=== PATIENT | male | born 1945 | race Caucasian/White ===

== ENCOUNTER 2024-11-08 12:27 | Outpatient (REF) | payer MEDICARE, SELFPAY | END 2024-11-08 12:28 | disposition home or self-care (01) | LOC: HO.LAB 12:27 | PROVIDERS: Visit Provider Family Medicine | DX: Z00.00 Encounter for general adult medical examination without abnormal findings (principal); R68.83 Chills (without fever); C85.90 Non-Hodgkin lymphoma, unspecified, unspecified site; N30.90 Cystitis, unspecified without hematuria | CPT/HCPCS: 99202 ==

== ENCOUNTER 2024-11-08 12:27 | Outpatient (AMB) | payer MEDICARE, SELFPAY ==
[2024-11-08 12:50] VITALS: BP 102/58; PULSE 92; TEMP 37.1; O2SAT 98; BMI 23.4
--- NOTE | 2024-11-08 12:50 | MHC.OFFWIV ---
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 Was recently treated with Bactrim for a bladder infection. Was recently told that his lymphoma is out of remission. Followed by oncologist. Dr Norah Valdes At [facility]. Denies cough Review of Systems Const Details: See HPI Physical Exam Vital Signs: Last Vital Signs Temp 98.8 F 11/08/24 12:50 Pulse 92 11/08/24 12:50 BP 102/58 L 11/08/24 12:50 Pulse Ox 98 11/08/24 12:50 BMI result Body Mass Index 23.4 Const General: no acute distress and well developed Nutritional Appearance: well nourished Orientation/consciousness: patient oriented x3 HEENT Other: Mucous membranes dry Head: Yes normocephalic and Yes atraumatic Eyes General: appearance normal, both eyes and all related structures Pupils: Equal, round and reactive pupils present EOM: EOMs intact bilaterally Resp Effort & Inspection: normal respiratory effort Auscultation: clear to auscultation bilaterally Cardio Rate: regular rate Rhythm: regular rhythm Heart sounds: S1 normal heart sound present, S2 normal heart sound present, no gallops, no murmurs and no rubs Neuro General: patient oriented x3 and gait normal Cranial nerves: Yes Equal, round and reactive pupils present Psych Affect: normal affect Assessment & Plan Assessment & Plan (1) Chills: Code(s): R68.83 - Chills (without fever) Plan: 79-year-old male with history of lymphoma which he says is recently no longer in remission, and recent history of bladder infection which had been treated with Bactrim presents with chills and weakness/fatigue. No acute distress on exam. At lungs are clear to auscultation bilaterally. No evidence of pneumonia. No upper respiratory infections identified. No abdominal discomfort. He did have a recent bladder infection however. Patient recently out of remission with lymphoma. Will treat for likely urinary tract infection with cephalexin. Recently had Bactrim. Increase hydration. Patient does not drink much water. Checking urine studies, CBC and CMP. Will have results sent to his oncologist at [facility]. Patient does not currently have a primary care physician and I recommended he try to get 1 as soon as he can. If not improving return to clinic. Declines chest x-ray at this time but if he returns would include this in workup. If worsening, go to ED (2) Lymphoma: Code(s): C85.90 - Non-Hodgkin lymphoma, unspecified, unspecified site (3) Bladder infection: Code(s): N30.90 - Cystitis, unspecified without hematuria Plan Oncologist. Dr Norah Valdes At [facility] Orders: Orders Complete Blood Count Auto Diff Today R68.83 - Chills (without fever), Z00.00 - Encounter for general adult medical examination without abnormal findings Comprehensive Met. Panel Today R68.83 - Chills (without fever) UA and rflx microscopic Today R68.83 - Chills (without fever), Z00.00 - Encounter for general adult medical examination without abnormal findings Urine Culture Today R68.83 - Chills (without fever) Medications: New cephalexin 500 mg PO Q12H 10 days 20 caps 0RF Coding Level of Care Code New Pt Level 4 (51483) Diagnoses Chills R68.83 Lymphoma C85.90 Bladder infection N30.90
== END 2024-11-08 14:28 | disposition home or self-care (01) ==
PROVIDERS: Visit Provider Family Medicine
DX: R68.83 Chills (without fever) (principal); C85.90 Non-Hodgkin lymphoma, unspecified, unspecified site; N30.90 Cystitis, unspecified without hematuria

== ENCOUNTER 2024-11-08 14:10 | Outpatient (REF) | payer MEDICARE, SELFPAY ==
[2024-11-08 15:11] LABS: MANUAL DIFF FLAG NO
[2024-11-08 15:15] LABS: Basophils Percent Auto 0.3 % (0-2); Hemoglobin 12.3 g/dl (14.0-18.0); Imm Gran Abs Auto 0.05 X10*3/uL (0.00-0.03); Imm Gran Pct Auto 0.7 % (0.0-0.4); Lymphocytes Absolute Auto 1.4 X10*3/uL (1.2-4.9); Lymphocytes Percent Auto 18.3 % (20-40); Mean Corpuscular HGB Conc 33.2 g/dl (31.0-36.0); Mean Corpuscular Hemoglobin 31.1 pg (27.0-33.0); Mean Corpuscular Volume 93.4 fL (80.0-98.0); Mean Platelet Volume 9.9 fL (9.4-12.4); Monocytes Absolute Auto 0.4 X10*3/uL (0.1-1.2); Monocytes Percent Auto 5.5 % (2-11); Neutrophils Absolute Auto 5.7 x10*3/uL (2.0-8.3); Neutrophils Percent Auto 75.2 % (45-73); Platelet Count 123 X10*3/uL (160-400); Red Blood Count 3.96 X10*6/uL (4.60-5.80); Red Cell Distribution Width 12.6 % (11.0-16.0); White Blood Count 7.6 X10*3/uL (4.8-10.8)
[2024-11-08 15:22] LABS: Appearance Urine Turbid; Color Urine Yellow; Glucose Urine UA Negative (Negative); Leukocyte Esterase Urine Large (3+) (Negative); Nitrite Urine Negative (Negative); PH 5.5 (5.0-9.0); Specific Gravity - Urine 1.015 (1.005-1.025); UMIC TRIGGER UA YES; Urine Blood Moderate (2+) (Negative); Urine Ketones Negative (Negative); Urine Protein 30 (1+) mg/dL (Neg-Trace)
[2024-11-08 15:40] LABS: Albumin Level 4.1 g/dL (3.5-5.0); Anion Gap 15 (12-20); Aspartate Amino Transferase 14 U/L (5-37); Bilirubin Total 0.6 mg/dL (0.0-1.0); Blood Urea Nitrogen 21 mg/dL (9-16); Calcium 9.1 mg/dL (8.4-10.2); Carbon Dioxide 20 mmol/L (22-29); Chloride 111 mmol/L (96-108); Estimated Glomerular Filt Rate 55; Glucose Random 112 mg/dL (60-115); Potassium 4.4 mmol/L (3.3-5.1); Sodium 142 mmol/L (135-145); Total Protein 6.6 g/dL (6.5-8.0)
[2024-11-08 16:32] LABS: Bacteria Urine None Seen (None Seen); Hyaline Casts Urine 0-2 /LPF (0-2); Squamous Epithelial Cell Urine 0-2 /HPF (0-2); WBC Urine >50 /HPF (0-5)
[2024-11-08 17:10] LABS: Alanine Aminotransferase 16 U/L (0-40); Alkaline Phosphatase 76 U/L (39-117)
== END 2024-11-08 14:11 | disposition home or self-care (01) ==
LOC: HO.HMGCLDS 14:10
PROVIDERS: Visit Provider Family Medicine
DX: Z00.00 Encounter for general adult medical examination without abnormal findings (principal); R68.83 Chills (without fever)
CPT/HCPCS: 36415; 80053; 81001; 85025; 87086

== ENCOUNTER 2025-01-23 13:30 | Outpatient (AMB) | payer MEDICARE, SELFPAY ==
--- NOTE | 2025-01-23 14:05 | A.OFFPC_ITS ---
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 Intake Note: new patient here to establish care Medical Care Manager Required: No Allergies No Known Allergies Allergy (Verified 01/23/25 14:14) Medication List - Last Reconciled 01/23/25 by Aj Bustos MD acalabrutinib maleate (Calquence (acalabrutinib maleate)) mg PO alfuzosin ER 10 mg PO DAILY 30 days aspirin (Adult Low Dose Aspirin) 81 mg PO DAILY atorvastatin 40 mg PO DAILY Tobacco use date assessed: 01/23/25 Fall risk assessment: 1 Fall in past year Last assessed Fall Risk: 01/23/25 Dental Screening Dental Screen Date: 01/23/25 Did you have a dental visit in the last 12 months?: No Did you have a dental problem in the last 6 months where you did not have access to dental care?: No Was dental information given to patient?: No HPI 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 Carotid U/S, Trial Alfuzosin, Social: Retired Worked in [employer] under [employer]. 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 Walks daily. FORMERLY [facility] Medical History (Updated 01/23/25 @ 17:33 by Aj Bustos MD) Deafness in right ear Enlarged prostate MCL (mantle cell lymphoma) Family History (Updated 01/23/25 @ 14:13 by GREGG Palomares) Father Diabetes Mother Esophageal cancer Social History Housing: Apartment Patient Tobacco Use Status: Former Tobacco user e-Cigarette/Vaping Use: Never Used service: Yes Current occupational status: retired Current occupational exposures/hazards: No Cognitive needs: No Hearing needs: Yes Vision needs: Yes Questionnaire PHQ-9 Over the last 2 weeks, how often have you been bothered by any of the following problems? 1. Little interest or pleasure in doing things: not at all 2. Feeling down, depressed, or hopeless: not at all 3. Trouble falling or staying asleep, or sleeping too much: not at all 4. Feeling tired or having little energy: several days 5. Poor appetite or overeating: not at all 6. Feeling bad about yourself - or that you are a failure or have let yourself or your family down: not at all 7. Trouble concentrating on things, such as reading the newspaper or watching television: not at all 8. Moving or speaking so slowly that other people could have noticed. Or the opposite - being so fidgety or restless that you have been moving around a lot more than usual: not at all 9. Thoughts that you would be better off or of hurting yourself in some way: not at all Total score: 1 Depression Screening Interpretation: Negative Depression Screening Done: Yes 91204 - PHQ-9 Billing: Yes Source: Developed by Drs. Matt Puentes, Lee Ann Staley, Rocael Plascencia and colleagues, with an educational christa from [employer]. Thrive Questionnaire Date Thrive assessed: 01/23/25 I am a: Patient What is your living situation today?: I have a steady place to live Within the past 12 months, did the food you bought not last and you didn't have the money to get more?: Never true Within the past 12 months, did you worry whether your food would run out before you got money to buy more?: Never true Do you have trouble paying for medicines?: No Do you have trouble getting transportation to medical appointments?: No Do you have trouble paying your heating and electricity bill?: No Do you have trouble taking care of your child, family member or friend?: No Do you have trouble with day-to-day activities such as bathing, preparing meals, shopping, managing finances, etc.?: No Are you currently unemployed and looking for a job?: No Are you interested in more education?: No Please select the resources that you would like help with: None Currently or been in a relationship where the following occur: No concerns reported THRIVE Score: 0 AUDIT C Alcohol Use Questionnaire (AUDIT-C) 1. How often do you have a drink containing alcohol?: 4 or more times a week 2. How many drinks containing alcohol do you have on a typical day when you are drinking?: 1 or 2 3. How often do you have six or more drinks on one occasion?: Never Total Score: 4 Score Reviewed/Action Taken: Yes MAHSA-7 AMB Questionnaire MAHSA-7 Date MAHSA - 7 assessed: 01/23/25 Feeling nervous, anxious, or on edge: 0 = Not at all Not being able to stop or control worryin = Not at all Worrying too much about different things: 0 = Not at all Trouble relaxin = Not at all Being so restless that it is hard to sit still: 0 = Not at all Becoming easily annoyed or irritable: 0 = Not at all Feeling afraid as if something awful might happen: 1 = Several days Total MAHSA-7 score (0-4 normal; 5-9 mild; 10-14 moderate; 15-21 severe): 1 Source: Developed by Drs. Matt Puentes, Lee Ann Staley, Rocael Plascencia and colleagues, with an educational christa from [employer]. MAHSA-7 Assessment Billing MAHSA-7 Assessment Tool: MAHSA-7 Assessment 24536 Review of Systems Const Denies chills, Denies fatigue, Denies fever(s), Denies headache(s) and Denies weakness ENT Denies dizziness and Denies headache(s) Card Denies chest pain, Denies lightheadedness, Denies dyspnea and Denies other (Palpitations) Resp Denies cough, Denies dyspnea, Denies wheezing and Denies other ( shortness of breath) Musc Denies numbness and Denies tingling Neuro Denies dizziness, Denies headache(s), Denies numbness, Denies tingling, Denies paresthesias and Denies weakness Psych Denies anxiety and Denies depression Endo Denies fatigue Aller/Immun Denies wheezing Physical exam (Primary Care) Vital Signs: Last Vital Signs Temp 98.2 F 01/23/25 14:16 Pulse 77 01/23/25 14:16 Resp 14 01/23/25 14:16 BP 102/57 L 01/23/25 14:16 Pulse Ox 95 01/23/25 14:16 Oxygen Delivery Method Room Air 01/23/25 14:16 BMI result Body Mass Index 23.7 Tobacco/Smoking Status: Tobacco use Status Tobacco use date assessed 01/23/25 01/23/25 14:24 Patient Tobacco Use Status Former Tobacco user 01/23/25 14:24 e-Cigarette/Vaping Use Never Used 01/23/25 14:24 PHQ-9: PHQ-9 Score PHQ-9: Total score 1 01/23/25 14:50 Depression Screening Interpretation: Negative Thrive Assessment: Date of Thrive Assessment Date Thrive assessed 01/23/25 01/23/25 14:23 Currently or been in a relationship where the following occur: No concerns reported Const General: no acute distress and well developed Nutritional Appearance: well nourished Orientation/consciousness: patient oriented x3 HENMT Head: Yes normocephalic and Yes atraumatic Eyes General: appearance normal, both eyes and all related structures Pupils: Equal, round and reactive pupils present EOM: EOMs intact bilaterally Resp Effort & Inspection: normal respiratory effort Auscultation: clear to auscultation bilaterally Cardio Rate: regular rate Rhythm: regular rhythm Heart sounds: S1 normal heart sound present, S2 normal heart sound present, no gallops, no murmurs and no rubs Neuro General: patient oriented x3 and gait normal Cranial nerves: Yes Equal, round and reactive pupils present Psych Affect: normal affect Coding Level of Care Code New Pt Level 4 (31175) Diagnoses Lymphoma C85.90 Urinary retention R33.9 TIA (transient ischemic attack) G45.9 Carotid artery plaque I65.29 Additional Codes MAHSA-7 Assessment Billing - MAHSA-7 Assessment Tool: MAHSA-7 Assessment 61596 ([id number]) PHQ-9 - 96565 - PHQ-9 Billing: Yes ([id number]) Assessment & Plan Assessment & Plan (1) Lymphoma: Code(s): C85.90 - Non-Hodgkin lymphoma, unspecified, unspecified site Category: Medical Plan: Patient?with?diagnosis?of?lymphoma?and?recent?PET?scan?in?August?showed?no?long er?in?remission. Followed?by?hematology?and?Oncology?at?[facility] Awaiting?records (2) Urinary retention: Code(s): R33.9 - Retention of urine, unspecified Category: Medical Plan: Urinary?retention?which?is?managed?with?tamsulosin.??Patient?says?this?manages?h is?urinary?symptoms?well?but?causes?significant?fatigue and?fogginess. Trial?alfuzosin He?will?return?to?tamsulosin?if?any?problems. (3) TIA (transient ischemic attack): Code(s): G45.9 - Transient cerebral ischemic attack, unspecified Category: Medical Plan: Patient?notes?history?of?TIA Does?not?appear?to?be?fully?worked?up?though?I?do?not?have?records.??He?is?on?at orvastatin?and?aspirin?and?I?advised?continue?the Does?have?carotid?bruit?and?PET?scan?med?she?was?incidental?carotid? artery?plaques Check?ultrasound?of?carotid?arteries (4) Carotid artery plaque: Code(s): I65.29 - Occlusion and stenosis of unspecified carotid artery Category: Medical Plan: As?above,?check?ultrasound May?need?referral?to?vascular?surgery Orders: Orders Comprehensive [place]. Panel Fast 01/23/25 Z00. - Encounter for general adult medical examination without abnormal findings Complete Blood Count Auto Diff 01/23/25 Z00. - Encounter for general adult medical examination without abnormal findings Prostate Specific Antigen Scr 01/23/25 Z12.5 - Encounter for screening for malignant neoplasm of prostate TSH reflex Free T4 01/23/25 Z00.00 - Encounter for general adult medical examination without abnormal findings XR chest 2V 01/23/25 C85.90 - Non-Hodgkin lymphoma, unspecified, unspecified site, R09.89 - Other specified symptoms and signs involving the circulatory and respiratory systems US carotid duplex BI 01/23/25 G45.9 - Transient cerebral ischemic attack, unspecified, I65.29 - Occlusion and stenosis of unspecified carotid artery, R09.89 - Other specified symptoms and signs involving the circulatory and respiratory systems Lipid Panel 01/23/25 Z00. - Encounter for general adult medical examination without abnormal findings Microalbumin, Random (w Creat) 01/23/25 I10 - Essential (primary) hypertension UA and rflx microscopic 01/23/25 Z. - Encounter for general adult medical examination without abnormal findings MuSK Antibody 01/23/25 R29.810 - Facial weakness Acetylcholine Receptor Binding 01/23/25 R29.810 - Facial weakness Medications: New alfuzosin ER administer after the same meal each day 10 mg PO DAILY 30 days 30 tabs 1RF
[2025-01-23 14:16] VITALS: BP 102/57; PULSE 77; RESP 14; TEMP 36.8; O2SAT 95; BMI 23.7
--- OUTSIDE RECORDS SUMMARY | 2025-01-23 15:09 | XMS_ITS ---
Author Organization [facility] Address [address] [place] [address] Care Team Providers Care Binder Technician Name Role Phone DO NOT USE Shirley Quintanilla MD Primary Care Provider Unavailable PHYLLIS ANGELA Unavailable [phone] BLESSING SMITH Unavailable [phone] REASON FOR VISIT CM IE - 1 call 02/26 Encounters Encounter Location Date Provider Diagnosis [facility] [address] [place] [address] 02/18/2024 BLESSING SMITH Plan Of Treatment No Information Progress Notes * Matt HOFFMANDOB:1944 (78 yo M)Acc No.[id number]:02/18/2024 Patient:?Matt HOFFMAN :1945???Age:78 Y???Sex:Male Address:[facility] [address] [place], [address] * true * Date:? Generated for Printi lauro/Yuan/eTransmitting on:?01/23/2025 03:09 PM EST
--- OUTSIDE RECORDS SUMMARY | 2025-01-23 15:10 | XMS_ITS ---
Author Organization [facility] Address [address] [place] [address] Care Team Providers Care Trading Assistant Name Role Phone Shirley Quintanilla MD Primary Care Provider UnavailTONE Urias Unavailable [phone] CORY BROWN Unavailable [phone] Allergies No Known Allergies Results Component Value Reference Range Notes XR Hand 3 v RT Reviewed date:10/23/2023 10:16:54 AM Interpretation: Performing Lab: Notes/Report: REASON FOR VISIT RT Thumb clicking Medications Medication SIG (Take, Route, Frequency, Duration) Notes Start Date End Date Status Atorvastatin Calcium 40 MG Oral for 90 Active Sulfamethoxazole-Trimethopri m 400-80 MG Oral for 90 Active Acalabrutinib 100 MG 1 capsule Orally ev ramsey 12 hrs for 30 day(s) Active Aspirin 81 MG 1 capsule Orally Onc e a day for 30 day(s) Active Vitamin D3 Active Calquence 100 MG Oral for 30 A ctive Social History Tobacco Use: Social History Observation Description Date Details (start date - stop date) Former Smoker NA - NA Tobacco Use/Smoking Question Answer Notes Current Smoking Status: former smoker Alcohol Screen (Audit-C) Question Answer Notes Did you have a drink containing alcohol in the p ast year? Yes Points 0 Interpretation Negative Problems Problem Type SNOMED Code ICD Code Onset Dates Problem Status W/U Status Risk Notes Problem [id number] Trigger finger of right thumb (M65.311) Active confirmed Vital Signs Height 69 in 10/23/2023 Weight 164 lbs 10/23/2023 BMI 24.22 kg/m2 10/23/2023 Encounters Encounter Location Date Provider Diagnosis [facility] [address] [place] [address] 10/23/2023 CORY BROWN Trigger finger of right thumb M65.311 Assessments Encounter Date Diagnosis (ICD Code) Assessment Notes Treatment Notes Treatment Clinical Notes Section Notes 10/23/2023 Trigger finger of right thumb (ICD-10 - M65.311) The patient's history, exam, and imaging are consistent with a right trigger thumb. I discussed treatment options with the patient including ice/heat, NSAIDs, occupational therapy, nighttime splinting, cortisone injection, and surgery in the form of trigger finger release. The patient opted for a cortisone injection in the office today, 10/23/2023 to his right trigger thumb. Right trigger thumb. Plan Of Treatment Treatment Notes Assessment Notes Trigger finger of right thumb The patien t's history, exam, and imaging are consistent with a right trigger thumb. I discussed treatment options with the patient including ice/heat, NSAIDs, occupational therapy, nighttime splinting, cortisone injection, and surgery in the form of trigger finger release. The patient opted for a cortisone injection in the office today, 10/23/2023 to his right trigger thumb. Next Appt Details Follow Up: prn, Reason: Medications Administered Medication Instructions Date of Administration Dosage Notes Celestone 10/23/2023 6 mg Inj Tendon Sheath Ligament 10/23/2023 Progress Notes * Matt HOFFMANDOB:07/1945 (78 yo M)Acc No.[id number]:10/23/2023 Patient:?Matt Hoffman Provider:?KOLE Raza :1945???Age:78 Y???Sex:Male Federico e:10/23/2023 Address:[address] Pcp:Shirley Quintanilla MD Subjective: * Chief Complaints: * ???RT Thumb clicking * HPI: ???Constitutional:? Mr. Hoffman is a 78-year-old RHD male who presents to the clinic today for evaluation of right thumb clicking. ?Today, the patient reports clicking in his right thumb with certain movements. He states his symptoms began suddenly approximately 2 weeks ago. ?Mr. Hoffman is retired. 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 * ROS:?General/Constitutional: Change in appetite denies. Chills denies. Fever denies. Ophthalmologic: Blurred vision denies. Discharge denies. Eye Pain denies. ENT: Decreased hearing denies. Sore throat denies. Swollen glands denies. Endocrine: Cold intolerance denies. Excessive thirst denies. Heat intolerance denies. Weight loss denies. Respiratory: Cough denies. Shortness of breath at rest denies. Shortness of breath with exertion denies. Wheezing denies. Cardiovascular: Chest pain at rest denies. Chest pain with exertion denies. Irregular heartbeat denies. Shortness of breath denies. Gastrointestinal: Abdominal pain denies. Diarrhea denies. Nausea denies. Vomiting denies. Genitourinary: Blood in urine denies. Difficulty urinating denies. Frequent urination denies. Skin: Dry skin denies. Itching denies. Rash denies. Neurologic: Dizziness denies. Fainting denies. Headache denies. Musculoskeletal: Positive for right thumb clicking. * Medical History:? * Surgical History:?No Surgica l History documented. * Hospitalization/Major Diagno stic Procedure:?No Hospitalization History. * Family History:?Father: diag nosed with Diabetes, Heart Disease, Hypertension.?Mother: diagnosed with Cancer, OP, OA.? * Social History:?Tobacco Use:?Tobacco Use/Smoking?Current Smoking Status:?former smoker ???Drugs/Alcohol:?Drugs?Have you used drugs other than those for medical reasons in the past 12 months??No ?Alcohol Screen (Audit-C)?Did you have a drink containing alcohol in the past year??Yes ?Points?0 ?Interpretation?Negative ?Caffeine?Intake:?1-2 cups per day ?Do you smoke marijuana?: Denies. ?Do you drink alcohol?: Yes. ???Miscellaneous:?Hand dominance?What hand do you favor??right * Medications:?TakingVitamin D 3 Aspirin 81 MG Capsule 1 capsule Orally Once a dayAcalabrutinib 100 MG Capsule 1 capsule Orally every 12 hrsCalquence 100 MG Capsule Oral Sulfamethoxazole-Trimethoprim 400-80 MG Tablet Oral Atorvastatin Calcium 40 MG Tablet Oral Medication List reviewed and reconciled with the patientTaking Vitamin D3 Taking Aspirin 81 MG Capsule 1 capsule Orally Once a dayTaking Acalabrutinib 100 MG Capsule 1 capsule Orally every 12 hrsTaking Calquence 100 MG Capsule Oral Taking Sulfamethoxazole-Trimethoprim 400-80 MG Tablet Oral Taking Atorvastatin Calcium 40 MG Tablet Oral Medication List reviewed and reconciled with the patient * Allergies:?N.K.D.A.no[Allerg ies Verified] Objective: * Vitals:?Ht: 69 in, Wt: 164 l bs, BMI:24.22 Index. * Examination: ???Right hand: ???FINGER INVOLVED: thumb ?INSPECTION: No color changes, no skin changes, no swelling ?WOUNDS: None present ?DEFORMITY: None ?TENDERNESS: Tender at thumb A1 claus ?MASS: None appreciated ?RANGE OF MOTION: Locking of digit on extension from a flexed position ?STABILITY: No instability noted ?STRENGTH: Normal, no atrophy ?SKIN: Normal ?SENSATION: Normal sensation ?VASCULAR: Good capillary refill < 3 second. ???General Examination: ???GENERAL APPEARANCE: no acute distress ?ORIENTATION: alert and oriented x 3 ?MOOD: cooperative. ??? Assessment: * Assessment: 1.?Trigger finger of right t humb - M65.311 (Primary)? Right trigger thumb. Plan: * Treatment: Notes: The patient's history, exam, and imaging are consistent with a right trigger thumb. I discussed treatment options with the patient including ice/heat, NSAIDs, occupational therapy, nighttime splinting, cortisone injection, and surgery in the form of trigger finger release. The patient opted for a cortisone injection in the office today, 10/23/2023 to his right trigger thumb.?? * Procedures:?Right trigger thumb cortisone injection: The patient's RIGHT hand was placed on the examination table with the palm up. The palpable nodule of the thumb finger was palpated on the flexor tendon, just distal to the A1 claus. The skin was prepped with alcohol. A 27-gauge, 1 1/2-inch needle was inserted just superior to the A1 claus, adjacent to the flexor tendon, angling inferiorly. Once under the claus I injected a solution containing equal parts of 1 cc of Celestone and 0.5 cc of 1% lidocaine. A total of 1.5 cc of solution was injected. The needle was removed and a sterile dressing was applied. ? * Therapeutic Injections:? Celestone : 6 mg given by KOLE RAZA (Trigger finger of right thumb)??? Inj Tendon Sheath Ligament given by KOLE RAZA (Trigger finger of right thumb) * Procedure Codes:?61619 Rad E xam Hand (3 view min)J0702 INJ BETAMETHSN ACTAT&SOD PHOSPH-3MG, Units: 2.00 09443 Inj Tendon Sheath Ligament, Modifiers: LT * Follow Up:?prn * * Sign off status: Completed true * Provider:?KOLE Raza Date:? 023 Generated for Wood restrepo/Yuan/Bud on:?01/23/2025 03:10 PM EST History and Physical Notes * Examination Category Sub-Category Detail Notes Category Not es Right hand FINGER INVOLVED: thumb INSPECTION: No color changes, no skin changes, no swelling WOUNDS: None present DEFORMITY: None TENDERNESS: Tender at thumb A1 claus MASS: None appreciated RANGE OF MOTION: Locking of digit on extension from a flexed position STABILITY: No instability noted STRENGTH: Normal, no atrophy SKIN: Normal SENSATION: Normal sensation VASCULAR: Good capillary refill < 3 second General Examination GENERAL APPEARANCE: no acute distress ORIENTATION: alert and oriented x 3 MOOD: cooperative.
--- OUTSIDE RECORDS SUMMARY | 2025-01-23 15:10 | XMS_ITS | Patient Health Record ---
Author Organization [facility] Address [address] [place] [address] Care Team Providers Care Living Manager Name Role Phone DO NOT USE Shirley Quintanilla MD Primary Care Provider Unavailable ANGELA FERGUSON Unavailable [phone] BLESSING SMITH Unavailable [phone] Allergies No Known Allergies Reason For Referral No Information Medications Medication SIG (Take, Route, Fr equency, Duration) Notes Start Date End Date Status Bactrim 400 mg-80 mg as directed orally daily Active sildenafil Active Aspirin Low Strength Active Calquence 100 mg 1 cap(s) orally ever y 12 hours for 30 day(s) Active atorvastatin 40 mg 1 tab(s) orally once a day for 30 day(s) 09/06/2020 Active Social History Tobacco Use: Social History Observation Description Date Details (start date - stop date) Former Smoker NA - NA Smoking MU Question Answer Notes Are you a: former smoker How long has it been since you last smoked? 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 the i te House, [employer], worked in the Whi te House, [employer], worked in the Whi te House, [employer], worked in the Whi te House, [employer], worked in the Whi te House, [employer], worked in the Whi te House, [employer], worked in the Whi te House, [employer], worked in the Whi te House, [employer], worked in the Whi te House, [employer], worked in the i te House, Problems Problem Type SNOMED Code ICD Code Onset Dates Problem Status W/U Status Risk Notes Problem Urinary tract infectious disease (54380495) Urinary tract infection, site not specified (N39.0) Active confirmed Problem Gross hematuria (127956704) Gross hematuria (R31.0) Active confirmed Problem Incomplete emptying of bladder (764481815) Feeling of incomplete bladder emptying (R39.14) Active confirmed Problem Hydronephrosis (07372091) Other hydronephrosis (N13.39) Active confirmed Problem Traumatic urethral stricture (40834656) urethral stricture, 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) Active confirmed Problem Retention of urine (788217867) Other retention of urine (R33.8) Active confirmed Problem Post-traumatic membranous urethral stricture (545184117547077) 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 Problem Lower urinary tract symptoms due to benign prostatic hypertrophy (68743664555618) Benign prostatic hyperplasia with lower urinary tract symptoms (N40.1) Active confirmed Problem Incomplete emptying of bladder (049673670) Feeling of incomplete bladder emptying (R39.14) Active confirmed Encounters Encounter Location Date Provider Diagnosis [facility] [address] [place] [address] 02/18/2024 BLESSING SMITH [facility] [address] [place] [address] 04/19/2024 BLESSING SMITH Plan Of Treatment Pending Test Test Name Order Date BUN/CREATININE RATIO 08/19/2022 ELECTROLYTE PANEL 08/19/2022 URINE CULTURE AND SENSITIVITY 04/05/2023 URINALYSIS, COMPLETE 04/05/2023 URINALYSIS MICROSCOPIC 10/19/2018 CBC 04/05/2023 UPAP - Urine Cytology 09/19/2017 UARCUA 09/19/2017 ClinitekStatus SG 03/19/2023 Insurance Providers Payer Name Payer Address Payer Phone Subscriber Number Group Number Insured Name Patient Relationship to Insured Coverage Start Date Coverage End Date MEDICARE [address] [place] [phone] [id number] Matt Schmidt am Self - patient is the insured [employer] - [employer] [address] [place] [address] [id number] Matt Schmidt am Self - patient is the insured Medical (General) History Medical History History ICD Code Mantle Cell Lymphoma hyperlipidemia Surgical History Surgery Date(Month/Year) Button TURP 2013 acoustic neuroma - gamma knife 1999 knee arthroscopy
--- OUTSIDE RECORDS SUMMARY | 2025-01-23 15:10 | XMS_ITS ---
Author Organization [facility] Address [address] [place] [address] Care Team Providers Care Brooch Maker Novelty Name Role Phone DO NOT USE Shirley Quintanilla MD Primary Care Provider Unavailable ANGELA FERGUSON Unavailable [phone] BLESSING SMITH Unavailable [phone] Allergies No Known Allergies REASON FOR VISIT 6 mo ov w/ PVR; BPH w/ obstr, ED- arterial insuffiency, gross hematuria, urge incontinence Encounters Encounter Location Date Provider Diagnosis [facility] [address] [place] [address] 03/03/2024 BLESSING MSITH Plan Of Treatment No Information Progress Notes * Matt HOFFMANDOB:1944 (79 yo M)Acc No.[id number]:03/03/2024 est/CM pt Patient:?Matt HOFFMAN Provider:?BERTRAM MENDEZ :1945???Age:78 Y???Sex:Male Federico e:03/03/2024 Address:[facility] [address] [id number] Pcp:Shirley LAINEZ NOT USE David Quintanilla Subjective: * Chief Complaints: * ???1. 6 mo ov w/ PVR; BPH w/ obstr, ED- arterial insuffiency, gross hematuria, urge incontinence. * HPI: ???Problem 1:? 78 year old male pt of Dr Ferguson in for 6 month f/u on hx of BPH/LUTs, gross hematuria, ED, He was given Rx for Cialis 5mg daily for BPH/LUTS to try if he wanted, he has not. Denies dysuria, gross hematuria, fever, chills. Had stopped Finesteride for decreased libido. Off tamsulsin also. Using VIagra PRN. No UTIs. Is on a dose of Bactrim daily rx by Oncology r/t his Mantle Cell Lymphoma treatment Reports is doing timed voiding, Uses Depends at night, will wet. Bed is 9-10P up at 6am. Gets up usually once between 2 and 4am. - per JR last note ; No plans for PAE for now - would need cysto / dilation of stricture first, and symptoms do not bother him enough to have a procedure done at this time. PVR last visit 381ml -PVR today:? BPH / LUTS. Recent gross hematuria, likely from prostatic bleed. Resolved. Unable to complete cystoscopy because of membranous narrowing. S/P TURP many years ago. Normal renal funciton. Intermittent hydro. Libido has improved since he stopped Finasteride. Uses Viagra PRN. . A: Urological History/Sx: Problem List: (1)Prostate Enlargement -Button TURP 2013 (Dr. Walker) -Started Finasteride 03/2018, stopped 2018 -Finasteride and Flomax started 03/21/2022 -Stopped Flomax 06/2022 (2)Gross Hematuria likely secondary to prostatic bleed. (3)UTIs (07/2017, 09/2017, 12/2016) (4)Membranous urethral stricture 78 year old male with h/o BPH / LUTS, recurrent UTIs, and intermittent gross hematuria. INTERVAL HISTORY: Stopped Finasteride 11/2022 (as per oncology - not helping LUT, and decreasing libido). Recent gross hematuria. Creat stable. PET 11/2022 with B/L hydroureteronephrosis. Recent PVR ~500cc Cystoscopy attempted 03/2023. Unable to complete because of membrranous urethral stricture. Arrangements were made for cystoscopy / dilation in the OR. Patient declined. Also were considering prostate artery embolization. Symptoms have improved. No further gross hematuria. [facility]. recently was terminal ill (2021) He is on Calquence for MLC. Follows at [facility]. PMH: TIA, mantle cell lymphoma (s/p stem cell transplant and chemo), acoustin neuroma, hyperlipidemia, migraine, syncope, BPH, osteopenia, CAD 04/27/23 PVR: 407mL 04/05/23 Cystoscopy: Membranous urethral stricture, unable to complete cystoscopy 03/27/23 Creat: 1.04, eGFR >60 03/22/23 PVR: 482mL 03/19/23 UAmicro: 20-40 RBCs, (-)Bacteria, Urine PCR: negative 03/19/23 Urine Cytology: Negative 11/28/22 PET SCAN: Prostatomegaly with findings consistent with chronic bladder outlet obstruction, with similar to slightly worsening bilateral hydroureteronephrosis. Please correlate with renal function tests and/or ultrasound. Recommend correlation with Left hydronephrosis and right hydroureter. No FDG avid activity. 08/24/22 PVR: 485mL 08/15/22 Creat: 1.10, eGFR >60 04/24/22 RBUS: No right hydro. Moderate left hydro. PVR 367mL. Prostate volume of 100mL. B/L ureteral jets are seen. 04/24/22 Creat: 1.17, eGFR 59 03/21/22 PVR: 561mL 03/20/22 PSA: 1.66 01/24/22 PET Scan (read only): worsening b/l hydroureteronephrosis (left > right) likely secondary to ARRIAGA related to prostatomegaly. No evidence of FDG-avid malignancy. 01/24/22 Creat: 1.20, eGFR 62 03/24/21 PET Scan (read only): No FDG avid activity. No hydro. 03/24/21 Creat: 1.13, eGFR >60 06/29/20 PET Scan: No FDG avid lymphoma. FDG avidity at prostate likley secondary to calcification and inflammation. 06/01/20 Cysto: Normal anterior urethra. Slighty narrow at membranous urethra, but no need for dilation. TURP defect, friable tissue, hypervascular. Bladder trabeculations. 05/20/20 Urine Culture: No Growth 07/03/19 PVR: 307mL 05/06/19 Urine Cytology: Benign, Urine Cx: Mixed Amy 12/23/18 PVR: 192mL 11/07/18 PVR: 350mL 10/31/18 UA Micro: Negative 08/06/18 PSA: 1.7 06/25/18 PET Scan: Significant decrease in disease burden. Prostatomegaly. 06/24/18 Urine Cx: Enterococcus 04/10/18 Creat: 0.99, eGFR >60 04/01/18 UA: Positive, Urine Cx; Enterococcus 01/17/18 PVR: 350mL 01/16/18 Creat: 1.03, eGFR >60 12/21/17 Urine Culture: E Faecalis 12/21/17 UA Micro: 4-10 RBCs/hpf, >50 WBCs/hpf, (+)Bacteria 07/19/17 Cystoscopy: Trabeculations, friable prostate. . * Medical History:?Mantle Cell Lymphoma, Hyperlipidemia. * Family History:?Father: unkn own, family history unknown .?Mother: unknown, family history unknown .? Brother prostate cancer. * Allergies:?N.K.D.A. Objective: * Vitals:? Assessment: Plan: * Treatment: * Images: Billing Information: * Visit Code:? * Procedure Codes:? * Electronic signature of Miguel HOANG on 01/23/2025 at 03:09 PM EST Sign off status: Pending * Provider:?SARAVANAN MENDEZ Date:?03/03 Generated for Wood restrepo/Yuan/Idaitting on:?01/23/2025 03:09 PM EST History and Physical Notes * HPI (History of Present Illness) Category Sub-Category Detail Notes Category Not es Problem 1 78 year old male pt of Dr Ferguson in for 6 month f/u on hx of BPH/LUTs, gross hematuria, ED, He was given Rx for Cialis 5mg daily for BPH/LUTS to try if he wanted, he has not. Denies dysuria, gross hematuria, fever, chills. Had stopped Finesteride for decreased libido. Off tamsulsin also. Using VIagra PRN. No UTIs. Is on a dose of Bactrim daily rx by Oncology r/t his Mantle Cell Lymphoma treatment Reports is doing timed voiding, Uses Depends at night, will wet. Bed is 9-10P up at 6am. Gets up usually once between 2 and 4am. - per JR last note ; No plans for PAE for now - would need cysto / dilation of stricture first, and symptoms do not bother him enough to have a procedure done at this time. PVR last visit 381ml -PVR today: BPH / LUTS. Recent gross hematuria, likely from prostatic bleed. Resolved. Unable to complete cystoscopy because of membranous narrowing. S/P TURP many years ago. Normal renal funciton. Intermittent hydro. Libido has improved since he stopped Finasteride. Uses Viagra PRN. . A: Urological History/Sx: Problem List: (1)Prostate Enlargement -Button TURP 2013 (Dr. Walker) -Started Finasteride 03/2018, stopped 2018 -Finasteride and Flomax started 03/21/2022 -Stopped Flomax 06/2022 (2)Gross Hematuria likely secondary to prostatic bleed. (3)UTIs (07/2017, 09/2017, 12/2016) (4)Membranous urethral stricture 78 year old male with h/o BPH / LUTS, recurrent UTIs, and intermittent gross hematuria. INTERVAL HISTORY: Stopped Finasteride 11/2022 (as per oncology - not helping LUT, and decreasing libido). Recent gross hematuria. Creat stable. PET 11/2022 with B/L hydroureteronephrosis. Recent PVR ~500cc Cystoscopy attempted 03/2023. Unable to complete because of membrranous urethral stricture. Arrangements were made for cystoscopy / dilation in the OR. Patient declined. Also were considering prostate artery embolization. Symptoms have improved. No further gross hematuria. He is back on [facility]. recently was terminal ill (2021) [facility] is on [facility] for [facility]. Follows at [facility]. PMH: TIA, mantle cell lymphoma (s/p stem cell transplant and chemo), acoustin neuroma, hyperlipidemia, migraine, syncope, BPH, osteopenia, CAD 04/27/23 PVR: 407mL 04/05/23 Cystoscopy: Membranous urethral stricture, unable to complete cystoscopy 03/27/23 Creat: 1.04, eGFR >60 03/22/23 PVR: 482mL 03/19/23 UAmicro: 20-40 RBCs, (-)Bacteria, Urine PCR: negative 03/19/23 Urine Cytology: Negative 11/28/22 PET SCAN: Prostatomegaly with findings consistent with chronic bladder outlet obstruction, with similar to slightly worsening bilateral hydroureteronephrosis. Please correlate with renal function tests and/or ultrasound. Recommend correlation with Left hydronephrosis and right hydroureter. No FDG avid activity. 08/24/22 PVR: 485mL 08/15/22 Creat: 1.10, eGFR >60 04/24/22 RBUS: No right hydro. Moderate left hydro. PVR 367mL. Prostate volume of 100mL. B/L ureteral jets are seen. 04/24/22 Creat: 1.17, eGFR 59 03/21/22 PVR: 561mL 03/20/22 PSA: 1.66 01/24/22 PET Scan (read only): worsening b/l hydroureteronephrosis (left > right) likely secondary to ARRIAGA related to prostatomegaly. No evidence of FDG-avid malignancy. 01/24/22 Creat: 1.20, eGFR 62 03/24/21 PET Scan (read only): No FDG avid activity. No hydro. 03/24/21 Creat: 1.13, eGFR >60 06/29/20 PET Scan: No FDG avid lymphoma. FDG avidity at prostate likley secondary to calcification and inflammation. 06/01/20 Cysto: Normal anterior urethra. Slighty narrow at membranous urethra, but no need for dilation. TURP defect, friable tissue, hypervascular. Bladder trabeculations. 05/20/20 Urine Culture: No Growth 07/03/19 PVR: 307mL 05/06/19 Urine Cytology: Benign, Urine Cx: Mixed Amy 12/23/18 PVR: 192mL 11/07/18 PVR: 350mL 10/31/18 UA Micro: Negative 08/06/18 PSA: 1.7 06/25/18 PET Scan: Significant decrease in disease burden. Prostatomegaly. 06/24/18 Urine Cx: Enterococcus 04/10/18 Creat: 0.99, eGFR >60 04/01/18 UA: Positive, Urine Cx; Enterococcus 01/17/18 PVR: 350mL 01/16/18 Creat: 1.03, eGFR >60 12/21/17 Urine Culture: E Faecalis 12/21/17 UA Micro: 4-10 RBCs/hpf, >50 WBCs/hpf, (+)Bacteria 07/19/17 Cystoscopy: Trabeculations, friable prostate. .
--- OUTSIDE RECORDS SUMMARY | 2025-01-23 15:10 | XMS_ITS | Patient Health Record ---
Author Organization [facility] Address [address] [place] [address] Care Team Providers Care Marine Drafter Name Role Phone Shirley Quintanilla MD Primary Care Provider TONE Marquez Unavailable [phone] Allergies No Known Allergies Reason For Referral No Information Medications Medication SIG (Take, Route, Frequency, Duration) Notes Start Date End Date Status Atorvastatin Calcium 40 MG Oral for 90 Active Sulfamethoxazole-Trimethopri m 400-80 MG Oral for 90 Active Calquence 100 MG Oral for 30 A ctive Acalabrutinib 100 MG 1 capsule Orally ev ramsey 12 hrs for 30 day(s) Active Aspirin 81 MG 1 capsule Orally Onc e a day for 30 day(s) Active Vitamin D3 Active Social History Tobacco Use: Social History [...] Problem Status W/U Status Risk Notes Problem Chronic pain (76435070) Other chronic pain (G89.29) Active confirmed Problem Contracture of right knee joint (disorder) (135728155572106) Contracture, right knee (M24.561) Active confirmed Problem [id number] Pain in right ankle and joints of right foot (M25.571) Active confirmed Problem Osteoarthritis of knee (411724121) Primary osteoarthritis of right knee (M17.11) Active confirmed Problem 149327342636187 Trigger finger o f right thumb (M65.311) Active confirmed Problem 99738291 Closed nondisplaced avulsion fracture of tuberosity of right calcaneus with routine healing, subsequent encounter (S92.034D) Active confirmed Problem 26305175 Open nondisplace d avulsion fracture of tuberosity of right calcaneus, initial encounter (S92.034B) Active confirmed Plan Of Treatment No Information Insurance Providers Payer Name Payer Address Payer Phone Subscriber Number Group Number Insured Name Patient Relationship to Insured Coverage Start Date Coverage End Date Medicare [address] [place] [address] [id number] Matt Schmidt am Self - patient is the insured [employer] [address] [place] [address] [id number] Matt Schmidt am Self - patient is the insured Medications Administered Medication Instructions Date of Administration Dosage Notes Celestone 10/23/2023 6 mg Inj Tendon Sheath Ligament 10/23/2023 LRG Dexamethasone-UGI 06/12/2022 4 mg LRG Dexamethasone-UGI 07/25/2022 4 mg LRG Dexamethasone-UGI 08/30/2023 4 mg Medical (General) History Medical History History ICD Code mantle cell lymphoma Surgical History Surgery Date(Month/Year)
--- OUTSIDE RECORDS SUMMARY | 2025-01-23 15:10 | XMS_ITS ---
Author Organization [facility] Address [address] [place] [address] Care Team Providers Care Tile Picker Name Role Phone DO NOT USE Shirley Quintanilla MD Primary Care Provider Unavailable PHYLLIS, ANGELA Unavailable [phone] BLESSING SMITH Unavailable [phone] REASON FOR VISIT CX CM IE- 1 call 05/02 Encounters Encounter Location Date Provider Diagnosis [facility] [address] [place] [address] 04/19/2024 BLESSING SMITH Plan Of Treatment No Information Progress Notes * Matt HOFFMANDOB:1944 (79 yo M)Acc No.[id number]:04/19/2024 Patient:?Matt HOFFMAN :1945???Age:79 Y???Sex:Male Address:[facility] [address] [place], [address] * true * Date:? Generated for Printi lauro/Yuan/eTransmitting on:?01/23/2025 03:09 PM EST
--- OUTSIDE RECORDS SUMMARY | 2025-01-23 15:10 | XMS_ITS ---
Author Organization [facility] Address [address] [place] [address] Care Team Providers Care Plant Etiologist Name Role Phone Shirley Quintanilla MD Primary Care Provider UnavailTONE Urias Unavailable [phone] LEAH ISRAEL Unavailable [phone] Allergies No Known Allergies Results Component Value Reference Range Notes XR Knee 4 v RT Reviewed date:08/30/2023 11:23:20 AM Interpretation: Performing Lab: Notes/Report: REASON FOR VISIT Right Knee Pain Medications Medication SIG (Take, Route, Frequency, Duration) Notes Start Date End Date Status Sulfamethoxazole-Trimethopri m 400-80 MG Oral for 90 Active Atorvastatin Calcium 40 MG Oral for 90 Active Acalabrutinib 100 MG 1 capsule Orally ev ramsey 12 hrs for 30 day(s) Active Calquence 100 MG Oral for 30 A ctive Aspirin 81 MG 1 capsule Orally Onc [...] ast year? Yes Points 0 Interpretation Negative Vital Signs Height 69 in 08/30/2023 Weight 164 lbs 08/30/2023 BMI 24.22 kg/m2 08/30/2023 Encounters Encounter Location Date Provider Diagnosis [facility] [address] [place] [address] 08/30/2023 LEAH ISRAEL Acute pain of right knee M25.561 ; Primary osteoarthritis of right knee M17.11 and Contracture, right knee M24.561 Assessments Encounter Date Diagnosis (ICD Code) Assessment Notes Treatment Notes Treatment Clinical Notes Section Notes 08/30/2023 Acute pain of right knee (ICD-10 - M25.561) 08/30/2023 Primary osteoarthritis of right knee (ICD-10 - M17.11) Knee Arthritis: Care Instructions material was printed The assessment and treatment plan were discussed with the patient and all questions answered. The nature of the condition, options for management, nature of the surgical procedure, as well as potential risks and complications were discussed in detail with patient. x-ray images reviewed and interpreted. Patient with OA as well as chondrocalcinosis . patient does not have an effusion today but more than likely an acute exacerbation of his arthritis. Recommendation for cortisone as an anti-inflammatory . Cortisone was given today under aseptic technique with utilization Betadine. Patient understands signs and symptoms of infection. He will continue with his Advil twice daily as needed for inflammation and for pain. He'll follow up as needed. 08/30/2023 Contracture, right knee (ICD-10 - M24.561) Plan Of Treatment Treatment Notes Assessment Notes Primary osteoarthritis of right knee Kne e Arthritis: Care Instructions material was printed Next Appt Details Follow Up: prn, Reason: Medications Administered Medication Instructions Date of Administration Dosage Notes LRG Dexamethasone-UGI 08/30/2023 4 mg Procedure Notes * Category Sub-Category Detail Notes Knee joint injection Procedure Right knee joint aspiration and injection Details The patient's right knee was prepped in the usual sterile fashion using betadine and alcohol. Ethy Chloride spraywas used to locally anesthetize the skin. I then inserted a 25 guage neelde to anestitized skin, 1 1/2-inch 18-gauge needle into the knee joint using a lateral approach under Ultrasound guidance. Once within the knee joint 55 cc of blood-tinged fluid was aspirated from the joint. Through this needle I injected a solution containing 4 mg of Dexamethasone, and 4 cc of 1% lidocaine. The needle was removed and a sterile dressing was applied Post-procedure There were no compli cations during the procedure. The patient has been instructed in post-procedure care Progress Notes * Matt HOFFMANB:07/1945 (78 yo M)Acc No.[id number]:08/30/2023 Progress Notes Patient:?Matt Hoffman Provider:?KOLE MEADOWS :1945???Age:78 Y???Sex:Male Federico e:08/30/2023 Address:[place] [address], [facility] Pcp:Shirley Quintanilla MD Subjective: * Chief Complaints: * ???Right Knee Pain * HPI: ???Right knee:?78 year old male presents with c/o Right Knee.?Prior knee injections with?cortisone June 12, 2022, cortisone with aspiration of blood-tinged fluid in July 2022.? 78-year-old male patient who we have seen in the past for right knee swelling and pain presennts after sustaining a fall last weekend. Patient states he was walking up the stairs, missed a step and fell on his right knee. Since then he has had medial and anterior knee pain intermittent in nature. Descrribed as an ache. Some sharp pain with pivoting and twisting. 6 out of 10 at its worst. He has been taking Advil twice daily for the past week and that has improved symptoms. No bone fusion. No warmth or redness. * ROS:?General/Constitutional:?Change in appetite?denies.?Chills?denies.?Fatigue?denies.?Fever?denies.?Headache?denies.?L ightheadedness?denies.?Weight gain?denies.?Weight loss?denies.?Ophthalmologic:?Blurred vision?denies.?Discharge?denies.?Itching and redness?denies.?Eye Pain?denies.?ENT:?Decreased hearing?denies.?Respiratory:?Cough?denies.?Shortness of breath at rest?denies.?Shortness of breath with exertion?denies.?Wheezing?denies.?Cardiovascular:?Chest pain at rest?denies.?Chest pain with exertion?denies.?Orthopnea?denies.?Palpitations?denies.?Gastrointestinal:?Abdominal pain?denies.?Diarrhea?denies.?Nausea?denies.?Genitourinary:?Blood in urine?denies.?Frequent urination?denies.?Painful urination?denies.?Musculoskeletal:?Painful joints?admits.?Swollen joints??admits.?Peripheral Vascular:?Cold extremities?denies.?Pain/cramping in legs after exertion?denies.?Skin:?Rash?denies.?Skin lesion(s)?denies.?Skin oozing?denies.?Neurologic:?Gait abnormality?denies.?Tingling/Numbness?denies.? * Medical History:? * Surgical History:?No Surgica l History documented. * Hospitalization/Major Diagno stic Procedure:?Denies Past Hospitalization * Family History:?Father: diag nosed with Diabetes, Heart Disease, Hypertension.?Mother: diagnosed with OP, OA, Cancer.? * Social History:?Tobacco Use:?Tobacco Use/Smoking?Current Smoking Status:?former smoker.?Drugs/Alcohol:?Drugs?Have you used drugs other than those for medical reasons in the past 12 months??No.?Alcohol Screen (Audit-C)?Did you have a drink containing alcohol in the past year? Yes,?Points?0,?Interpretation?Negative.?Caffeine?Intake:?1-2 cups per day.?Do you smoke marijuana?: Denies. Do you drink alcohol?: Yes. * Medications:?TakingVitamin D 3 Aspirin 81 MG [...] 164 l bs, BMI:24.22 Index. * Examination: ???General Examination: ?GENERAL APPEARANCE:?no acute distress, well developed, well nourished and hydrated .?ORIENTATION:?alert and oriented x 3 (time, place, person) .?MOOD:?normal .?STATION:?normal .?DEEP TENDON REFLEX:?symmetrical .?PATHOLOGICAL REFLEX:?absent, bilateral lower extremities .?EDEMA:?none .?SWELLING:?mild swelling .?SENSATION:?normal to light touch, left lower extremity, right lower extremity .?MOTOR FUNCTION:?no focal deficit .?HEENT:?atraumatic, normocephalic .?NECK, THYROID:?nontender , normal alignment, normal extension, normal flexion.?NEUROLOGIC:?nonfocal .?SKIN:?clear , no scars, warmth, or redness.?EXTREMITIES:?no clubbing, edema, or cyanosis .?PERIPHERAL PULSES:?bilaterally symmetrical .?PSYCHIATRIC:?normal affect, pleasant.?Right knee: ?INSPECTION:?no ecchymosis present.?LEG EXAMINATION:?calf soft and non-tender.?ALIGNMENT:?palpable knee effusion.?PORTALS?no surgical wounds are appreciated.?PALPATION:?tender laterally.?TENDERNESS:?Mild medial and lateral tenderness.?ARC?flexion to 110 degrees with pain. No pain with full extension.?STABILITY:?no significant laxity noted.?STRENGTH:?within normal limits, 5/5 quad strength.?SKIN:?no rashes or skin lesions.?LIGAMENTOUS LAXITY (NEG):?negative Carolin's test, negative anterior drawer test.?TESTS:?negative Aime's.?HIP RANGE OF MOTION:?within normal limits.?GAIT:?antalgic on right.?SENSATION:?normal to light touch.?VASCULAR:?2+ palpable distal pulses.?Bilateral knee: ?SIDE: ?Left.?INSPECTION:?no ecchymosis present, no effusion or erythema, no significant swelling .?LEG EXAMINATION:?unremarkable .?ALIGNMENT:?normal .?PORTALS?no surgical wounds are appreciated .?PALPATION:?no specific tenderness on palpation .?TENDERNESS:?no specific tenderness on palpation .?ARC?full flexion and extension .?STABILITY:?all ligaments appear stable, no significant laxity noted .?STRENGTH:?no focal deficit, 5/5 quad strength .?SKIN:?no rashes or skin lesions .?LIGAMENTOUS LAXITY (NEG):?all ligaments appear stable, but there is guarding on exam .?TESTS:?negative Aime's, - Carolin's test .?HIP RANGE OF MOTION:?no pain on range of motion .?Back: ?INSPECTION:?normal contour.?PALPATION:?non-tender throughout.?RANGE OF MOTION:?normal.?SENSATION TO LIGHT TOUCH:?intact and equal bilaterally.?NERVE TENSION SIGNS:?negative straight leg raise.? Assessment: * Assessment: 1.?Primary osteoarthritis of right knee - M17.11 (Primary)?2.?Acute pain of right knee - M25.561?3.?Contracture, right knee - M24.561? Plan: * Treatment: 2.?Acute pain of right knee?Imaging: XR Knee 4 v RT * Procedures:?Knee joint injection:?Procedure?Right knee joint aspiration and injection.?Details?The patient's right knee was prepped in the usual sterile fashion using betadine and alcohol. Ethy Chloride spraywas used to locally anesthetize the skin. I then inserted a 25 guage neelde to anestitized skin, 1 1/2-inch 18-gauge needle into the knee joint using a lateral approach under Ultrasound guidance. Once within the knee joint 55 cc of blood-tinged fluid was aspirated from the joint. Through this needle I injected a solution containing 4 mg of Dexamethasone, and 4 cc of 1% lidocaine. The needle was removed and a sterile dressing was applied.?Post-procedure?There were no complications during the procedure. The patient has been instructed in post- procedure care.? * Therapeutic Injections:? LRG Dexamethasone-UGI : 4 mg given by KOLE ALTMAN (Acute pain of right knee) * Procedure Codes:?40571 AspIn j Large Joint Bursa UGI, Modifiers: RT J1100 LRG Dexamethasone-[id number] Rad Exam Knee Complete (4+ views) * Preventive Medicine:? ??JONA Screening:?FALLS: Screening for Future Fall Risk?Have you had two or more falls in the past year??No,?Have you had any falls with injury in the past year??No,?Plan of Care:?Documented,?Assessment:?Performed.? * Follow Up:?prn * * Sign off status: Completed true * Provider:?LEAH ISRAEL, PAC Date:?08/19 Generated for Wood restrepo/Yuan/Idaitting on:?01/23/2025 03:09 PM EST History and Physical Notes * HPI (History of Present Illness) Category Sub-Category Detail Notes Category Not es Right knee Prior knee injection s with cortisone June 12, 2022, cortisone with aspiration of blood-tinged fluid in July 2022 78-year-old male patient who we have seen in the past for right knee swelling and pain presennts after sustaining a fall last weekend. Patient states he was walking up the stairs, missed a step and fell on his right knee. Since then he has had medial and anterior knee pain intermittent in nature. Descrribed as an ache. Some sharp pain with pivoting and twisting. 6 out of 10 at its worst. He has been taking Advil twice daily for the past week and that has improved symptoms. No bone fusion. No warmth or redness. Right Knee Examination Category Sub-Category Detail Notes Category Not es Back INSPECTION: normal contour PALPATION: non-tender throughou t RANGE OF MOTION: normal SENSATION TO LIGHT TOUCH: intact and equ al bilaterally NERVE TENSION SIGNS: negative straight l eg raise Bilateral knee INSPECTION: no ecchymosis pr esent, no effusion or erythema, no significant swelling ALIGNMENT: normal PALPATION: no specific tenderne ss on palpation PORTALS no surgical wounds a re appreciated ARC full flexion and ext ension LIGAMENTOUS LAXITY (NEG): all ligaments appear stable, but there is guarding on exam LEG EXAMINATION: unremarkable TESTS: negative Aime's, - Carolin's test STABILITY: all ligaments appear stable, no significant laxity noted STRENGTH: no focal deficit, 5/ 5 quad strength SKIN: no rashes or skin le sions TENDERNESS: no specific tenderne ss on palpation HIP RANGE OF MOTION: no pain on range of motion SIDE: Left Right knee INSPECTION: no ecchymosis present ALIGNMENT: palpable knee effusi on PALPATION: tender laterally PORTALS no surgical wounds a re appreciated ARC flexion to 110 degre es with pain. No pain with full extension LIGAMENTOUS LAXITY (NEG): negative Lachm an's test, negative anterior drawer test LEG EXAMINATION: calf soft and non-te nder TESTS: negative Aime's TENDERNESS: Mild medial and late ral tenderness STABILITY: no significant laxit y noted STRENGTH: within normal limits , 5/5 quad strength SKIN: no rashes or skin le sions HIP RANGE OF MOTION: within normal limit s GAIT: antalgic on right SENSATION: normal to light touc h VASCULAR: 2+ palpable distal p ulses General Examination GENERAL APPEARANCE: no acute distress, well developed, well nourished and hydrated ORIENTATION: alert and oriented x 3 (time, place, person) MOOD: normal STATION: normal DEEP TENDON REFLEX: symmetrical PATHOLOGICAL REFLEX: absent, bilateral l ower extremities EDEMA: none SWELLING: mild swelling SENSATION: normal to light touc h, left lower extremity, right lower extremity MOTOR FUNCTION: no focal deficit HEENT: atraumatic, normocep halic NECK, THYROID: nontender , normal a lignment, normal extension, normal flexion NEUROLOGIC: nonfocal SKIN: clear , no scars, wa rmth, or redness EXTREMITIES: no clubbing, edema, or cyanosis PERIPHERAL PULSES: bilaterally symmetri hoda PSYCHIATRIC: normal affect, pleas ant
== END 2025-01-23 15:11 | disposition home or self-care (01) ==
PROVIDERS: PCP Family Medicine; Visit Provider Family Medicine
DX: R33.9 Retention of urine, unspecified (principal); C85.90 Non-Hodgkin lymphoma, unspecified, unspecified site; I65.29 Occlusion and stenosis of unspecified carotid artery

== ENCOUNTER → 2025-01-23 13:30 | Outpatient (BNVA) | payer MEDICARE, SELFPAY | PROVIDERS: PCP Family Medicine; Visit Provider Family Medicine | DX: C85.90 Non-Hodgkin lymphoma, unspecified, unspecified site (principal); R33.9 Retention of urine, unspecified; G45.9 Transient cerebral ischemic attack, unspecified | CPT/HCPCS: 96127; 99212 ==

== ENCOUNTER 2025-01-26 07:49 | Outpatient (REF) | payer MEDICARE, SELFPAY ==
--- NOTE | ~2025-01-26 | XR_ITS ---
EXAMINATION: XR CHEST CLINICAL INFORMATION: R09.89 - Other specified symptoms and signs involving the circulatory an... COMPARISON: None available. TECHNIQUE: 2 views of the chest were obtained. FINDINGS: Pulmonary reticular pattern. No consolidation, pleural effusion or pneumothorax. Cardiomediastinal silhouette size is normal. Multilevel thoracic spondylosis with a kyphotic deformity in the upper thoracic spine and questionable old compression deformity. S-shaped curvature of the upper/mid thoracic spine. XR/XR chest 2V IMPRESSION: Consider chronic interstitial lung disease. Scoliosis and multilevel spondylosis, thoracic spine. Electronically signed by: Hesham Salas MD 01/27/2025 08:28 AM EDT
--- OUTSIDE RECORDS SUMMARY | 2025-01-26 07:51 | XMS_ITS ---
Author Organization [facility] Address [address] [place] [address] Care Team Providers Care Manager Of Business Operations Name Role Phone DO NOT USE Shirley Quintanilla MD Primary Care Provider Unavailable PHYLLISANGELA Pretty Unavailable [phone] Migration, Provider Unavailable Unavailable [facility] Encounter Medications Medication SIG (Take, Route, Frequency, Duration) Notes Start Date End Date Status Calquence 100 MG 1 CAP(S) ORALLY EVERY 12 HOURS for 30 DAY(S) *Please review and pick correct strength-formulatio n from Medispan options. If intended option is not shown, discontinue and re-order from Quick Search* Active Atorvastatin Calcium 40 MG 1 tab(s) orally once a day for 30 day(s) 09/06/2020 Active Sildenafil Citrate *Please revie w and pick correct strength-formulatio n from Medispan options. If intended option is not shown, discontinue and re-order from Quick Search* Active Aspirin Low Strength *Please rev iew and pick correct strength-formulatio n from Medispan options. If intended option is not shown, discontinue and re-order from Quick Search* Active Bactrim 400 MG-80 MG DIRECTED ORALLY DAILY *Please review and pick correct strength-formulatio n from Medispan options. If intended option is not shown, discontinue and re-order from Quick Search* Active Encounters Encounter Location Date Provider Diagnosis [facility] [address] [place] [address] 01/24/2025 Provider Migration Plan Of Treatment No Information Progress Notes * Awilda HOFFMAN:1944 (79 yo M)Acc No.[id number]:01/24/2025 Patient:?Matt HOFFMAN Provider:? :1945???Age:79 Y???Sex:Male Federico e:01/24/2025 Address:[place] [address], [address] [place] Pcp:Shirley DO NOT USE David Quintanilla Subjective: * Chief Complaints: * ???1. Multum To Medispan Con version Encounter. * Medical History:? * Medications:?Taking Bactrim 400 MG-80 MG TABLET DIRECTED ORALLY DAILY , Notes to Pharmacist: *Please review and pick correct strength-formulation from Medispan options. If intended option is not shown, discontinue and re-order from Quick Search*, Taking Aspirin Low Strength , Notes to Pharmacist: *Please review and pick correct strength-formulation from Medispan options. If intended option is not shown, discontinue and re-order from Quick Search*, Taking Sildenafil Citrate , Notes to Pharmacist: *Please review and pick correct strength-formulation from Medispan options. If intended option is not shown, discontinue and re-order from Quick Search*, Taking Atorvastatin Calcium 40 MG Tablet 1 tab(s) orally once a day , Taking Calquence 100 MG CAPSULE 1 CAP(S) ORALLY EVERY 12 HOURS , Notes to Pharmacist: *Please review and pick correct strength-formulation from Medispan options. If intended option is not shown, discontinue and re-order from Quick Search* Objective: * Vitals:? Assessment: Plan: * Treatment: * Images: Billing Information: * Visit Code:? * Procedure Codes:? * Electronic signature of Prov ider Migration on 01/26/2025 at 07:51 AM EDT Sign off status: Pending * Provider:? Date:?01/24/2025 Generated for Wood restrepo/Yuan/Idaitting on:?01/26/2025 07:51 AM EDT
--- OUTSIDE RECORDS SUMMARY | 2025-01-26 07:52 | XMS_ITS | Patient Health Record ---
Author Organization [facility] Address [address] [place] [address] Care Team Providers Care Truss Builder Name Role Phone Shirley Quintanilla MD Primary Care Provider TONE Marquez Unavailable [phone] Allergies No Known Allergies Reason For Referral [...] W/U Status Risk Notes Problem Chronic pain (57799924) Other chronic pain (G89.29) Active confirmed Problem Contracture of right knee joint (disorder) (466384994612905) Contracture, right knee (M24.561) Active confirmed Problem 81352845609529 Pain in right ankle and joints of right foot (M25.571) Active confirmed Problem Osteoarthritis of knee (577854071) Primary osteoarthritis of right knee (M17.11) Active confirmed Problem 205929477265551 Trigger finger o f right thumb (M65.311) Active confirmed Problem 72551855 Closed nondisplaced avulsion fracture of tuberosity of right calcaneus with routine healing, subsequent encounter (S92.034D) Active confirmed Problem 72974936 Open nondisplace d avulsion fracture of tuberosity of right calcaneus, initial encounter (S92.034B) Active confirmed Plan Of Treatment No Information Insurance Providers Payer Name Payer Address Payer Phone Subscriber Number Group Number Insured Name Patient Relationship to Insured Coverage Start Date Coverage End Date Medicare [address] [place] [address] [id number] Matt Schmidt am Self - patient is the insured Med[employer] [address] [place] [address] [id number] Matt Schmidt am Self - patient is [...]
--- OUTSIDE RECORDS SUMMARY | 2025-01-26 07:52 | XMS_ITS ---
Author Organization [facility] Address [address] [place] [address] Care Team Providers Care Signal Manager Name Role Phone DO NOT USE Shirley Quintanilla MD Primary Care Provider Unavailable ANGELA FERGUSON Unavailable [phone] BLESSING SMITH Unavailable [phone] Allergies No Known Allergies REASON FOR VISIT 6 mo ov w/ PVR; BPH w/ obstr, ED- arterial insuffiency, gross hematuria, urge incontinence Encounters Encounter Location Date Provider Diagnosis [facility] [address] [place] [address] 03/03/2024 BLESSING SMITH Plan Of Treatment No Information Progress Notes * Matt HOFFMANDOB:1944 (79 yo M)Acc No.[id number]:03/03/2024 est/CM pt Patient:?Matt HOFFMAN Provider:?BERTRAM MENDEZ :1945???Age:78 Y???Sex:Male Federico e:03/03/2024 Address:[facility] [address] [place] Pcp:Shirley LAINEZ NOT USE David Quintanilla Subjective: [...] further gross hematuria. He is back [facility]. recently was terminal ill (2021) He is on Calquence for MLC. Follows at [facility]. PMH: TIA, mantle cell lymphoma (s/p stem [...] * Procedure Codes:? * Electronic signature of Mgiuel HOANG on 01/26/2025 at 07:51 AM EDT Sign off status: Pending * Provider:?BERTRAM MENDEZ Date:?03/03 Generated for Wood restrepo/Yuan/Idaitting on:?01/26/2025 07:51 AM EDT History and Physical Notes * HPI (History [...] further gross hematuria. He is back on [facility]. recently was terminal ill (2021) [facility] Follows at [facility]. PMH: TIA, mantle cell lymphoma (s/p stem [...] 05/06/19 Urine Cytology: Benign, Urine Cx: Mixed Aym 12/23/18 PVR: 192mL 11/07/18 PVR: 350mL 10/31/18 [...]
--- OUTSIDE RECORDS SUMMARY | 2025-01-26 07:52 | XMS_ITS ---
Author Organization [facility] Address [address] [place] [address] Care Team Providers Care Quality Control Inspector Heading Name Role Phone Shirley Quintanilla MD Primary Care Provider UnavailTONE Urias Unavailable [phone] LEAH ISRAEL Unavailable [phone] Allergies No Known Allergies Results Component Value [...] Encounters Encounter Location Date Provider Diagnosis CCO[facility] [address] [place] [address] 08/30/2023 LEAH ISRAEL Acute pain of right [...] Notes * Matt HOFFMANB:07/1945 (78 yo M)Acc No.[id number]:08/30/2023 Progress Notes Patient:?aMtt Hoffman Provider:?KOLE MEADOWS :1945???Age:78 Y???Sex:Male Federico e:08/30/2023 Address:[place] [address], [facility] Pcp:Shirley Quintanilla MD Subjective: * Chief Complaints: [...] (Acute pain of right knee) * Procedure Codes:?30105 AspIn j Large Joint Bursa UGI, Modifiers: RT J1100 LRG Dexamethasone-[id number] Rad Exam Knee Complete (4+ views) * Preventive Medicine:? ??JONA Screening:?FALLS: Screening for Future Fall Risk?Have you had two or more falls in the past year??No,?Have you had any falls with injury in the past year??No,?Plan of Care:?Documented,?Assessment:?Performed.? * Follow Up:?prn * * Sign off status: Completed true * Provider:?LEAH ISRAEL, PAC Date:?08/19 Generated for Wood restrepo/Yuan/Idaitting on:?01/26/2025 07:51 AM [...]
--- OUTSIDE RECORDS SUMMARY | 2025-01-26 07:52 | XMS_ITS ---
Author Organization [facility] Address [address] [place] [address] Care Team Providers Care Sweatband Shaper Name Role Phone DO NOT USE Shirley Quintanilla MD Primary Care Provider Unavailable PHYLLIS ANGELA Unavailable [phone] BLESSING SMITH Unavailable [phone] REASON FOR VISIT CX CM IE- 1 call 05/02 Encounters Encounter Location Date Provider Diagnosis [facility] [address] [place] [address] 04/19/2024 BLESSING SMITH Plan Of Treatment No Information Progress Notes * Matt HOFFMANDOB:1944 (79 yo M)Acc No.[id number]:04/19/2024 Patient:?Matt HOFFMAN :1945???Age:79 Y???Sex:Male Address:[facility] [address] [place], [address] * true * Date:? Generated for Printi ng/Fajenng/eTransmitting on:?01/26/2025 07:51 AM EDT
--- OUTSIDE RECORDS SUMMARY | 2025-01-26 07:52 | XMS_ITS ---
Author Organization [facility] Address [address] [place] [address] Care Team Providers Care Foreign Student Adviser Name Role Phone Shirley Quintanilla MD Primary Care Provider UnavailTONE Urias Unavailable [phone] CORY BROWN Unavailable [phone] Allergies No Known Allergies Results Component Value [...] Problem Status W/U Status Risk Notes Problem [id number] Trigger finger of right thumb (M65.311) Active confirmed Vital Signs Height 69 in 10/23/2023 Weight 164 lbs 10/23/2023 BMI 24.22 kg/m2 10/23/2023 Encounters Encounter Location Date Provider Diagnosis [facility] [address] [place] [address] 10/23/2023 CORY BROWN Trigger finger of right [...] Notes * Matt HOFFMANDOB:07/1945 (78 yo M)Acc No.[id number]:10/23/2023 Patient:?Matt Hoffman Provider:?KOLE Raza :1945???Age:78 Y???Sex:Male Federico e:10/23/2023 Address:[address] Pcp:Shirley Quintanilla MD Subjective: * Chief [...] (Trigger finger of right thumb) * Procedure Codes:?98071 Rad E xam Hand (3 view min)J0702 INJ BETAMETHSN ACTAT&SOD PHOSPH-3MG, Units: 2.00 96041 Inj Tendon Sheath Ligament, Modifiers: LT * Follow Up:?prn * * Sign off status: Completed true * Provider:?KOLE Raza Date:? 023 Generated for Wood restrepo/Yuan/Bud on:?01/26/2025 07:52 AM EDT History and Physical Notes * Examination Category [...]
--- OUTSIDE RECORDS SUMMARY | 2025-01-26 07:52 | XMS_ITS | Patient Health Record ---
Author Organization [facility] Address [address] [place] [address] Care Team Providers Care Plastic Welder Name Role Phone DO NOT USE Shirley Quintanilla MD Primary Care Provider Unavailable ANGELA FERGUSON Unavailable [phone] BLESSING SMITH Unavailable [phone] Migration, Provider Unavailable Unavailable Allergies No Known Allergies Reason For Referral [...] re-order from Quick Search* Active Social History Tobacco Use: Social History [...] Section Notes: [employer], worked in the [employer] [...] [employer], worked in the [employer], Problems Problem Type SNOMED Code ICD Code Onset Dates Problem Status W/U Status Risk Notes Problem Urinary tract infectious disease (73291629) Urinary tract infection, site not specified (N39.0) Active confirmed Problem Gross hematuria (652603116) Gross hematuria (R31.0) Active confirmed Problem Incomplete emptying of bladder (513478682) Feeling of incomplete bladder emptying (R39.14) Active confirmed Problem Hydronephrosis (01978835) Other hydronephrosis (N13.39) Active confirmed Problem Traumatic urethral stricture (02756290) urethral stricture, 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) Active confirmed Problem Retention of urine (381921133) Other retention of urine (R33.8) Active confirmed Problem Post-traumatic membranous urethral stricture (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) 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 Problem Lower urinary tract symptoms due to benign prostatic hypertrophy (43983176034249) Benign prostatic hyperplasia with lower urinary tract symptoms (N40.1) Active confirmed Problem Incomplete emptying of bladder (896838646) Feeling of incomplete bladder emptying (R39.14) Active confirmed Encounters Encounter Location Date Provider Diagnosis [facility] [address] [place] [address] 01/24/2025 Provider Migration [facility] [address] [place] [address] 02/18/2024 BLESSING SMITH [facility] [address] [place] [address] 04/19/2024 BLESSING SMITH Plan Of Treatment Pending [...] End Date MEDICARE [address] [place] [address] [id number] Matt Schmidt am Self - patient is the insured BCBS - [employer] [address] [place] [address] [id number] Matt Schmidt am Self - patient is the insured Medical (General) History Medical History History ICD Code Mantle Cell Lymphoma hyperlipidemia Surgical History Surgery Date(Month/Year) Button TURP 2013 acoustic neuroma - gamma knife 1999 knee arthroscopy
[2025-01-26 08:52] LABS: Hematocrit 38.7 % (42.0-52.0); Hemoglobin 12.1 g/dl (14.0-18.0); Mean Corpuscular HGB Conc 31.3 g/dl (31.0-36.0); Mean Corpuscular Hemoglobin 29.2 pg (27.0-33.0); Mean Corpuscular Volume 93.3 fL (80.0-98.0); Mean Platelet Volume 9.6 fL (9.4-12.4); Platelet Count 174 X10*3/uL (160-400); Red Blood Count 4.15 X10*6/uL (4.60-5.80); Red Cell Distribution Width 14.5 % (11.0-16.0); White Blood Count 26.9 X10*3/uL (4.8-10.8)
[2025-01-26 08:59] LABS: Appearance Urine Turbid; Color Urine Yellow; Glucose Urine UA Negative (Negative); Leukocyte Esterase Urine Large (3+) (Negative); Nitrite Urine Negative (Negative); UMIC TRIGGER UA YES; Urine Blood Small (1+) (Negative); Urine Ketones Negative (Negative); Urine Protein 30 (1+) mg/dL (Neg-Trace)
[2025-01-26 09:33] LABS: Bacteria Urine Trace (None Seen); Hyaline Casts Urine 0-2 /LPF (0-2); RBC Urine 0-2 /HPF (0-2); Squamous Epithelial Cell Urine 0-2 /HPF (0-2); WBC Urine >50 /HPF (0-5)
[2025-01-26 09:46] LABS: Atypical Lymph Absolute Manual 3.5 x10*3/uL; Atypical Lymphs Percent Manual 13 % (0-6); Lymphocytes Absolute Manual 19.9 X10*3/uL (1.2-4.9); Lymphocytes Percent Manual 74 % (20-40); Monocytes Absolute Manual 0.3 X10*3/uL (0.1-1.2); Monocytes Percent Manual 1 % (2-11); Neutrophils Percent Manual 13 % (45-73)
[2025-01-26 09:47] LABS: Acanthocytes 1+ (0-2) /OIF; Large Platelet PRESENT; Ovalocytes 1+ (5-14) /OIF; Platelet Morphology Comment NOTED; RBC Morphology NOTED; Smudge Cells PRESENT
[2025-01-26 09:51] LABS: Band Neutrophils Percent 0 % (3-5); Neutrophils Absolute Manual 3.5 X10*3/uL (2.0-8.3)
[2025-01-26 09:53] LABS: Alanine Aminotransferase 25 U/L (0-40); Albumin Level 4.1 g/dL (3.5-5.0); Alkaline Phosphatase 81 U/L (39-117); Anion Gap 11 (12-20); Aspartate Amino Transferase 18 U/L (5-37); Bilirubin Total 0.4 mg/dL (0.0-1.0); Blood Urea Nitrogen 23 mg/dL (9-16); Calcium 9.2 mg/dL (8.4-10.2); Carbon Dioxide 22 mmol/L (22-29); Chloride 114 mmol/L (96-108); Cholesterol 126 mg/dL (<200); Estimated Glomerular Filt Rate 51; Glucose Fasting 100 mg/dL (60-99); HDL Cholesterol 43 mg/dL (>40); LDL Cholesterol Calculated 71 mg/dL (<100); Potassium 4.3 mmol/L (3.3-5.1); Sodium 143 mmol/L (135-145); Total Protein 6.7 g/dL (6.5-8.0); Triglycerides 61 mg/dL (<150)
[2025-01-26 10:01] LABS: Prostate Specific Antigen Scr 6.37 ng/mL (<0.05-4.0)
[2025-01-26 10:01] LABS: Creatinine Urine 74.85 mg/dL; Microalbum/Creatinine Ratio Ur 130.9 ug/mg cr (<30)
[2025-01-26 10:09] LABS: TSH reflex Free T4 3.54 uIU/mL (0.32-4.0)
[2025-01-26 10:45] LABS: Platelet Estimate NORMAL (NORMAL)
[2025-01-30 22:39] LABS: Acetylcholine Receptor Binding <0.30 nmol/L
== END 2025-01-26 07:50 | disposition home or self-care (01) ==
LOC: HO.XRAY 07:49
PROVIDERS: PCP Family Medicine; Visit Provider Family Medicine
DX: R09.89 Other specified symptoms and signs involving the circulatory and respiratory systems (principal); C85.90 Non-Hodgkin lymphoma, unspecified, unspecified site; R29.810 Facial weakness; I10 Essential (primary) hypertension; Z12.5 Encounter for screening for malignant neoplasm of prostate; Z00.00 Encounter for general adult medical examination without abnormal findings
CPT/HCPCS: 36415; 71046; 80053; 80061; 81001; 82043; 82570; 84153; 84443; 85007; 85025; 85027; 86041; 86366

== ENCOUNTER → 2025-01-26 07:54 | Outpatient (BNV) | payer MEDICARE, SELFPAY | PROVIDERS: PCP Family Medicine; Visit Provider Radiology Diagnostic Radiology | DX: M47.814 Spondylosis without myelopathy or radiculopathy, thoracic region (principal); M41.34 Thoracogenic scoliosis, thoracic region | CPT/HCPCS: 71046 ==

== ENCOUNTER 2025-02-11 09:15 | Outpatient (AMB) | payer MEDICARE, SELFPAY ==
--- NOTE | 2025-02-11 09:37 | A.OFFPC_ITS ---
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 Labs drawn 01/26/25. Reviewed labs with pt. Mild anemia. Elevated fasting glucose of 100. Triglycerides 61. TC 126. LDL 71. HDL 43. PSA 6.37. Carotid ultrasound ordered due to carotid bruit. Hx of lymphoma and TIA. He reports episode of R eye/facial weakness with visual disturbance. This has resolved. HPI Comments History of Present Illness Details Documentation assistance for Aj Bustos MD, was provided by Jhoan Mahmood,? Type Bar And Segment Assembler on 02/11/2025 at 10:22 AM EST. I, Dr. Bustos, have read, observed, and verified documentation. [facility] Medical History (Updated 02/11/25 @ 10:04 by Jhoan Mahmood) Deafness in right ear Enlarged prostate MCL (mantle cell lymphoma) Family History (Updated 01/23/25 @ 14:13 by Mikayla Espana [facility]) Father Diabetes Mother Esophageal cancer Social History Housing: Apartment Patient Tobacco Use Status: Former Tobacco user e-Cigarette/Vaping Use: Never Used service: Yes Current occupational status: retired Current occupational exposures/hazards: No Cognitive needs: No Hearing needs: Yes Vision needs: Yes Questionnaire Thrive Questionnaire Date Thrive assessed: 01/19/25 I am a: Patient What is your living situation today?: I have a steady place to live Within the past 12 months, did the food you bought not last and you didn't have the money to get more?: Never true Within the past 12 months, did you worry whether your food would run out before you got money to buy more?: Never true Do you have trouble paying for medicines?: No Do you have trouble getting transportation to medical appointments?: No Do you have trouble paying your heating and electricity bill?: No Do you have trouble taking care of your child, family member or friend?: No Do you have trouble with day-to-day activities such as bathing, preparing meals, shopping, managing finances, etc.?: No Are you currently unemployed and looking for a job?: No Are you interested in more education?: No Please select the resources that you would like help with: None Currently or been in a relationship where the following occur: No concerns reported THRIVE Score: 0 MAHSA-7 AMB Questionnaire MAHSA-7 Date MAHSA - 7 assessed: 01/23/25 Source: Developed by Drs. Matt Puentes, Lee Ann Staley, Rocael Plascencia and colleagues, with an educational christa from [employer]. Review of Systems Const Denies chills, Denies fatigue, Denies fever(s), Denies headache(s) and Denies weakness ENT Denies dizziness and Denies headache(s) Card Denies chest pain, Denies lightheadedness, Denies dyspnea and Denies other (Palpitations) Resp Denies cough, Denies dyspnea, Denies wheezing and Denies other ( shortness of breath) Musc Denies numbness and Denies tingling Neuro Denies dizziness, Denies headache(s), Denies numbness, Denies tingling, Denies paresthesias and Denies weakness Psych Denies anxiety and Denies depression Endo Denies fatigue Aller/Immun Denies wheezing Physical exam (Primary Care) Vital Signs: Last Vital Signs Temp 98.7 F 02/11/25 09:40 Pulse 81 02/11/25 09:40 Resp 14 02/11/25 09:40 BP 100/58 L 02/11/25 09:40 Pulse Ox 97 02/11/25 09:40 Oxygen Delivery Method Room Air 02/11/25 09:40 BMI result Body Mass Index 23.8 Tobacco/Smoking Status: Tobacco use Status Tobacco use date assessed 01/23/25 02/11/25 09:45 Patient Tobacco Use Status Former Tobacco user 02/11/25 09:45 e-Cigarette/Vaping Use Never Used 02/11/25 09:45 Thrive Assessment: Date of Thrive Assessment Date Thrive assessed 01/19/25 02/11/25 09:45 Currently or been in a relationship where the following occur: No concerns reported Const General: no acute distress and well developed Nutritional Appearance: well nourished Orientation/consciousness: patient oriented x3 [facility] Head: Yes normocephalic and Yes atraumatic Eyes General: appearance normal, both eyes and all related structures Pupils: Equal, round and reactive pupils present EOM: EOMs intact bilaterally Resp Other: Dry crackles at the bases Effort & Inspection: normal respiratory effort Auscultation: clear to auscultation bilaterally Cardio Rate: regular rate Rhythm: regular rhythm Heart sounds: S1 normal heart sound present, S2 normal heart sound present, no gallops, no murmurs and no rubs Neuro General: patient oriented x3 and gait normal Cranial nerves: Yes Equal, round and reactive pupils present Psych Affect: normal affect Coding Level of Care Code Est Pt Level 5 (17404) Diagnoses Weakness of facial muscle affecting closure of eye R29.810 Carotid bruit R09.89 TIA (transient ischemic attack) G45.9 Elevated PSA R97.20 Urinary retention R33.9 Assessment & Plan Assessment & Plan (1) Weakness of facial muscle affecting closure of eye: Code(s): R29.810 - Facial weakness Category: Medical Plan: Patient?with?history?lymphoma?and?history?of?TIA?describes?another?episode?of? right?eye?and?facial?weakness?with?visual?disturbance. Patient?says?episode?completely?resolved. Denies?history?of?migraines. Encouraged?him?to?go?to?the?emergency?department?if?this?happens?again. Referring?him?to?Neurology.??Checking?an?MRI?of?brain. Already?has?carotid?ultrasound?ordered?due?to?carotid?bruit Testing?for MG?was?negative (2) Carotid bruit: Code(s): R09.89 - Other specified symptoms and signs involving the circulatory and respiratory systems Category: Medical Plan: As?above,?patient?has?carotid?ultrasound?ordered He?is?on?atorvastatin?and?aspirin Now?referred?to?neurology May?need?referral?to?vascular?surgery (3) TIA (transient ischemic attack): Code(s): G45.9 - Transient cerebral ischemic attack, unspecified Category: Medical Plan: As?above.??Patient?advised?to?go?to?ED?if?has?further?episodes. Continue?aspirin?atorvastatin Also?referred?to?neurology (4) Elevated PSA: Code(s): R97.20 - Elevated prostate specific antigen [PSA] Category: Medical Plan: Elevated?PSA?with?urinary?retention. Urine?studies?show?possible prostatitis?or?UTI. He?has?been?on?long-term?Bactrim.??Will?give?him?a?script?for?doxycycline?a nd?he?will?repeat?PSA?urine?studies Will?refer?to?Urology?afterwards?if?not?resolving (5) Urinary retention: Code(s): R33.9 - Retention of urine, unspecified Category: Medical Plan: As?above Plan f/u elevated PSA w/ abnormal urine studies as well as f/u MRI brain and carotid u/S. Already referred to Neurology Orders: Orders UA and rflx microscopic Today R97.20 - Elevated prostate specific antigen [PSA], Z00.00 - Encounter for general adult medical examination without abnormal findings Urine Culture Today R97.20 - Elevated prostate specific antigen [PSA] Basic Metabolic Panel Today R97.20 - Elevated prostate specific antigen [PSA], Z00.00 - Encounter for general adult medical examination without abnormal findings MR head/brain wo con Today C85.90 - Non-Hodgkin lymphoma, unspecified, unspecified site, G45.9 - Transient cerebral ischemic attack, unspecified, H53.9 - Unspecified visual disturbance, R29.810 - Facial weakness Prostate Specific Antigen Scr Today R97.20 - Elevated prostate specific antigen [PSA], Z12.5 - Encounter for screening for malignant neoplasm of prostate Referrals Neurology Referral G45.9 - Transient cerebral ischemic attack, unspecified, H53.9 - Unspecified visual disturbance, R09.89 - Other specified symptoms and signs involving the circulatory and respiratory systems, R29.810 - Facial weakness Medications: New doxycycline hyclate 100 mg PO BID 20 tabs 0RF 10 days
[2025-02-11 09:40] VITALS: BP 100/58; PULSE 81; RESP 14; TEMP 37.1; O2SAT 97; BMI 23.8
== END 2025-02-11 12:26 | disposition home or self-care (01) ==
LOC: HO.HMCFM 09:16
PROVIDERS: PCP Family Medicine; Visit Provider Family Medicine
DX: R29.810 Facial weakness (principal); R09.89 Other specified symptoms and signs involving the circulatory and respiratory systems; G45.9 Transient cerebral ischemic attack, unspecified; R97.20 Elevated prostate specific antigen [PSA]; R33.9 Retention of urine, unspecified

== ENCOUNTER → 2025-02-11 09:15 | Outpatient (BNVA) | payer MEDICARE, SELFPAY | PROVIDERS: PCP Family Medicine; Visit Provider Family Medicine | DX: R29.810 Facial weakness (principal); R09.89 Other specified symptoms and signs involving the circulatory and respiratory systems; R97.20 Elevated prostate specific antigen [PSA]; R33.9 Retention of urine, unspecified; G45.9 Transient cerebral ischemic attack, unspecified | CPT/HCPCS: 99212 ==

== ENCOUNTER 2025-02-23 08:18 | Outpatient (REF) | payer MEDICARE, SELFPAY ==
--- NOTE | ~2025-02-23 | MR_ITS ---
EXAMINATION: MR BRAIN WITHOUT CONTRAST CLINICAL INFORMATION: Transient cerebral ischemic attack, unspecified. COMPARISON: None available. TECHNIQUE: MRI of the brain was obtained using routine sequences without contrast. FINDINGS: No restricted diffusion. No acute intracranial hemorrhage, mass effect, midline shift, hydrocephalus or herniation. Increased susceptibility within the basal ganglia and substantia nigra. Bilateral multifocal patchy deep periventricular white matter hyperintense T2 FLAIR signal involving centrum semiovale and cash radiata. Prominence of the extra-axial CSF spaces cerebral sulci and ventricles. Flow-void signal within the main cerebral vessels is normal. There is a prominent left V4 segment near the left PICA origin. Sellar/suprasellar region demonstrated no signal abnormality or masses. Craniocervical junction is intact and normal. MR/MR head/brain wo con IMPRESSION: No acute stroke/nonhemorrhagic ischemia. Small vessel occlusive disease. Questionable aneurysm, left V4 segment/origin left PICA. Electronically signed by: Hesham Salas MD 02/23/2025 11:41 AM EDT
--- NOTE | ~2025-02-23 | XR_ITS ---
EXAMINATION: X-RAY PRE-MRI SCREENING CLINICAL INFORMATION: Concerning metal in the eye. TECHNIQUE: 3 views of the orbits.. COMPARISON: None FINDINGS: No metal within the orbits. The paranasal sinuses are well pneumatized and aerated without air-fluid levels. XR/XR pre mri screening IMPRESSION: No metallic foreign bodies in the orbits. Negative exam. Electronically signed by: Hesham Salas MD 02/23/2025 08:50 AM EDT
--- OUTSIDE RECORDS SUMMARY | 2025-02-23 08:46 | XMS_ITS ---
Author Organization [facility] Address [address] [place] [address] Care Team Providers Care Burlap Spreader Name Role Phone DO NOT USE Shirley Quintanilla MD Primary Care Provider Unavailable PHYLLISANGELA Pretty Unavailable [phone] Migration, Provider Unavailable Unavailable REASON FOR VISIT [facility] En[facility] Medications Medication SIG (Take, [...] Location Date Provider Diagnosis [facility] [address] [place] [address] 01/24/2025 Provider Migration Plan Of Treatment No Information Progress Notes * Awilda HOFFMAN:1944 (79 yo M)Acc No.[id number]:01/24/2025 Patient:?Matt HOFFMAN Provider:?Provider Migration :1945???Age:79 Y???Sex:Male Federico e:01/24/2025 Address:[address] [address], [place] [address], [place] Pcp:Shirley DO NOT USE David Quintanilla Subjective: [...] Electronic signature of Prov ider Migration on 02/23/2025 at 08:45 AM EDT Sign off status: Pending * Provider:?Provider Migration Date:?01/24 Generated for Wood restrepo/Yuan/Bud on:?02/23/2025 08:45 AM EDT
--- OUTSIDE RECORDS SUMMARY | 2025-02-23 08:46 | XMS_ITS | Patient Health Record ---
Author Organization [facility] Address [address] [place] [address] Care Team Providers Care Chair Post Machine Operator Name Role Phone Shirley Quintanilla MD Primary Care Provider TONE Marquez Unavailable [phone] Allergies No Known Allergies Reason For Referral [...] W/U Status Risk Notes Problem Chronic pain (03499734) Other chronic pain (G89.29) Active confirmed Problem Contracture of right knee joint (disorder) (372089986483517) Contracture, right knee (M24.561) Active confirmed Problem 26940057120479 Pain in right ankle and joints of right foot (M25.571) Active confirmed Problem Osteoarthritis of knee (482834067) Primary osteoarthritis of right knee (M17.11) Active confirmed Problem 571322045352105 Trigger finger o f right thumb (M65.311) Active confirmed Problem 56681477 Closed nondisplaced avulsion fracture of tuberosity of right calcaneus with routine healing, subsequent encounter (S92.034D) Active confirmed Problem 03058780 Open nondisplace d avulsion fracture of tuberosity of right calcaneus, initial encounter (S92.034B) Active confirmed Plan Of Treatment No Information Insurance Providers Payer Name Payer Address Payer Phone Subscriber Number Group Number Insured Name Patient Relationship to Insured Coverage Start Date Coverage End Date Medicare [address] [place] [address] [id number] Matt Schmidt am Self - patient is the insured Med[employer] [address] [place] [address] [id number] Matt Schmidt am Self - patient is [...]
--- OUTSIDE RECORDS SUMMARY | 2025-02-23 08:46 | XMS_ITS ---
Author Organization [facility] Address [address] [place] [address] Care Team Providers Care Balance Staff Inspector Name Role Phone Shirley Quintanilla MD Primary Care Provider UnavailTONE Urias Unavailable [phone] LEAH ISRAEL Unavailable [phone] Allergies No Known Allergies Results Component Value [...] Encounters Encounter Location Date Provider Diagnosis [facility] [address] [place] [address] 08/30/2023 LEAH ISRAEL Acute pain of right [...] Notes * Matt HOFFMANB:07/1945 (78 yo M)Acc No.[id number]:08/30/2023 Progress Notes Patient:?Matt Hoffman Provider:?KOLE MEADOWS :1945???Age:78 Y???Sex:Male Federico e:08/30/2023 Address:[address] [address], [facility] Pcp:Shirley Quintanilla MD Subjective: * [...] (Acute pain of right knee) * Procedure Codes:?51405 AspIn j Large Joint Bursa UGI, Modifiers: RT J1100 LRG Dexamethasone-[id number] Rad Exam Knee Complete (4+ views) * Preventive Medicine:? ??JONA Screening:?FALLS: Screening for Future Fall Risk?Have you had two or more falls in the past year??No,?Have you had any falls with injury in the past year??No,?Plan of Care:?Documented,?Assessment:?Performed.? * Follow Up:?prn * * Sign off status: Completed true * Provider:?LEAH ISRAEL, PAC Date:?08/19 Generated for Wood restrepo/Yuan/Idaitting on:?02/23/2025 08:46 AM EDT History and Physical Notes * [...]
--- OUTSIDE RECORDS SUMMARY | 2025-02-23 08:46 | XMS_ITS ---
Author Organization [facility] Address [address] [place] [address] Care Team Providers Care Emergency Vehicle Operations Instructor Name Role Phone Shirley Quintanilla MD Primary Care Provider UnavailTONE Urias Unavailable [phone] CORY BROWN Unavailable [phone] Allergies No Known Allergies Results Component Value [...] Problem Status W/U Status Risk Notes Problem 108593355748850 Trigger finger of right thumb (M65.311) Active confirmed Vital Signs Height 69 in 10/23/2023 Weight 164 lbs 10/23/2023 BMI 24.22 kg/m2 10/23/2023 Encounters Encounter Location Date Provider Diagnosis [facility] [address] [place] [address] 10/23/2023 CORY BROWN Trigger finger of right [...] Notes * Matt HOFFMANDOB:07/1945 (78 yo M)Acc No.[id number]:10/23/2023 Patient:?Matt Hoffman Provider:?KOLE Raza :1945???Age:78 Y???Sex:Male Federico e:10/23/2023 Address:[address] Pcp:Shirley Quintanilla MD Subjective: * Chief [...] (Trigger finger of right thumb) * Procedure Codes:?60787 Rad E xam Hand (3 view min)J0702 INJ BETAMETHSN ACTAT&SOD PHOSPH-3MG, Units: 2.00 72234 Inj Tendon Sheath Ligament, Modifiers: LT * Follow Up:?prn * * Sign off status: Completed true * Provider:?KOLE Raza Date:? 023 Generated for Wood restrepo/Yaun/Bud on:?02/23/2025 08:46 AM EDT History and Physical [...]
--- OUTSIDE RECORDS SUMMARY | 2025-02-23 08:46 | XMS_ITS ---
Author Organization [facility] Address [address] [place] [address] Care Team Providers Care Orthopedic Shoe Maker Name Role Phone DO NOT USE Shirley Quintanilla MD Primary Care Provider Unavailable ANGELA FERGUSON Unavailable [phone] BLESSING SMITH Unavailable [phone] Allergies No Known Allergies REASON FOR VISIT 6 mo ov w/ PVR; BPH w/ obstr, ED- arterial insuffiency, gross hematuria, urge incontinence Encounters Encounter Location Date Provider Diagnosis [facility] [address] [place] [address] 03/03/2024 BLESSING SMITH Plan Of Treatment No Information Progress Notes * Matt HOFFMANDOB:1944 (79 yo M)Acc No.[id number]:03/03/2024 est/CM pt Patient:?Matt HOFFMAN Provider:?BERTRAM MENDEZ :1945???Age:78 Y???Sex:Male Federico e:03/03/2024 Address:[facility] [address] [place] Pcp:Shirley LAINEZ NOT USE David Quintanilla Subjective: [...] further gross hematuria. [facility] recently was terminal ill ([facility]) He is on [facility] for [facility]. Follows at [facility]. PMH: TIA, mantle cell lymphoma (s/p stem [...] * Electronic signature of Miguel HOANG on 02/23/2025 at 08:45 AM EDT Sign off status: Pending * Provider:?BERTRAM MENDEZ Date:?03/03 Generated for Wood restrepo/Yuan/Idaitting on:?02/23/2025 08:45 AM EDT History and Physical Notes * [...] further gross hematuria. He is back on [facility]. recently was terminal ill (2021) [facility]. Follows at [facility]. PMH: TIA, mantle cell lymphoma (s/p stem [...]
--- OUTSIDE RECORDS SUMMARY | 2025-02-23 08:46 | XMS_ITS | Patient Health Record ---
Author Organization [facility] Address [address] [place] [address] Care Team Providers Care Consumer Loan Specialist Name Role Phone DO NOT USE Shirley Quintanilla MD Primary Care Provider Unavailable ANGELA FERGUSON Unavailable [phone] BLESSING SMITH Unavailable [phone] Migration, Provider Unavailable Unavailable Allergies No Known [...] Risk Notes Problem Urinary tract infectious disease (72901539) Urinary tract infection, site not specified (N39.0) Active confirmed Problem Gross hematuria (811051559) Gross hematuria (R31.0) Active confirmed Problem Incomplete emptying of bladder (266892793) Feeling of incomplete bladder emptying (R39.14) Active confirmed Problem Hydronephrosis (02908245) Other hydronephrosis (N13.39) Active confirmed Problem 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, 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) Active confirmed Problem Retention of urine (335834110) Other retention of urine (R33.8) Active confirmed Problem Post-traumatic membranous urethral stricture (642024142431932) 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 Problem Lower urinary tract symptoms due to benign prostatic hypertrophy (31247403588106) Benign prostatic hyperplasia with lower urinary tract symptoms (N40.1) Active confirmed Problem Incomplete emptying of bladder (493153987) Feeling of incomplete bladder emptying (R39.14) Active confirmed Encounters Encounter Location Date Provider Diagnosis [facility] [address] [place] [address] 01/24/2025 Provider Migration [facility] [address] [place] [address] 04/19/2024 BLESSING SMITH Plan Of Treatment Pending [...] End Date MEDICARE [address] [place] [address] [id number] Matt Schmidt am Self - patient is the insured BC - [employer] [address] [place] [address] [id number] Matt Schmidt am Self - patient is the insured Medical (General) History Medical History History ICD Code Mantle Cell Lymphoma hyperlipidemia Surgical History Surgery Date(Month/Year) Button TURP 2013 acoustic neuroma - gamma knife 1999 knee arthroscopy
--- OUTSIDE RECORDS SUMMARY | 2025-02-23 08:46 | XMS_ITS ---
Author Organization [facility] Address [address] [place] [address] Care Team Providers Care Journeyman Pipe Welder Name Role Phone DO NOT USE Shirley Quintanilla MD Primary Care Provider Unavailable PHYLLIS, ANGELA Unavailable [phone] BLESSING SMITH Unavailable [phone] REASON FOR VISIT CX CM IE- 1 call 05/02 Encounters Encounter Location Date Provider Diagnosis [facility] [address] [place] [address] 04/19/2024 BLESSING SMITH Plan Of Treatment No Information Progress Notes * Matt HOFFMANDOB:1944 (79 yo M)Acc No.[id number]:04/19/2024 Patient:?Matt HOFFMAN :1945???Age:79 Y???Sex:Male Address:[facility] [address] [place], [address] * true * Date:? Generated for Printi ng/Fajenng/eTransmitting on:?02/23/2025 08:45 AM EDT
[2025-02-23 10:33] LABS: Basophils Percent Auto 0.3 % (0-2); Eosinophils Percent Auto 0.2 % (0-4); Hematocrit 36.6 % (42.0-52.0); Hemoglobin 11.6 g/dl (14.0-18.0); Imm Gran Abs Auto 0.04 X10*3/uL (0.00-0.03); Imm Gran Pct Auto 0.3 % (0.0-0.4); Lymphocytes Absolute Auto 9.9 X10*3/uL (1.2-4.9); Lymphocytes Percent Auto 62.8 % (20-40); MANUAL DIFF FLAG SCAN; Mean Corpuscular HGB Conc 31.7 g/dl (31.0-36.0); Mean Corpuscular Hemoglobin 30.2 pg (27.0-33.0); Mean Corpuscular Volume 95.3 fL (80.0-98.0); Mean Platelet Volume 9.7 fL (9.4-12.4); Monocytes Absolute Auto 0.6 X10*3/uL (0.1-1.2); Monocytes Percent Auto 3.9 % (2-11); Neutrophils Absolute Auto 5.1 x10*3/uL (2.0-8.3); Neutrophils Percent Auto 32.5 % (45-73); Platelet Count 139 X10*3/uL (160-400); Red Blood Count 3.84 X10*6/uL (4.60-5.80); Red Cell Distribution Width 14.7 % (11.0-16.0); SCAN SMEAR FLAG 1; White Blood Count 15.7 X10*3/uL (4.8-10.8)
[2025-02-23 11:01] LABS: SLIDE REVIEW VERIFIED
[2025-02-23 11:16] LABS: Appearance Urine Clear; Color Urine Yellow; Glucose Urine UA Negative (Negative); Leukocyte Esterase Urine Trace (Negative); Nitrite Urine Negative (Negative); PH 6.5 (5.0-9.0); Specific Gravity - Urine 1.015 (1.005-1.025); UMIC TRIGGER UA YES; Urine Blood Negative (Negative); Urine Ketones Negative (Negative); Urine Protein Negative (Neg-Trace)
[2025-02-23 11:22] LABS: Bacteria Urine None Seen (None Seen); Hyaline Casts Urine 0-2 /LPF (0-2); RBC Urine 0-2 /HPF (0-2); Squamous Epithelial Cell Urine 0-2 /HPF (0-2)
[2025-02-23 11:39] LABS: Prostate Specific Antigen Scr 5.12 ng/mL (<0.05-4.0)
[2025-02-23 12:54] LABS: Anion Gap 13 (12-20); Blood Urea Nitrogen 19 mg/dL (9-16); Calcium 9.1 mg/dL (8.4-10.2); Carbon Dioxide 23 mmol/L (22-29); Chloride 112 mmol/L (96-108); Estimated Glomerular Filt Rate 57; Glucose Random 89 mg/dL (60-115); Potassium 4.9 mmol/L (3.3-5.1); Sodium 143 mmol/L (135-145)
== END 2025-02-23 08:19 | disposition home or self-care (01) ==
LOC: HO.MRI 08:18
PROVIDERS: Absent Provider Radiology Diagnostic Radiology; PCP Family Medicine; Visit Provider Family Medicine
DX: G45.9 Transient cerebral ischemic attack, unspecified (principal); R29.810 Facial weakness; C85.90 Non-Hodgkin lymphoma, unspecified, unspecified site; H53.9 Unspecified visual disturbance; R97.20 Elevated prostate specific antigen [PSA]; R68.83 Chills (without fever); Z12.5 Encounter for screening for malignant neoplasm of prostate; Z00.00 Encounter for general adult medical examination without abnormal findings
CPT/HCPCS: 36415; 70551; 80048; 81001; 81003; 84153; 85025; 87086

== ENCOUNTER → 2025-02-23 08:27 | Outpatient (BNV) | payer MEDICARE, SELFPAY | PROVIDERS: Absent Provider Radiology Diagnostic Radiology; PCP Family Medicine; Visit Provider Radiology Diagnostic Radiology | DX: I67.89 Other cerebrovascular disease (principal) | CPT/HCPCS: 70551 ==

== ENCOUNTER 2025-03-03 09:39 | Outpatient (REF) | payer MEDICARE, SELFPAY ==
--- NOTE | ~2025-03-03 | US_ITS ---
EXAMINATION: BILATERAL CAROTID ULTRASOUND WITH DOPPLER HISTORY: R09.89 - TIA, carotid bruit, atherosclerosis COMPARISON: There are no prior studies for comparison. TECHNIQUE: Real time and Color and Spectral doppler ultrasonography of the carotid and vertebral arteries was performed in multiple planes. FINDINGS: There is mild plaque at both carotid bulbs. Incidental note is made of a 1.3 cm left thyroid nodule demonstrating punctate calcifications. VERTEBRAL FLOW DIRECTION: Antegrade bilaterally. PEAK SYSTOLIC VELOCITIES (in cm/sec): RIGHT: CCA: Prox: 85.1 Dist: 67.3 ICA: Prox: 73.2 Mid: 83.1 Dist: 77.2 ICA/CCA Ratio: 0.98 ECA: 86.5 Peak ICA EDV: 26.0 LEFT: CCA: Prox: 80.8 Dist: 65.9 ICA: Prox: 54.1 Mid: 82.3 Dist: 71.9 ICA/CCA Ratio: 1.02 ECA: 82.6 Peak ICA EDV: 25.5 US/US carotid duplex BI IMPRESSION: 1. Findings consistent with 0-49% stenosis of the bilateral internal carotid arteries. 2. 1.3 cm left thyroid nodule demonstrating punctate calcifications. Dedicated thyroid ultrasound is recommended. Electronically signed by: Matt Marcum MD 03/03/2025 10:56 AM EDT
--- OUTSIDE RECORDS SUMMARY | 2025-03-03 10:55 | XMS_ITS ---
Author Organization [facility] Address [address] [place] [address] Care Team Providers Care Fulling Machine Operator Name Role Phone DO NOT USE Shirley Quintanilla MD Primary Care Provider Unavailable PHYLLIS, ANGELA Unavailable [phone] BLESSING SMITH Unavailable [phone] REASON FOR VISIT CX CM IE- 1 call 05/02 Encounters Encounter Location Date Provider Diagnosis [facility] [address] [place] [address] 04/19/2024 BLESSING SMITH Plan Of Treatment No Information Progress Notes * Matt HOFFMANDOB:1944 (79 yo M)Acc No.[id number]:04/19/2024 Patient:?Matt HOFFMAN :1945???Age:79 Y???Sex:Male Address:[facility] [address] [place], [address] * true * Date:? Generated for Printi ng/Fajenng/eTransmitting on:?03/03/2025 10:54 AM EDT
--- OUTSIDE RECORDS SUMMARY | 2025-03-03 10:55 | XMS_ITS ---
Author Organization [facility] Address [address] [place] [address] Care Team Providers Care Manager New Product Name Role Phone Shirley Quintanilla MD Primary Care Provider UnavailTONE Urias Unavailable [phone] CORY BROWN Unavailable [phone] Allergies No Known Allergies Results Component Value [...] Problem Status W/U Status Risk Notes Problem [id number] Trigger finger of right thumb (M65.311) Active confirmed Vital Signs Height 69 in 10/23/2023 Weight 164 lbs 10/23/2023 BMI 24.22 kg/m2 10/23/2023 Encounters Encounter Location Date Provider Diagnosis [facility] [address] [place] [address] 10/23/2023 CORY BROWN Trigger finger of right [...] Notes * Matt HOFFMANDOB:07/1945 (78 yo M)Acc No.[id number]:10/23/2023 Patient:?Matt Hoffman Provider:?KOLE Raza :1945???Age:78 Y???Sex:Male Federico e:10/23/2023 Address:[address] Pcp:Shirley Quintanilla MD Subjective: * Chief [...] (Trigger finger of right thumb) * Procedure Codes:?14429 Rad E xam Hand (3 view min)J0702 INJ BETAMETHSN ACTAT&SOD PHOSPH-3MG, Units: 2.00 47384 Inj Tendon Sheath Ligament, Modifiers: LT * Follow Up:?prn * * Sign off status: Completed true * Provider:?KOLE Raza Date:? 023 Generated for Wood restrepo/Yuan/Bud on:?03/03/2025 10:55 AM EDT History and Physical Notes * [...]
--- OUTSIDE RECORDS SUMMARY | 2025-03-03 10:55 | XMS_ITS ---
Author Organization [facility] Address [address] [place] [address] Care Team Providers Care Continuity Tester Name Role Phone DO NOT USE Shirley Quintanilla MD Primary Care Provider Unavailable PHYLLISANGELA Pretty Unavailable [phone] Migration, Provider Unavailable Unavailable [facility] Encounter Medications Medication SIG (Take, Route, [...] Location Date Provider Diagnosis [facility] [address] [place] [address] 01/24/2025 Provider Migration Plan Of Treatment No Information Progress Notes * Awilda HOFFMAN:1944 (79 yo M)Acc No.[id number]:01/24/2025 Patient:?Matt HOFFMAN Provider:?Provider Migration :1945???Age:79 Y???Sex:Male Federico e:01/24/2025 Address:[address] [address], [address] [place], [id number] Pcp:Shirley DO NOT USE David Quintanilla Subjective: [...] Electronic signature of Prov ider Migration on 03/03/2025 at 10:54 AM EDT Sign off status: Pending * Provider:?Provider Migration Date:?01/24 Generated for Wood restrepo/Yuan/Bud on:?03/03/2025 10:54 AM EDT
--- OUTSIDE RECORDS SUMMARY | 2025-03-03 10:55 | XMS_ITS ---
Author Organization [facility] Address [address] [place] [address] Care Team Providers Care Plasma Cutting Machine Operator Name Role Phone DO NOT USE Shirley Quintanilla MD Primary Care Provider Unavailable ANGELA FERGUSON Unavailable [phone] BLESSING SMITH Unavailable [phone] Allergies No Known Allergies REASON FOR VISIT 6 mo ov w/ PVR; BPH w/ obstr, ED- arterial insuffiency, gross hematuria, urge incontinence Encounters Encounter Location Date Provider Diagnosis [facility] [address] [place] [address] 03/03/2024 BLESSING SMITH Plan Of Treatment No Information Progress Notes * Matt HOFFMANDOB:1944 (79 yo M)Acc No.[id number]:03/03/2024 est/CM pt Patient:?Matt HOFFMAN Provider:?BERTRAM MENDEZ :1945???Age:78 Y???Sex:Male Federico e:03/03/2024 Address:[facility] [place] [id number] Pcp:Shirley LAINEZ NOT USE David Quintanilla Subjective: [...] further gross hematuria. [facility] ([facility]) He is on [facility] for [facility]LC. Follows at [facility]. PMH: TIA, mantle cell lymphoma (s/p stem [...] * Electronic signature of Miguel HOANG on 03/03/2025 at 10:54 AM EDT Sign off status: Pending * Provider:?BERTRAM MENDEZ Date:?03/03 Generated for Wood restrepo/Yuan/Idaitting on:?03/03/2025 10:54 AM EDT History and Physical Notes * [...] further gross hematuria. He is back on [facility]. recently was terminal ill (2021) [facility] Follows at [facility]. PMH: TIA, mantle cell lymphoma (s/p stem [...]
--- OUTSIDE RECORDS SUMMARY | 2025-03-03 10:55 | XMS_ITS | Patient Health Record ---
Author Organization [facility] Address [address] [place] [address] Care Team Providers Care Software Sales Name Role Phone Shirley Quintanilla MD Primary Care Provider TONE Marquez Unavailable [phone] Allergies No Known Allergies Reason For Referral [...] W/U Status Risk Notes Problem Chronic pain (14333253) Other chronic pain (G89.29) Active confirmed Problem Contracture of right knee joint (disorder) (393938738474287) Contracture, right knee (M24.561) Active confirmed Problem 88269098873028 Pain in right ankle and joints of right foot (M25.571) Active confirmed Problem Osteoarthritis of knee (516680251) Primary osteoarthritis of right knee (M17.11) Active confirmed Problem 229568009137539 Trigger finger o f right thumb (M65.311) Active confirmed Problem 72227513 Closed nondisplaced avulsion fracture of tuberosity of right calcaneus with routine healing, subsequent encounter (S92.034D) Active confirmed Problem 11019109 Open nondisplace d avulsion fracture of tuberosity of right calcaneus, initial encounter (S92.034B) Active confirmed Plan Of Treatment No Information Insurance Providers Payer Name Payer Address Payer Phone Subscriber Number Group Number Insured Name Patient Relationship to Insured Coverage Start Date Coverage End Date Medicare [address] [place] [address] [id number] Matt Schmidt am Self - patient is the insured Med[employer] [address] [place] [address] [id number] Matt Schmidt am Self - patient is [...]
--- OUTSIDE RECORDS SUMMARY | 2025-03-03 10:55 | XMS_ITS | Patient Health Record ---
Author Organization [facility] Address [address] [place] [address] Care Team Providers Care Wage And Salary Administrator Name Role Phone DO NOT USE Shirley Quintanilla MD Primary Care Provider Unavailable ANGELA FERGUSON Unavailable [phone] BLESSING SMITH Unavailable [phone] Migration, Provider Unavailable Unavailable Allergies No Known [...] Risk Notes Problem Urinary tract infectious disease (56508584) Urinary tract infection, site not specified (N39.0) Active confirmed Problem Gross hematuria (746375976) Gross hematuria (R31.0) Active confirmed Problem Incomplete emptying of bladder (869306140) Feeling of incomplete bladder emptying (R39.14) Active confirmed Problem Hydronephrosis (23042964) Other hydronephrosis (N13.39) Active confirmed Problem Traumatic urethral stricture (71177758) urethral stricture, 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) Active confirmed Problem Retention of urine (301212254) Other retention of urine (R33.8) Active confirmed Problem Post-traumatic membranous urethral stricture (522320851596798) 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 Problem Lower urinary tract symptoms due to benign prostatic hypertrophy (66374827882829) Benign prostatic hyperplasia with lower urinary tract symptoms (N40.1) Active confirmed Problem Incomplete emptying of bladder (429515484) Feeling of incomplete bladder emptying (R39.14) Active confirmed Encounters Encounter Location Date Provider Diagnosis [facility] [address] [place] [address] 01/24/2025 Provider Migration [facility] [address] [place] [address] 04/19/2024 BLESSING SMITH Plan Of Treatment Pending [...] End Date MEDICARE [address] [facility] [place] [address] [id number] Matt Schmidt am Self - patient is the insured BC - Medex [address] [place] [address] [id number] Matt Schmidt am Self - patient is the insured Medical (General) History Medical History History ICD Code Mantle Cell Lymphoma hyperlipidemia Surgical History Surgery Date(Month/Year) Button TURP 2013 acoustic neuroma - gamma knife 1999 knee arthroscopy
== END 2025-03-03 09:40 | disposition home or self-care (01) ==
LOC: HO.US 09:39
PROVIDERS: PCP Family Medicine; Visit Provider Family Medicine
DX: R09.89 Other specified symptoms and signs involving the circulatory and respiratory systems (principal); G45.9 Transient cerebral ischemic attack, unspecified
CPT/HCPCS: 93880

== ENCOUNTER → 2025-03-03 09:43 | Outpatient (BNV) | payer MEDICARE, SELFPAY | PROVIDERS: PCP Family Medicine; Visit Provider Radiology Diagnostic Radiology | DX: R09.89 Other specified symptoms and signs involving the circulatory and respiratory systems (principal) | CPT/HCPCS: 93880 ==

== ENCOUNTER 2025-03-12 08:15 | Outpatient (AMB) | payer MEDICARE, SELFPAY ==
--- NOTE | 2025-03-12 08:18 | MHC.OFFVIS ---
Vital Signs 03/12/25 08:20 Height 5 ft 8 in Weight 156 lb BMI 23.7 Pulse 73 Pulse Source Pulse Oximeter Pulse Oximetry (%) 100 Oxygen Delivery Method Room Air Intake Visit Reasons: INP - TIA Intake Note: Patient referred in house by Dr. Bustos for TIA Allergies No Known Allergies Allergy (Verified 03/12/25 08:22) HPI Comments Details: 79y/o Right handed male comes here for evaluation of possible TIA. He describes episodes of right facial spasm ? weakness with right eye closing and face drooping lasting 1 min. He has about 1 episode a month for past 2 years. he also reports some discomfort in lower part of his right face.He feels it can be triggered when v=brushing his teeth or other activities. He has H/O ?TIA- 3 weeks ago- he was in his apartment alone- felt eyes were closing in and had like a tunnel vision , sees stars - too 2 baby aspirins .The whole episode lasted 30 minutes. He reports another TIA 7-8 years ago he had garbled speech - had visual aura, was taken to ER- lasted less than 1 hr. No h/o migraines.He denies any weakness or numbness. He had visual aura - seeing stars when he was hiking in [place] He also reports feeling foggy- feels like his Brain is less sharp. He feel like he is fatigued or lack of alertness. he takes tylenol PM to help him sleep.He denies snoring, takes a nap 90 minutes at 2 pm everyday. 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 in right ear Enlarged prostate MCL (mantle cell lymphoma) Family History Father Diabetes Mother Esophageal cancer Social History Housing: Apartment Patient Tobacco Use Status: Former Tobacco user e-Cigarette/Vaping Use: Never Used service: Yes Current occupational status: retired Current occupational exposures/hazards: No Cognitive needs: No Hearing needs: Yes Vision needs: Yes Physical Exam Vital Signs: Last Vital Signs Pulse 73 03/12/25 08:20 Pulse Ox 100 03/12/25 08:20 Oxygen Delivery Method Room Air 03/12/25 08:20 BMI result Body Mass Index 23.7 Const General: cooperative, healthy appearing, comfortable, no acute distress and well developed Nutritional Appearance: average body habitus Orientation/consciousness: patient oriented x3 Eyes Pupils: Equal, round and reactive pupils present Neuro Other: right facial weakness - mild enlargement of palpebral fissure Gait - antalgic General: patient oriented x3, tone normal, moves all extremities and no focal motor deficits Cranial nerves: Yes Facial sensation intact/muscles of mastication intact, Yes Equal, round and reactive pupils present, Yes Bilaterally intact EOM present, Yes Nystagmus not present, Yes Normal facial strength present, Yes Midline tongue present, Yes Symmetric palate elevation present and Yes Ability to bilaterally elevate shoulders present Cognition (Neuro): normal cognition Motor exam (neuro): 5/5 motor strength present throughout and Normal motor muscle tone present throughout Deep tendon reflexes (DTR's): Right triceps reflex intensity grade: 1+, Left triceps reflex intensity grade: 1+, Rt Biceps (C5, C6): 1+, Left biceps reflex intensity grade: 1+, Right brachioradialis reflex intensity grade: 1+, Left brachioradialis reflex intensity grade: 1+, Right patellar reflex intensity grade: 1+ and Left patellar reflex intensity grade: 1+ Coordination: [id number]-fu-dhsk test normal Orientation What is the (year) (season) (date) (day) (month)?: year, season, date, day and month Where are we (state) (county) (town or city) (hospital) (floor)?: state, county, town or city, hospital/clinic and floor Registration Name of 3 unrelated objects clearly and slowly, then ask patient to repeat all 3 of them. (1st repeat determines score. Make sure they can repeat all three): object 1, object 2 and object 3 Attention & Calculation (CHOOSE ONE) Spell WORLD backwards (DLROW): 5 letters Recall Ask patient to repeat the 3 items from question #3.: object 1 and object 2 Language Show patient a wristwatch & ask what it is. Repeat for pencil.: watch and pencil Ask the patient to repeat the phrase 'No ifs, ands, or buts' after you.: correct Ask the patient to 'take a piece of paper with their right hand' 'fold paper in half' 'place paper on floor': take paper in right hand, fold paper in half and place paper on floor Print the sentence 'CLOSE YOUR EYES' on a piece. If patient actually closes eyes then score.: followed written direction Give patient a blank piece of paper & ask to write a sentence. Score if it contains a noun & verb.: sentence contains subject and verb Ask patient to copy figure of intersecting pentagons exactly. Score if all 10 angles & 2 intersects are included.: all 10 angles present & 2 are intersected Score Score: 29 Results Reviewed Results Reviewed: 02/2025 MRI Brain -No acute stroke/nonhemorrhagic ischemia. Small vessel occlusive disease. Questionable aneurysm, left V4 segment/origin left PICA. 02/2025 Findings consistent with 0-49% stenosis of the bilateral internal carotid arteries. 2. 1.3 cm left thyroid nodule demonstrating punctate calcifications. Dedicated thyroid ultrasound is recommended. 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 Orders: Orders MR angio head wo con Today I65.29 - Occlusion and stenosis of unspecified carotid artery, I72.9 - Aneurysm of unspecified site MR angio neck wo con Today G45.9 - Transient cerebral ischemic attack, unspecified, I65.29 - Occlusion and stenosis of unspecified carotid artery Coding Level of Care Code New Pt Level 4 (16193) Complex EM visit Add On G2211 Diagnoses TIA (transient ischemic attack) G45.9 Facial nerve spasm G51.39 Aneurysm I72.9
[2025-03-12 08:20] VITALS: PULSE 73; O2SAT 100; BMI 23.7
--- OUTSIDE RECORDS SUMMARY | 2025-03-12 08:31 | XMS_ITS ---
Author Organization [facility] Address [address] [place] [address] Care Team Providers Care Water Inspector Name Role Phone DO NOT USE Shirley Quintanilla MD Primary Care Provider Unavailable PHYLLISANGELA Pretty Unavailable [phone] Migration, Provider Unavailable Unavailable [facility] Encounter Medications Medication SIG (Take, [...] Location Date Provider Diagnosis [facility] [address] [place] [address] 01/24/2025 Provider Migration Plan Of Treatment No Information Progress Notes * Awilda HOFFMAN:1944 (79 yo M)Acc No.[id number]:01/24/2025 Patient:?Matt HOFFMAN Provider:?Provider Migration :1945???Age:79 Y???Sex:Male Federico e:01/24/2025 Address:[address] [address], [address], [id number] Pcp:Shirley DO NOT USE David Quintanilla Subjective: [...] Electronic signature of Prov ider Migration on 03/12/2025 at 08:31 AM EDT Sign off status: Pending * Provider:?Provider Migration Date:?01/24 Generated for Wood restrepo/Yuan/Bud on:?03/12/2025 08:31 AM EDT
--- OUTSIDE RECORDS SUMMARY | 2025-03-12 08:31 | XMS_ITS ---
Author Organization [facility] Address [address] [place] [address] Care Team Providers Care Engine Installer Name Role Phone DO NOT USE Shirley Quintanilla MD Primary Care Provider Unavailable ANGELA FERGUSON Unavailable [phone] BLESSING SMITH Unavailable [phone] Allergies No Known Allergies REASON FOR VISIT 6 mo ov w/ PVR; BPH w/ obstr, ED- arterial insuffiency, gross hematuria, urge incontinence Encounters Encounter Location Date Provider Diagnosis [facility] [address] [place] [address] 03/03/2024 BLESSING SMITH Plan Of Treatment No Information Progress Notes * Matt HOFFMANDOB:1944 (79 yo M)Acc No.[id number]:03/03/2024 est/CM pt Patient:?Matt HOFFMAN Provider:?BERTRAM MENDEZ :1945???Age:78 Y???Sex:Male Federico e:03/03/2024 Address:[facility] [address], [id number] Pcp:Shirley LAINEZ NOT USE David Quintanilla Subjective: [...] further gross hematuria. [facility] was [facility] ([facility]) He is on [facility] for MLC. Follows at [facility]. PMH: TIA, mantle cell lymphoma (s/p [...] * Electronic signature of Miguel HOANG on 03/12/2025 at 08:31 AM EDT Sign off status: Pending * Provider:?BERTRAM MENDEZ Date:?03/03 Generated for Wood restrepo/Yuan/Idaitting on:?03/12/2025 08:31 AM EDT History and Physical Notes * [...] further gross hematuria. He is back on [facility]. recently was terminal ill (2021) [facility] Follows at [facility]. PMH: TIA, mantle cell lymphoma (s/p [...]
--- OUTSIDE RECORDS SUMMARY | 2025-03-12 08:31 | XMS_ITS ---
Author Organization [facility] Address [address] [place] [address] Care Team Providers Care International Account Executive Name Role Phone DO NOT USE Shirley Quintanilla MD Primary Care Provider Unavailable PHYLLIS, ANGELA Unavailable [phone] BLESSING SMITH Unavailable [phone] REASON FOR VISIT CX CM IE- 1 call 05/02 Encounters Encounter Location Date Provider Diagnosis [facility] [address] [place] [address] 04/19/2024 BLESSING SMITH Plan Of Treatment No Information Progress Notes * Matt HOFFMANDOB:1944 (79 yo M)Acc No.[id number]:04/19/2024 Patient:?Matt HOFFMAN :1945???Age:79 Y???Sex:Male Address:[facility] [address] [place], [address] * true * Date:? Generated for Printi ng/Fajenng/eTransmitting on:?03/12/2025 08:31 AM EDT
--- OUTSIDE RECORDS SUMMARY | 2025-03-12 08:31 | XMS_ITS | Patient Health Record ---
Author Organization [facility] Address [address] [place] [address] Care Team Providers Care Larry Operator Name Role Phone Shirley Quintanilla MD Primary Care Provider TONE Marquez Unavailable [phone] Allergies No Known Allergies Reason For Referral [...] W/U Status Risk Notes Problem Chronic pain (91943473) Other chronic pain (G89.29) Active confirmed Problem Contracture of right knee joint (disorder) (789810404292713) Contracture, right knee (M24.561) Active confirmed Problem 49480824423487 Pain in right ankle and joints of right foot (M25.571) Active confirmed Problem Osteoarthritis of knee (877315560) Primary osteoarthritis of right knee (M17.11) Active confirmed Problem 805113174593197 Trigger finger o f right thumb (M65.311) Active confirmed Problem 37605843 Closed nondisplaced avulsion fracture of tuberosity of right calcaneus with routine healing, subsequent encounter (S92.034D) Active confirmed Problem 16150931 Open nondisplace d avulsion fracture of tuberosity of right calcaneus, initial encounter (S92.034B) Active confirmed Plan Of Treatment No Information Insurance Providers Payer Name Payer Address Payer Phone Subscriber Number Group Number Insured Name Patient Relationship to Insured Coverage Start Date Coverage End Date Medicare [address] [place] [address] [id number] Matt Schmidt am Self - patient is the insured [employer] [address] [place] [address] [id number] Matt Schmidt am Self - patient is [...]
--- OUTSIDE RECORDS SUMMARY | 2025-03-12 08:32 | XMS_ITS | Patient Health Record ---
Author Organization [facility] Address [address] [place] [address] Care Team Providers Care Bobbin Cleaning Machine Operator Name Role Phone DO NOT USE Shirley Quintanilla MD Primary Care Provider Unavailable ANGELA FERGUSON Unavailable [phone] BLESSING SMITH Unavailable [phone] Migration, Provider Unavailable Unavailable Allergies No Known [...] Risk Notes Problem Urinary tract infectious disease (91278709) Urinary tract infection, site not specified (N39.0) Active confirmed Problem Gross hematuria (508143006) Gross hematuria (R31.0) Active confirmed Problem Incomplete emptying of bladder (277176768) Feeling of incomplete bladder emptying (R39.14) Active confirmed Problem Hydronephrosis (94766972) Other hydronephrosis (N13.39) Active confirmed Problem Traumatic urethral stricture (13157124) urethral stricture, 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) Active confirmed Problem Retention of urine (572356437) Other retention of urine (R33.8) Active confirmed Problem Post-traumatic membranous urethral stricture (001273819665293) 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 Problem Lower urinary tract symptoms due to benign prostatic hypertrophy (31094099056786) Benign prostatic hyperplasia with lower urinary tract symptoms (N40.1) Active confirmed Problem Incomplete emptying of bladder (018938703) Feeling of incomplete bladder emptying (R39.14) Active confirmed Encounters Encounter Location Date Provider Diagnosis [facility] [address] [place] [address] 04/19/2024 BLESSING SMITH [facility] [address] [place] [address] 01/24/2025 Provider Migration Plan Of Treatment Pending Test Test Name [...] End Date MEDICARE [address] [facility] [place] [address] [id number] Matt Schmidt am Self - patient is the insured BC - [employer] [address] [place] [address] [id number] Matt Schmidt am Self - patient is the insured Medical (General) History Medical History History ICD Code Mantle Cell Lymphoma hyperlipidemia Surgical History Surgery Date(Month/Year) Button TURP 2013 acoustic neuroma - gamma knife 1999 knee arthroscopy
--- OUTSIDE RECORDS SUMMARY | 2025-03-12 08:32 | XMS_ITS ---
Author Organization [facility] Address [address] [place] [address] Care Team Providers Care Newspaper Subscription Solicitor Name Role Phone Shirley Quintanilla MD Primary Care Provider UnavailTONE Urias Unavailable [phone] CORY BROWN Unavailable [phone] Allergies No Known Allergies Results Component Value [...] Problem Status W/U Status Risk Notes Problem [id number] Trigger finger of right thumb (M65.311) Active confirmed Vital Signs Height 69 in 10/23/2023 Weight 164 lbs 10/23/2023 BMI 24.22 kg/m2 10/23/2023 Encounters Encounter Location Date Provider Diagnosis [facility] [address] [place] [address] 10/23/2023 CORY BROWN Trigger finger of right [...] Notes * Matt HOFFMANDOB:07/1945 (78 yo M)Acc No.[id number]:10/23/2023 Patient:?Matt Hoffman Provider:?KOLE Raza :1945???Age:78 Y???Sex:Male Federico e:10/23/2023 Address:[address] Pcp:Shirley Quintanilla MD Subjective: * Chief [...] (Trigger finger of right thumb) * Procedure Codes:?52948 Rad E xam Hand (3 view min)J0702 INJ BETAMETHSN ACTAT&SOD PHOSPH-3MG, Units: 2.00 35406 Inj Tendon Sheath Ligament, Modifiers: LT * Follow Up:?prn * * Sign off status: Completed true * Provider:?KOLE Raza Date:? 023 Generated for Wood restrepo/Yuan/Bud on:?03/12/2025 08:31 AM EDT History and Physical [...]
== END 2025-03-12 09:13 | disposition home or self-care (01) ==
LOC: HO.HSMS 08:16
PROVIDERS: PCP Family Medicine; Visit Provider Psychiatry & Neurology Neurology
DX: G45.9 Transient cerebral ischemic attack, unspecified (principal); G51.39 Clonic hemifacial spasm, unspecified; I72.9 Aneurysm of unspecified site
CPT/HCPCS: 99204; G2211

== ENCOUNTER → 2025-03-12 08:15 | Outpatient (BNVA) | payer MEDICARE, SELFPAY | PROVIDERS: PCP Family Medicine; Visit Provider Psychiatry & Neurology Neurology | DX: G51.39 Clonic hemifacial spasm, unspecified (principal); I72.9 Aneurysm of unspecified site; I65.29 Occlusion and stenosis of unspecified carotid artery; Z86.73 Personal history of transient ischemic attack (TIA), and cerebral infarction without residual deficits | CPT/HCPCS: 99202 ==

== ENCOUNTER 2025-03-18 09:21 | Outpatient (AMB) | payer MEDICARE, SELFPAY ==
--- NOTE | 2025-03-18 09:32 | A.OFFPC_ITS ---
Vital Signs 03/18/25 09:41 Height 5 ft 8 in Weight 156 lb 8 oz BMI 23.8 BP 106/60 Blood Pressure Location Lt radial Position Sitting Respiration 14 Pulse 67 Pulse Source Pulse Oximeter Temp 97.8 F Temp Source Oral Pulse Oximetry (%) 97 Oxygen Delivery Method Room Air Intake Visit Reasons: f/u chronic conditions Intake Note: patient is schedule for follow-up chronic condition Neurologist Required: No Information Interpreted: clinical only Allergies No Known Allergies Allergy (Verified 03/18/25 09:36) Medication List - Last Reconciled 03/18/25 by Aj Bustos MD acalabrutinib maleate (Calquence (acalabrutinib maleate)) mg PO alfuzosin ER 10 mg PO DAILY 30 days aspirin (Adult Low Dose Aspirin) 81 mg PO DAILY atorvastatin 40 mg PO DAILY sulfamethoxazole-trimethoprim 400-80 mg (Bactrim) 1 tab PO BEDTIME Tobacco use date assessed: 01/23/25 Dental Screening Dental Screen Date: 01/23/25 HPI f/u chronic conditions HPI Details 79 y/o male presents to f/u facial weakn ess, MRI, carotid ultrasound as well as urinary studies and PSA. Referred to Neurology. Had seen Aleshia Lawrence 03/12/25. Had reviewed MRI and carotid doppler - plan is to further evaluate with MRA head and neck for aneurysm. Continue aspirin 81mg qd. They note facial asymmetry and spasm could be related to his h/o acoustic neuroma and gamma knife surgery. Pt notes he has his MRA scheduled this afternoon. Pt reports ongoing dizziness. Reports ongoing/worsening facial weakness. 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 in right ear Enlarged prostate MCL (mantle cell lymphoma) Family History Father Diabetes Mother Esophageal cancer Social History Housing: Apartment Patient Tobacco Use Status: Former Tobacco user e-Cigarette/Vaping Use: Never Used service: Yes Current occupational status: retired Current occupational exposures/hazards: No Cognitive needs: No Hearing needs: Yes Vision needs: Yes Questionnaire Thrive Questionnaire Date Thrive assessed: 04/30/25 I am a: Patient What is your living situation today?: I have a steady place to live Within the past 12 months, did the food you bought not last and you didn't have the money to get more?: Never true Within the past 12 months, did you worry whether your food would run out before you got money to buy more?: Never true Do you have trouble paying for medicines?: No Do you have trouble getting transportation to medical appointments?: No Do you have trouble paying your heating and electricity bill?: No Do you have trouble taking care of your child, family member or friend?: No Do you have trouble with day-to-day activities such as bathing, preparing meals, shopping, managing finances, etc.?: No Are you currently unemployed and looking for a job?: No Are you interested in more education?: No Please select the resources that you would like help with: None Currently or been in a relationship where the following occur: No concerns reported THRIVE Score: 0 MAHSA-7 AMB Questionnaire MAHSA-7 Date MAHSA - 7 assessed: 03/18/25 Feeling nervous, anxious, or on edge: 0 = Not at all Not being able to stop or control worryin = Not at all Worrying too much about different things: 0 = Not at all Trouble relaxin = Not at all Being so restless that it is hard to sit still: 0 = Not at all Becoming easily annoyed or irritable: 0 = Not at all Feeling afraid as if something awful might happen: 0 = Not at all Total MAHSA-7 score (0-4 normal; 5-9 mild; 10-14 moderate; 15-21 severe): 0 Source: Developed by Drs. Matt Puentes, Lee Ann Staley, Rocael Plascencia and colleagues, with an educational christa from [employer]. Review of Systems Const Denies chills, Denies fatigue, Denies fever(s), Denies headache(s) and Denies weakness ENT Reports dizziness and Denies headache(s) Card Denies dyspnea Resp Denies cough, Denies dyspnea, Denies wheezing and Denies other (shortness of breath) Musc Denies numbness and Denies tingling Neuro Reports dizziness, Denies headache(s), Denies numbness, Denies tingling and Denies weakness Psych Denies anxiety and Denies depression Endo Denies fatigue Aller/Immun Denies wheezing Physical exam (Primary Care) Vital Signs: Last Vital Signs Temp 97.8 F 03/18/25 09:41 Pulse 67 03/18/25 09:41 Resp 14 03/18/25 09:41 BP 106/60 03/18/25 09:41 Pulse Ox 97 03/18/25 09:41 Oxygen Delivery Method Room Air 03/18/25 09:41 BMI result Body Mass Index 23.8 Tobacco/Smoking Status: Tobacco use Status Tobacco use date assessed 01/23/25 03/18/25 09:33 Patient Tobacco Use Status Former Tobacco user 03/18/25 09:33 e-Cigarette/Vaping Use Never Used 03/18/25 09:33 Thrive Assessment: Date of Thrive Assessment Date Thrive assessed 03/18/25 03/18/25 09:45 Currently or been in a relationship where the following occur: No concerns reported Const General: well developed; No acute distress Nutritional Appearance: well nourished Orientation/consciousness: patient oriented x3 HENMT Head: Yes normocephalic and Yes atraumatic Eyes General: appearance normal, both eyes and all related structures Pupils: Equal, round and reactive pupils present EOM: EOMs intact bilaterally Resp Effort & Inspection: normal respiratory effort Neuro General: patient oriented x3 and gait normal Cranial nerves: Yes Equal, round and reactive pupils present Psych Affect: normal affect Coding Level of Care Code Est Pt Level 4 (81742) Diagnoses Dizziness R42 Facial nerve spasm G51.39 Weakness of facial muscle affecting closure of eye R29.810 TIA (transient ischemic attack) G45.9 Urinary retention R33.9 Elevated PSA R97.20 Assessment & Plan Assessment & Plan (1) Dizziness: Code(s): R42 - Dizziness and giddiness Category: Medical (2) Facial nerve spasm: Code(s): G51.39 - Clonic hemifacial spasm, unspecified Category: Medical (3) Weakness of facial muscle affecting closure of eye: Code(s): R29.810 - Facial weakness Category: Medical (4) TIA (transient ischemic attack): Code(s): G45.9 - Transient cerebral ischemic attack, unspecified Category: Medical (5) Urinary retention: Code(s): R33.9 - Retention of urine, unspecified Category: Medical (6) Elevated PSA: Code(s): R97.20 - Elevated prostate specific antigen [PSA] Category: Medical Plan Concerns?regarding?new/worsening?right- sided?facial?weakness?in?a?patient?with?history?of lymphoma and?history?of?TIA. Patient?also?has?history?of?acoustic?neuroma?on?right. 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 Carotid?duplex?did?not?show?any?hemodynamically?significant?stenoses. Patient?was?seen?by?Neurology who?reviewed?these?studies?with?him. She?is?checking?an?MRA?of?head?and?neck.??Agreed?with?aspirin?and?atorvastatin. He?will?continue?follow-up?with?Neurology. Patient?has?not?seen?an?high school band teacher?though?he?perez s?note?some?vision?changes.??These?may?not?be?related?to?the?above?issues?but?wi ll?have?him?seen?to?rule?this?out. Referred?to??Jasbir?in?was?Dickens PSA?level?remained?elevated?on?repeat?kaitlin ting?and?I?have?referred?him?to?Urology. He?does?have?ongoing?urinary?retention.??Alfuzosin?seems?to?be?helping?with?less ?side?effects?such?as?dizziness. Orders: Referrals Ophthalmology Referral G45.9 - Transient cerebral ischemic attack, unspecified, H53.9 - Unspecified visual disturbance
[2025-03-18 09:41] VITALS: BP 106/60; PULSE 67; RESP 14; TEMP 36.6; O2SAT 97; BMI 23.8
--- OUTSIDE RECORDS SUMMARY | 2025-03-18 10:00 | XMS_ITS ---
Author Organization [facility] Address [address] [place] [address] Care Team Providers Care Therapist Respiratory Name Role Phone DO NOT USE Shirley Quintanilla MD Primary Care Provider Unavailable ANGELA FERGUSON Unavailable [phone] BLESSING SMITH Unavailable [phone] Allergies No Known Allergies REASON FOR VISIT 6 mo ov w/ PVR; BPH w/ obstr, ED- arterial insuffiency, gross hematuria, urge incontinence Encounters Encounter Location Date Provider Diagnosis [facility] [address] [place] [address] 03/03/2024 BLESSING SMITH Plan Of Treatment No Information Progress Notes * Matt HOFFMANDOB:1944 (79 yo M)Acc No.[id number]:03/03/2024 est/CM pt Patient:?Matt HOFFMAN Provider:?BERTRAM MENDEZ :1945???Age:78 Y???Sex:Male Federico e:03/03/2024 Address:[facility] [address] [id number] Pcp:Shirley LAINEZ NOT USE David Quintanilla Subjective: [...] further gross hematuria. [facility] ([facility]) He is on Calquence for MLC. Follows at [facility]. PMH: TIA, mantle cell lymphoma (s/p stem [...] * Electronic signature of Miguel HOANG on 03/18/2025 at 09:59 AM EDT Sign off status: Pending * Provider:?BERTRAM MENDEZ Date:?03/03 Generated for Wood restrepo/Yuan/Idaitting on:?03/18/2025 09:59 AM EDT History and Physical Notes * [...] further gross hematuria. He is back on [facility]. recently was terminal ill (2021) [facility] Follows at [facility]. PMH: TIA, mantle cell lymphoma (s/p stem [...]
--- OUTSIDE RECORDS SUMMARY | 2025-03-18 10:00 | XMS_ITS ---
Author Organization [facility] Address [address] [place] [address] Care Team Providers Care Broadcast Journalist Name Role Phone DO NOT USE Shirley Quintanilla MD Primary Care Provider Unavailable PHYLLIS, ANGELA Unavailable [phone] BLESSING SMITH Unavailable [phone] REASON FOR VISIT CX CM IE- 1 call 05/02 Encounters Encounter Location Date Provider Diagnosis [facility] [address] [place] [address] 04/19/2024 BLESSING SMITH Plan Of Treatment No Information Progress Notes * Matt HOFFMANDOB:1944 (79 yo M)Acc No.[id number]:04/19/2024 Patient:?Matt HOFFMAN :1945???Age:79 Y???Sex:Male Address:[facility] [address] [place], [address] * true * Date:? Generated for Printi ng/Faxing/eTransmitting on:?03/18/2025 10:00 AM EDT
--- OUTSIDE RECORDS SUMMARY | 2025-03-18 10:00 | XMS_ITS ---
Author Organization [facility] Address [address] [place] [address] Care Team Providers Care Hogshead Head Matcher Name Role Phone DO NOT USE Shirley Quintanilla MD Primary Care Provider Unavailable PHYLLISANGELA Pretty Unavailable [phone] Migration, Provider Unavailable Unavailable [facility] En[facility] Medications Medication SIG (Take, [...] Location Date Provider Diagnosis [facility] [address] [place] [address] 01/24/2025 Provider Migration Plan Of Treatment No Information Progress Notes * Awilda HOFFMAN:1944 (79 yo M)Acc No.[id number]:01/24/2025 Patient:?Matt HOFFMAN Provider:?Provider Migration :1945???Age:79 Y???Sex:Male Federico e:01/24/2025 Address:[address] [address], [place], [place] Pcp:Shirley DO NOT USE David Quintanilla Subjective: [...] Electronic signature of Prov ider Migration on 03/18/2025 at 09:59 AM EDT Sign off status: Pending * Provider:?Provider Migration Date:?01/24 Generated for Wood restrepo/Yuan/Bud on:?03/18/2025 09:59 AM EDT
--- OUTSIDE RECORDS SUMMARY | 2025-03-18 10:00 | XMS_ITS | Patient Health Record ---
Author Organization [facility] Address [address] [place] [address] Care Team Providers Care Hair Sample Matcher Name Role Phone DO NOT USE Shirley Quintanilla MD Primary Care Provider Unavailable ANGELA FERGUSON Unavailable [phone] BLESSING SMITH Unavailable [phone] Migration, Provider Unavailable Unavailable Allergies No Known [...] Risk Notes Problem Urinary tract infectious disease (82084440) Urinary tract infection, site not specified (N39.0) Active confirmed Problem Gross hematuria (736968340) Gross hematuria (R31.0) Active confirmed Problem Incomplete emptying of bladder (941993635) Feeling of incomplete bladder emptying (R39.14) Active confirmed Problem Hydronephrosis (10176761) Other hydronephrosis (N13.39) Active confirmed Problem 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, 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) Active confirmed Problem Retention of urine (327551003) Other retention of urine (R33.8) Active confirmed Problem Post-traumatic membranous urethral stricture (718576720445994) 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 Problem Lower urinary tract symptoms due to benign prostatic hypertrophy (67648230618433) Benign prostatic hyperplasia with lower urinary tract symptoms (N40.1) Active confirmed Problem Incomplete emptying of bladder (137217751) Feeling of incomplete bladder emptying (R39.14) Active confirmed Encounters Encounter Location Date Provider Diagnosis [facility] [address] [place] [address] 01/24/2025 Provider Migration [facility] [address] [place] [address] 04/19/2024 BLESSING SMITH Plan Of Treatment Pending [...] End Date MEDICARE [address] [place] [facility] [place] [address] [id number] Matt Schmidt am Self - patient is the insured BC - [employer] [address] [place] [address] [phone] [id number] Matt Schmidt am Self - patient is the insured Medical (General) History Medical History History ICD Code Mantle Cell Lymphoma hyperlipidemia Surgical History Surgery Date(Month/Year) Button TURP 2013 acoustic neuroma - gamma knife 1999 knee arthroscopy
--- OUTSIDE RECORDS SUMMARY | 2025-03-18 10:00 | XMS_ITS | Patient Health Record ---
Author Organization [facility] Address [address] [place] [address] Care Team Providers Care Probation And Parole Officer Name Role Phone Shirley Quintanilla MD Primary Care Provider TONE Marquez Unavailable [phone] Allergies No Known Allergies Reason For Referral [...] W/U Status Risk Notes Problem Chronic pain (62626999) Other chronic pain (G89.29) Active confirmed Problem Contracture of right knee joint (disorder) (574999971825131) Contracture, right knee (M24.561) Active confirmed Problem 09557361032065 Pain in right ankle and joints of right foot (M25.571) Active confirmed Problem Osteoarthritis of knee (244686122) Primary osteoarthritis of right knee (M17.11) Active confirmed Problem 858395263837688 Trigger finger o f right thumb (M65.311) Active confirmed Problem 56628604 Closed nondisplaced avulsion fracture of tuberosity of right calcaneus with routine healing, subsequent encounter (S92.034D) Active confirmed Problem 35311552 Open nondisplace d avulsion fracture of tuberosity of right calcaneus, initial encounter (S92.034B) Active confirmed Plan Of Treatment No Information Insurance Providers Payer Name Payer Address Payer Phone Subscriber Number Group Number Insured Name Patient Relationship to Insured Coverage Start Date Coverage End Date Medicare [address] [place] [address] [id number] Matt Schmidt am Self - patient is the insured [employer] [address] [place] [address] [id number] Matt Schmidt am Self - patient is [...]
== END 2025-03-18 10:24 | disposition home or self-care (01) ==
LOC: HO.HMCFM 09:22
PROVIDERS: PCP Family Medicine; Visit Provider Family Medicine
DX: R42 Dizziness and giddiness (principal); G51.39 Clonic hemifacial spasm, unspecified; R29.810 Facial weakness; G45.9 Transient cerebral ischemic attack, unspecified; R33.9 Retention of urine, unspecified; R97.20 Elevated prostate specific antigen [PSA]

== ENCOUNTER 2025-03-18 15:33 | Outpatient (REF) | payer MEDICARE, SELFPAY ==
--- NOTE | ~2025-03-18 | MR_ITS ---
EXAMINATION: MR ANGIOGRAPHY BRAIN WITHOUT CONTRAST CLINICAL INFORMATION: Aneurysm of unspecified site. COMPARISON: MRA dated February 23, 2025 with the questionable small aneurysm left V4/PICA origin. TECHNIQUE: 3-D ckmy-ia-psajmh and maximum intensity projections napaimute of Ramos. FINDINGS: Anterior cerebral circulation: ICAs: No flow signal gap or abrupt cut off. No focal stenosis. MCA's: No flow signal gap or abrupt cut off. No focal stenosis. Bifurcation/trifurcation demonstrated no flow signal irregularity. ACAs: No flow signal gap or abrupt cut off. No focal stenosis. Ophthalmic arteries flow signal is normal. Anterior communicating artery flow signal is present. Right posterior communicating artery flow signal is small caliber and and faint signal. The left is not fully depicted. Posterior cerebral circulation: Left vertebral artery is dominant. Itoqo-sa-iuez is at the craniocervical junction and defect in the expected origin of the posterior inferior cerebellar arteries. No overt flow signal irregularity at the origin of the posterior inferior cerebral arteries. Basilar artery demonstrates normal flow signal. Superior cerebellar arteries are present. welt insole channeler demonstrate no flow signal gap or abrupt cut off. MR/MR angio head wo con IMPRESSION: No main cerebral artery occlusion or embolus. No cerebral aneurysm. Electronically signed by: Hesham Salas MD 03/19/2025 02:14 PM EDT
--- NOTE | ~2025-03-18 | MR_ITS ---
EXAMINATION: MR ANGIOGRAPHY NECK WITHOUT CONTRAST CLINICAL INFORMATION: Transit cerebral ischemic attack. COMPARISON: Collated to ultrasound carotid duplex dated March 03, 2025. TECHNIQUE: MRA of the neck was obtained using routine sequences without contrast. The degree of stenosis determined by criteria similar to NASCET. FINDINGS: The iwtny-os-kqzb excludes the aortic arch and the origin of the main branches. Right CCA demonstrates no flow signal narrowing gap or intraluminal signal defect. Right ICA demonstrates normal flow signal without flow signal gap without intimal flap or focal narrowing. Left CCA demonstrates normal flow signal without flow signal gap or intimal flap or focal narrowing. Left ICA demonstrates normal flow signal without flow signal gap or intimal flap or focal narrowing. Sclerosis and the vertebral arteries demonstrates normal flow signal gap or abrupt cut off. Left vertebral artery slightly dominant. MR/MR angio neck wo con IMPRESSION: No high degree stenosis. Left vertebral artery is slightly dominant. Electronically signed by: Hesham Salas MD 03/19/2025 02:06 PM EDT
== END 2025-03-18 15:34 | disposition home or self-care (01) ==
LOC: HO.MRI 15:33
PROVIDERS: PCP Family Medicine; Visit Provider Psychiatry & Neurology Neurology
DX: I72.9 Aneurysm of unspecified site (principal); G45.9 Transient cerebral ischemic attack, unspecified
CPT/HCPCS: 70544; 70547; 99212

== ENCOUNTER → 2025-03-18 15:46 | Outpatient (BNV) | payer MEDICARE, SELFPAY | PROVIDERS: PCP Family Medicine; Visit Provider Radiology Diagnostic Radiology | DX: G45.9 Transient cerebral ischemic attack, unspecified (principal); I72.9 Aneurysm of unspecified site | CPT/HCPCS: 70544; 70547 ==

== ENCOUNTER 2025-03-31 21:06 | Emergency (ER) | payer MEDICARE, SELFPAY ==
--- NOTE | ~2025-03-31 | XR_ITS ---
CLINICAL HISTORY: food stuck in middle of his chest 2 view chest x-ray. Comparison: CR/NH/SR - XR CHEST 2V - 01/26/25 08:05 EDT Findings: The lungs appear clear. There is no radiopaque foreign body. Cardiomediastinal silhouette is within normal limits. IMPRESSION: No acute cardiopulmonary abnormality. This document has been electronically signed by: Jorge Estrada MD on 03/31/2025 22:52:32
[2025-03-31 21:27] VITALS: BP 136/62; PULSE 64; RESP 20; TEMP 36.7; O2SAT 100; BMI 23.3
--- OUTSIDE RECORDS SUMMARY | 2025-03-31 23:55 | XMS_ITS ---
Author Organization [facility] Address [address] [place] [address] Care Team Providers Care Land Checker Name Role Phone DO NOT USE Shirley Quintanilla MD Primary Care Provider Unavailable ANGELA FERGUSON Unavailable [phone] BLESSING SMITH Unavailable [phone] Allergies No Known Allergies REASON FOR VISIT 6 mo ov w/ PVR; BPH w/ obstr, ED- arterial insuffiency, gross hematuria, urge incontinence Encounters Encounter Location Date Provider Diagnosis [facility] [address] [place] [address] 03/03/2024 BLESSING SMITH Plan Of Treatment No Information Progress Notes * Matt HOFFMANDOB:1944 (80 yo M)Acc No.[id number]:03/03/2024 est/CM pt Patient:?Matt HOFFMAN Provider:?BERTRAM MENDEZ :1945???Age:78 Y???Sex:Male Federico e:03/03/2024 Address:[facility] [address] [place] Pcp:Shirley LAINEZ NOT USE David Quintanilla Subjective: [...] further gross hematuria. [facility] ([facility] He is on [facility] for MLC. Follows at [facility]. PMH: TIA, mantle cell lymphoma (s/p [...] Procedure Codes:? * Electronic signature of Miguel HONAG on 03/31/2025 at 11:55 PM EDT Sign off status: Pending * Provider:?BERTRAM MENDEZ Date:?03/03 Generated for Wood restrepo/Yuan/Idaitting on:?03/31/2025 11:55 PM EDT History and Physical Notes * HPI [...] further gross hematuria. He is back on [facility]. recently was terminal ill (2021) He is on [facility] for MLC. Follows at [facility]. PMH: TIA, mantle cell lymphoma (s/p [...]
--- OUTSIDE RECORDS SUMMARY | 2025-03-31 23:55 | XMS_ITS | Patient Health Record ---
Author Organization [facility] Address [address] [place] [address] Care Team Providers Care Quantitative Equity Head Name Role Phone Shirley Quintanilla MD Primary Care Provider TONE Marquez Unavailable [phone] Allergies No Known Allergies Reason For Referral [...] W/U Status Risk Notes Problem Chronic pain (99498438) Other chronic pain (G89.29) Active confirmed Problem Contracture of right knee joint (disorder) (645386466983271) Contracture, right knee (M24.561) Active confirmed Problem 75190369087915 Pain in right ankle and joints of right foot (M25.571) Active confirmed Problem Osteoarthritis of knee (232480149) Primary osteoarthritis of right knee (M17.11) Active confirmed Problem [id number] Trigger finger o f right thumb (M65.311) Active confirmed Problem 28941877 Closed nondisplaced avulsion fracture of tuberosity of right calcaneus with routine healing, subsequent encounter (S92.034D) Active confirmed Problem 05379263 Open nondisplace d avulsion fracture of tuberosity of right calcaneus, initial encounter (S92.034B) Active confirmed Plan Of Treatment No Information Insurance Providers Payer Name Payer Address Payer Phone Subscriber Number Group Number Insured Name Patient Relationship to Insured Coverage Start Date Coverage End Date Medicare [address] [place] [address] [id number] Matt Schmidt am Self - patient is the insured [employer] [address] [place] [address] [id number] Matt Schmidt am Self - patient is [...]
--- OUTSIDE RECORDS SUMMARY | 2025-03-31 23:55 | XMS_ITS ---
Author Organization [facility] Address [address] [place] [address] Care Team Providers Care Food Production Manager Name Role Phone DO NOT USE Shirley Quintanilla MD Primary Care Provider Unavailable PHYLLISANGELA Pretty Unavailable [phone] Migration, Provider Unavailable Unavailable [facility] Encounter Medications Medication SIG (Take, [...] [facility] [address] [place] [address] 01/24/2025 Provider Migration Plan Of Treatment No Information Progress Notes * Awilda HOFFMAN:1944 (80 yo M)Acc No.[id number]:01/24/2025 Patient:?Matt HOFFMAN Provider:?Provider Migration :1945???Age:79 Y???Sex:Male Federico e:01/24/2025 Address:[address] [address], [address] [place], [place] Pcp:Shirley DO NOT USE David Quintanilla Subjective: [...] Electronic signature of Prov ider Migration on 03/31/2025 at 11:55 PM EDT Sign off status: Pending * Provider:?Provider Migration Date:?01/24 Generated for Wood restrepo/Yuan/Bud on:?03/31/2025 11:55 PM EDT
--- OUTSIDE RECORDS SUMMARY | 2025-03-31 23:55 | XMS_ITS | Patient Health Record ---
Author Organization [facility] Address [address] [place] [address] Care Team Providers Care Dike Supervisor Name Role Phone DO NOT USE Shirley Quintanilla MD Primary Care Provider Unavailable ANGELA FERGUSON Unavailable [phone] BLESSING SMITH Unavailable [phone] Migration, Provider Unavailable Unavailable Allergies No Known [...] Risk Notes Problem Urinary tract infectious disease (60182838) Urinary tract infection, site not specified (N39.0) Active confirmed Problem Gross hematuria (535114197) Gross hematuria (R31.0) Active confirmed Problem Incomplete emptying of bladder (378992946) Feeling of incomplete bladder emptying (R39.14) Active confirmed Problem Hydronephrosis (59660005) Other hydronephrosis (N13.39) Active confirmed Problem Traumatic urethral stricture (12926041) urethral stricture, 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) Active confirmed Problem Retention of urine (161161774) Other retention of urine (R33.8) Active confirmed Problem Post-traumatic membranous urethral stricture (031667472393972) 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 Problem Lower urinary tract symptoms due to benign prostatic hypertrophy (67634686286285) Benign prostatic hyperplasia with lower urinary tract symptoms (N40.1) Active confirmed Problem Incomplete emptying of bladder (270782355) Feeling of incomplete bladder emptying (R39.14) Active confirmed Encounters Encounter Location Date Provider Diagnosis [facility] [address] [place] [address] 04/19/2024 BLESSING SMITH [facility] [address] [place] [address] 01/24/2025 Provider Migration Plan Of Treatment Pending [...] End Date MEDICARE [address] [place] [facility] [place] [id number] aMtt Schmidt am Self - patient is the insured BC - [employer] [address] [place] [address] [id number] Matt Schmidt am Self - patient is the insured Medical (General) History Medical History History ICD Code Mantle Cell Lymphoma hyperlipidemia Surgical History Surgery Date(Month/Year) Button TURP 2013 acoustic neuroma - gamma knife 1999 knee arthroscopy
--- NOTE | 2025-04-01 | PC.NURSE ---
Pt reported to registration staff that he cleared whatever was in his throat and was going to leave. LWBS.
== END 2025-04-01 00:04 | disposition left against medical advice (07) ==
PROVIDERS: Emergency Provider Emergency Medicine
DX: J02.9 Acute pharyngitis, unspecified (principal); R09.A2 Foreign body sensation, throat
CPT/HCPCS: 71046; 99281

== ENCOUNTER → 2025-03-31 21:55 | Outpatient (BNV) | payer MEDICARE, SELFPAY | PROVIDERS: Visit Provider Radiology Diagnostic Radiology | DX: T18.120A Food in esophagus causing compression of trachea, initial encounter (principal) | CPT/HCPCS: 71046 ==

== ENCOUNTER 2025-04-22 08:23 | Outpatient (AMB) | payer MEDICARE, SELFPAY ==
--- NOTE | 2025-04-22 08:25 | MHC.OFFVIS ---
Intake Visit Reasons: Elevated PSA Intake Note: Pt presents to the office today as a new patient visit for elevated PSA. Urology meds: Alfuzosin Blood thinner:Aspirin PVR:350ml Allergies No Known Allergies Allergy (Verified 04/22/25 09:28) Medication List - Last Reconciled 04/22/25 by ABRAHAM Garcia- acalabrutinib maleate (Calquence (acalabrutinib maleate)) mg PO alfuzosin ER 10 mg PO DAILY 30 days aspirin (Adult Low Dose Aspirin) 81 mg PO DAILY atorvastatin 40 mg PO DAILY sulfamethoxazole-trimethoprim 400-80 mg (Bactrim) 1 tab PO BEDTIME HPI Comments Details: Matt Gunter is a 80-year-old male patient of Dr. Bustos. 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 He presents to the office today as a new patient for an elevated PSA. In discussion with the patient today he reports having followed up with his PCP at which time he was noted to have an elevated PSA in recommendations were made for urology referral for further assessment evaluation. He reports a longstanding history of urinary issues to include urinary retention, gross hematuria, and incomplete bladder emptying. He reports previously living in [facility] and had a urologist there however is now living here at [facility]. He discusses having undergone multiple cystoscopies in the past and during his last office visit with his urologist recommendations were made for prostate procedure as patient was noted to have an enlarged prostate. He does report a previous prostate procedure called plasma button vaporization 20 years ago at the [facility] with Dr. Walker. He reports previously being on Flomax however experienced dizziness and was switched to alfuzosin by his PCP. In office urinalysis results were reviewed with the patient today. PVR 350 mL. He reports previously he had been performing CIC 1 time per day for incomplete bladder emptying. He also discusses having had a Oneill catheter in the past. We discussed today elevated PSA and incomplete bladder emptying. We discussed further treatment options and risks and benefits of these treatment options. All questions were answered. SAL was performed right side of the prostate was noted to be firm otherwise no suspicious nodules palpated. He also discusses his issues with erectile dysfunction. He reports utilizing p.r.n. Viagra in the past and finds this somewhat helpful in obtaining and maintaining his erections however is enquiring further treatment options. Further treatment options of ED were discussed. He denies dysuria, foul smelling urine, flank pain, fever, and or chills. He otherwise offers no other issues or concerns at this time. PSAs are as follows: PSA 02/10 6.4, 03/13 5.1 [facility] Medical History Aneurysm Facial nerve spasm Status post gamma knife treatment Right acoustic neuroma Deafness in right ear Enlarged prostate MCL (mantle cell lymphoma) Family History Father Diabetes Mother Esophageal cancer Social History Housing: Apartment Patient Tobacco Use Status: Former Tobacco user e-Cigarette/Vaping Use: Never Used service: Yes Current occupational status: retired Current occupational exposures/hazards: No Cognitive needs: No Hearing needs: Yes Vision needs: Yes Review of Systems Eyes Reports as per HPI ENT Reports as per HPI Card Reports no additional complaints Resp Reports no additional complaints GI Reports no additional complaints Reports as per HPI Musc Reports no additional complaints Neuro Reports no additional complaints Psych Reports no additional complaints Endo Reports no additional complaints Triston/Lymph Reports no additional complaints Aller/Immun Reports no additional complaints Physical Exam Const General: cooperative, healthy appearing, comfortable, no acute distress, well developed, alert and awake Orientation/consciousness: patient oriented x3 Limitations: no limitations HEENT Head: Yes normal to inspection, Yes normocephalic and Yes atraumatic Ears: hearing grossly normal bilaterally Eyes General: appearance normal, both eyes and all related structures Neck Neck: Yes normal visual inspection and Yes trachea midline Chest Chest palpation & inspection: normal inspection of the chest Resp Effort & Inspection: normal respiratory effort and able to speak in complete sentences Cardio Rate: regular rate GI Inspection: Yes normal to inspection General: Yes no CVA tenderness Back/Spine/Pelvis Back: no CVA tenderness Skin General skin exam: no rashes or lesions noted Neuro General: patient oriented x3 Extrem General: Yes normal to inspection Psych Appearance: grossly normal and well kempt Mental Status: mental status grossly normal Speech and movement: Normal speech and movement present and Clear speech present Affect: normal affect Attitude: cooperative Thought process: Normal thought process present Thought content: Normal thought content present Insight: Fair insight present (Psych) Judgement: Fair judgement present (Psych) Office Procedures Post Void Residual Post Residual Void Post Void Residual (PVR): 350 [id number] Void Residual by ultrasound Results AMB Urinalysis, Automated UA Leukoctes 0 Jannet/uL Last Edit by Faye Haas CMA on 04/22/25 08:37 UA Nitrite Negative Last Edit by Faye Haas CMA on 04/22/25 08:37 UA Urobilinogen 0.2 mg/dL Last Edit by Faye Haas CMA on 04/22/25 08:37 UA Protein 0 mg/dL Last Edit by Faye Haas CMA on 04/22/25 08:37 UA pH 6.0 Last Edit by Faye Haas CMA on 04/22/25 08:37 UA Blood 10 Jimmy/uL Last Edit by Faye Haas CMA on 04/22/25 08:37 UA Specific [place] 1.010 Last Edit by Faye Haas CMA on 04/22/25 08:37 UA Ketone Negative Last Edit by Faye Haas CMA on 04/22/25 08:37 UA Bilirubin 0 mg/dL Last Edit by Faye Haas CMA on 04/22/25 08:37 UA Glucose 0 mg/dL Last Edit by Faye Haas CMA on 04/22/25 08:37 Results Reviewed Results Reviewed: Laboratory Last Values Urine pH (Auto) 6.0 04/22/25 08:36 Specific [place] (Auto) 1.010 04/22/25 08:36 Urine Protein (Auto) 0 mg/dL 04/22/25 08:36 Glucose (UA)(Auto) 0 mg/dL 04/22/25 08:36 Urine Ketones (Auto) Negative 04/22/25 08:36 Urine Blood (Auto) 10 Jimmy/uL 04/22/25 08:36 Urine Nitrite (Auto) Negative 04/22/25 08:36 Urine Bilirubin (Auto) 0 mg/dL 04/22/25 08:36 Urine Urobilinogen (Auto) 0.2 mg/dL 04/22/25 08:36 Leukocyte Esterase (Auto) 0 Jannet/uL 04/22/25 08:36 Assessment & Plan Assessment & Plan (1) Elevated PSA: Code(s): R97.20 - Elevated prostate specific antigen [PSA] Category: Medical (2) Incomplete bladder emptying: Code(s): R33.9 - Retention of urine, unspecified Category: Medical (3) Erectile dysfunction: Code(s): N52.9 - Male erectile dysfunction, unspecified Category: Medical Plan In office urinalysis results with the patient today; as noted above. PVR 350 mL. Recent PSA results reviewed with the patient today; as noted above We discussed at length potential causes of elevated PSA, incomplete bladder emptying, and erectile dysfunction; we discussed further treatment options of these urological conditions and risks and benefits of these treatment options. All questions were answered We discussed lifestyle modifications to assist with ED as well as incomplete bladder emptying. Continue alfuzosin. Start bethanechol as discussed and prescribed. Will obtain redraw of PSA with no sex the night before, no caffeine morning of, and no heavy lifting 1-2 days prior. Will obtain retroperitoneal ultrasound for further assessment evaluation. SAL was performed; as noted above. We discussed potential near future in office cystoscopy for further assessment evaluation. Follow-up in 1-3 months with imaging, labs, and PVR; or sooner with any issues, concerns, and or questions. Orders: Orders AMB Post Void Residual by ultrasound Today R33.9 - Retention of urine, unspecified PSA,Total (Free>4and<10) Today R97.20 - Elevated prostate specific antigen [PSA] US retroperitoneal comp Today R33.9 - Retention of urine, unspecified Urine Cytology Today R31.29 - Other microscopic hematuria AMB Urinalysis Automated Today R33.9 - Retention of urine, unspecified Medications: New bethanechol chloride 50 mg PO BID 30 days 60 tabs 3RF N39.0 - Urinary tract infection, site not specified Patient Instructions: The patient had an opportunity to ask questions regarding the treatment plan. All questions were answered. Physical exam, labs, and imaging were discussed and reviewed in detail. As well as risks, benefits, and discussion of treatment choices. No major barriers to understanding were identified. The patient expressed understanding and agreement with the above treatment plan. The patient was made aware they should contact our office by phone for worsening of their current condition, the appearance of new symptoms, or with any questions or concerns. Compliance is encouraged with any medications and follow up testing that is ordered. It is a privilege to be allowed the opportunity to participate in? your urological care.? Again, if you have any questions or concerns If you have any questions or concerns please do not hesitate to contact me. The office is [phone]. This note is constructed using voice recognition software. While every effort has been made to ensure accuracy silvering applicator errors may have been included. Yours sincerely, YE Garcia Coding Level of Care Code New Pt Level 4 (53477) Diagnoses Elevated PSA R97.20 Incomplete bladder emptying R33.9 Erectile dysfunction N52.9 CPT Codes Post Residual Void - PVR CPT Code: 12839-Cpfc Void Residual by ultrasound ([id number])
--- OUTSIDE RECORDS SUMMARY | 2025-04-22 08:31 | XMS_ITS ---
Author Organization [facility] Address [address] [place] [address] Care Team Providers Care Evp Chief Exploration Officer Name Role Phone DO NOT USE Shirley Quintanilla MD Primary Care Provider Unavailable PHYLLISANGELA Pretty Unavailable [phone] Migration, Provider Unavailable Unavailable [facility]IT [facility] Encounter Medications Medication SIG (Take, Route, [...] Location Date Provider Diagnosis [facility] [address] [place] [address] 01/24/2025 Provider Migration Plan Of Treatment No Information Progress Notes * Awilda HOFFMAN:1944 (80 yo M)Acc No.[id number]:01/24/2025 Patient:?Matt HOFFMAN Provider:?Provider Migration :1945???Age:79 Y???Sex:Male Federico e:01/24/2025 Address:[address] [address], [address], [place] Pcp:Shirley DO NOT USE David Quintanilla Subjective: [...] Electronic signature of Prov ider Migration on 04/22/2025 at 08:31 AM EDT Sign off status: Pending * Provider:?Provider Migration Date:?01/24 Generated for Wood restrepo/Yuan/Bud on:?04/22/2025 08:31 AM EDT
== END 2025-04-22 09:15 | disposition home or self-care (01) ==
LOC: HO.HUSH 08:24
PROVIDERS: PCP Family Medicine; Visit Provider Nurse Practitioner Family
DX: R97.20 Elevated prostate specific antigen [PSA] (principal); R33.9 Retention of urine, unspecified; N52.9 Male erectile dysfunction, unspecified
CPT/HCPCS: 99204

== ENCOUNTER 2025-04-22 08:23 | Outpatient (REF) | payer MEDICARE, SELFPAY ==
[2025-04-22 16:47] LABS: Urine Cytology See Pathology rpt
== END 2025-04-22 08:24 | disposition home or self-care (01) ==
LOC: HO.LAB 08:23
PROVIDERS: PCP Family Medicine; Visit Provider Nurse Practitioner Family
DX: R97.20 Elevated prostate specific antigen [PSA] (principal); R31.29 Other microscopic hematuria; R33.9 Retention of urine, unspecified; N52.9 Male erectile dysfunction, unspecified
CPT/HCPCS: 51798; 81003; 88112; 99202

== ENCOUNTER 2025-06-18 08:27 | Outpatient (AMB) | payer MEDICARE, SELFPAY ==
--- OUTSIDE RECORDS SUMMARY | 2025-01-24 17:30 | XMS_ITS ---
Author Organization [facility] Address [address] [place] [address] Care Team Providers Care Pot Feeder Name Role Phone DO NOT USE Shirley Quintanilla MD Primary Care Provider Unavailable PHYLLISANGELA Pretty Unavailable [phone] Migration, Provider Unavailable Unavailable [facility] Encounter Medications Medication SIG (Take, Route, Frequency, Duration) Notes Start Date End Date Status Calquence 100 MG CAPSULE 1 CAP(S) ORALLY EVERY 12 HOURS; Duration: 30 DAY(S) *Please review and pick correct strength-formulatio n from Medispan options. If intended option is not shown, discontinue and re-order from Quick Search* Active Atorvastatin Calcium 40 MG Tablet 1 tab(s) orally once a day; Duration: 30 day(s) 09/06/2020 Active Sildenafil Citrate *Please revie w and pick correct strength-formulatio n from Medispan options. If intended option is not shown, discontinue and re-order from Quick Search* Active Aspirin Low Strength *Please rev iew and pick correct strength-formulatio n from Medispan options. If intended option is not shown, discontinue and re-order from Quick Search* Active Bactrim 400 MG-80 MG TABLET DIRECTED ORALLY DAILY *Please review and pick correct strength-formulatio n from Medispan options. If intended option is not shown, discontinue and re-order from Quick Search* Active Encounters Encounter Location Date Provider Diagnosis [facility] [address] [place] [address] 01/24/2025 Provider Migration Plan Of Treatment No Information Progress Notes * Matt HOFFMANDOB:1944 (80 yo M)Acc No.[id number]:01/24/2025 Patient: Matt Elder Provider: Archie Hernández :1945 A ge:79 Y S ex:Male Date:01/24/2025 Address:[place] [address], [facility], [place] [facility] Pcp:Shirley LAINEZ NOT USE David Quintanilla Subjective: * Chief Complaints: * M ultum To Medispan Conversion Encounter * Medications: T akingBactrim 400 MG-80 MG TABLET DIRECTED ORALLY DAILY , Notes to Pharmacist: *Please review and pick correct strength-formulation from Medispan options. If intended option is not shown, discontinue and re-order from Quick Search*Aspirin Low Strength , Notes to Pharmacist: *Please review and pick correct strength- formulation from Medispan options. If intended option is not shown, discontinue and re-order from Quick Search*Sildenafil Citrate , Notes to Pharmacist: *Please review and pick correct strength-formulation from Medispan options. If intended option is not shown, discontinue and re-order from Quick Search*Atorvastatin Calcium 40 MG Tablet 1 tab(s) orally once a day Calquence 100 MG CAPSULE 1 CAP(S) ORALLY EVERY 12 HOURS , Notes to Pharmacist: *Please review and pick correct strength-formulation from Medispan options. If intended option is not shown, discontinue and re-order from Quick Search*Taking Bactrim 400 MG-80 MG TABLET DIRECTED ORALLY DAILY , Notes to Pharmacist: *Please review and pick correct strength-formulation from Medispan options. If intended option is not shown, discontinue and re-order from Quick Search*Taking Aspirin Low Strength , Notes to Pharmacist: *Please review and pick correct strength-formulation from Medispan options. If intended option is not shown, discontinue and re-order from Quick Search*Taking Sildenafil Citrate , Notes to Pharmacist: *Please review and pick correct strength-formulation from Medispan options. If intended option is not shown, discontinue and re-order from Quick Search*Taking Atorvastatin Calcium 40 MG Tablet 1 tab(s) orally once a day Taking Calquence 100 MG CAPSULE 1 CAP(S) ORALLY EVERY 12 HOURS , Notes to Pharmacist: *Please review and pick correct strength-formulation from Medispan options. If intended option is not shown, discontinue and re-order from Quick Search* * Electronic signature of Prov ider Migration on 06/18/2025 at 08:36 AM EDT Sign off status: Pending * Provider: Archie campo Migration Date: 0 01/24/2025 Generated for Wood restrepo/Yuan/Idaitting on: 0 06/18/2025 08:36 AM EDT
--- OUTSIDE RECORDS SUMMARY | 2025-06-18 01:37 | XMS_ITS ---
Author Organization [facility], [facility]. Care Team Providers Care Financial Systems Manager Name Role Phone Chaparro Rivero MD Primary Care Physician [phone] Allergies Substance Reaction Status No Known Allergies Active Medications Current Medications Medication Directions Start Date Discontinues Da te atorvastatin 40 mg tabs atorvastatin 40 mg tablet. 1 tablet by mouth once a day TAKE 1 TABLET BY MOUTH ONCE A DAY 2024-05-01 Problems Problem Status Assessment and P marco De La Cruz's esophagus Active [facility] Issue Name: De La Cruz's esophagusBarrett's esophagus seen on EGD 11/2021. EGD recommended in 1 year - done 12/2022. Dr. Gordillo started him on a PPI as well but it was discontinued due to interaction with Calquence. However, he can now take omeprazole. Mantle cell lymphoma Active [facility] Issue Name: Mantle cell lymphomaDiagnosed in 2007, s/p autologous stem cell transplant. Relapsed in 10/01. Followed at [facility] by Dr. Junior. Started acalabrutinib therapy in 03/2018. Currently felt to be in remission. He is on bactrim SS once a day for PCP prophylaxis. Osteopenia Active [facility] Issue Name : OsteopeniaSevere osteopenia seen on CT imaging. DEXA done 02/2018 showed mild osteopenia. Encouraged adequate calcium and vitamin D along with daily weight bearing exercise. Dysuria Active [facility] Issue Name : DysuriaRecurrent dysuria, frequency. He is seeing Dr. Padilla, urologist due to h/o BPH, kidney stones, hematuria, recurrent UTI's. Diarrhea Active [facility] Issue Name : DiarrheaPatient with recent diarrhea felt to be due to bacterial overgrowth. Much improved currently. He is taking immodium pm. Pernio Active [facility] Issue Name : PernioChillblains/pernio. Encouraged keeping his feet warm. Using topical steroid from his trace evidence technician. If worsening, consider CCB. Mitral regurgitation Active [facility] Issue Name: Mitral regurgitationHe was followed by Dr. Estrada. ECHO showed mild-mod MR in 2018. Repeat ECHO in 11/2022 showed stabilty of the MR. Hydronephrosis Active [facility] Issue Name : HydronephrosisFollowed by Dr. Padilla. Migraine Active [facility] Issue Name : Migraine History of vestibular schwannoma Active [facility] Issue Name: History of acoustic neuromaS/p gamma knife radiation with resultant hearing loss on the left. Dupuytren's contracture Active [facility]ram Name: Dupuytren's contractureContracture on right hand s/p XRT treatment. skin lesions Active [facility] Issue Name : Scalp lesionLesion on scalp that has not resolved with effudex. Will have him see derm. He will schedule an appt. Prevention Active [facility] Issue Name : PreventionColonoscopy done in 11/2021. Repeat was recommended in 3 years (11/2024). Prostate cancer screening done by urologist. Fasting blood work ordered today. TDAP was due in 09/2020. - he will schedule. Pneumonia vaccine up to date. Shingrix recommended. COVID vaccine and booster received. Received new covid booster. Flu shot up to date. RSV vaccine recommended. Recommended routine dental and eye care. Encouraged healthy eating and exercise habits.02/13/24 - paperwork for his assisted living facility was filled out. He was given the PCV-20 as it appeared from our paperwork that he had only had a PCV 1310 years ago. Flu shot is up to date. Given that the assisted living facility would like a tuberculosis test, I did order a quantiferon for him. Decreased GFR Active [facility] Issue Name : Decreased GFRLast GFR in markers or lab view was 58 on 2020-10-11 and no active issue for CKD. Assess acuity/chronicity and need for follow-up. Drug-induced immunodeficiency [facility] Issue Name: immunodeficiency due to drug therapyPatient is on Calquence for active treatment of mantle cell lymphoma. History of skin cancer Active [facility] Iss ue Name: History of skin cancerFollowed by derm. History of TIA Active [facility] Issue Name : History of TIATIA in 2010 and possibly again in 05/2017. He is on aspirin, statin. LDL improved on increased dose of atorvastatin. He was evaluated by Dr. Cutler of neurology. MRI, MRA of head and neck were normal. Coronary artery disease Active [facility] Is abram Name: CADCoronary calcifications seen on recent PET CT. He is on aspirin, statin. Nuclear stress test was negative. He was followed by Dr. Estrada. ECHO showed mild-mod MR in 2018 - stable in 11/2022. Dysphagia Active [facility] Issue Name : DysphagiaPatient with difficulty swallowing, s/p EGD that showed stricture. This was dilated. Recommended continued PPI use. Hyperlipidemia Active [facility] Issue Name : HyperlipidemiaOn high-intensity dose statin. Blood work excellent on last check in 01/2023. Hematuria Active [facility] Issue Name : HematuriaGross hematuria. Evaluated by Dr. Padilla most recently. Had a cystoscopy complicated by bladder laceration in the past. History of kidney stones Active [facility] I ssue Name: History of kidney stonesFollowed by Dr. Padilla. chronic abdominal pain Active [facility] Iss ue Name: Abdominal painPatient with twinges of dull discomfort off and on. Unclear etiology. No red flags. May actually be muscular in nature. Will hydrate better, monitor for now, will have HC check in with him next week. He will call sooner if his symptoms worsen. Autologous stem cell transplant Active [facility] Issue Name: Autologous stem cell transplantS/p autologous stem cell transplant for Mantle cell lymphoma. Aortic atherosclerosis Active [facility] Iss ue Name: Aortic atherosclerosisSeen on CT in 07/2019. Evaluated by cardiology in the past. On statin. Benign prostatic hyperplasia with urinary symptoms Active [facility] Issue Name: BPHS/p vap orization of his prostate in the past. Followed by Dr. Padilla. No longer on finasteride. Trigger finger Active [facility] Issue Name : Trigger finger Thoracic aortic dilation Inactive [facility] I ssue Name: Aortic Root DilationEcho on 11/22/22 (pg 2-3)([email or web address]) The aortic root is mildly dilated. Stage B Heart Failure Inactive [facility] Issu e Name: Stage B Heart FailureAssessment: Patient has risk factors for Heart Failure including CADPatient had an Echo on 11/22/22 (pg 2-3)([email or web address]) showing LVEF 60-65% with posterior leaflet mitral valve prolapse. There is mild to moderate mitral regurgitationPatient has no symptoms previously or currently attributed to HF. This is Stage B HF. Modifiable risk factors include: Atherosclerotic CVD (optimize on ACEi/ARB, BB, and statin)Plan: - Address risk factors to prevent progression from Stage B to C Thrombocytopenia Inactive [facility] Issue Nam e: thrombocytopeniaPer Oncology note 03/27/23([email or web address]) (p7) Mild thombocytopenia (p8) plt ct 116 on 03/27/23 Decreased_GFR Inactive Assessment:- Mariola ef summary and Ddx: Most recent GFR value is decreased. Needs further evaluation to determine if truly chronic kidney disease.- Prior records, results, or other data reviewed: Most recent eGFR 58 on 10/12/2020Plan:- Labs/tests: Need to repeat eGFR at least 3 months from prior reading- Treatments:- Referrals:- Counseling/Pt Education:- F/U Timing & Contingencies: History of syncope Active [facility] Issue N gracy: History of syncopeIn 2005. History of Procedures Order Codes Created Status No known procedures Results Tests Date Results Flag Units Reference Interval QUANTIFERON(R)-TB GOLD PLUS, 1 TUBE QuantiFERON interpretation 2024-02-13 03:25:00 -0700 NEGATIVE NEGATIVE QuantiFERON Nil 2024-02-13 03:25:00 -0700 0.03 [iU]/mL MITOGEN-NIL 2024-02-13 03:25:00 -0700 >10.00 [iU]/mL QuantiFERON TB1 2024-02-13 03:25:00 -0700 0.00 [iU]/mL QuantiFERON TB2 2024-02-13 03:25:00 -0700 0.00 [iU]/mL Tests Date Results Flag Units Reference Interval LIPID PANEL, STANDARD Cholesterol, total 2023-01-23 03:31:00 -0800 171 mg/dL <200 High-density lipoprotein 2023-01-23 03:31:00 -0800 58 mg/dL > OR = 40 Triglycerides 2023-01-23 03:31:00 -0800 108 mg/dL <150 Low-density lipoprotein 2023-01-23 03:31:00 -0800 93 (mg/dL){calc} Cholesterol/HDL 2023-01-23 03:31:00 -0800 2.9 {calc} <5.0 Non-HDL cholesterol 2023-01-23 03:31:00 -0800 113 (mg/dL){calc} <130 Tests Date Results Flag Units Reference Interval HEPATIC FUNCTION PANEL Protein, total 2023-01-23 03:31:00 -0800 6.0 g/dL 6.1-8.1 Albumin 2023-01-23 03:31:00 0800 4.5 g/dL 3.6-5.1 Globulin (calculated) 2023-01-23 03:31:00 -0800 1.5 (g/dL){calc} 1.9-3.7 Albumin/globulin 2023-01-23 03:31:00 -0800 3.0 {calc} 1.0-2.5 Bilirubin, total 2023-01-23 03:31:00 -0800 0.6 mg/dL 0.2-1.2 Bilirubin, direct 2023-01-23 03:31:00 -0800 0.1 mg/dL < OR = 0.2 Bilirubin, indirect 2023-01-23 03:31:00 -0800 0.5 (mg/dL){calc} 0.2-1.2 Alkaline phosphatase 2023-01-23 03:31:00 -0800 57 U/L 35-144 Aspartate aminotransferase 2023-01-23 03:31:00 -0800 17 U/L 10-35 Alanine aminotransferase 2023-01-23 03:31:00 -0800 26 U/L 9-46 Tests Date Results Flag Units Reference Interval LIPID PANEL, STANDARD Cholesterol, total 2020-10-11 22:35:00 -0800 156 mg/dL <200 High-density lipoprotein 2020-10-11 22:35:00 -0800 48 mg/dL > OR = 40 Triglycerides 2020-10-11 22:35:00 -0800 115 mg/dL <150 Low-density lipoprotein 2020-10-11 22:35:00 -0800 87 (mg/dL){calc} Cholesterol/HDL 2020-10-11 22:35:00 -0800 3.3 {calc} <5.0 Non-HDL cholesterol 2020-10-11 22:35:00 -0800 108 (mg/dL){calc} <130 Tests Date Results Flag Units Reference Interval BASIC METABOLIC PANEL Glucose 2020-10-11 22:35:00 -0800 99 mg/dL 65-99 Blood urea nitrogen 2020-10-11 22:35:00 -0800 17 mg/dL 7-25 Creatinine 2020-10-11 22:35:00 -0800 1.21 mg/dL 0.70-1.18 Glomerular filtration rate estimation 2020-10-11 22:35:00 -0800 58 mL/min/{1.73_m2} > OR = 60 Glomerular filtration rate estimation (-Sudanese) 2020-10-11 22:35:00 -0800 67 mL/min/{1.73_m2} > OR = 60 BUN/creatinine 2020-10-11 22:35:00 -0800 14 {calc} 6-22 Sodium 2020-10-11 22:35:00 -0800 140 mmol/L 135-146 Potassium 2020-10-11 22:35:00 -0800 4.2 mmol/L 3.5-5.3 Chloride 2020-10-11 22:35:00 -0800 107 mmol/L 98-110 Carbon dioxide 2020-10-11 22:35:00 -0800 27 mmol/L 20-32 Calcium 2020-10-11 22:35:00 -0800 8.8 mg/dL 8.6-10.3 Tests Date Results Flag Units Reference Interval HEPATIC FUNCTION PANEL Protein, total 2020-10-11 22:35:00 -0800 5.7 g/dL 6.1-8.1 Albumin 2020-10-11 22:35:00 -0800 4.4 g/dL 3.6-5.1 Globulin (calculated) 2020-10-11 22:35:00 -0800 1.3 (g/dL){calc} 1.9-3.7 Albumin/globulin 2020-10-11 22:35:00 -0800 3.4 {calc} 1.0-2.5 Bilirubin, total 2020-10-11 22:35:00 -0800 0.4 mg/dL 0.2-1.2 Bilirubin, direct 2020-10-11 22:35:00 -0800 0.1 mg/dL < OR = 0.2 Bilirubin, indirect 2020-10-11 22:35:00 -0800 0.3 (mg/dL){calc} 0.2-1.2 Alkaline phosphatase 2020-10-11 22:35:00 -0800 61 U/L 35-144 Aspartate aminotransferase 2020-10-11 22:35:00 -0800 23 U/L 10-35 Alanine aminotransferase 2020-10-11 22:35:00 -0800 27 U/L 9-46 Tests Date Results Flag Units Reference Interval LIPID PANEL, STANDARD Cholesterol, total 2019-10-02 06:55:00 -0800 169 mg/dL <200 High-density lipoprotein 2019-10-02 06:55:00 -0800 55 mg/dL >40 Triglycerides 2019-10-02 06:55:00 -0800 149 mg/dL <150 Low-density lipoprotein 2019-10-02 06:55:00 -0800 89 (mg/dL){calc} Cholesterol/HDL 2019-10-02 06:55:00 -0800 3.1 {calc} <5.0 Non-HDL cholesterol 2019-10-02 06:55:00 -0800 114 (mg/dL){calc} <130 Tests Date Results Flag Units Reference Interval HEPATIC FUNCTION PANEL Protein, total 2019-10-02 06:55:00 -0800 6.0 g/dL 6.1-8.1 Albumin 2019-10-02 06:55:00 -0800 4.5 g/dL 3.6-5.1 Globulin (calculated) 2019-10-02 06:55:00 -0800 1.5 (g/dL){calc} 1.9-3.7 Albumin/globulin 2019-10-02 06:55:00 -0800 3.0 {calc} 1.0-2.5 Bilirubin, total 2019-10-02 06:55:00 -0800 0.4 mg/dL 0.2-1.2 Bilirubin, direct 2019-10-02 06:55:00 -0800 0.1 mg/dL < OR = 0.2 Bilirubin, indirect 2019-10-02 06:55:00 -0800 0.3 (mg/dL){calc} 0.2-1.2 Alkaline phosphatase 2019-10-02 06:55:00 -0800 61 U/L 40-115 Aspartate aminotransferase 2019-10-02 06:55:00 -0800 16 U/L 10-35 Alanine aminotransferase 2019-10-02 06:55:00 -0800 17 U/L 9-46 MENTAL STATUS No information ENCOUNTERS Encounter Performer Location Encounter date Diagnosis Diagn osis Status Level 2 outpatient visit for evaluation and management of established patient with self-limited and/or minor problem, including problem-focused history and physical examination, and straightforward medical decision-making - typical time with patient and/or family 10 minutes or less Saba Ramírez Medicine Note signed at: 2019-10-02 11:51:51 -0800 Level 2 outpatient visit for evaluation and management of established patient with self-limited and/or minor problem, including problem-focused history and physical examination, and straightforward medical decision-making - typical time with patient and/or family 10 minutes or less Saba Ramírez Medicine Note signed at: 2020-05-20 06:26:13 -0700 Level 2 outpatient visit for evaluation and management of established patient with self-limited and/or minor problem, including problem-focused history and physical examination, and straightforward medical decision-making - typical time with patient and/or family 10 minutes or less Saba Ramírez Note signed at: 2021-02-14 07:22:14 -0700 Level 2 outpatient visit for evaluation and management of established patient with self-limited and/or minor problem, including problem-focused history and physical examination, and straightforward medical decision-making - typical time with patient and/or family 10 minutes or less Saba Ramírez Medicine Note signed at: 2021-08-31 09:16:00 -0700 Level 2 outpatient visit for evaluation and management of established patient with self-limited and/or minor problem, including problem-focused history and physical examination, and straightforward medical decision-making - typical time with patient and/or family 10 minutes or less Saba Ramírez Medicine Note signed at: 2022-09-21 07:18:12 -0700 Level 2 outpatient visit for evaluation and management of established patient with self-limited and/or minor problem, including problem-focused history and physical examination, and straightforward medical decision-making - typical time with patient and/or family 10 minutes or less Saba Ramírez Medicine Note signed at: 2022-10-02 13:36:33 -0800 Level 2 outpatient visit for evaluation and management of established patient with self-limited and/or minor problem, including problem-focused history and physical examination, and straightforward medical decision-making - typical time with patient and/or family 10 minutes or less [facility]Flag[facility] signed at: 2023-01-15 13:42:30 -0800 Level 2 outpatient visit for evaluation and management of established patient with self-limited and/or minor problem, including problem-focused history and physical examination, and straightforward medical decision-making - typical time with patient and/or family 10 minutes or less Shirley Quintanilla MDInternal Medicine Note signed at: 2023-02-01 10:21:48 -0700 Level 2 outpatient visit for evaluation and management of established patient with self-limited and/or minor problem, including problem-focused history and physical examination, and straightforward medical decision-making - typical time with patient and/or family 10 minutes or less Shirley Quintanilla [facility]Flag[facility] Note signed at: 2023-10-03 10:39:58 -0800 Level 2 outpatient visit for evaluation and management of established patient with self-limited and/or minor problem, including problem-focused history and physical examination, and straightforward medical decision-making - typical time with patient and/or family 10 minutes or less Alina Holbrook MDInternal Medicine Note signed at: 2024-02-13 06:42:54 -0700 Family History Mother: at 86 : Esophageal cancerFather: , 84, DM, HTNBrother 1: prostate cancerBrother 2: strokes Social History Social History Observation Description Dates Observed Smoking Status Unknown if ever smoked Sex M 1945 Social Data Lives with and dog (Noel) in [facility] Immunizations Vaccine Date Status SARS-CoV-2 mRNA (Moderna, 12+ yrs) Booster (0.25 mL) 01/06/2021 Completed SARS-CoV-2 mRNA (Moderna, 12+ yrs) Booster (0.25 mL) 02/03/2021 Completed zoster (live) 01/31/2011 Completed influenza (65+, Fluzone high-dose trivalent, pre servative-free) 08/18/2019 Completed [Tdap] (tetanus, diphtheria & acellular pertussi s (age 7+) 09/19/2010 Completed influenza (65+, Fluzone high-dose trivalent, pre servative-free) 07/22/2021 Completed SARS-CoV-2 mRNA vaccine (Pfizer) 08/10/2021 Completed pneumococcus (PCV 13) 09/22/2010 Completed SARS-CoV-2 mRNA vaccine (Pfizer) 08/10/2021 Completed influenza (65+, Fluzone high-dose trivalent, pre servative-free) 08/24/2023 Completed SARS-CoV-2 mRNA vaccine (Pfizer) 08/24/2023 Completed influenza (65+, Fluad, preservative-free) 2019 Completed influenza 09/22/2010 Completed pneumococcus (PPSV 23) 08/02/2008 Completed H. influenzae type B 09/22/2010 Completed influenza (adjuvanted, trivalent, preservative-f ree) 10/07/2018 Completed influenza (adjuvanted, trivalent, preservative-f ree) 08/23/2017 Completed meningococcus (MPSV4) 10/22/2009 Completed H. influenzae type B 10/22/2009 Completed influenza 09/07/2011 Completed influenza (65+, Fluzone high-dose trivalent, pre servative-free) 12/05/2024 Completed measles, mumps & rubella 09/22/2010 Complet ed influenza 09/21/2009 Completed influenza (6 months+, preservative-free) 012 Completed diphtheria, tetanus & acellular pertussis (unspe cified) 09/22/2010 Completed diphtheria, tetanus & acellular pertussis (unspe cified) 10/22/2009 Completed influenza (adjuvanted, trivalent, preservative-f ree) 11/07/2019 Completed influenza H1N1 (2009) 10/16/2009 Completed tetanus & diphtheria 11/30/2009 Completed pneumococcus (PCV 7) 10/22/2009 Completed Vital Signs Date Blood Pressure Pulse Temperature Respiratory Rate Height Weight BMI SpO2 O2 Concentration 2023 144/70mm[H g] 74 /min 36.78 C 175.26 cm 72.57 kg 23 kg/m 2 99% 2022 112/58mm[H g] 77 /min 36.44 C 18 /min 175.26 cm 72.39 kg 23.5 7 kg/m 2 97% 2022 132/68mm[H g] 72 /min 36.0 C 175.26 cm 76.75 kg 24.9 8 kg/m 2 99% 2022 118/60mm[H g] 68 /min 36.39 C 18 /min 175.26 cm 75.11 kg 24.4 5 kg/m 2 96% 2021 136/78mm[H g] Plan of Treatment Health Screenings Date Goal Action Comments Advance directives discussion Designated Functional assessment evaluation (ADL/IAD L) 100 May 01, 2025 Cognitive impairment screening Mini-Cog May 27, 2025 Depression screening PHQ-2 Screening History Date Screening Action February 13, 2021 Hearing screening Pure-tone roni ometry October 01, 2019 Advance directives discussion Living will October 01, 2019 Advance directives discussion Healthcare Proxy October 01, 2019 Hearing screening Pure-tone au diometry October 01, 2019 Functional assessment evaluati on (ADL/IADL) Lulu ADL Index October 01, 2019 Functional assessment evaluati on (ADL/IADL) OARS-IADL October 02, 2023 Hearing screening Pure-tone au diometry Insurance Providers Payer name Policy type / Coverage type Policy ID Covered democrat ID Policy Alaniz OMD Medicare Part A [id number] Self
--- OUTSIDE RECORDS SUMMARY | 2025-06-18 08:37 | XMS_ITS | Patient Health Record ---
Author Organization [facility] Address [address] [place] [address] Care Team Providers Care Lamination Technician Name Role Phone Shirley Quintanilla MD Primary Care Provider TONE Marquez Unavailable [phone] Allergies No Known Allergies Reason For Referral [...] Problem Status W/U Status Risk Notes Problem Other chronic pain (G89.29) Active confirmed Problem Contracture of right knee joint (disorder) (525988556236932) Contracture, right knee (M24.561) Active confirmed Problem 24375193800644 Pain in right ankle and joints of right foot (M25.571) Active confirmed Problem Osteoarthritis of knee (506100957) Primary osteoarthritis of right knee (M17.11) Active confirmed Problem 643669820075622 Trigger finger o f right thumb (M65.311) Active confirmed Problem 33064662 Closed nondisplaced avulsion fracture of tuberosity of right calcaneus with routine healing, subsequent encounter (S92.034D) Active confirmed Problem 11289557 Open nondisplace d avulsion fracture of tuberosity of right calcaneus, initial encounter (S92.034B) Active confirmed Plan Of Treatment No Information Insurance Providers Payer Name Payer Address Payer Phone Subscriber Number Group Number Insured Name Patient Relationship to Insured Coverage Start Date Coverage End Date Medicare [address] [place] [address] [id number] Matt Schmidt am Self - patient is the insured [employer] [address] [place] [address] [id number] Matt Schmidt am Self - patient is [...]
--- OUTSIDE RECORDS SUMMARY | 2025-06-18 08:37 | XMS_ITS | Clinical Summary ---
Author Organization [facility] Address [address] [place] [address] Phone Care Team Providers Care Casino Manager Name Role Phone Claudette Junior MD Unavailable [phone] Jennie Arellano MD, MPH Unavailable [phone] Jhoan Padilla MD Unavailable [phone] Aj Bustos MD Primary Care Provider Allergies No known active allergies Medications aspirin 81 MG EC tablet Take 81 mg by mouth daily. Active atorvastatin (LIPITOR) 40 MG tablet Take 40 mg by mouth daily. 2 Active sulfamethoxazol e-trimethoprim (BACTRIM,SEPTRA ) 400-80 mg per tablet Take 1 tablet (80 mg of trimethoprim total) by mouth daily. 90 tablet 3 4 Active sildenafiL (VIAGRA) 50 mg tablet Take 1 tablet (50 mg total) by mouth daily as needed. 10 tablet 5 Active acalabrutinib (CALQUENCE) 100 mg capsule Take 1 capsule (100 mg total) by mouth every 12 (twelve) hours. 60 capsule 11 5 Active alfuzosin (UROXATRAL) 10 mg 24 hr tablet Take 10 mg by mouth daily. Active bethanechol (URECHOLINE) 50 MG tablet Take 1 tablet by mouth 2 (two) times a day. 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 At this point, we will plan on seeing him back in 3 months with a restaging PET scan. He also discussed to be on the lookout for both bleeding and possible atrial fibrillation as these are commonly observed adverse effects of ibrutinib. I think it is reasonable for him to continue continue on low-dose aspirin given his history of a TIA, but he will discuss this with his keno attendant. H/O lymphoma 05/04/2010 Overview (01/09/2015): H/O lymphoma Hearing loss 05/04/2010 Overview (03/29/2015): Hearing loss Uncoded H/O Colonic Adenoma 11/30/2009 Overview (01/09/2015): H/O Colonic Adenoma Resolved Problems Problem Noted Date Diagnosed Date Resolved Date Open angle with borderline findings 05/01/2019 12/10/2023 Combined form of senile cataract 05/01/2019 10/25/2021 Vitreous floaters 05/01/2019 10/25/2021 Adenomatous polyp of colon 03/29/2015 0 12/10/2023 Benign prostatic hyperplasia 10/20/2013 05/01/2017 Overview (03/29/2015): BPH Encounters Date Type Department Care Team Description 06/02/2025 10:30 AM EDT Office Visit [facility], Division of Hematologic Oncology, [facility] [address] [place] [address], 7th [place] [address] Lucia Isaac, MACARIO 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 (Primary Dx) from Last 3 Months Immunizations Immunization Administration Dates Next Due COVID-19 (Pre-09/10) Pfizer Vaccine, mRNA, PF 08/10/2021 DTaP, unspecified formulation 09/22/2010, 009 [id number] FORMULATION 10/16/2009 Hepatitis A, Adult 04/08/2008 Hib, unspecified formulation 09/22/2010,10/22/20 09 Influenza High-Dose Quadriva lent Preservative Free IM 08/24/2023,07/22/2021 Influenza High-Dose Trivalen t Preservative Free IM 12/05/2024 Influenza Quadrivalent Adjuv anted Preservative Free IM 09/04/2022,07/28/2020 Influenza Trivalent Adjuvant ed Preservative free IM 11/07/2019,10/07/2018,08/23/2017 Influenza Trivalent Preserva tive Free IM 10/03/2012 Influenza Trivalent w/ Preservative IM 4 Influenza, Unspecified Formulation 08/28,09/07/2011,09/22/2010,09/21 MMR 09/22/2010 Meningococcal MPSV4 10/22/2009 Pneumococcal conjugate PCV13 09/22/2010 Pneumococcal conjugate, PCV 7 10/22/2009 Pneumococcal polysaccharide PPSV23 08/02/2008(De javi: Patient Decision) RSV Vaccine (monovalent, adjuvanted) 01/24/2025 Td, unspecified formulation 11/30/2009 Typhoid,oral 04/08/2008 Family History Medical History Relation Comments Basal cell carcinoma Brother Dementia Brother Skin cancer Father Basal cell carcinoma Mother Relation Status Comments Brother Alive Father Mother Social History Tobacco Use Types Packs/Day Years Used Date Smoking Tobacco: Former Cigarettes Q uit: 07/08/1975 Smokeless Tobacco: Never Tobacco Cessation:Counseling Given: Not Answered Education Answer Date Recorded Are you interested in more education? Not on ami e 03/16/2023 Are you concerned about learning? Not on file 03/16/2023 No 03/16/2023 No 03/16/2023 Digital Access Answer Date Recorded No 04/16/2023 No 04/16/2023 Reliable internet access at home? Not on file 04/16/2023 Device with a working camera? Not on file Sex and Gender Information Value Date Recorded Sex Assigned at Male 06/23/2020 2:22 PM EDT Legal Sex Male 2:06 PM EST Gender Identity Male 06/23/2020 2:22 PM EDT Sexual Orientation Straight 06/23/2020 2: 22 PM EDT Last Filed Vital Signs Vital Sign Reading Time Taken Comments Blood Pressure 123/64 06/02/2025 10:15 AM EDT Pulse 82 06/02/2025 10:15 AM EDT Temperature 37.1 C (98.7 F) 06/02/2025 10:14 AM EDT Respiratory Rate 18 06/02/2025 10:14 AM EDT Oxygen Saturation 99% 06/02/2025 10:15 AM EDT Inhaled Oxygen Concentration - - Weight 72.4 kg (159 lb 9.8 oz) 06/02/2025 10:14 AM EDT Height 173.2 cm (5' 8.19 ) 06/02/2025 10:14 AM E DT Body Mass Index 24.13 06/02/2025 10:14 AM EDT Plan of Treatment Upcoming Encounters Date Type Department Care Team (Late st Contact Info) Description 09/08/2025 9:40 AM EDT Blood Draw Laboratory Services, [address], [address] [place] [address] Claudette Junior MD [address] [place] [id number] [email or web address] 09/08/2025 10:30 AM EDT Office Visit [facility], Division of Hematologic Oncology, [address], [address] [place] [address] Lucia Isaac DNP [address] [place] [phone] [email or web address] 12/01/2025 10:40 AM EST Blood Draw Laboratory Services, [address], [address] [place] [address] Claudette Junior MD [address] [place] [phone] [email or web address] 12/01/2025 11:30 AM EST Office Visit [facility], Division of Hematologic Oncology, [facility] [address] [facility], [address]th [place] [address] Claudette Junior MD [address] [place] [address] [email or web address] Health Maintenance Due Date Last Done Comments ZOSTER VACCINES (1 of 2) 1963 COLOGUARD 1989 FIT TEST 1989 FOBT 1989 SIGMOIDOSCOPY 1989 VIRTUAL COLONOSCOPY 1989 PNEUMOCOCCAL VACCINES (50+ years) (2 of 2 - PPSV23) 11/17/2010 09/22/2010 COLONOSCOPY 01/18/2015 01/18/2010 COLORECTAL CANCER SCREENING 01/18/2015 Adult Td,Tdap Booster 11/30/2019 11/30/2009 DEPRESSION SCREENING 09/09/2025 09/09/2024 HEPATITIS A VACCINES Aged Out 04/08/2008 No long er eligible based on patient's age to complete this topic MENINGOCOCCAL VACCINES (ACWY) Aged Out 10/22/2009 No longer eligible based on patient's age to complete this topic HIB VACCINES Aged Out 09/22/2010, 10/22/2009 No lo nger eligible based on patient's age to complete this topic RSV VACCINE Completed 01/24/2025 COVID-19 VACCINE Completed 03/07/2025, , 08/24/2023, Additional history exists MENINGOCOCCAL VACCINES (B) Aged Out N o longer eligible based on patient's age to complete this topic Medical Devices Not on file Procedures Procedure Name Priority Date/Time Associated Diagnosis Comments COMPREHENSIVE METABOLIC PANEL Routine 06/02/2025 9:51 AM EDT Mantle cell lymphoma, unspecified body region LDH Routine 06/02/2025 9:51 AM EDT Mantle cell lymphoma, unspecified body region HC BLOOD COUNT COMPLETE AUTO&AUTO DIFRNTL WBC Routine 06/02/2025 9:51 AM EDT Mantle cell lymphoma, unspecified body region ENDOSCOPY, COLON 01/18/2010 2:59 PM EST from Last 3 Months or Most Recently Relevant to Health Maintenance Results * LDH (06/02/2025 9:51 AM EDT) LDH 164 135 - 225 U/L [facility] LIC# [id number] Blood 06/02/2025 9:51 AM EDT 06/02/2025 10:08 AM EDT us Skyla Avalos MD, PhD LAB BLOOD ORDERABLES Fi nal Result [facility] LIC# [id number] [address] [place] [address] * (ABNORMAL) Comprehensive metabolic panel (06/02/2025 9:51 AM EDT) SODIUM 144 136 - 145 mmol/L [facility] LIC# [id number] POTASSIUM 5.0 3.4 - 5.1 mmol/L [facility] LIC# [id number] CHLORIDE 109(H) 98 - 107 mmol/L [facility] LIC# [id number] CO2 22 22 - 31 mmol/L [facility] LIC# [id number] BUN 19 6 - 23 mg/dL [facility] LIC# [id number] CREATININE 1.42(H) 0.50 - 1.20 mg/dL [facility] LIC# [id number] GLUCOSE 71 70 - 100 mg/dL [facility] LIC# [id number] ALBUMIN 4.4 3.5 - 5.2 g/dL [facility] LIC# [id number] TOTAL PROTEIN 6.3(L) 6.4 - 8.3 g/dL [facility] LIC# [id number] CALCIUM 9.3 8.8 - 10.7 mg/dL [facility] LIC# [id number] ALKALINE PHOSPHATASE 73 40 - 129 U/L [facility] LIC# [id number] TOTAL BILIRUBIN 0.4 0.2 - 1.2 mg/dL [facility] LIC# [id number] AST 16 <41 U/L [facility] LIC# [id number] ALT 14 <42 U/L [facility] LIC# [id number] GLOBULIN 1.9(L) 2.3 - 4.2 g/dL [facility] LIC# [id number] EGFR 50(L) >59 mL/min/1.7 3m2 [facility] LIC# [id number] Comment:Estimated glomerular filtration rate calculated using the CKD-EPI refit equation. ANION GAP 13 7 - 17 mmol/L [facility] LIC# [id number] Blood 06/02/2025 9:51 AM EDT 06/02/2025 10:08 AM EDT us Skyla Avalos MD, PhD LAB BLOOD ORDERABLES Fi nal Result [facility] LIC# [id number] [address] [place] [address] * (ABNORMAL) CBC and differential (06/02/2025 9:51 AM EDT) WBC 17.50(H) 4.00 - 10.00 K/uL [facility] LIC# [id number] RBC 4.00(L) 4.50 - 6.40 M/uL [facility] LIC# [id number] HGB 12.2(L) 13.5 - 18.0 g/dL [facility] LIC# [id number] HCT 37.9(L) 40.0 - 54.0 % [facility] LIC# [id number] PLT 105(L) 150 - 450 K/uL [facility] LIC# [id number] MCV 94.8 80.0 - 100.0 fL [facility] LIC# [id number] MCH 30.5 27.0 - 32.0 pg [facility] LIC# [id number] MCHC 32.2 32.0 - 36.0 g/dL [facility] LIC# [id number] RDW 13.4 11.5 - 14.5 % [facility] LIC# [id number] MPV 10.1 8.4 - 12.0 fL [facility] LIC# [id number] NRBC 0.00 0 /100 WBCs [facility] LIC# [id number] ABSOLUTE NRBC 0.00 0 K/uL [facility] LIC# [id number] DIFF METHOD MANUAL [facility] LIC# [id number] NEUTS (MANUAL) 30.8(L) 48.0 - 76.0 % [facility] LIC# [id number] LYMPHS 66.9(H) 18.0 - 41.0 % [facility] LIC# [id number] MONOS 2.3(L) 4.0 - 11.0 % [facility] LIC# [id number] EOSINOPHIL 0.0 0.0 - 5.0 % [facility] LIC# [id number] BASOPHIL 0.0 0.0 - 1.5 % [facility] LIC# [id number] BLASTS 0.0 0 % [facility] LIC# [id number] ABSOLUTE NEUTS 5.39 1.92 - 7.60 K/uL [facility] LIC# [id number] ABSOLUTE LYMPHS 11.71(H) 0.72 - 4.10 K/uL [facility] LIC# [id number] ABSOLUTE MONOS 0.40 0.16 - 1.10 K/uL [facility] LIC# [id number] ABSOLUTE EOS 0.00 0.00 - 0.50 K/uL [facility] LIC# [id number] ABSOLUTE BASO 0.00 0.00 - 0.15 K/uL [facility] LIC# [id number] ABSOLUTE BLASTS 0.00 0 K/uL [facility] LIC# [id number] ACANTHOCYTES Few [facility] LIC# [id number] ANISO Few [facility] LIC# [id number] ROGERIO CELLS Few [facility] LIC# [id number] POIKILOCYTOSIS Few [facility] LIC# [id number] OVALOCYTES Few [facility] LIC# [id number] Blood 06/02/2025 9:51 AM EDT 06/02/2025 10:08 AM EDT us Skyla Avalos MD, PhD LAB BLOOD ORDERABLES Fi nal Result [facility] LIC# [id number] [address] [place] [address] * ENDOSCOPY, COLON (01/18/2010 2:59 PM EST) 01/18/2010 2:59 PM EST Narrative 01/18/2010 2:59 PM EST Report Number: [id number] Report Status: Signed Type: COLONOSCOPY Date: 01/18/2010 14:59 [facility] Gastroenterology Patient Name: Matt Hoffman Gender: M Procedure Date: 01/18/2010 9:15 AM Date of : 1945 Age: 64 Room: 11 Note Status: Finalized Attending MD: DARIO HERNANDEZ M.D. (Prts), M.P.H. Procedure: Colonoscopy Indications: High risk colon cancer surveillance: Personal history of colonic polyps Providers: DARIO HERNANDEZ M.D. (Prts), M.P.H., Dominique Kraft RN Referring MD: JOVAN CHRISTINE M.D. Medicines: Midazolam 4 mg IV, Fentanyl 100 micrograms IV Complications: No immediate complications Procedure: After informed consent was obtained, the scope was passed under direct vision. Throughout the procedure, the patient's blood pressure, pulse, and oxygen saturations were monitored continuously. The Colonoscope was introduced through the anus and advanced to the terminal ileum. The colonoscopy was performed without difficulty. The patient tolerated the procedure well. The quality of the bowel preparation was good. Findings: Internal hemorrhoids were found during retroflexion and were mild. The terminal ileum appeared normal. The exam was otherwise without abnormality. Impression: - Internal hemorrhoids. - The examined portion of the ileum was normal. Recommendation: - Repeat colonoscopy in 5 years for surveillance. DARIO HERNANDEZ M.D. (Prts), M.P.H. Signed Date: 01/18/2010 10:11 AM Number of Addenda: 0 Note initiated on 01/18/2010 9:15 AM Procedure Note Jovan Christine MD - 01/18/2010 2:59 PM EST Report Number: [id number] Report Status: Signed Type: COLONOSCOPY Date: 01/18/2010 14:59 [facility] Gastroenterology Patient Name: Matt Hoffman Gender: M Procedure Date: 01/18/2010 9:15 AM Date of : 1945 Age: 64 Room: 11 Note Status: Finalized Attending MD: DARIO HERNANDEZ M.D. (Prts), M.P.H. Procedure: Colonoscopy Indications: High risk colon cancer surveillance: Personal history of colonic polyps Providers: DARIO HERNANDEZ M.D. (Prts), M.P.H., Dominique Kraft RN Referring MD: JOVAN CHRISTINE M.D. Medicines: Midazolam 4 mg IV, Fentanyl 100 micrograms IV Complications: No immediate complications Procedure: After informed consent was obtained, the scope was passed under direct vision. Throughout the procedure, the patient's blood pressure, pulse, and oxygen saturations were monitored continuously. The Colonoscope was introduced through the anus and advanced to the terminal ileum. The colonoscopy was performed without difficulty. The patient tolerated the procedure well. The quality of the bowel preparation was good. Findings: Internal hemorrhoids were found during retroflexion and were mild. The terminal ileum appeared normal. The exam was otherwise without abnormality. Impression: - Internal hemorrhoids. - The examined portion of the ileum was normal. Recommendation: - Repeat colonoscopy in 5 years for surveillance. DARIO HERNANDEZ M.D. (Prts), M.P.H. Signed Date: 01/18/2010 10:11 AM Number of Addenda: 0 Note initiated on 01/18/2010 9:15 AM Jovan Christine MD GI PROCEDURE ORDERABLES Kathy l Result from Last 3 Months or Most Recently Relevant to Health Maintenance Insurance , [address] [address] MEDICARE PART A & B Parature MEDEX SUPPLEMENT (Home) [address], [address] [address] MEDICARE PART A & B BLUE CROSS MEDEX SUPPLEMENT MEDICARE PART A & B [id number] CROSS MEDEX SUPPLEMENT MEDICARE PART A & B [id number] CROSS MEDEX SUPPLEMENT MEDICARE PART A & B [id number] CROSS MEDEX SUPPLEMENT MEDICARE PART A & B Parature MEDEX SUPPLEMENT MEDICARE PART A & B [id number] CROSS MEDEX SUPPLEMENT , [address] [address] MEDICARE PART A & B Parature MEDEX SUPPLEMENT (Home) [address], [address] [address] MEDICARE PART A & B Parature MEDEX SUPPLEMENT Care Teams Casino Manager Relationship Specialty Start Date End Date Aj Bustos MD [address] [place] [address] PCP - General Family Medicine 03/02/25 Claudette Junior MD [address] [place] [address] [email or web address] Internal Medicine 06/01/15 Jennie Arellano MD, MPH [address] [place] [address] [place] [address] [email or web address] 06/25/18 Jhoan Padilla MD [address] [place] [address] [place] [address] [email or web address] 06/25/18 Additional Source Comments The information contained in this document represents components of the legal health record. It is not the complete legal health record.[facility]
--- NOTE | 2025-06-18 08:49 | MHC.PC.OV ---
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 Lawrence in April for dizziness and facial weakness. History of TIA and aneurysm. Has follow-up in August. Facial spasm/weakness and history of TIA. Carotid Doppler and MRI did not show any underlying cause.. They had considered that his prior acoustic neuroma and gamma knife surgery could be an underlying cause. Carotid Doppler did however show an incidental nodule in the thyroid. Patient has soon urology for urinary retention. Started bethanechol, considering cystoscopy and he does have follow-up scheduled. 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 Deafness in right ear Enlarged prostate MCL (mantle cell lymphoma) Family History Father Diabetes Mother Esophageal cancer Social History Housing: Apartment Patient Tobacco Use Status: Former Tobacco user e-Cigarette/Vaping Use: Never Used service: Yes Current occupational status: retired Current occupational exposures/hazards: No Cognitive needs: No Hearing needs: Yes Vision needs: Yes Questionnaire Thrive Questionnaire Date Thrive assessed: 01/19/25 I am a: Patient What is your living situation today?: I have a steady place to live Within the past 12 months, did the food you bought not last and you didn't have the money to get more?: Never true Within the past 12 months, did you worry whether your food would run out before you got money to buy more?: Never true Do you have trouble paying for medicines?: No Do you have trouble getting transportation to medical appointments?: No Do you have trouble paying your heating and electricity bill?: No Do you have trouble taking care of your child, family member or friend?: No Do you have trouble with day-to-day activities such as bathing, preparing meals, shopping, managing finances, etc.?: No Are you currently unemployed and looking for a job?: No Are you interested in more education?: No Please select the resources that you would like help with: None Currently or been in a relationship where the following occur: No concerns reported THRIVE Score: 0 MAHSA-7 AMB Questionnaire MAHSA-7 Date MAHSA - 7 assessed: 03/18/25 Source: Developed by Drs. Matt Puentes, Lee Ann Staley, Rocael Plascencia and colleagues, with an educational christa from [email or web address]. Review of Systems Const Denies chills, Denies fatigue, Denies fever(s), Denies headache(s) and Denies weakness ENT Reports dizziness and Denies headache(s) Card Denies chest pain, Denies lightheadedness, Denies dyspnea and Denies other (Palpitations) Resp Denies cough, Denies dyspnea, Denies wheezing and Denies other ( shortness of breath) Musc Denies numbness and Denies tingling Neuro Reports dizziness, Denies headache(s), Denies numbness, Denies tingling, Denies paresthesias and Denies weakness Psych Denies anxiety and Denies depression Endo Denies fatigue Aller/Immun Denies wheezing Physical exam (Primary Care) Vital Signs: Last Vital Signs Temp 97.8 F 06/18/25 08:51 Pulse 63 06/18/25 08:51 Resp 12 06/18/25 08:51 BP 106/60 06/18/25 08:51 Pulse Ox 97 06/18/25 08:51 Oxygen Delivery Method Room Air 06/18/25 08:51 BMI result Body Mass Index 24.2 Tobacco/Smoking Status: Tobacco use Status Tobacco use date assessed 01/23/25 06/18/25 08:49 Patient Tobacco Use Status Former Tobacco user 06/18/25 08:49 e-Cigarette/Vaping Use Never Used 06/18/25 08:49 Thrive Assessment: Date of Thrive Assessment Date Thrive assessed 01/19/25 06/18/25 08:49 Currently or been in a relationship where the following occur: No concerns reported Const General: no acute distress and well developed Nutritional Appearance: well nourished Orientation/consciousness: patient oriented x3 HENMT Head: Yes normocephalic and Yes atraumatic Eyes General: appearance normal, both eyes and all related structures Pupils: Equal, round and reactive pupils present EOM: EOMs intact bilaterally Resp Effort & Inspection: normal respiratory effort Auscultation: clear to auscultation bilaterally Cardio Rate: regular rate Rhythm: regular rhythm Heart sounds: S1 normal heart sound present, S2 normal heart sound present, no gallops, no murmurs and no rubs Neuro General: patient oriented x3 and gait normal Cranial nerves: Yes Equal, round and reactive pupils present Psych Affect: normal affect Coding Level of Care Code Est Pt Level 4 (62406) Diagnoses Thyroid nodule E04.1 Urinary retention R33.9 Dizziness R42 Facial nerve spasm G51.39 Assessment & Plan Assessment & Plan (1) Thyroid nodule: Code(s): E04.1 - Nontoxic single thyroid nodule Category: Medical Plan: Incidental 1.3 cm thyroid nodule seen on carotid Doppler scan. Checking dedicated thyroid ultrasound Will follow-up by telemedicine test. (2) Urinary retention: Code(s): R33.9 - Retention of urine, unspecified Category: Medical Plan: Patient has been taking alfuzosin and was prescribed bethanechol as well. Patient read about bethanechol and did not try it. I explained to him that alfuzosin should decrease outlet resistance while bethanechol increase his bladder contractility such that they are not intended to counter act each other but to work together to improve symptoms from urinary retention. He will give this a try. Follow-up with urology as recommended (3) Dizziness: Code(s): R42 - Dizziness and giddiness Category: Medical (4) Facial nerve spasm: Code(s): G51.39 - Clonic hemifacial spasm, unspecified Category: Medical Plan Ongoing mild dizziness and right-sided facial nerve spasm which he notes he can elicit while brushing his teeth. Only happening on the right side. 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 This appears to be a peripheral right facial nerve problem. He has follow-up with Neurology. Orders: Orders US thyroid Today E04.1 - Nontoxic single thyroid nodule Medications: Refilled bethanechol chloride 50 mg PO BID 60 tabs 3RF 30 days N39.0 - Urinary tract infection, site not specified
[2025-06-18 08:51] VITALS: BP 106/60; PULSE 63; RESP 12; TEMP 36.6; O2SAT 97; BMI 24.2
== END 2025-06-18 09:38 | disposition home or self-care (01) ==
LOC: HO.HMCFM 08:28
PROVIDERS: PCP Family Medicine; Visit Provider Family Medicine
DX: E04.1 Nontoxic single thyroid nodule (principal); R33.9 Retention of urine, unspecified; R42 Dizziness and giddiness; G51.39 Clonic hemifacial spasm, unspecified

== ENCOUNTER → 2025-06-18 08:27 | Outpatient (BNVA) | payer MEDICARE, SELFPAY | PROVIDERS: PCP Family Medicine; Visit Provider Family Medicine | DX: E04.1 Nontoxic single thyroid nodule (principal); R33.9 Retention of urine, unspecified; R42 Dizziness and giddiness; G51.39 Clonic hemifacial spasm, unspecified | CPT/HCPCS: 99212 ==

== ENCOUNTER 2025-07-08 09:35 | Outpatient (REF) | payer MEDICARE, SELFPAY ==
--- OUTSIDE RECORDS SUMMARY | 2025-01-24 17:30 | XMS_ITS ---
Author Organization [facility] Address [address] [place] [address] Care Team Providers Care Professor Of Nursing Name Role Phone DO NOT USE Shirley Quintanilla MD Primary Care Provider Unavailable PHYLLISANGELA Pretty Unavailable [phone] Migration, Provider Unavailable Unavailable [facility] Encounter Medications Medication SIG (Take, Route, [...] Location Date Provider Diagnosis [facility] [address] [place] [address] 01/24/2025 Provider Migration Plan Of Treatment No Information Progress Notes * Matt HOFFMANDOB:1944 (80 yo M)Acc No.[id number]:01/24/2025 Patient: Matt Elder Provider: Archie Hernández :1945 A ge:79 Y S ex:Male Date:01/24/2025 Address:[place] [address], [facility], [facility] Pcp:Shirley LAINEZ NOT USE David Quintanilla Subjective: [...] Electronic signature of Prov ider Migration on 07/08/2025 at 10:21 AM EDT Sign off status: Pending * Provider: Archie campo Migration Date: 0 01/24/2025 Generated for Wood restrepo/Yuan/Idaitting on: 0 07/08/2025 10:21 AM EDT
--- NOTE | ~2025-07-08 | US_ITS ---
CLINICAL HISTORY: R33.9 - Retention of urine, unspecified US retroperitoneum with color Doppler Comparison: None Findings: Right kidney normal size and echotexture, 11.4 cm length. Moderate to severe hydroureteronephrosis down to the level of the urinary bladder. Normal color flow. No evidence of nephroureterolithiasis. No renal masses. Left kidney normal size and echotexture, 12.0 cm in length. Moderate to severe hydroureteronephrosis down to the level of the urinary bladder. Normal color flow. No evidence of nephroureterolithiasis. No renal masses. Benign renal cortical cyst midpole measuring 9 x 9 x 9 mm. Urinary bladder is trabeculated with numerous bladder diverticuli. Prevoid volume 760.0 mL. Postvoid volume 573 mL. Right ureteral jet was visualized which excludes complete obstructive uropathy. The left ureteral jet was not visualized. Prostate gland measures 8.3 x 7.8 x 5.8 cm. Impression: 1. Moderate to severe hydroureteronephrosis bilaterally amiu-iyywlwm-yotq-right down to the level of the urinary bladder. No nephroureterolithiasis demonstrated. Only the right ureteral jet was visualized which excludes obstructive uropathy. The left ureteral jet was not demonstrated during the course of the exam. Incidental benign renal cortical cyst left kidney. 2. Well-distended urinary bladder with trabeculation of the wall and small bladder diverticulum. 3. Postvoid residual volume 573 mL 4. Prostate volume: 198 mL This document has been electronically signed by: Evert Watts MD on 07/09/2025 15:04:16
--- OUTSIDE RECORDS SUMMARY | 2025-07-08 03:21 | XMS_ITS ---
Author Organization [facility], [facility]. Care Team Providers Care Wrapper Stemmer Hand Name Role Phone Chaparro Rivero MD Primary Care Physician [phone] Allergies Substance Reaction Status No Known Allergies Active Medications Current Medications Medication Directions Start Date Discontinues Da te atorvastatin 40 mg tabs atorvastatin 40 mg tablet. 1 tablet by mouth once a day TAKE 1 TABLET BY MOUTH ONCE A DAY 2024-05-01 Problems Problem Status Assessment and P marco De La Cruz's esophagus Active [facility] Issue Name: De La Cruz's esophagusBarrett's esophagus seen on EGD 11/2021. EGD recommended in 1 year - done 12/2022. Dr. Gordillo started him on a PPI as well but it was discontinued due to interaction with Calquence. However, he can now take omeprazole. Mantle cell lymphoma Active [facility] Issue Name: Mantle cell lymphomaDiagnosed in 2007, s/p autologous stem cell transplant. Relapsed in 10/01. Followed at [facility] by Dr. Junior. Started acalabrutinib therapy in 03/2018. Currently felt to be in remission. He is on bactrim SS once a day for PCP prophylaxis. Osteopenia Active [facility] Issue Name : OsteopeniaSevere osteopenia seen on CT imaging. DEXA done 02/2018 showed mild osteopenia. Encouraged adequate calcium and vitamin D along with daily weight bearing exercise. Dysuria Active [facility] Issue Name : DysuriaRecurrent dysuria, frequency. He is seeing Dr. Padilla, urologist due to h/o BPH, kidney stones, hematuria, recurrent UTI's. Diarrhea Active [facility] Issue Name : DiarrheaPatient with recent diarrhea felt to be due to bacterial overgrowth. Much improved currently. He is taking immodium pm. Pernio Active [facility] Issue Name : PernioChillblains/pernio. Encouraged keeping his feet warm. 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 If worsening, consider CCB. Mitral regurgitation Active [facility] Issue Name: Mitral regurgitationHe was followed by Dr. Estrada. ECHO showed mild-mod MR in 2018. Repeat ECHO in 11/2022 showed stabilty of the MR. Hydronephrosis Active [facility] Issue Name : HydronephrosisFollowed by Dr. Padilla. Migraine Active [facility] Issue Name : Migraine History of acoustic neuroma Active [facility] Issue Name: History of acoustic neuromaS/p gamma knife radiation with resultant hearing loss on the left. Dupuytren's contracture Active [facility] abram Name: Dupuytren's contractureContracture on right hand s/p XRT treatment. skin lesion on face Active [facility] Issue Name: Scalp lesionLesion on scalp that has not [...] CKD. Assess acuity/chronicity and need for follow-up. 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 CAD Active [facility] Issue Name : CADCoronary calcifications seen on recent PET CT. He is on aspirin, statin. Nuclear stress test was negative. He was followed by Dr. Estrada. ECHO showed mild-mod MR in 2018 - stable in 11/2022. Dysphagia Active [facility] Issue Name : DysphagiaPatient with difficulty swallowing, s/p EGD that showed stricture. This was dilated. Recommended continued PPI use. Hyperlipidemia Active [facility] Issue Name : HyperlipidemiaOn high-intensity dose statin. Blood work excellent on last check in 01/2023. Hematuria Active [facility] Issue Name : HematuriaGross hematuria. Evaluated by Dr. Padilla most recently. Had a cystoscopy complicated by bladder laceration in the past. [facility] Name: History of kidney stonesFollowed by Dr. Padilla. abdominal pain Active [facility] Issue Name : Abdominal painPatient with twinges of dull discomfort off and on. Unclear etiology. No red flags. May actually be muscular in nature. Will hydrate better, monitor for now, will have HC check in with him next week. He will call sooner if his symptoms worsen. Autologous stem cell transplant Active [facility] Issue Name: Autologous stem cell transplantS/p autologous stem cell transplant for Mantle cell lymphoma. Aortic [facility] Name: Aortic atherosclerosisSeen on CT in 07/2019. Evaluated by cardiology in the past. On statin. BPH with Active [facility] Issue Name : BPHS/p vaporization of his prostate in the past. Followed by Dr. Padilla. No longer on finasteride. Trigger finger Active [facility] Issue Name : Trigger finger Thoracic aortic dilation Inactive [facility] I ssue Name: Aortic Root DilationEcho on 11/22/22 (pg 2-3)([email or web address]) The aortic root is mildly dilated. Stage B Heart Failure Inactive [facility] Issu e Name: Stage B Heart FailureAssessment: Patient has risk factors for Heart Failure including CADPatient had an Echo on 11/22/22 (pg 2-3)([email or web address]) showing LVEF 60-65% with posterior leaflet mitral valve prolapse. There is mild to moderate mitral regurgitationPatient has no symptoms previously or currently attributed to HF. This is Stage B HF. Modifiable risk factors include: Atherosclerotic CVD (optimize on ACEi/ARB, BB, and statin)Plan: - Address risk factors to prevent progression from Stage B to C Thrombocytopenia Inactive [facility] Issue Nam e: thrombocytopeniaPer Oncology note 03/27/23([email or web address] ([email or web address]) (p7) Mild thombocytopenia (p8) plt ct 116 [...] 4.5 g/dL 3.6-5.1 Globulin (calculated) 2023-01-23 03:31:00 0800 1.5 (g/dL){calc} 1.9-3.7 Albumin/globulin 2023-01-23 03:31:00 -0800 [...] OR = 60 Glomerular filtration rate estimation (-Afghan) 2020-10-11 22:35:00 -0800 67 mL/min/{1.73_m2} > OR [...] less Saba Ramírez Medicine Note signed at: 2021-02-14 07:22:14 -0700 Level [...] family 10 minutes or less Shirley Quintanilla [facility] Note signed at: 2023-01-15 13:42:30 -0800 Level 2 outpatient visit for evaluation and management of established patient with self-limited and/or minor problem, including problem-focused history and physical examination, and straightforward medical decision-making - typical time with patient and/or family 10 minutes or less Shirley Quintanilla [facility] Medicine Note signed at: 2023-02-01 10:21:48 -0700 Level 2 outpatient visit for evaluation and management of established patient with self-limited and/or minor problem, including problem-focused history and physical examination, and straightforward medical decision-making - typical time with patient and/or family 10 minutes or less Shirley Quintanilla [facility] Medicine Note signed at: 2023-10-03 10:39:58 -0800 [...] Data Lives with and dog (Noel) in [facility] Immunizations Vaccine Date Status SARS-CoV-2 mRNA (Moderna, [...] October 01, 2019 Advance directives discussion Healthcare proxy October 01, 2019 Hearing screening Pure-tone au diometry October 01, 2019 Functional assessment evaluati on (ADL/IADL) Lulu ADL Index October 01, 2019 Functional assessment evaluati on (ADL/IADL) OARS-IADL October 02, 2023 Hearing screening Pure-tone au diometry Insurance Providers Payer name Policy type / Coverage type Policy ID Covered libertarian ID Policy Alaniz OMD Medicare Part A [id number] Self
--- OUTSIDE RECORDS SUMMARY | 2025-07-08 10:21 | XMS_ITS | Encounter Summary ---
Author Organization [facility] Address [address] [place] [address] Phone Care Team Providers Care Final Cigar And Box Examiner Name Role Phone Claudette Junior MD Unavailable [phone] Jennie Arellano MD, MPH Unavailable Jhoan Padilla MD Unavailable [phone] Aj Bustos MD Primary Care Provider Encounter Details Date Type Department Care Team (Late st Contact Info) Description 07/08/2025 Orders Only Infusion Therapy Services [address] [facility] [place] [address] [facility], [address]th [place] [address] Claudette Junior MD [address] [place] [address] [email or web address] Mantle cell lymphoma, unspecified body region (Primary Dx) Social History Tobacco Use Types Packs/Day Years Used Date Smoking Tobacco: Former Cigarettes Q uit: 07/08/1975 Smokeless Tobacco: Never Education Answer Date Recorded Are you interested [...] Orientation Straight 06/23/2020 2: 22 PM EDT documented as of this encounter Plan of Treatment Upcoming Encounters Date Type Department Care Team (Late st Contact Info) Description 09/08/2025 9:40 AM EDT Blood Draw Laboratory Services, [address] [place] [address] Claudette Junior MD [address] [place] [phone] [email or web address] 09/08/2025 10:30 AM EDT Office Visit [facility], Division of Hematologic Oncology, [address] [place] [address] Lucia Isaac DNP [address] [place] [id number] [email or web address] 12/01/2025 10:40 AM EST Blood Draw Laboratory Services, [address] [place] [address] Claudette Junior MD [address] [place] [id number] [email or web address] 12/01/2025 11:30 AM EST Office Visit [facility], Division of Hematologic Oncology, [address] [place] [address] Claudette Junior MD [address] [place] [phone] [email or web address] Scheduled Orders Name Type Priority Associated Diagnoses Orde r Schedule CBC and differential Lab Routine Mantle cell lymphoma, unspecified body region Expected: 07/08/2025, Expires: 07/08/2026 Comprehensive metabolic panel Lab Routine Mantle cell lymphoma, unspecified body region Expected: 07/08/2025, Expires: 07/08/2026 [facility] Lab Routine Mantle cell lymphoma, unspecified body region Expected: 07/08/2025, Expires: 07/08/2026 documented as of this encounter Visit Diagnoses Diagnosis Mantle cell lymphoma, unspecified body region- Primary documented in this encounter Care Teams Final Cigar And Box Examiner Relationship Specialty Start Date End Date Aj Bustos MD [address] [place] [id number] PCP - General Family Medicine 03/02/25 Claudette Junior MD [address] [place] [id number] [email or web address] Medicine 06/01/15 Jennie Arellano MD, MPH [address] [place] [address] [place] [address] [email or web address] Dermatology 06/25/18 Jhoan Padilla MD [address] [place] [address] [place] [address] [email or web address] Urology 06/25/18 documented as of this encounter Additional Source Comments The information contained in this document represents components of the legal health record. It is not the complete legal health record.[facility]
--- OUTSIDE RECORDS SUMMARY | 2025-07-08 10:22 | XMS_ITS | Patient Health Record ---
Author Organization [facility] Address [address] [place] [address] Care Team Providers Care Project Scheduler Name Role Phone Shirley Quintanilla MD Primary Care Provider TONE Marquez Unavailable [phone] Allergies No Known Allergies Reason For Referral No Information Medications Medication SIG (Take, Route, Frequency, Duration) Notes Start Date End Date Status Atorvastatin Calcium 40 MG Oral; Duration: 90 Active Sulfamethoxazole-Trimethopri m 400-80 MG Oral; Duration: 90 Active Calquence 100 MG Oral; Duration: 30 Active Acalabrutinib 100 MG 1 capsule Orally ev ramsey 12 hrs; Duration: 30 day(s) Active Aspirin 81 MG 1 capsule Orally Onc e a day; Duration: 30 day(s) Active Vitamin D3 Active Social [...] W/U Status Risk Notes Problem Chronic pain (54954684) Other chronic pain (G89.29) Active confirmed Problem Contracture of right knee joint (disorder) (206857603848440) Contracture, right knee (M24.561) Active confirmed Problem Arthralgia of the ankle and/or foot (827385526) Pain in right ankle and joints of right foot (M25.571) Active confirmed Problem Osteoarthritis of knee (496866902) Primary osteoarthritis of right knee (M17.11) Active confirmed Problem Acquired trigger finger (1788820) Trigger finger of right thumb (M65.311) Active confirmed Problem Closed nondisplaced avulsion fracture of tuberosity of right calcaneus with routine healing, subsequent encounter (S92.034D) Active confirmed Problem Open fracture of calcaneus (86558351) Open nondisplaced avulsion fracture of tuberosity of right calcaneus, initial encounter (S92.034B) Active confirmed Plan Of Treatment No Information Insurance Providers Payer Name Payer Address Payer Phone Subscriber Number Group Number Insured Name Patient Relationship to Insured Coverage Start Date Coverage End Date Medicare [address] [place] [address] [id number] Matt Schmidt am Self - patient is the insured [employer] [address] [place] [address] [id number] Matt Schmidt am Self - patient is [...]
[2025-07-08 11:34] LABS: PSA,Total (Free>4and<10) 4.82 ng/mL (0.00-4.00)
[2025-07-09 11:24] LABS: Free Prostate Spec Ag 2.0 ng/mL; Percent Free Prostate Spec Ag 47 % (calc) (>25)
== END 2025-07-08 09:36 | disposition home or self-care (01) ==
LOC: HO.US 09:35
PROVIDERS: PCP Family Medicine; Visit Provider Nurse Practitioner Family
DX: Z12.5 Encounter for screening for malignant neoplasm of prostate (principal); R97.20 Elevated prostate specific antigen [PSA]; R33.9 Retention of urine, unspecified
CPT/HCPCS: 36415; 76770; 84153; 84154

== ENCOUNTER 2025-07-22 08:32 | Outpatient (REF) | payer MEDICARE, SELFPAY ==
--- OUTSIDE RECORDS SUMMARY | 2025-07-22 18:04 | XMS_ITS | Encounter Summary ---
Author Organization [facility] Address [address] [place] [address] Phone Care Team Providers Care Nursing Home Social Worker Name Role Phone Claudette Junior MD Unavailable [phone] Jennie Arellano MD, MPH Unavailable [phone] Jhoan Padilla MD Unavailable [phone] Shirley Quintanilla MD Primary Care Provider [phone] Claudette Junior MD Primary Care Provider [phone] Aj Bustos MD Unavailable [phone] Aj Bustos MD Primary Care Provider Reason for Visit * Reason Comments Medication Refill Encounter Details Date Type Department Care Team (Late st Contact Info) Description 05/26/2023 Refill [facility] for Lymph[facility], Division of Hematologic Oncology, [facility] [facility] [place] [address] [facility], 7th [place] [address] Lucia Isaac, [facility] [address] [place] [address] [email or web address] Medication Refill Social History Tobacco Use Types [...] 9:40 AM EDT Blood Draw [facility], [address], [address] [place] [address] Claudette Junior MD [address] [place] [address] [email or web address] 09/08/2025 10:30 AM EDT Office Visit Center for Lymphoma, Division of Hematologic Oncology, [address], 7th [place] [address] Lucia Isaac DNP [address] [place] [address] Merced@[email or web address]. [facility] 12/01/2025 10:40 AM EST [facility] Draw [facility], [address], 2nd [place] [address] Claudette Junior MD [address] [place] [address] Zoila@[email or web address] 12/01/2025 11:30 AM EST Office Visit Center for Lymphoma, Division of Hematologic Oncology, [facility] [place] [address] [facility], 7th [place] [address] Claudette Junior MD [address] [place] [address] Zoila@[email or web address] documented as of this encounter Visit Diagnoses Not on filedocumented in this encounter Care Teams Nursing Home Social Worker Relationship Specialty Start Date End Date Shirley Quintanilla MD [address] [place] [address] [place] [address] [email or web address] PCP - General Internal Medicine 08/14/19 10/20/24 Claudette Junior MD [address] [place] [address] Zoila@[facility] PCP - General Medical Oncology 10/21/24 Aj Bustos MD [address] [place] [address] PCP - General Family Medicine 03/02/25 Claudette Junior MD [address] [place] [address] Zoila@[facility] Internal Medicine 06/01/15 Jennie Arellano MD, MPH [address] [place] [address] [place] [address] EDWARD@[email or web address] Dermatology 06/25/18 Jhoan Padilla MD [address] [place] [address] [place] [address] [email or web address] Urology 06/25/18 Aj Bustos MD [address] [place] [address] Family Medicine 03/02/25 03/02/25 documented as of this encounter Additional Source Comments The information contained in this document represents components of the legal health record. It is not the complete legal health record.[facility]
--- OUTSIDE RECORDS SUMMARY | 2025-07-22 18:04 | XMS_ITS | Encounter Summary ---
Author Organization [facility] Address [address] [place] [address] Phone Care Team Providers Care Industrial Yard Brake Coupler Name Role Phone Claudette Junior MD Unavailable [phone] Jennie Arellano MD, MPH Unavailable [phone] Jhoan Padilla MD Unavailable [phone] Shirley Quintanilla MD Primary Care Provider [phone] Claudette Junior MD Primary Care Provider [phone] Aj Bustos MD Unavailable [phone] Aj Bustos MD Primary Care Provider Reason for Visit * Reason Comments Medication Refill Encounter Details Date Type Department Care Team (Late st Contact Info) Description 02/21/2024 Refill [facility] for Lymphoma, Division of Hematologic Oncology, [facility] [facility] [place] [address] [facility], 7th [place] [address] Lucia Isaac, [facility] [address] [place] [address] [email or web address] Medication Refill Social History Tobacco Use [...] 9:40 AM EDT Blood Draw [facility] Services, [address], [address]nd [place] [address] Claudette Junior MD [address] [place] [address] Zoila@[email or web address] 09/08/2025 10:30 AM EDT Office Visit [facility] for Lymphoma, Division of Hematologic Oncology, [address], 7th [place] [address] Lucia Isaac DNP [address] [place] [address] [email or web address]. [facility] 12/01/2025 10:40 AM EST Blood Draw Laboratory Services, [address], 2nd [place] [address] Claudette Junior MD [address] [place] [address] [email or web address]@[email or web address] 12/01/2025 11:30 AM EST Office Visit Center for Lymphoma, Division of Hematologic Oncology, [facility] [place] [address] [facility], 7th [place] [address] Claudette Junior MD [address] [place] [address] Zoila@[email or web address] documented as of this encounter Visit Diagnoses Not on filedocumented in this encounter Care Teams Industrial Yard Brake Coupler Relationship Specialty Start Date End Date Shirley Quintanilla MD [address] [place] [address] [place] [address] [email or web address] PCP - General Internal Medicine 08/14/19 10/20/24 Claudette Junior MD [address] [place] [address] [email or web address] PCP - General Medical Oncology 10/21/24 Aj Bustos MD [address] [place] [address] PCP - General Family Medicine 03/02/25 Claudette Junior MD [address] [place] [address] Zoila@[email or web address] Internal Medicine 06/01/15 Jennie Arellano MD, MPH [address] [place] [address] [place] [address] EDWARD@[facility] Dermatology 06/25/18 Jhoan Padilla MD [address] [place] [address] [place] [address] [email or web address] Urology 06/25/18 Aj Bustos MD [address] [place] [address] Family Medicine 03/02/25 03/02/25 documented as of this encounter Additional Source Comments The information contained in this document represents components of the legal health record. It is not the complete legal health record.[facility]
--- OUTSIDE RECORDS SUMMARY | 2025-07-22 18:04 | XMS_ITS | Encounter Summary ---
Author Organization [facility] Address [address] [place] [address] Phone Care Team Providers Care Consulting Solution Manager Name Role Phone Claudette Junior MD Unavailable [phone] Jennie Arellano MD, MPH Unavailable [phone] Jhoan Padilla MD Unavailable [phone] Shirley Quintanilla MD Primary Care Provider [phone] Claudette Junior MD Primary Care Provider [phone] Aj Bustos MD Unavailable [phone] Aj Bustos MD Primary Care Provider Reason for Visit * Reason Comments Medication Refill Encounter Details Date Type Department Care Team (Late st Contact Info) Description 02/09/2023 Refill Center for Lymphoma, Division of Hematologic Oncology, [facility] [place] [address] [place] [address], 7th [place] [address] Telly Parsons, MANAGER RELOCATION [address] [place] [address] [email or web address]. [facility] Medication Refill Social History Tobacco Use [...] 9:40 AM EDT Blood Draw Laboratory Services, [address], 2nd [place] [address] Claudette Junior MD [address] [place] [address] [email or web address]@[email or web address] 09/08/2025 10:30 AM EDT Office Visit Center for Lymphoma, Division of Hematologic Oncology, [address], [address] [place] [address] Lucia Isaac DNP [address] [place] [address] [email or web address] 12/01/2025 10:40 AM EST Blood Draw Laboratory Services, [address], [address] [place] [address] Claudette Junior MD [address] [place] [address] [email or web address] 12/01/2025 11:30 AM EST Office Visit [facility] for Lymphoma, Division of Hematologic Oncology, [address], [address] [place] [address] Claudette Junior MD [address] [place] [address] [email or web address]@[email or web address] documented as of this encounter Visit Diagnoses Not on filedocumented in this encounter Care Teams Consulting Solution Manager Relationship Specialty Start Date End Date Shirley Quintanilla MD [address] [place] [address] [place] [address] [email or web address] PCP - General Internal Medicine 08/14/19 10/20/24 Claudette Junior MD [address] [place] [address] [email or web address] PCP - General Medical Oncology 10/21/24 Aj Bustos MD [address] [place] [address] PCP - General Family Medicine 03/02/25 Claudette Junior MD [address] [place] [address] Zoila@[email or web address] Internal Medicine 06/01/15 Jennie Arellano MD, MPH [address] [place] [address] [place] [address] EDWARD@[email or web address] Dermatology 06/25/18 Jhoan Padilla MD [address] [place] [address] [place] [address] [email or web address]. Urology 06/25/18 Aj Bustos MD [address] [place] [address] Family Medicine 03/02/25 03/02/25 documented as of this encounter Additional Source Comments The information contained in this document represents components of the legal health record. It is not the complete legal health record.[facility]
--- OUTSIDE RECORDS SUMMARY | 2025-07-22 18:04 | XMS_ITS | Encounter Summary ---
Author Organization [facility] Address [address] [place] [address] Phone Care Team Providers Care Molecular Physicist Name Role Phone Claudette Junior MD Unavailable [phone] Jennie Arellano MD, MPH Unavailable [phone] Jhoan Padilla MD Unavailable [phone] Shirley Quintanilla MD Primary Care Provider [phone] Claudette Junior MD Primary Care Provider [phone] Aj Bustos MD Unavailable [phone] Aj Bustos MD Primary Care Provider Reason for Visit * Reason Comments Medication Refill Encounter Details Date Type Department Care Team (Late st Contact Info) Description 01/18/2022 Refill [facility] for Lymphoma, Division of Hematologic Oncology, [facility] [facility] [place] 450 [facility], 7th [place] [address] Alicia Bates NP [address] [place] [address] [email or web address] Medication Refill Social History Tobacco Use [...] 9:40 AM EDT Blood Draw Laboratory Services, [address], [address] [place] [address] Claudette Junior MD [address] [place] [address] Zoila@[facility] 09/08/2025 10:30 AM EDT Office Visit Center for Lymphoma, Division of Hematologic Oncology, [address], [address] [place] [address] Lucia Isaac DNP [address] [place] [address] Merced@[email or web address] 12/01/2025 10:40 AM EST Blood Draw Laboratory Services, [address], [address] [place] [address] Claudette Junior MD [address] [place] [address] Zoila@[facility] 12/01/2025 11:30 AM EST Office Visit [facility] for Lymphoma, Division of Hematologic Oncology, [address], [address] [place] [address] Claudette Junior MD [address] [place] [address] Zoila@[facility] documented as of this encounter Visit Diagnoses Not on filedocumented in this encounter Care Teams Molecular Physicist Relationship Specialty Start Date End Date Shirley Quintanilla MD [address] [place] [address] [place] [address] [email or web address] PCP - General Internal Medicine 08/14/19 10/20/24 Claudette Junior MD [address] [place] [address] [email or web address] PCP - General Medical Oncology 10/21/24 Aj Bustos MD [address] [place] [address] PCP - General Family Medicine 03/02/25 Claudette Junior MD [address] [place] [address] Zoila@[email or web address] Internal Medicine 06/01/15 Jennie Arellano MD, MPH [address] [place] [address] [place] [address] EDWARD@[facility] Dermatology 06/25/18 Jhoan Padilla MD [address] [place] [address] [place] [address] [email or web address]. Urology 06/25/18 Aj Bustos MD [address] [place] [address] Family Medicine 03/02/25 03/02/25 documented as of this encounter Additional Source Comments The information contained in this document represents components of the legal health record. It is not the complete legal health record.[facility]
--- OUTSIDE RECORDS SUMMARY | 2025-07-22 18:04 | XMS_ITS | Encounter Summary ---
Author Organization [facility] Address [address] [place] [address] Phone Care Team Providers Care Enchilada Maker Name Role Phone Shirley Quintanilla MD Primary Care Provider + [phone] Shirley Quintanilla MD Unavailable +[phone] Claudette Junior MD Unavailable [phone] Shirley Quintanilla MD Unavailable +[phone] Claudette Junior MD Unavailable [phone] Shirley Quintanilla MD Unavailable +[phone] Bozena Means MD Unavailable +[phone] Jennie Arellano MD, MPH Unavailable +[phone] Jhoan Padilla MD Unavailable +[phone] Shirley Quintanilla MD Primary Care Provider + [phone] Claudette Junior MD Primary Care Provider +[phone] jA Bustos MD Unavailable +[phone] Aj Bustos MD Primary Care Provider Encounter Details Date Type Department Care Team (Late st Contact Info) Description 05/01/2017 Procedure Pass Claire Lank Imaging Department, [facility] [place], [place] [address] [facility], Floor [address] [place] [address] Social History Tobacco Use Types Packs/Day Years [...] 9:40 AM EDT Blood [facility], [address], [address] [place] [address] Claudette Junior MD [address] [place] [address] Zoila@[email or web address] 09/08/2025 10:30 AM EDT Office Visit [facility], Division of Hematologic Oncology, [address], [address] [place] [address] Lucia Isaac DNP [address] [place] [address] Merced@[email or web address]. [facility] 12/01/2025 10:40 AM EST Blood Draw Laboratory Services, [address], [address] [place] [address] Claudette Junior MD [address] [place] [address] Zoila@[facility] 12/01/2025 11:30 AM EST Office Visit [facility], Division of Hematologic Oncology, [address], [address] [place] [address] Claudette Junior MD [address] [place] [address] [email or web address] documented as of this encounter Visit Diagnoses Not on filedocumented in this encounter Care Teams Enchilada Maker Relationship Specialty Start Date End Date Shirley Quintanilla MD [email or web address] PCP - General Internal Medicine 06/01/15 08/13/19 Shirley Quintanilla MD [email or web address] PCP - General Internal Medicine 08/14/19 10/20/24 Claudette Junior MD [address] [place] [address] [email or web address] u PCP - General Medical Oncology 10/21/24 03/01/25 Aj Bustos MD [address] [place] [address] PCP - General Family Medicine 03/02/25 Shirley Quintanilla MD [email or web address] Internal Medicine 06/01/15 12/12/17 Claudette Junior MD [address] [place] [address] Zoila@[facility] Internal Medicine 06/01/15 Shirley Quintanilla MD [email or web address] Internal Medicine 06/01/15 12/12/17 Claudette Junior MD [address] [place] [address] Zoila@[email or web address] Internal Medicine 06/01/15 12/12/17 Shirley Quintanilla MD [email or web address] Internal Medicine 06/01/15 12/12/17 Bozena Means MD [address] [place] [address] Referring Physician Hematology 05/01/16 06/24/18 Jennie Arellano MD, MPH [address] [place] [address] for [place] [address] [email or web address] Dermatology 06/25/18 Jhoan Padilla MD [address] [place] [address] [place] [address] [email or web address]. Urology 06/25/18 Aj Bustos MD [address] [place] [address] Family Medicine 03/02/25 03/02/25 documented as of this encounter Additional Source Comments The information contained in this document represents components of the legal health record. It is not the complete legal health record.[facility]
--- OUTSIDE RECORDS SUMMARY | 2025-07-22 18:04 | XMS_ITS | Encounter Summary ---
Author Organization [facility] Address [address] [place] [address] Phone Care Team Providers Care French Lecturer Name Role Phone Shirley Quintanilla MD Primary Care Provider + [phone] Shirley Quintanilla MD Unavailable +[phone] Claudette Junior MD Unavailable [phone] Shirley Quintanilla MD Unavailable [phone] Claudette Junior MD Unavailable [phone] Shirley Quintanilla MD Unavailable +[phone] Bozena Means MD Unavailable [phone] Jennie Arellano MD, MPH Unavailable +[phone] Jhoan Padilla MD Unavailable [phone] Shirley Quintanilla MD Primary Care Provider + [phone] Claudette Junior MD Primary Care Provider [phone] Aj Bustos MD Unavailable +[phone] Aj Bustos MD Primary Care Provider Encounter Details Date Type Department Care Team (Late st Contact Info) Description 05/01/2017 Procedure Pass Claire Lank Imaging Department, [facility] [facility] [place], [place] [address] [facility], Floor [address]1 [place] [address] Social History Tobacco Use Types Packs/Day Years [...] AM EDT Blood Draw Laboratory Services, [address], [address] [place] [address] Claudette Junior MD [address] [place] [address] Zoila@[facility] 09/08/2025 10:30 AM EDT Office Visit [facility] for Lymph[facility], Division of Hematologic Oncology, [address], [address] [place] [address] Lucia Isaac DNP [address] [place] [address] Merced@[email or web address] [facility] 12/01/2025 10:40 AM EST Blood Draw Laboratory Services, [address], [address] [place] [address] Claudette Junior MD [address] [place] [address] Zoila@[facility] 12/01/2025 11:30 AM EST Office Visit [facility], Division of Hematologic Oncology, [address], [address] [place] [address] Claudette Junior MD [address] [place] [address] Zoila@[facility] documented as of this encounter Visit Diagnoses Not on filedocumented in this encounter Care Teams French Lecturer Relationship Specialty Start Date End Date Shirley Quintanilla MD [email or web address] PCP - General Internal Medicine 06/01/15 08/13/19 Shirley Quintanilla MD [email or web address] PCP - General Internal Medicine 08/14/19 10/20/24 Claudette Junior MD [address] [place] [address] [email or web address] PCP - General Medical Oncology 10/21/24 03/01/25 Aj Bustos MD [address] [place] [address] PCP - General Family Medicine 03/02/25 Shirley Quintanilla MD [email or web address] Internal Medicine 06/01/15 12/12/17 Claudette Junior MD [address] [place] [address] [email or web address] Internal Medicine 06/01/15 Shirley Quintanilla MD [email or web address] Internal Medicine 06/01/15 12/12/17 Claudette Junior MD [address] [place] [address] [email or web address] Internal Medicine 06/01/15 12/12/17 Shirley Quintanilla MD [email or web address] Internal Medicine 06/01/15 12/12/17 Bozena Means MD [address] [place] [address] Referring Physician Hematology 05/01/16 06/24/18 Jennie Arellano MD, MPH [address] [place] [address] [place] [address] EDWARD@[email or web address] Dermatology 06/25/18 Jhoan Padilla MD [address] [place] [address] [place] [address] [email or web address]. Urology 06/25/18 Aj Bustos MD [address] [place] [address] Family Medicine 03/02/25 03/02/25 documented as of this encounter Additional Source Comments The information contained in this document represents components of the legal health record. It is not the complete legal health record.[facility]
--- OUTSIDE RECORDS SUMMARY | 2025-07-22 18:04 | XMS_ITS ---
Author Organization [facility] Address [address] [place] [address] Phone Care Team Providers Care Mangle Feeder Name Role Phone Claudette Junior MD Unavailable [phone] Jennie Arellano MD, MPH Unavailable [phone] Jhoan Padilla MD Unavailable Aj Bustos MD Primary Care Provider Active Problems Problem Noted Date Diagnosed Date Myopia 11/05/2023 Dupuytren's contracture of right hand 02/21/2023 Transient ischemic attack 11/07/2021 Coronary artery disease invo lving [place] coronary artery of [place] heart without angina pectoris 11/07/2021 Mantle cell [...] but he will discuss this with his warp hand. H/O lymphoma 05/04/2010 Overview (01/09/2015): H/O lymphoma [...]
--- OUTSIDE RECORDS SUMMARY | 2025-07-22 18:04 | XMS_ITS | Encounter Summary ---
Author Organization [facility] Address [address] [place] [address] Phone Care Team Providers Care Crematorium Operator Name Role Phone Claudette Junior MD Unavailable [phone] Jennei Arellano MD, MPH Unavailable +[phone] Jhoan Padilla MD Unavailable [phone] Shirley Quintanilla MD Primary Care Provider [phone] Claudette Junior MD Primary Care Provider [phone] Aj Bustos MD Unavailable [phone] Aj Bustos MD Primary Care Provider Reason for Visit * Reason Comments Medication Refill Encounter Details Date Type Department Care Team (Late st Contact Info) Description 03/25/2022 Refill [facility], Division of Hematologic Oncology, [facility] [place] [address] [facility], 7th [place] [address] Alicia Bates NP [address] [place] [address] [email or web address] Medication Refill Social History Tobacco [...] 9:40 AM EDT Blood Draw Laboratory Services, [address], [address] [place] [address] Claudette Junior MD [address] [place] [address] Zoila@[facility] 09/08/2025 10:30 AM EDT Office Visit [facility], Division of Hematologic Oncology, [address], [address] [place] [address] Lucia Isaac DNP [address] [place] [address] Merced@[email or web address]. [facility] 12/01/2025 10:40 AM EST Blood Draw Laboratory Services, [address], [address] [place] [address] Claudette Junior MD [address] [place] [address] Zoila@[facility] 12/01/2025 11:30 AM EST Office Visit [facility], Division of Hematologic Oncology, [address], [address] [place] [address] lCaudette Junior MD [address] [place] [address] Zoila@[facility] documented as of this encounter Visit Diagnoses Not on filedocumented in this encounter Care Teams Crematorium Operator Relationship Specialty Start Date End Date Shirley Quintanilla MD [address] [place] [address] [place] [address] [email or web address] PCP - General Internal Medicine 08/14/19 10/20/24 Claudette Junior MD [address] [place] [address] Zoila@[facility] PCP - General Medical Oncology 10/21/24 Aj Bustos MD [address] [place] [address] PCP - General Family Medicine 03/02/25 Claudette Junior MD [address] [place] [address] Zoila@[facility] Internal Medicine 06/01/15 Jennie Arellano MD, MPH [address] [place] [address] [place] [address] EDWARD@[facility] Dermatology 06/25/18 Jhoan Padilla MD [address] [place] [address] [place] [address] [email or web address]. Urology 06/25/18 Aj Bustos MD [address] [place] [address] Family Medicine 03/02/25 03/02/25 documented as of this encounter Additional Source Comments The information contained in this document represents components of the legal health record. It is not the complete legal health record.[facility]
--- OUTSIDE RECORDS SUMMARY | 2025-07-22 18:04 | XMS_ITS | Encounter Summary ---
Author Organization [facility] Address [address] [place] [address] Phone Care Team Providers Care Commercial Lending Assistant Name Role Phone Shirley Quintanilla MD Primary Care Provider + [phone] Shirley Quintanilla MD Unavailable [phone] Claudette Junior MD Unavailable [phone] Shirley Quintanilla MD Unavailable [phone] Claudette Junior MD Unavailable [phone] Shirley Quintanilla MD Unavailable [phone] Bozena Means MD Unavailable [phone] Jennie Arellano MD, MPH Unavailable +[phone] Jhoan Padilla MD Unavailable [phone] Shirley Quintanilla MD Primary Care Provider + [phone] Claudette Junior MD Primary Care Provider [phone] Aj Bustos MD Unavailable [phone] Aj Bustos MD Primary Care Provider Encounter Details Date Type Department Care Team (Late st Contact Info) Description 12/26/2016 Procedure Pass [facility] [address] [place] [address] Social History Tobacco Use Types Packs/Day Years [...] 9:40 AM EDT Blood Draw Laboratory Services, [address], [address] [place] [address] Claudette Junior MD [address] [place] [address] Zoila@[email or web address] 09/08/2025 10:30 AM EDT Office Visit [facility] for Lymph[facility], Division of Hematologic Oncology, [address], [address] [place] [address] Lucia Isaac DNP [address] [place] [address] Merced@[facility]. [facility] 12/01/2025 10:40 AM EST Blood Draw Laboratory Services, [address], [address] [place] [address] Claudette Junior MD [address] [place] [address] Zoila@[email or web address] 12/01/2025 11:30 AM EST Office Visit [facility], Division of Hematologic Oncology, [address], [address] [place] [address] Claudette Junior MD [address] [place] [address] Zoila@[email or web address] documented as of this encounter Visit Diagnoses Not on filedocumented in this encounter Care Teams Commercial Lending Assistant Relationship Specialty Start Date End Date Shirley Quintanilla MD [email or web address] PCP - General Internal Medicine 06/01/15 08/13/19 Shirley Quintanilla MD [email or web address] PCP - General Internal Medicine 08/14/19 10/20/24 Claudette Junior MD [address] [place] [address] [email or web address] u PCP - General Medical Oncology 10/21/24 03/01/25 Aj Bustos MD [address] [place] [address] PCP - General Family Medicine 03/02/25 Shirley Quintanilla MD [email or web address] Internal Medicine 06/01/15 12/12/17 Claudette Junior MD [address] [place] [address] [email or web address] u Internal Medicine 06/01/15 Shirley Quintanilla MD [email or web address]igh[facility] Internal Medicine 06/01/15 12/12/17 Claudette Junior MD [address] [place] [address] [email or web address] u Internal Medicine 06/01/15 12/12/17 Shirley Quintanilla MD [email or web address] Internal Medicine 06/01/15 12/12/17 Bozena Means MD [address] [place] [address] Referring Physician Hematology 05/01/16 06/24/18 Jennie Arellano MD, MPH [address] [facility] [place] [address] EDWARD@[email or web address] Dermatology 06/25/18 Jhoan Padilla MD [address] [place] [address] [place] [address] [email or web address]. Urology 06/25/18 Aj Bustos MD [address] [place] [address] Family Medicine 03/02/25 03/02/25 documented as of this encounter Additional Source Comments The information contained in this document represents components of the legal health record. It is not the complete legal health record.[facility]
--- OUTSIDE RECORDS SUMMARY | 2025-07-22 18:04 | XMS_ITS | Clinical Summary ---
Author Organization [facility] Address [address] [place] [address] Phone Care Team Providers Care Staff Radiation Therapist Name Role Phone Claudette Junior MD Unavailable [phone] Jennie Arellano MD, MPH Unavailable [phone] Jhoan Padilla MD Unavailable [phone] jA Bustos MD Primary Care Provider Allergies No [...] attack 11/07/2021 Coronary artery disease invo lving [place] coronary artery of [place] heart without angina pectoris 11/07/2021 Mantle cell [...] but he will discuss this with his top printing press operator. 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) from Last 3 Months Immunizations Immunization Administration Dates Next Due COVID-19 (Pre-09/10) Pfizer Vaccine, mRNA, PF 08/10/2021 DTaP, unspecified formulation 09/22/2010, 009 [id number] FORMULATION 10/16/2009 Hepatitis A, Adult 04/08/2008 Hib, [...] 9:40 AM EDT [facility], [address], 2nd [place] [address] Claudette Junior MD [address] [place] [address] [email or web address] 09/08/2025 10:30 AM EDT Office Visit [facility], Division of Hematologic Oncology, [address], [address] [place] [address] Lucia Isaac DNP [address] [place] [address] [email or web address] 12/01/2025 10:40 AM EST Blood Draw Laboratory Services, [facility] [address] [facility], 2nd [place] [address] Claudette Junior MD [address] [place] [address] [email or web address] 12/01/2025 11:30 AM EST Office Visit [facility] for Lymphoma, Division of Hematologic Oncology, [facility] [address] [facility], 7th [place] [address] Claudette Junior MD [address] [place] [address] [email or web address] Health Maintenance Due Date Last Done Comments [...] EDT) LDH 164 135 - 225 U/L [facility] LIC# [id number] Blood 06/02/2025 9:51 AM EDT 06/02/2025 10:08 AM EDT us Skyla Avalos MD, PhD LAB BLOOD ORDERABLES Fi nal Result [facility] LIC# [id number] [address] [place] [address] * (ABNORMAL) Comprehensive metabolic panel (06/02/2025 9:51 AM EDT) SODIUM 144 136 - 145 mmol/L [facility] LIC# [id number] POTASSIUM 5.0 3.4 - 5.1 mmol/L [facility] LIC# [id number] CHLORIDE 109(H) 98 - 107 mmol/L [facility] LIC# [id number] CO2 22 22 - 31 mmol/L [facility] LIC# [id number] BUN 19 6 - 23 mg/dL [facility] LIC# [id number] CREATININE 1.42(H) 0.50 - 1.20 mg/dL [facility] LIC# [id number] GLUCOSE 71 70 - 100 mg/dL [facility] LIC# [id number] ALBUMIN 4.4 3.5 - 5.2 g/dL [facility] LIC# [id number] TOTAL PROTEIN 6.3(L) 6.4 - 8.3 g/dL [facility] LIC# [id number] CALCIUM 9.3 8.8 - 10.7 mg/dL [facility] LIC# [id number] ALKALINE PHOSPHATASE 73 40 - 129 U/L [facility] LIC# [id number] TOTAL BILIRUBIN 0.4 0.2 - 1.2 mg/dL [facility] LIC# [id number] AST 16 <41 U/L [facility] LIC# [id number] ALT 14 <42 U/L [facility] LIC# [id number] GLOBULIN 1.9(L) 2.3 - 4.2 g/dL [facility] LIC# [id number] EGFR 50(L) >59 mL/min/1.7 3m2 [facility] LIC# [id number] Comment:Estimated glomerular filtration rate calculated using the CKD-EPI refit equation. ANION GAP 13 7 - 17 mmol/L [facility] LIC# [id number] Blood 06/02/2025 9:51 AM EDT 06/02/2025 10:08 AM EDT us Skyla Avalos MD, PhD LAB BLOOD ORDERABLES Fi nal Result [facility] LIC# [id number] [address] [place] [address] * (ABNORMAL) CBC and differential (06/02/2025 9:51 AM EDT) WBC 17.50(H) 4.00 - 10.00 K/uL [facility] LIC# [id number] RBC 4.00(L) 4.50 - 6.40 M/uL [facility] LIC# [id number] HGB 12.2(L) 13.5 - 18.0 g/dL [facility] LIC# [id number] HCT 37.9(L) 40.0 - 54.0 % [facility] LIC# [id number] PLT 105(L) 150 - 450 K/uL [facility] LIC# [id number] MCV 94.8 80.0 - 100.0 fL [facility] LIC# [id number] MCH 30.5 27.0 - 32.0 pg [facility] LIC# [id number] MCHC 32.2 32.0 - 36.0 g/dL [facility] LIC# [id number] RDW 13.4 11.5 - 14.5 % [facility] LIC# [id number] MPV 10.1 8.4 - 12.0 fL [facility] LIC# [id number] NRBC 0.00 0 /100 WBCs [facility] LIC# [id number] ABSOLUTE NRBC 0.00 0 K/uL [facility] LIC# [id number] DIFF METHOD MANUAL [facility] LIC# [id number] NEUTS (MANUAL) 30.8(L) 48.0 - 76.0 % [facility] LIC# [id number] LYMPHS 66.9(H) 18.0 - 41.0 % [facility] LIC# [id number] MONOS 2.3(L) 4.0 - 11.0 % [facility] LIC# [id number] EOSINOPHIL 0.0 0.0 - 5.0 % [facility] LIC# [id number] BASOPHIL 0.0 0.0 - 1.5 % [facility] LIC# [id number] BLASTS 0.0 0 % [facility] LIC# [id number] ABSOLUTE NEUTS 5.39 1.92 - 7.60 K/uL [facility] LIC# [id number] ABSOLUTE LYMPHS 11.71(H) 0.72 - 4.10 K/uL [facility] LIC# [id number] ABSOLUTE MONOS 0.40 0.16 - 1.10 K/uL [facility] LIC# [id number] ABSOLUTE EOS 0.00 0.00 - 0.50 K/uL [facility] LIC# [id number] ABSOLUTE BASO 0.00 0.00 - 0.15 K/uL [facility] LIC# [id number] ABSOLUTE BLASTS 0.00 0 K/uL [facility] LIC# [id number] ACANTHOCYTES Few [facility] LIC# [id number] ANISO Few [facility] LIC# [id number] ROGERIO CELLS Few [facility] LIC# [id number] POIKILOCYTOSIS Few [facility] LIC# [id number] OVALOCYTES Few [facility] LIC# [id number] Blood 06/02/2025 9:51 AM EDT 06/02/2025 10:08 AM EDT us Skyla Avalos MD, PhD LAB BLOOD ORDERABLES Fi nal Result [facility] LIC# [id number] [address] [place] [address] * ENDOSCOPY, COLON (01/18/2010 2:59 PM EST) 01/18/2010 2:59 PM EST Narrative 01/18/2010 2:59 PM EST Report Number: [id number] Report Status: Signed Type: COLONOSCOPY Date: 01/18/2010 [...] - 01/18/2010 2:59 PM EST Report Number: [id number] Report Status: Signed Type: COLONOSCOPY Date: 01/18/2010 14:59 [facility] Gastroenterology Patient Name: Matt Hoffman [...] Maintenance Insurance MEDICARE PART A & B [employer]OSS MEDEX SUPPLEMENT [facility] Address: [facility] [address] [place] [address] MEDICARE PART A & B [employer] SUPPLEMENT MEDICARE PART A & B [employer] MEDEX SUPPLEMENT (Home) [address] [address] MEDICARE PART A & B [employer] MEDEX SUPPLEMENT (Home) [address], [address] [address] MEDICARE PART A & B [employer] MEDEX SUPPLEMENT , [address] [address] MEDICARE PART A & B [facility] MEDEX SUPPLEMENT , [address] [address] MEDICARE PART A & B [employer] CROSS MEDEX SUPPLEMENT MEDICARE PART A & B [employer]OSS [employer]EX SUPPLEMENT MEDICARE PART A & B [employer] SUPPLEMENT Care Teams Staff Radiation Therapist Relationship Specialty Start Date End Date Aj Bustos MD [address] [place] [address] PCP - General Family Medicine 03/02/25 Claudette Junior MD [address] [place] [address] [email or web address] Medicine 06/01/15 Jennie Arellano MD, MPH [address] [place] [address] [place] [address] [email or web address] 06/25/18 Jhoan Padilla MD [address] [place] [address] [place] [address] [email or web address] 06/25/18 Additional Source Comments The information contained in this document represents components of the legal health record. It is not the complete legal health record.[facility]
== END 2025-07-22 08:33 | disposition home or self-care (01) ==
LOC: HO.LNP 08:32
PROVIDERS: PCP Family Medicine; Visit Provider Nurse Practitioner Family
DX: N32.3 Diverticulum of bladder (principal); N39.0 Urinary tract infection, site not specified; N13.30 Unspecified hydronephrosis; R97.20 Elevated prostate specific antigen [PSA]; Z79.899 Other long term (current) drug therapy
CPT/HCPCS: 51798; 81003; 88112; 99212

== ENCOUNTER 2025-07-22 08:32 | Outpatient (AMB) | payer MEDICARE, SELFPAY ==
--- OUTSIDE RECORDS SUMMARY | 2025-01-24 17:30 | XMS_ITS ---
Author Organization [facility] Address [address] [place] [address] Care Team Providers Care Scaffold Worker Name Role Phone DO NOT USE Shirley Quintanilla MD Primary Care Provider Unavailable PHYLLISANGELA Pretty Unavailable [phone] Migration, Provider Unavailable Unavailable [facility] Encounter Medications Medication SIG [...] Location Date Provider Diagnosis [facility] [address] [place] [address] 01/24/2025 Provider Migration Plan Of Treatment No Information Progress Notes * Matt HOFFMANDOB:1944 (80 yo M)Acc No.[id number]:01/24/2025 Patient: Matt Elder Provider: Archie Hernández :1945 A ge:79 Y S ex:Male Date:01/24/2025 Address:[place] [address], [facility], [facility] Pcp:Shirley LAINEZ NOT USE David Quintanilla Subjective: [...] Electronic signature of Prov ider Migration on 07/22/2025 at 09:01 AM EDT Sign off status: Pending * Provider: Archie campo Migration Date: 0 01/24/2025 Generated for Wood restrepo/Yuan/Idaitting on: 0 07/22/2025 09:01 AM EDT
--- NOTE | 2025-07-22 08:32 | MHC.OFFVIS ---
Intake Visit Reasons: 3m/PSA/US Intake Note: Pt presents to the office today for: 3mo/PSA/US Urology meds: bethanechol Blood thinner:Aspirin today's PVR: 408mls Dress Finisher Required: No Accompanied by: Self / Same As Patient Allergies No Known Allergies Allergy (Verified 07/22/25 10:43) Medication List - Last Reconciled 07/22/25 by ABRAHAM Garcia- acalabrutinib maleate (Calquence (acalabrutinib maleate)) mg PO alfuzosin ER 10 mg PO DAILY 30 days aspirin (Adult Low Dose Aspirin) 81 mg PO DAILY atorvastatin 40 mg PO DAILY finasteride 5 mg PO DAILY 90 days sulfamethoxazole-trimethoprim 400-80 mg (Bactrim) 1 tab PO BEDTIME HPI Comments Details: Matt Gunter is a 80-year-old male patient of Dr. Bustos. 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 He presents to the office today for follow-up of his urinary retention/incomplete bladder emptying and elevated PSA. Of note, patient was seen approximately 3 months ago as a new patient at which time a retroperitoneal ultrasound and redraw of PSA were ordered for further assessment evaluation. These results reviewed and communicated with the patient today. 07/13 moderate to severe hydroureteronephrosis bilaterally left greater than right down to the level of the urinary bladder. No nephrolithiasis demonstrated. The bladder is well distended with trabeculations of the wall in small bladder diverticulum. Postvoid bladder volume is approximately 600 mL. Prostate volume of 198 mL. He discusses his recent trip to [place] and having suffered a fall at the airport and recommendations were made for ER evaluation. He reports having had ER evaluation in [place] and was diagnosed with dehydration. He also discusses his reluctant see and taking medications due to their side effects. During last office visit we discussed at length further treatment options of incomplete bladder emptying/urinary retention in risks and benefits of these treatment options. He continues to be adamant that he will not undergo indwelling Oneill catheter and or CIC as treatment options for his incomplete bladder emptying/urinary retention. He discusses his longstanding history of urological issues and having undergone multiple cystoscopies in the past with previous urologists in [facility] as well as [facility]. He discusses having had a plasma button for operation procedure over [address] Arreguin. In office urinalysis results reviewed with the patient today 2+ proteinuria. PVR 408 mL which is increased since last office visit. He had previously trialed Flomax however experienced dizziness and was switched to alfuzosin. He does report compliance with alfuzosin. He discusses his previous history of indwelling Oneill catheter placement and how unhappy and difficult this was for him. During last office visit SAL was performed right side of the prostate was noted to be firm otherwise no suspicious nodules palpated. He also discusses his issues with erectile dysfunction. He reports utilizing p.r.n. Viagra in the past and finds this somewhat helpful in obtaining and maintaining his erections however is enquiring further treatment options. Further treatment options of ED were discussed. He denies dysuria, foul smelling urine, flank pain, fever, and or chills. He otherwise offers no other issues or concerns at this time. PSAs are as follows: PSA 02/10 6.4, 03/13 5.1, 07/13 4.8 % free PSA 47% PFSH Medical History Aneurysm Facial nerve spasm Status post gamma knife treatment Right acoustic neuroma Deafness in right ear Enlarged prostate MCL (mantle cell lymphoma) Family History Father Diabetes Mother Esophageal cancer Social History Housing: Apartment Patient Tobacco Use Status: Former Tobacco user e-Cigarette/Vaping Use: Never Used service: Yes Current occupational status: retired Current occupational exposures/hazards: No Cognitive needs: No Hearing needs: Yes Vision needs: Yes Review of Systems Eyes Reports as per HPI ENT Reports as per HPI Card Reports no additional complaints Resp Reports no additional complaints GI Reports no additional complaints Reports as per HPI Musc Reports no additional complaints Neuro Reports no additional complaints Psych Reports no additional complaints Endo Reports no additional complaints Triston/Lymph Reports no additional complaints Aller/Immun Reports no additional complaints Physical Exam Const General: cooperative, healthy appearing, comfortable, no acute distress, well developed, alert and awake Orientation/consciousness: patient oriented x3 Limitations: no limitations HEENT Head: Yes normal to inspection, Yes normocephalic and Yes atraumatic Ears: hearing grossly normal bilaterally Eyes General: appearance normal, both eyes and all related structures Neck Neck: Yes normal visual inspection and Yes trachea midline Chest Chest palpation & inspection: normal inspection of the chest Resp Effort & Inspection: normal respiratory effort and able to speak in complete sentences Cardio Rate: regular rate GI Inspection: Yes normal to inspection General: Yes no CVA tenderness Back/Spine/Pelvis Back: no CVA tenderness Skin General skin exam: no rashes or lesions noted Neuro General: patient oriented x3 Extrem General: Yes normal to inspection Psych Appearance: grossly normal and well kempt Mental Status: mental status grossly normal Speech and movement: Normal speech and movement present and Clear speech present Affect: normal affect Attitude: cooperative Thought process: Normal thought process present Thought content: Normal thought content present Insight: Fair insight present (Psych) Judgement: Fair judgement present (Psych) Office Procedures Post Void Residual Post Residual Void Post Void Residual (PVR): 408 [id number] Void Residual by ultrasound Results AMB Urinalysis, Automated UA Leukoctes 15 Jannet/uL Last Edit by GREGG Stanton on 07/22/25 08:48 UA Nitrite Negative Last Edit by GREGG Stanton on 07/22/25 08:48 UA Urobilinogen 17 mg/dL Last Edit by GREGG Stanton on 07/22/25 08:48 UA Protein 1 mg/dL Last Edit by GREGG Stanton on 07/22/25 08:48 UA pH 6.0 Last Edit by GREGG Stanton on 07/22/25 08:48 UA Blood 200 Jimmy/uL Last Edit by GREGG Stanton on 07/22/25 08:48 UA Specific [place] 1.015 Last Edit by GREGG Stanton on 07/22/25 08:48 UA Ketone Negative Last Edit by GREGG Stanton on 07/22/25 08:48 UA Bilirubin 0 mg/dL Last Edit by GREGG Stanton on 07/22/25 08:48 UA Glucose 0 mg/dL Last Edit by GREGG Stanton on 07/22/25 08:48 Results Reviewed Results Reviewed: Laboratory Last Values Urine pH (Auto) 6.0 07/22/25 08:47 Specific [place] (Auto) 1.015 07/22/25 08:47 Urine Protein (Auto) 1 mg/dL 07/22/25 08:47 Glucose (UA)(Auto) 0 mg/dL 07/22/25 08:47 Urine Ketones (Auto) Negative 07/22/25 08:47 Urine Blood (Auto) 200 Jimmy/uL 07/22/25 08:47 Urine Nitrite (Auto) Negative 07/22/25 08:47 Urine Bilirubin (Auto) 0 mg/dL 07/22/25 08:47 Urine Urobilinogen (Auto) 17 mg/dL 07/22/25 08:47 Leukocyte Esterase (Auto) 15 Jannet/uL 07/22/25 08:47 Date of Service: 07/08/25 Procedure(s): US retroperitoneal comp Findings: Right kidney normal size and echotexture, 11.4 cm length. Moderate to severe hydroureteronephrosis down to the level of the urinary bladder. Normal color flow. No evidence of nephroureterolithiasis. No renal masses. Left kidney normal size and echotexture, 12.0 cm in length. Moderate to severe hydroureteronephrosis down to the level of the urinary bladder. Normal color flow. No evidence of nephroureterolithiasis. No renal masses. Benign renal cortical cyst midpole measuring 9 x 9 x 9 mm. Urinary bladder is trabeculated with numerous bladder diverticuli. Prevoid volume 760.0 mL. Postvoid volume 573 mL. Right ureteral jet was visualized which excludes complete obstructive uropathy. The left ureteral jet was not visualized. Prostate gland measures 8.3 x 7.8 x 5.8 cm. Impression: 1. Moderate to severe hydroureteronephrosis bilaterally imbz-knmiutr-xndz-right down to the level of the urinary bladder. No nephroureterolithiasis demonstrated. Only the right ureteral jet was visualized which excludes obstructive uropathy. The left ureteral jet was not demonstrated during the course of the exam. Incidental benign renal cortical cyst left kidney. 2. Well-distended urinary bladder with trabeculation of the wall and small bladder diverticulum. 3. Postvoid residual volume 573 mL 4. Prostate volume: 198 mL Assessment & Plan Assessment & Plan (1) Urinary retention: Code(s): R33.9 - Retention of urine, unspecified Category: Medical (2) Incomplete bladder emptying: Code(s): R33.9 - Retention of urine, unspecified Category: Medical (3) Elevated PSA: Code(s): R97.20 - Elevated prostate specific antigen [PSA] Category: Medical (4) Bladder trabeculation: Code(s): N32.89 - Other specified disorders of bladder Category: Medical (5) Bladder diverticulum: Code(s): N32.3 - Diverticulum of bladder Category: Medical (6) Proteinuria: Code(s): R80.9 - Proteinuria, unspecified Category: Medical (7) Hydroureteronephrosis: Code(s): N13.30 - Unspecified hydronephrosis Category: Medical Plan In office urinalysis results with the patient today; as noted above. PVR 408 mL. Recent retroperitoneal ultrasound results with the patient today; as noted above. Recent PSA results reviewed with the patient today; as noted above. We did discussed at length incomplete bladder emptying/urinary retention/enlarged prostate/bladder diverticulum/bladder trabeculations; we discussed at length further treatment options and risks and benefits of these treatment options. We discussed long-term side effects of untreated incomplete bladder emptying/urinary retention. We discussed delay in treatment. All questions were answered. Continue alfuzosin. Start finasteride. Will discontinue bethanechol as patient does not wish to start this medication. Follow-up next available in office cystoscopy; or sooner with any issues, concerns, and or questions. Orders: Orders AMB Post Void Residual by ultrasound Today R33.9 - Retention of urine, unspecified Urine Cytology Today N39.0 - Urinary tract infection, site not specified AMB Urinalysis Automated Today Z13.9 - Encounter for screening, unspecified Medications: New finasteride 5 mg PO DAILY 90 tabs 1RF 90 days N40.1 - Benign prostatic hyperplasia with lower urinary tract symptoms, R33.9 - Retention of urine, unspecified Discontinued bethanechol chloride Discontinued Reason: Doctor's Order 50 mg PO BID 60 tabs 3RF 30 days N39.0 - Urinary tract infection, site not specified Patient Instructions: The patient had an opportunity to ask questions regarding the treatment plan. All questions were answered. Physical exam, labs, and imaging were discussed and reviewed in detail. As well as risks, benefits, and discussion of treatment choices. No major barriers to understanding were identified. The patient expressed understanding and agreement with the above treatment plan. The patient was made aware they should contact our office by phone for worsening of their current condition, the appearance of new symptoms, or with any questions or concerns. Compliance is encouraged with any medications and follow up testing that is ordered. It is a privilege to be allowed the opportunity to participate in? your urological care.? Again, if you have any questions or concerns If you have any questions or concerns please do not hesitate to contact me. The office is [phone]. This note is constructed using voice recognition software. While every effort has been made to ensure accuracy food and beverage service manager errors may have been included. Yours sincerely, YE Garcia Coding Level of Care Code Est Pt Level 4 (17998) Complex EM visit Add On G2211 Diagnoses Urinary retention R33.9 Incomplete bladder emptying R33.9 Elevated PSA R97.20 Bladder trabeculation N32.89 Bladder diverticulum N32.3 Proteinuria R80.9 Hydroureteronephrosis N13.30 CPT Codes Post Residual Void - PVR CPT Code: 50252-Gdac Void Residual by ultrasound ([id number])
--- OUTSIDE RECORDS SUMMARY | 2025-07-22 09:01 | XMS_ITS | Patient Health Record ---
Author Organization [facility] Address [address] [place] [address] Care Team Providers Care Fine Arts Teacher Name Role Phone DO NOT USE Shirley Quintanilla MD Primary Care Provider Unavailable PHYLLIS, ANGELA Unavailable [phone] Migration, Provider Unavailable Unavailable Allergies No Known Allergies Reason For Referral No Information Medications Medication SIG (Take, Route, Frequency, Duration) Notes Start Date End Date Status Calquence 100 MG CAPSULE 1 CAP(S) ORALLY EVERY 12 HOURS; Duration: 30 DAY(S) *Please review and pick correct strength-formulatio n from [employer] options. If intended option is not shown, [...] stop date) Former Smoker NA - NA Social History Social History Social Info Question Answer Notes Smoking MU Are you a: former smoker How long has it been since you last smoked? 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 Sexually active: unknown Section Notes: [employer], worked in the [...] Risk Notes Problem Urinary tract infectious disease (43095990) Urinary tract infection, site not specified (N39.0) Active confirmed Problem Gross hematuria (409657422) Gross hematuria (R31.0) Active confirmed Problem Incomplete emptying of bladder (890688388) Feeling of incomplete bladder emptying (R39.14) Active confirmed Problem Hydronephrosis (08838265) Other hydronephrosis (N13.39) Active confirmed Problem 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, 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) Active confirmed Problem Retention of urine (229458261) Other retention of urine (R33.8) Active confirmed Problem Post-traumatic membranous urethral stricture (842273048035182) 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 [place] [address] [id number] Matt Schimdt am Self - patient is the insured BCBS - [employer] [address] [place] [address] [id number] Matt Schmidt am Self - patient is the insured Medical (General) History Medical History History ICD Code Mantle Cell Lymphoma hyperlipidemia Surgical History Surgery Date(Month/Year) Button TURP 2013 acoustic neuroma - gamma knife 1999 knee arthroscopy
--- OUTSIDE RECORDS SUMMARY | 2025-07-22 09:02 | XMS_ITS ---
Author Organization [facility] Address [address] [place] [address] Phone Care Team Providers Care Taping Supervisor Name Role Phone Claudette Junior MD Unavailable [phone] Jennie Arellano MD, MPH Unavailable [phone] Jhoan Padilla MD Unavailable Aj Bustos MD Primary Care Provider Active Problems Problem Noted Date Diagnosed Date Myopia 11/05/2023 Dupuytren's contracture of right hand 02/21/2023 Transient ischemic attack 11/07/2021 Coronary artery disease invo lving [place] coronary artery of [place] heart without angina pectoris 11/07/2021 Mantle cell [...] but he will discuss this with his personal service workers. H/O lymphoma 05/04/2010 Overview (01/09/2015): H/O lymphoma Hearing loss 05/04/2010 Overview (03/29/2015): Hearing loss Uncoded H/O Colonic Adenoma 11/30/2009 Overview (01/09/2015): H/O Colonic Adenoma Current Treatment and Therapy Plans ACALABRUTINIB* Plan Start Date:03/21/2018 Plan Provider:Claudette Junior MD Linked Problems Mantle cell lymphoma Treatment Medications Current Day (Day 1, Cycle 1 - Planned for 03/21/2018) acalabrutinib (CALQUENCE) acalabrutinib (CALQUENCE) 100 mg capsuleacalabrutinib (CALQUENCE) capsule 100 mg Past Treatment and Therapy Plans TREATMENT PLAN Plan Name Start Date Discontinue Date Treatment Medications Discontinue Reason Plan Provider Cycles IBRUTINIB 560MG FOR LYMPHOMA 08/26/2014 02/06/2019 No medications scheduled. a. Therapy Complete Claudette Junior MD No cycles in plan Resolved Problems Problem Noted Date Diagnosed Date Resolved Date Open angle with borderline findings 05/01/2019 12/10/2023 Combined form of senile cataract 05/01/2019 10/25/2021 Vitreous floaters 05/01/2019 10/25/2021 Adenomatous polyp of colon 03/29/2015 0 12/10/2023 Benign prostatic hyperplasia 10/20/2013 05/01/2017 Overview (03/29/2015): BPH
--- OUTSIDE RECORDS SUMMARY | 2025-07-22 09:02 | XMS_ITS | Encounter Summary ---
Author Organization [facility] Address [address] [place] [address] Phone Care Team Providers Care Senior Quality Engineer Name Role Phone Claudette Junior MD Unavailable [phone] Jennie Arellano MD, MPH Unavailable [phone] Jhoan Padilla MD Unavailable [phone] Shirley Quintanilla MD Primary Care Provider [phone] Claudette Junior MD Primary Care Provider [phone] Aj Bustos MD Unavailable [phone] Aj Bustos MD Primary Care Provider Reason for Visit * Reason Comments Medication Refill Encounter Details Date Type Department Care Team (Late st Contact Info) Description 02/21/2024 Refill [facility], Division of Hematologic Oncology, [facility] [place] [address] [place] [address] Lucia Isaac, [facility] [address] [place] [address] [email or web address] [email or web address] Refill Social History Tobacco Use Types Packs/Day Years [...] 9:40 AM EDT Blood [facility], [address] [place] [address] Claudette Junior MD [address] [place] [phone] [email or web address] 09/08/2025 10:30 AM EDT Office Visit [facility], Division of Hematologic Oncology, [address] [place] [address] Lucia Isaac DNP [address] [place] [phone] [email or web address] 12/01/2025 10:40 AM EST Blood [facility], [address] [place] [address] Claudette Junior MD [address] [place] [phone] [email or web address] 12/01/2025 11:30 AM EST Office Visit [facility], Division of Hematologic Oncology, [facility] [place] [address] [place] [address] Claudette Junior MD [address] [place] [phone] [email or web address] documented as of this encounter Visit Diagnoses Not on filedocumented in this encounter Care Teams Senior Quality Engineer Relationship Specialty Start Date End Date Shirley Quintanilla MD [address] [place] [address] [place] [address] [email or web address] PCP - General Internal Medicine 08/14/19 10/20/24 Claudette Junior MD [address] [place] [phone] [email or web address] PCP - General Medical Oncology 10/21/24 Aj Bustos MD [address] [place] [phone] PCP - General Family Medicine 03/02/25 Claudette Junior MD [address] [place] [phone] [email or web address] Internal Medicine 06/01/15 Jennie Arellano MD, MPH [address] [place] [address] [place] [address] [email or web address] [email or web address] 06/25/18 Jhoan Padilla MD [address] [place] [address] [place] [address] [email or web address] Urology 06/25/18 Aj Bustos MD [address] [place] [address] Family Medicine 03/02/25 03/02/25 documented as of this encounter Additional Source Comments The information contained in this document represents components of the legal health record. It is not the complete legal health record.[facility]
--- OUTSIDE RECORDS SUMMARY | 2025-07-22 09:02 | XMS_ITS | Clinical Summary ---
Author Organization [facility] Address [address] [place] [address] Phone Care Team Providers Care Cryogenic Transport Driver Name Role Phone Claudette Junior MD Unavailable [phone] Jennie Arellano MD, MPH Unavailable [phone] Jhoan Padilla MD Unavailable Aj Bustos MD Primary Care Provider Allergies [...] attack 11/07/2021 Coronary artery disease invo lving sioux coronary artery of sioux heart without angina pectoris 11/07/2021 Mantle cell [...] but he will discuss this with his sports medicine physician. H/O lymphoma 05/04/2010 Overview (01/09/2015): H/O lymphoma [...] Encounters Date Type Department Care Team Description 07/08/2025 Orders Only [facility] [address], 7th [place] [address] Claudette Junior MD Mantle cell lymphoma, unspecified body region (Primary Dx) 06/02/2025 10:30 AM EDT Office Visit Center for Lymphoma, Division of Hematologic Oncology, [facility] 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) from Last 3 Months Immunizations Immunization Administration Dates Next Due COVID-19 (Pre-09/10) Pfizer Vaccine, mRNA, PF 08/10/2021 DTaP, unspecified formulation 09/22/2010, 009 [id number] FORMULATION 10/16/2009 Hepatitis A, Adult 04/08/2008 Hib, unspecified formulation 09/22/2010,10/22/20 09 INFLUENZA, SPLIT VIRUS, TRIVALENT PF 10/03/2012 INFLUENZA, SPLIT VIRUS, TRIV ALENT W/ PRESERVATIVE IM 09/08/2014 Influenza High-Dose Quadriva lent Preservative Free IM 08/24/2023,07/22/2021 Influenza High-Dose Trivalen t Preservative Free IM 12/05/2024 Influenza Quadrivalent Adjuv anted Preservative Free IM 09/04/2022,07/28/2020 Influenza Trivalent Adjuvant ed Preservative free IM 11/07/2019,10/07/2018,08/23/2017 Influenza, Unspecified Formulation 08/28,09/07/2011,09/22/2010,09/21 MMR 09/22/2010 Meningococcal MPSV4 10/22/2009 Pneumococcal conjugate PCV13 09/22/2010 Pneumococcal conjugate, PCV 7 10/22/2009 Pneumococcal polysaccharide PPSV23 08/02/2008(De michelled: Patient Decision) RSV Vaccine (monovalent, adjuvanted) 01/24/2025 [...] 9:40 AM EDT [facility], [address], 2nd [place] [address] Claudette Junior MD [address] [place] [address] [email or web address] 09/08/2025 10:30 AM EDT Office Visit [facility] for Lymphoma, Division of Hematologic Oncology, [address], [address]th [place] [address] Lucia Isaac DNP [address] [place] [address] [email or web address] 12/01/2025 10:40 AM EST Blood Draw Laboratory Services, [facility] [address], 2nd [place] [address] Claudette Junior MD [address] [place] [address] [email or web address] 12/01/2025 11:30 AM EST Office Visit [facility] for Lymphoma, Division of Hematologic Oncology, [facility] [address], 7th [place] [address] Claudette Junior MD [address] [place] [address] [email or web address] Health Maintenance Due Date Last Done Comments ZOSTER VACCINES (1 of 2) 1963 COLOGUARD 1989 FIT TEST 1989 FOBT 1989 SIGMOIDOSCOPY 1989 VIRTUAL COLONOSCOPY 1989 PNEUMOCOCCAL VACCINES (50+ years) (2 of 2 - PPSV23) 11/17/2010 09/22/2010 COLONOSCOPY 01/18/2015 01/18/2010 COLORECTAL CANCER SCREENING 01/18/2015 Adult Td,Tdap Booster 11/30/2019 11/30/2009 INFLUENZA VACCINE (#1) 2025 , 08/28/2023, 08/24/2023, Additional history exists DEPRESSION SCREENING 09/09/2025 09/09/2024 HEPATITIS A VACCINES [...] EDT) LDH 164 135 - 225 U/L [facility] LIC# [id number] Blood 06/02/2025 9:51 AM EDT 06/02/2025 10:08 AM EDT us Skyla Avalos MD, PhD LAB BLOOD ORDERABLES Fi nal Result [facility] LIC# [id number] [address] [place] [address] * (ABNORMAL) Comprehensive metabolic panel (06/02/2025 9:51 AM EDT) SODIUM 144 136 - 145 mmol/L [facility] LIC# [id number] POTASSIUM 5.0 3.4 - 5.1 mmol/L [facility] LIC# [id number] CHLORIDE 109(H) 98 - 107 mmol/L [facility] LIC# [id number] CO2 22 22 - 31 mmol/L [facility] LIC# [id number] BUN 19 6 - 23 mg/dL [facility] LIC# [id number] CREATININE 1.42(H) 0.50 - 1.20 mg/dL [facility] LIC# [id number] GLUCOSE 71 70 - 100 mg/dL [facility] LIC# [id number] ALBUMIN 4.4 3.5 - 5.2 g/dL [facility] LIC# [id number] TOTAL PROTEIN 6.3(L) 6.4 - 8.3 g/dL [facility] LIC# [id number] CALCIUM 9.3 8.8 - 10.7 mg/dL [facility] LIC# [id number] ALKALINE PHOSPHATASE 73 40 - 129 U/L [facility] LIC# [id number] TOTAL BILIRUBIN 0.4 0.2 - 1.2 mg/dL [facility] LIC# [id number] AST 16 <41 U/L [facility] LIC# [id number] ALT 14 <42 U/L [facility] LIC# [id number] GLOBULIN 1.9(L) 2.3 - 4.2 g/dL [facility] LIC# [id number] EGFR 50(L) >59 mL/min/1.7 3m2 [facility] LIC# [id number] Comment:Estimated glomerular filtration rate calculated using the CKD-EPI refit equation. ANION GAP 13 7 - 17 mmol/L [facility] LIC# [id number] Blood 06/02/2025 9:51 AM EDT 06/02/2025 10:08 AM EDT us Skyla Avalos MD, PhD LAB BLOOD ORDERABLES Fi nal Result [facility] LIC# [id number] [address] [place] [address] * (ABNORMAL) CBC and differential (06/02/2025 9:51 AM EDT) WBC 17.50(H) 4.00 - 10.00 K/uL [facility] LIC# [id number] RBC 4.00(L) 4.50 - 6.40 M/uL [facility] LIC# [id number] HGB 12.2(L) 13.5 - 18.0 g/dL [facility] LIC# [id number] HCT 37.9(L) 40.0 - 54.0 % [facility] LIC# [id number] PLT 105(L) 150 - 450 K/uL [facility] LIC# [id number] MCV 94.8 80.0 - 100.0 fL [facility] LIC# [id number] MCH 30.5 27.0 - 32.0 pg [facility] LIC# [id number] MCHC 32.2 32.0 - 36.0 g/dL [facility] LIC# [id number] RDW 13.4 11.5 - 14.5 % [facility] LIC# [id number] MPV 10.1 8.4 - 12.0 fL [facility] LIC# [id number] NRBC 0.00 0 /100 WBCs [facility] LIC# [id number] ABSOLUTE NRBC 0.00 0 K/uL [facility] LIC# [id number] DIFF METHOD MANUAL [facility] LIC# [id number] NEUTS (MANUAL) 30.8(L) 48.0 - 76.0 % [facility] LIC# [id number] LYMPHS 66.9(H) 18.0 - 41.0 % [facility] LIC# [id number] MONOS 2.3(L) 4.0 - 11.0 % [facility] LIC# [id number] EOSINOPHIL 0.0 0.0 - 5.0 % [facility] LIC# [id number] BASOPHIL 0.0 0.0 - 1.5 % [facility] LIC# [id number] BLASTS 0.0 0 % [facility] LIC# [id number] ABSOLUTE NEUTS 5.39 1.92 - 7.60 K/uL [facility] LIC# [id number] ABSOLUTE LYMPHS 11.71(H) 0.72 - 4.10 K/uL [facility] LIC# [id number] ABSOLUTE MONOS 0.40 0.16 - 1.10 K/uL [facility] LIC# [id number] ABSOLUTE EOS 0.00 0.00 - 0.50 K/uL [facility] LIC# [id number] ABSOLUTE BASO 0.00 0.00 - 0.15 K/uL [facility] LIC# [id number] ABSOLUTE BLASTS 0.00 0 K/uL [facility] LIC# [id number] ACANTHOCYTES Few [facility] LIC# [id number] ANISO Few [facility] LIC# [id number] ROGERIO CELLS Few [facility] LIC# [id number] POIKILOCYTOSIS Few [facility] LIC# [id number] OVALOCYTES Few [facility] LIC# [id number] Blood 06/02/2025 9:51 AM EDT 06/02/2025 10:08 AM EDT us Skyla Avalos MD, PhD LAB BLOOD ORDERABLES Fi nal Result [facility] LIC# [id number] [address] [place] [address] * ENDOSCOPY, COLON (01/18/2010 2:59 PM EST) 01/18/2010 2:59 PM EST Narrative 01/18/2010 2:59 PM EST Report Number: [id number] Report Status: Signed Type: COLONOSCOPY Date: 01/18/2010 14:59 [facility] Gastroenterology Patient Name: Matt Hoffman Gender: David Procedure Date: 01/18/2010 9:15 AM Date of [...] - 01/18/2010 2:59 PM EST Report Number: [id number] Report Status: Signed Type: COLONOSCOPY Date: 01/18/2010 14:59 [facility] G[facility] Patient Name: Matt Hoffman Gender: David Procedure Date: 01/18/2010 9:15 AM Date of [...] Most Recently Relevant to Health Maintenance Insurance MEDICARE PART A & B [employer] CROSS MEDEX SUPPLEMENT [facility] Address: [facility] [address] [place] [address] MEDICARE PART A & B [employer] MEDEX SUPPLEMENT MEDICARE PART A & B BLUE [employer]OSS MEDEX SUPPLEMENT (Home) [address] [address] MEDICARE PART A & B [employer] MEDEX SUPPLEMENT (Home) [address], [address] [address] MEDICARE PART A & B [employer] MEDEX SUPPLEMENT , [address] [address] MEDICARE PART A & B [facility] MEDEX SUPPLEMENT , [address] [address] MEDICARE PART A & B [employer] CR[employer] MEDEX SUPPLEMENT MEDICARE PART A & B [employer] MEDEX SUPPLEMENT MEDICARE PART A & B [employer] MEDEX SUPPLEMENT Care Teams Cryogenic Transport Driver Relationship Specialty Start Date End Date Aj Bustos MD [address] [place] [address] PCP - General Family Medicine 03/02/25 Claudette Junior MD [address] [place] [address] [email or web address] Internal Medicine 06/01/15 Jennie Arellano MD, MPH [address] [place] [address] [place] [address] [email or web address] Dermatology 06/25/18 Jhoan Padilla MD [address] [place] [address] [place] [address] [email or web address] Urology 06/25/18 Additional Source Comments The information contained in this document represents components of the legal health record. It is not the complete legal health record.[facility]
--- OUTSIDE RECORDS SUMMARY | 2025-07-22 09:02 | XMS_ITS | Patient Health Record ---
Author Organization [facility] Address [address] [place] [address] Care Team Providers Care Game Programmer Name Role Phone Shirley Quintanilla MD Primary Care Provider TONE Marquez Unavailable [phone] Allergies No Known Allergies Reason For Referral [...] W/U Status Risk Notes Problem Chronic pain (54304784) Other chronic pain (G89.29) Active confirmed Problem Contracture of right knee joint (disorder) (494335712687405) Contracture, right knee (M24.561) Active confirmed Problem Arthralgia of the ankle and/or foot (587302746) Pain in right ankle and joints of right foot (M25.571) Active confirmed Problem Osteoarthritis of knee (017577672) Primary osteoarthritis of right knee (M17.11) Active confirmed Problem Acquired trigger finger (4071260) Trigger finger of right thumb (M65.311) Active confirmed Problem Closed nondisplaced avulsion fracture of tuberosity of right calcaneus with routine healing, subsequent encounter (S92.034D) Active confirmed Problem Open fracture of calcaneus (53289543) Open nondisplaced avulsion fracture of tuberosity of right calcaneus, initial encounter (S92.034B) Active confirmed Plan Of Treatment No Information Insurance Providers Payer Name Payer Address Payer Phone Subscriber Number Group Number Insured Name Patient Relationship to Insured Coverage Start Date Coverage End Date Medicare [address] [place] [address] [id number] Matt Schmidt am Self - patient is the insured Medex [address] [place] [address] [id number] Matt Schmidt am Self - patient is [...]
--- OUTSIDE RECORDS SUMMARY | 2025-07-22 09:02 | XMS_ITS | Encounter Summary ---
Author Organization [facility] Address [address] [place] [address] Phone Care Team Providers Care Mounter Sousaphones Name Role Phone Claudette Junior MD Unavailable [phone] Jennie Arellano MD, MPH Unavailable [phone] Jhoan Padilla MD Unavailable [phone] Shirley Quintanilla MD Primary Care Provider [phone] Claudette Junior MD Primary Care Provider [phone] Aj Bustos MD Unavailable [phone] Aj Bustos MD Primary Care Provider Reason for Visit * Reason Comments Medication Refill Encounter Details Date Type Department Care Team (Late st Contact Info) Description 02/09/2023 Refill Center for Lymphoma, Division of Hematologic Oncology, [facility] [place] [address] [place] [address], 7th [place] [address] Telly Parsons, HAND EDGER [address] [place] [address] [email or web address] Medication Refill Social History Tobacco Use Types Packs/Day Years Used Date Smoking Tobacco: Former Cigarettes Q uit: 07/08/1975 Smokeless Tobacco: Never Sex and Gender Information Value Date Recorded [...] 9:40 AM EDT Blood Draw Laboratory Services, [address], [address] [place] [address] Claudette Junior MD [address] [place] [address] [email or web address] 09/08/2025 10:30 AM EDT Office Visit [facility] for Lymphoma, Division of Hematologic Oncology, [address], [address] [place] [address] Lucia Isaac DNP [address] [place] [address] [email or web address] 12/01/2025 10:40 AM EST Blood Draw Laboratory Services, [address], [address] [place] [address] Claudette Junior MD [address] [place] [address] [email or web address] 12/01/2025 11:30 AM EST Office Visit [facility] Lymph[facility], Division of Hematologic Oncology, [address], [address] [place] [address] Claudette Junior MD [address] [place] [address] [email or web address] documented as of this encounter Visit Diagnoses Not on filedocumented in this encounter Care Teams Mounter Sousaphones Relationship Specialty Start Date End Date Shirley Quintanilla MD [address] [place] [address] [place] [address] [email or web address] PCP - General Internal Medicine 08/14/19 10/20/24 Claudette Junior MD [address] [place] [address] [email or web address] PCP - General Medical Oncology 10/21/24 Aj Bustos MD [address] [place] [address] PCP - General Family Medicine 03/02/25 Claudette Junior MD [address] [place] [address] [email or web address] Internal Medicine 06/01/15 Jennie Arellano MD, MPH [address] [place] [address] [place] [address] [email or web address] Dermatology 06/25/18 Jhoan Padilla MD [address] [place] [address] [place] [address] [email or web address]. Urology 06/25/18 Aj Bustos MD [address] [place] [address] Family Medicine 03/02/25 03/02/25 documented as of this encounter Additional Source Comments The information contained in this document represents components of the legal health record. It is not the complete legal health record.[facility]
--- OUTSIDE RECORDS SUMMARY | 2025-07-22 09:02 | XMS_ITS | Encounter Summary ---
Author Organization [facility] Address [address] [place] [address] Phone Care Team Providers Care Reinforced Concrete Inspector Name Role Phone Shirley Quintanilla MD Primary Care Provider [phone] Shirley Quintanilla MD Unavailable [phone] Claudette Junior MD Unavailable [phone] Shirley Quintanilla MD Unavailable [phone] Claudette Junior MD Unavailable [phone] Shirley Quintanilla MD Unavailable [phone] Bozena Means MD Unavailable [phone] Jennie Arellano MD, MPH Unavailable [phone] Jhoan Padilla MD Unavailable [phone] Shirley Quintanilla MD Primary Care Provider [phone] Claudette Junior MD Primary Care Provider [phone] Aj Bustos MD Unavailable [phone] Aj Bustos MD Primary Care Provider Encounter Details Date Type Department Care Team (Late st Contact Info) Description 05/01/2017 Procedure Pass [facility] Imaging Department, [facility] [place] [address] [facility], Floor [address] [place] [address] Social History Tobacco Use Types Packs/Day Years Used Date Smoking Tobacco: Former Cigarettes Q uit: 07/08/1975 Sex and Gender Information Value Date Recorded [...] AM EDT Blood Draw Laboratory Services, [address], [address] [place] [address] Claudette Junior MD [address] [place] [address] [email or web address] 09/08/2025 10:30 AM EDT Office Visit [facility] for Lymphoma, Division of Hematologic Oncology, [address], [address] [place] [address] Lucia Isaac DNP [address] [place] [address] [email or web address]. [facility] 12/01/2025 10:40 AM EST Blood Draw Laboratory Services, [address], [address] [place] [address] Claudette Junior MD [address] [place] [address] [email or web address] 12/01/2025 11:30 AM EST Office Visit [facility], Division of Hematologic Oncology, [address], [address] [place] [address] Claudette Junior MD [address] [place] [address] [email or web address] documented as of this encounter Visit Diagnoses Not on filedocumented in this encounter Care Teams Reinforced Concrete Inspector Relationship Specialty Start Date End Date Shirley Quintanilla MD [email or web address] PCP - General Internal Medicine 06/01/15 08/13/19 Shirley Quintanilla MD [email or web address] PCP - General Internal Medicine 08/14/19 10/20/24 Claudette Junior MD [address] [place] [address] [email or web address] PCP - General Medical Oncology 10/21/24 03/01/25 Aj Bustos MD [address] [place] [address] PCP - General Family Medicine 03/02/25 Shirley Quintanilla MD [email or web address] Internal Medicine 06/01/15 12/12/17 Claudette Junior MD [address] [place] [address] [email or web address] Internal Medicine 06/01/15 Shirley Quintanilla MD [email or web address] Internal Medicine 06/01/15 12/12/17 Claudette Junior MD [address] [place] [address] [email or web address] Internal Medicine 06/01/15 12/12/17 Shirley Quintanilla MD [email or web address] Internal Medicine 06/01/15 12/12/17 Bozena Means MD [address] [place] [address] Referring Physician Hematology 05/01/16 06/24/18 Jennie Arellano MD, MPH [address] [place] [address] [place] [address] [email or web address] Dermatology 06/25/18 Jhoan Padilla MD [address] [place] [address] [place] [address] [email or web address] Urology 06/25/18 Aj Bustos MD [address] [place] [address] Family Medicine 03/02/25 03/02/25 documented as of this encounter Additional Source Comments The information contained in this document represents components of the legal health record. It is not the complete legal health record.[facility]
--- OUTSIDE RECORDS SUMMARY | 2025-07-22 09:02 | XMS_ITS | Encounter Summary ---
Author Organization [facility] Address [address] [place] [address] Phone Care Team Providers Care Line Installation Supervisor Name Role Phone Claudette Junior MD Unavailable [phone] Jennie Arellano MD, MPH Unavailable [phone] Jhoan Padilla MD Unavailable [phone] Shirley Quintanilla MD Primary Care Provider [phone] Claudette Junior MD Primary Care Provider [phone] Aj Bustos MD Unavailable [phone] Aj Bustos MD Primary Care Provider Reason for Visit * Reason Comments Medication Refill Encounter Details Date Type Department Care Team (Late st Contact Info) Description 05/26/2023 Refill [facility] for Lymph[facility], Division of Hematologic Oncology, [facility] [place] [address] [facility], 7th [place] [address] Lucia Isaac, [facility] [address] [place] [address] [email or web address] Medication Refill Social History Tobacco Use Types [...] 9:40 AM EDT Blood Draw Laboratory Services, [address], [address] [place] [address] Claudette Junior MD [address] [place] [address] [email or web address] 09/08/2025 10:30 AM EDT Office Visit [facility] for Lymphoma, Division of Hematologic Oncology, [address], [address] [place] [address] Lucia Isaac DNP [address] [place] [address] [email or web address] 12/01/2025 10:40 AM EST Blood Draw Laboratory Services, [address], [address]nd [place] [address] Claudette Junior MD [address] [place] [address] [email or web address] 12/01/2025 11:30 AM EST Office Visit [facility] for Lymphoma, Division of Hematologic Oncology, [facility] [place] [address] [facility], 7th [place] [address] Claudette Junior MD [address] [place] [address] [email or web address] documented as of this encounter Visit Diagnoses Not on filedocumented in this encounter Care Teams Line Installation Supervisor Relationship Specialty Start Date End Date Shirley Quintanilla MD [address] [place] [address] [place] [address] [email or web address] PCP - General Internal Medicine 08/14/19 10/20/24 Claudette Junior MD [address] [place] [address] [email or web address] PCP - General Medical Oncology 10/21/24 Aj Bustos MD [address] [place] [address] PCP - General Family Medicine 03/02/25 Claudette Junior MD [address] [place] [address] [email or web address] Internal Medicine 06/01/15 Jennie Arellano MD, MPH [address] [place] [address] [place] [address] [email or web address] Dermatology 06/25/18 Jhoan Padilla MD [address] [place] [address] [place] [address] [email or web address] Urology 06/25/18 Aj Bustos MD [address] [place] [address] Family Medicine 03/02/25 03/02/25 documented as of this encounter Additional Source Comments The information contained in this document represents components of the legal health record. It is not the complete legal health record.[facility]
--- OUTSIDE RECORDS SUMMARY | 2025-07-22 09:02 | XMS_ITS | Encounter Summary ---
Author Organization [facility] Address [address] [place] [address] Phone Care Team Providers Care Art Objects Repairer Name Role Phone Claudette Junior MD Unavailable [phone] Jennie Arellano MD, MPH Unavailable [phone] Jhoan Padilla MD Unavailable [phone] Shirley Quintanilla MD Primary Care Provider [phone] Claudette Junior MD Primary Care Provider [phone] Aj Bustos MD Unavailable [phone] Aj Bustos MD Primary Care Provider Reason for Visit * Reason Comments Medication Refill Encounter Details Date Type Department Care Team (Late st Contact Info) Description 03/25/2022 Refill [facility], Division of Hematologic Oncology, [facility] [facility] [place] [address] [facility], 7th [place] [address] Alicia Bates NP [address] [place] [address] [email or web address] Medication Refill Social History Tobacco Use Types [...] 9:40 AM EDT [facility], [address], [address] [place] [address] Claudette Junior MD [address] [place] [address] Zoila@[email or web address] 09/08/2025 10:30 AM EDT Office Visit Center for Lymphoma, Division of Hematologic Oncology, [address], [address] [place] [address] Lucia Isaac DNP [address] [place] [address] [email or web address] 12/01/2025 10:40 AM EST [facility], [address], [address] [place] [address] Claudette Junior MD [address] [place] [address] Zoila@[email or web address] 12/01/2025 11:30 AM EST Office Visit [facility], Division of Hematologic Oncology, [address], [address] [place] [address] Claudette Junior MD [address] [place] [address] Zoila@[email or web address] documented as of this encounter Visit Diagnoses Not on filedocumented in this encounter Care Teams Art Objects Repairer Relationship Specialty Start Date End Date Shirley Quintanilla MD [address] [place] [address] [place] [address] [email or web address] PCP - General Internal Medicine 08/14/19 10/20/24 Claudette Junior MD [address] [place] [address] [email or web address] PCP - General Medical Oncology 10/21/24 Aj Bustos MD [address] [place] [address] PCP - General Family Medicine 03/02/25 Claudette Junior MD [address] [place] [address] Zoila@[email or web address] Internal Medicine 06/01/15 Jennie Arellano MD, MPH [address] [place] [address] [place] [address] EDWARD@[email or web address] Dermatology 06/25/18 Jhoan Padilla MD [address] [place] [address] [place] [address] [email or web address]. Urology 06/25/18 Aj Bustos MD [address] [place] [address] Family Medicine 03/02/25 03/02/25 documented as of this encounter Additional Source Comments The information contained in this document represents components of the legal health record. It is not the complete legal health record.[facility]
--- OUTSIDE RECORDS SUMMARY | 2025-07-22 09:02 | XMS_ITS | Encounter Summary ---
Author Organization [facility] Address [address] [place] [address] Phone Care Team Providers Care Material Damage Appraiser Name Role Phone Shirley Quintainlla MD Primary Care Provider + [phone] Shirley Quintanilla MD Unavailable [phone] Claudette Junior MD Unavailable [phone] Shirley Quintanilla MD Unavailable [phone] Claudette Junior MD Unavailable [phone] Shirley Quintanilla MD Unavailable [phone] Bozena Means MD Unavailable [phone] Jennie Arellano MD, MPH Unavailable [phone] Jhoan Padilla MD Unavailable Shirley Quintanilla MD Primary Care Provider + [phone] Claudette Junior MD Primary Care Provider [phone] Aj Bustos MD Unavailable [phone] Aj Bustos MD Primary Care Provider Encounter Details Date Type Department Care Team (Late st Contact Info) Description 12/26/2016 Procedure Pass [facility] [address] [place] [address] Social History Tobacco Use Types Packs/Day Years [...] 9:40 AM EDT [facility], [address], [address] [place] [address] Claudette Junior MD [address] [place] [address] [email or web address] 09/08/2025 10:30 AM EDT Office Visit [facility] for Lymphoma, Division of Hematologic Oncology, [address], [address] [place] [address] Lucia Isaac DNP [address] [place] [address] Merced@[email or web address]. [facility] 12/01/2025 10:40 AM EST [facility], [address], [address] [place] [address] Claudette Junior MD [address] [place] [address] Zoila@[email or web address] 12/01/2025 11:30 AM EST Office Visit [facility], Division of Hematologic Oncology, [address], [address] [place] [address] Claudette Junior MD [address] [place] [address] [email or web address] documented as of this encounter Visit Diagnoses Not on filedocumented in this encounter Care Teams Material Damage Appraiser Relationship Specialty Start Date End Date Shirley Quintanilla MD [email or web address] PCP - General Internal Medicine 06/01/15 08/13/19 Shirley Quintanilla MD [email or web address] PCP - General Internal Medicine 08/14/19 10/20/24 Claudette Junior MD [address] [place] [address] [email or web address] u PCP - General Medical Oncology 10/21/24 03/01/25 Aj Bustos MD [address] [place] [address] PCP - General Family Medicine 03/02/25 Shirley Quintanilla MD [email or web address] Internal Medicine 06/01/15 12/12/17 Claudette Junior MD [address] [place] [address] [email or web address] u Internal Medicine 06/01/15 Shirley Quintanilla MD [email or web address] Internal Medicine 06/01/15 12/12/17 Claudette Junior MD [address] [place] [address] [email or web address] u Internal Medicine 06/01/15 12/12/17 Shirley Quintanilla MD [email or web address] Medicine 06/01/15 12/12/17 Bozena Means MD [address] [place] [address] Referring Physician Hematology 05/01/16 06/24/18 Jennie Arellano MD, MPH [address] [facility] [place] [address] [email or web address] Dermatology 06/25/18 Jhoan Padilla MD [address] [place] [address] [place] [address] [email or web address]. Urology 06/25/18 Aj Bustos MD [address] [place] [address] Family Medicine 03/02/25 03/02/25 documented as of this encounter Additional Source Comments The information contained in this document represents components of the legal health record. It is not the complete legal health record.[facility]
== END 2025-07-22 09:18 | disposition home or self-care (01) ==
LOC: HO.HUSH 08:33
PROVIDERS: PCP Family Medicine; Visit Provider Nurse Practitioner Family
DX: R33.9 Retention of urine, unspecified (principal); R97.20 Elevated prostate specific antigen [PSA]; N32.89 Other specified disorders of bladder; N32.3 Diverticulum of bladder; R80.9 Proteinuria, unspecified; N13.30 Unspecified hydronephrosis; Z13.9 Encounter for screening, unspecified
CPT/HCPCS: 99214; G2211

== ENCOUNTER 2025-08-03 09:15 | Outpatient (AMB) | payer MEDICARE, SELFPAY ==
--- OUTSIDE RECORDS SUMMARY | 2025-01-24 17:30 | XMS_ITS ---
Author Organization [facility] Address [address] [place] [address] Care Team Providers Care Head Librarian Name Role Phone DO NOT USE Shirley Quintanilla MD Primary Care Provider Unavailable PHYLLISANGELA Pretty Unavailable [phone] Migration, Provider Unavailable Unavailable [facility] Encounter Medications Medication SIG (Take, Route, [...] Location Date Provider Diagnosis [facility] [address] [place] [address] 01/24/2025 Provider Migration Plan Of Treatment No Information Progress Notes * Matt HOFFMANDOB:1944 (80 yo M)Acc No.[id number]:01/24/2025 Patient: Matt Elder Provider: Archie Hernández :1945 A ge:79 Y S ex:Male Date:01/24/2025 Address:[place] [address], [facility], [facility] Pcp:Shirley LAINEZ NOT USE David Quintanilla Subjective: [...] Electronic signature of Prov ider Migration on 08/03/2025 at 10:53 AM EDT Sign off status: Pending * Provider: Archie campo Migration Date: 0 01/24/2025 Generated for Wood restrepo/Yuan/Idaitting on: 0 08/03/2025 10:53 AM EDT
[2025-08-03 09:18] VITALS: BP 110/62; PULSE 70; O2SAT 99; BMI 24.2
--- NOTE | 2025-08-03 09:18 | MHC.OFFVIS ---
Vital Signs 08/03/25 09:18 Height 5 ft 8 in Weight 159 lb 6 oz BMI 24.2 BP 110/62 Blood Pressure Location Rt brachial Position Sitting Pulse 70 Pulse Source Pulse Oximeter Pulse Oximetry (%) 99 Oxygen Delivery Method Room Air Intake Visit Reasons: INP-TIA Intake Note: TIA Ram Car Operator Required: No Accompanied by: Self / Same As Patient Allergies No Known Allergies Allergy (Verified 08/03/25 09:18) HPI Comments Details: 80y/o male comes for evaluation of Right face spasm . It started 10 years ago and lasts less than 1 minute. He has about 2-4 episodes a week. 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 In February 2025 he had MRI brain MRA neck and head - for right facial weakness . The studies were reviewed and had no evidence of stenosis, aneurysm or a new stroke. He is concerned that the right facial spasm progressing . For the past 10 years it has been the same .He denies numbness. 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 Right acoustic neuroma Deafness in right ear Enlarged prostate MCL (mantle cell lymphoma) Family History Father Diabetes Mother Esophageal cancer Social History Housing: Apartment Patient Tobacco Use Status: Former Tobacco user e-Cigarette/Vaping Use: Never Used service: Yes Current occupational status: retired Current occupational exposures/hazards: No Cognitive needs: No Hearing needs: Yes Vision needs: Yes Physical Exam Vital Signs: Last Vital Signs Pulse 70 08/03/25 09:18 BP 110/62 08/03/25 09:18 Pulse Ox 99 08/03/25 09:18 Oxygen Delivery Method Room Air 08/03/25 09:18 BMI result Body Mass Index 24.2 Const General: cooperative, healthy appearing, comfortable and no acute distress Nutritional Appearance: average body habitus Orientation/consciousness: patient oriented x3 Eyes Pupils: Equal, round and reactive pupils present Neuro Other: Very mild right facial weakness General: patient oriented x3, tone normal, moves all extremities and no focal motor deficits Cranial nerves: Yes Facial sensation intact/muscles of mastication intact, Yes Equal, round and reactive pupils present, Yes Bilaterally intact EOM present, Yes Nystagmus not present, Yes Midline tongue present, Yes Symmetric palate elevation present and Yes Ability to bilaterally elevate shoulders present Cognition (Neuro): normal cognition Gait exam (Neuro): Antalgic gait present Deep tendon reflexes (DTR's): Right triceps reflex intensity grade: 1+, Left triceps reflex intensity grade: 1+, Rt Biceps (C5, C6): 1+, Left biceps reflex intensity grade: 1+, Right brachioradialis reflex intensity grade: 1+, Left brachioradialis reflex intensity grade: 1+, Right patellar reflex intensity grade: 1+ and Left patellar reflex intensity grade: 1+ Coordination: [id number] test normal Assessment & Plan Assessment & Plan (1) 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 He will call me if his spasm worsens . 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
--- OUTSIDE RECORDS SUMMARY | 2025-08-03 10:53 | XMS_ITS | Patient Health Record ---
Author Organization [facility] Address [address] [place] [address] Care Team Providers Care Uppers Edge Burnisher Name Role Phone Shirley Quintanilla MD Primary Care Provider TONE Marquez Unavailable [phone] Allergies No Known Allergies Reason For Referral [...] W/U Status Risk Notes Problem Chronic pain (84283800) Other chronic pain (G89.29) Active confirmed Problem Contracture of right knee joint (disorder) (945054879428633) Contracture, right knee (M24.561) Active confirmed Problem Arthralgia of the ankle and/or foot (855963105) Pain in right ankle and joints of right foot (M25.571) Active confirmed Problem Osteoarthritis of knee (641677301) Primary osteoarthritis of right knee (M17.11) Active confirmed Problem Acquired trigger finger (7760189) Trigger finger of right thumb (M65.311) Active confirmed Problem Closed nondisplaced avulsion fracture of tuberosity of right calcaneus with routine healing, subsequent encounter (S92.034D) Active confirmed Problem Open fracture of calcaneus (23275579) Open nondisplaced avulsion fracture of tuberosity of right calcaneus, initial encounter (S92.034B) Active confirmed Plan Of Treatment No Information Insurance Providers Payer Name Payer Address Payer Phone Subscriber Number Group Number Insured Name Patient Relationship to Insured Coverage Start Date Coverage End Date Medicare [address] [place] [address] [id number] Matt Schmidt am Self - patient is the insured [employer] [address] [place] [address] [id number] Matt Schmidt am Self - patient is [...]
--- OUTSIDE RECORDS SUMMARY | 2025-08-03 10:53 | XMS_ITS | Patient Health Record ---
Author Organization [facility] Address [address] [place] [address] Care Team Providers Care Edge Molder Name Role Phone DO NOT USE Shirley Quintanilla MD Primary Care Provider Unavailable PHYLLIS, ANGELA Unavailable [phone] Migration, Provider Unavailable Unavailable Allergies No Known Allergies Reason For Referral No Information Medications Medication SIG (Take, Route, Frequency, Duration) Notes Start Date End Date Status Calquence 100 MG CAPSULE 1 CAP(S) ORALLY EVERY 12 HOURS; Duration: 30 DAY(S) *Please review and pick correct strength-formulatio n from Ingen[employer]pan options. 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) Active confirmed Problem Retention of urine (519956820) Other retention of urine (R33.8) Active confirmed Problem 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 [place] [address] [id number] Matt Schmidt am Self - patient is the insured [employer] - [employer] [address] [place] [address] [id number] Matt Schmidt am Self - patient is the insured Medical (General) History Medical History History ICD Code Mantle Cell Lymphoma hyperlipidemia Surgical History Surgery Date(Month/Year) Button TURP 2013 acoustic neuroma - gamma knife 1999 knee arthroscopy
== END 2025-08-03 11:02 | disposition home or self-care (01) ==
LOC: HO.HSMS 09:16
PROVIDERS: PCP Family Medicine; Visit Provider Psychiatry & Neurology Neurology
DX: G51.31 Clonic hemifacial spasm, right (principal); R29.810 Facial weakness
CPT/HCPCS: 99214; G2211

== ENCOUNTER → 2025-08-03 09:15 | Outpatient (BNVA) | payer MEDICARE, SELFPAY | PROVIDERS: PCP Family Medicine; Visit Provider Psychiatry & Neurology Neurology | DX: R29.810 Facial weakness (principal); G51.31 Clonic hemifacial spasm, right; Z86.018 Personal history of other benign neoplasm | CPT/HCPCS: 99212 ==

== ENCOUNTER 2025-08-18 07:41 | Outpatient (REF) | payer MEDICARE, SELFPAY ==
--- OUTSIDE RECORDS SUMMARY | 2025-01-24 17:30 | XMS_ITS ---
Author Organization [facility] Address [address] [place] [address] Care Team Providers Care Fitness And Wellness Director Name Role Phone DO NOT USE Shirley Quintanilla MD Primary Care Provider Unavailable PHYLLISANGELA Pretty Unavailable [phone] Migration, Provider Unavailable Unavailable [facility] Encounter Medications Medication SIG [...] Location Date Provider Diagnosis [facility] [address] [place] [address] 01/24/2025 Provider Migration Plan Of Treatment No Information Progress Notes * Matt HOFFMANDOB:1944 (80 yo M)Acc No.[id number]:01/24/2025 Patient: Matt Elder Provider: Archie Hernández :1945 A ge:79 Y S ex:Male Date:01/24/2025 Address:[place] [address], [facility], [facility] Pcp:Shirley LAINEZ NOT USE David Quintanilla Subjective: [...] Electronic signature of Prov ider Migration on 08/18/2025 at 07:49 AM EDT Sign off status: Pending * Provider: Archie campo Migration Date: 0 01/24/2025 Generated for Wood restrepo/Yuan/Idaitting on: 0 08/18/2025 07:49 AM EDT
--- NOTE | ~2025-08-18 | US_ITS ---
EXAMINATION: US THYROID HISTORY: E04.1 - Nontoxic single thyroid nodule TECHNIQUE: Real-time grayscale ultrasound imaging was performed and images were reviewed. COMPARISON: Correlation is made with a carotid ultrasound dated 03/03/2025. FINDINGS: SIZE: The right thyroid lobe measures 4.9 x 1.7 x 1.3 cm. The left thyroid lobe measures 4.1 x 1.5 x 1.1 cm. The isthmus measures 3 mm. FLOW: Flow to the gland is normal. ECHOGENICITY: The echotexture of the gland is homogeneous. NODULES: A 9 mm cyst is seen at the lower pole of the left thyroid lobe. Additional nodules are noted as described below: Nodule #: 1 Location: Midportion of the left thyroid lobe measuring 1.5 x 1.1 x 0.8 cm. Shape: Wider than tall (0 points) Margins: Smooth (0 points) Echotexture: Hypoechoic (2 points) Composition: Mixed (1 point) Calcifications: None (0 points) Total points: 3 TIRADS: TR3: Mildly suspicious. Nodule #: 2 Location: Isthmus measuring 3 x 3 x 2 mm. Shape: Wider than tall (0 points) Margins: Ill-defined (0 points) Echotexture: Hypoechoic (2 points) Composition: Mostly solid (2 points) Calcifications: None (0 points) Total points: 4 TIRADS: TR4: Moderately suspicious. US/US thyroid IMPRESSION: Thyroid nodules as described. Follow-up of the dominant nodule in the midportion of the left thyroid lobe is recommended. ACR TI-RADS Guidelines TR1 (0 points): Benign. No follow-up or biopsy required TR2 (2 points): Not Suspicious. No biopsy or follow up indicated TR3 (3 points): Mildly Suspicious. FNA if >= 2.5 cm, Follow if >= 1.5 cm TR4 (4-6 points): Moderately Suspicious. FNA if >= 1.5 cm, Follow if >= 1.0 cm TR5 (>=7 points): Highly Suspicious. FNA if >= 1.0 cm, Follow if >= 0.5 cm Electronically signed by: Matt Marcum MD 08/18/2025 11:13 AM EDT
--- OUTSIDE RECORDS SUMMARY | 2025-08-18 07:50 | XMS_ITS | Encounter Summary ---
Author Organization [facility] Address [address] [place] [address] Phone Care Team Providers Care Swimming Pool Servicer Name Role Phone Claudette Junior MD Unavailable [phone] Jennie Arellano MD, MPH Unavailable [phone] Jhoan Padilla MD Unavailable [phone] Shirley Quintanilla MD Primary Care Provider [phone] Claudette Junior MD Primary Care Provider [phone] Aj Bustos MD Unavailable [phone] Aj Bustos MD Primary Care Provider Reason for Visit * Reason Comments Medication Refill Encounter Details Date Type Department Care Team (Late st Contact Info) Description 03/25/2022 Refill Center for Lymphoma, Division of Hematologic Oncology, [facility] [place] [address] [facility], 7th [place] [address] Alicia Bates NP [address] [place] [address] [email or web address] Medication Refill Social History Tobacco Use [...] 9:40 AM EDT Blood Draw [facility] Services, [address], [address] [place] [address] Claudette Junior MD [address] [place] [address] [email or web address] 09/08/2025 10:30 AM EDT Office Visit Center for Lymphoma, Division of Hematologic Oncology, [address], [address] [place] [address] Lucia Isaac DNP [address] [place] [address] [email or web address] 12/01/2025 10:40 AM EST Blood Draw [facility] Services, [address], [address] [place] [address] Claudette Junior MD [address] [place] [id number] [email or web address] 12/01/2025 11:30 AM EST Office Visit [facility], Division of Hematologic Oncology, [address], [address] [place] [address] Claudette Junior MD [address] [place] [address] [email or web address] documented as of this encounter Visit Diagnoses Not on filedocumented in this encounter Care Teams Swimming Pool Servicer Relationship Specialty Start Date End Date Shirley Quintanilla MD [address] [place] [address] [place] [address] [email or web address] PCP - General Internal Medicine 08/14/19 10/20/24 Claudette Junior MD [address] [place] [address] [email or web address] PCP - General Medical Oncology 10/21/24 Aj Bustos MD [address] [place] [address] PCP - General Family Medicine 03/02/25 Claudette Junior MD [address] [place] [address] [email or web address] Internal Medicine 06/01/15 Jennie Arellano MD, MPH [address] [place] [address] [place] [address] [email or web address] [email or web address] 06/25/18 Jhoan Padilla MD [address] [place] [address] [place] [address] [email or web address] Urology 06/25/18 Aj Bustos MD [address] [place] [address] Family Medicine 03/02/25 03/02/25 documented as of this encounter Additional Source Comments The information contained in this document represents components of the legal health record. It is not the complete legal health record.[facility]
--- OUTSIDE RECORDS SUMMARY | 2025-08-18 07:50 | XMS_ITS | Encounter Summary ---
Author Organization [facility] Address [address] [place] [address] Phone Care Team Providers Care Learning And Development Intern Name Role Phone Claudette Junior MD Unavailable [phone] Jennie Arellano MD, MPH Unavailable [phone] Jhoan Padilla MD Unavailable [phone] Shirley Quintanilla MD Primary Care Provider [phone] Claudette Junior MD Primary Care Provider [phone] Aj Bustos MD Unavailable [phone] Aj Bustos MD Primary Care Provider Reason for Visit * Reason Comments Medication Refill Encounter Details Date Type Department Care Team (Late st Contact Info) Description 01/18/2022 Refill [facility], Division of Hematologic Oncology, [facility] [place] [address] [facility], 7th [place] [address] Alicia Bates NP [address] [place] [address] [email or web address] Medication Refill Social History Tobacco Use [...] 9:40 AM EDT Blood [facility] Services, [address], [address] [place] [address] Claudette Junior MD [address] [place] [address] [email or web address] 09/08/2025 10:30 AM EDT Office Visit Center for Lymphoma, Division of Hematologic Oncology, [address], [address] [place] [address] Lucia Isaac DNP [address] [place] [address] [email or web address]. [facility] 12/01/2025 10:40 AM EST Blood Draw Laboratory Services, [address], [address] [place] [address] Claudette Junior MD [address] [place] [address] [email or web address] 12/01/2025 11:30 AM EST Office Visit [facility], Division of Hematologic Oncology, [address], [address] [place] [address] Claudette Junior MD [address] [place] [address] [email or web address] documented as of this encounter Visit Diagnoses Not on filedocumented in this encounter Care Teams Learning And Development Intern Relationship Specialty Start Date End Date Shirley Quintanilla MD [address] [place] [address] [place] [address] [email or web address] PCP - General Internal Medicine 08/14/19 10/20/24 Claudette Junior MD [address] [place] [address] [email or web address] PCP - General Medical Oncology 10/21/24 Aj Bustos MD [address] [place] [address] PCP - General Family Medicine 03/02/25 Claudette Junior MD [address] [place] [address] [email or web address] Internal Medicine 06/01/15 Jennie Arellano MD, MPH [address] [place] [address] [place] [address] [email or web address] Dermatology 06/25/18 Jhoan Padilla MD [address] [place] [address] [place] [address] [email or web address]. Urology 06/25/18 Aj Bustos MD [address] [place] [address] Family Medicine 03/02/25 03/02/25 documented as of this encounter Additional Source Comments The information contained in this document represents components of the legal health record. It is not the complete legal health record.[facility]
--- OUTSIDE RECORDS SUMMARY | 2025-08-18 07:50 | XMS_ITS | Clinical Summary ---
Author Organization [facility] Address [address] [place] [address] Phone Care Team Providers Care Superintendent Mechanical Name Role Phone Claudette Junior MD Unavailable [phone] Jennie Arellano MD, MPH Unavailable [phone] Jhoan Padilla MD Unavailable [phone] Aj Bustos MD Primary Care Provider Allergies [...] attack 11/07/2021 Coronary artery disease invo lving [place] coronary artery of [place] heart without angina pectoris 11/07/2021 Mantle cell [...] but he will discuss this with his catalytic converter operator. H/O lymphoma 05/04/2010 Overview (01/09/2015): H/O [...] Description 07/08/2025 Orders Only [facility]fusion [facility] Cancer [address], 7th [place] [address] Claudette Junior MD Mantle cell lymphoma, unspecified body region (Primary Dx) 06/02/2025 10:30 AM EDT Office Visit Center for Lymphoma, Division of Hematologic Oncology, [facility] [place] [address] 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) from Last 3 Months Immunizations Immunization Administration Dates Next Due COVID-19 (Pre-09/10) Pfizer Vaccine, mRNA, PF 08/10/2021 DTaP, unspecified formulation 09/22/2010, 009 [id number] FORMULATION 10/16/2009 Hepatitis A, Adult 04/08/2008 Hib, [...] 9:40 AM EDT Blood Draw [facility] Services, [address], 2nd [place] [address] Claudette Junior MD [address] [place] [address] [email or web address] 09/08/2025 10:30 AM EDT Office Visit Center for Lymphoma, Division of Hematologic Oncology, [address], 7th [place] [address] Lucia Isaac DNP [address] [place] [address] [email or web address]. [facility] 12/01/2025 10:40 AM EST Blood Draw Laboratory Services, [address], 2nd [place] [address] Claudette Junior MD [address] [place] [address] [email or web address] 12/01/2025 11:30 AM EST Office Visit [facility] for Lymphoma, Division of Hematologic Oncology, [address], 7th [place] [address] Claudette Junior MD [address] [place] [address] [email or web address] Health Maintenance Due Date Last Done Comments [...] LDH 164 135 - 225 U/L [facility] LIC# [id number] Blood 06/02/2025 9:51 AM EDT 06/02/2025 10:08 AM EDT us Skyla Avalos MD, PhD LAB BLOOD ORDERABLES Fi nal Result [facility] LIC# [id number] [address] [place] [address] * (ABNORMAL) Comprehensive metabolic panel (06/02/2025 9:51 AM EDT) SODIUM 144 136 - 145 mmol/L [facility] LIC# [id number] POTASSIUM 5.0 3.4 - 5.1 mmol/L [facility] LIC# [id number] CHLORIDE 109(H) 98 - 107 mmol/L [facility] LIC# [id number] CO2 22 22 - 31 mmol/L [facility] LIC# [id number] BUN 19 6 - 23 mg/dL [facility] LIC# [id number] CREATININE 1.42(H) 0.50 - 1.20 mg/dL [facility] LIC# [id number] GLUCOSE 71 70 - 100 mg/dL [facility] LIC# [id number] ALBUMIN 4.4 3.5 - 5.2 g/dL [facility] LIC# [id number] TOTAL PROTEIN 6.3(L) 6.4 - 8.3 g/dL [facility] LIC# [id number] CALCIUM 9.3 8.8 - 10.7 mg/dL [facility] LIC# [id number] ALKALINE PHOSPHATASE 73 40 - 129 U/L [facility] LIC# [id number] TOTAL BILIRUBIN 0.4 0.2 - 1.2 mg/dL [facility] LIC# [id number] AST 16 <41 U/L [facility] LIC# [id number] ALT 14 <42 U/L [facility] LIC# [id number] GLOBULIN 1.9(L) 2.3 - 4.2 g/dL [facility] LIC# [id number] EGFR 50(L) >59 mL/min/1.7 3m2 [facility] LIC# [id number] Comment:Estimated glomerular filtration rate calculated using the CKD-EPI refit equation. ANION GAP 13 7 - 17 mmol/L [facility] LIC# [id number] Blood 06/02/2025 9:51 AM EDT 06/02/2025 10:08 AM EDT us Skyla Avalos MD, PhD LAB BLOOD ORDERABLES Fi nal Result [facility] LIC# [id number] [address] [place] [address] * (ABNORMAL) CBC and differential (06/02/2025 9:51 AM EDT) WBC 17.50(H) 4.00 - 10.00 K/uL [facility] LIC# [id number] RBC 4.00(L) 4.50 - 6.40 M/uL [facility] LIC# [id number] HGB 12.2(L) 13.5 - 18.0 g/dL [facility] LIC# [id number] HCT 37.9(L) 40.0 - 54.0 % [facility] LIC# [id number] PLT 105(L) 150 - 450 K/uL [facility] LIC# [id number] MCV 94.8 80.0 - 100.0 fL [facility] LIC# [id number] MCH 30.5 27.0 - 32.0 pg [facility] LIC# [id number] MCHC 32.2 32.0 - 36.0 g/dL [facility] LIC# [id number] RDW 13.4 11.5 - 14.5 % [facility] LIC# [id number] MPV 10.1 8.4 - 12.0 fL [facility] LIC# [id number] NRBC 0.00 0 /100 WBCs [facility] LIC# [id number] ABSOLUTE NRBC 0.00 0 K/uL [facility] LIC# [id number] DIFF METHOD MANUAL [facility] LIC# [id number] NEUTS (MANUAL) 30.8(L) 48.0 - 76.0 % [facility] LIC# [id number] LYMPHS 66.9(H) 18.0 - 41.0 % [facility] LIC# [id number] MONOS 2.3(L) 4.0 - 11.0 % [facility] LIC# [id number] EOSINOPHIL 0.0 0.0 - 5.0 % [facility] LIC# [id number] BASOPHIL 0.0 0.0 - 1.5 % [facility] LIC# [id number] BLASTS 0.0 0 % [facility] LIC# [id number] ABSOLUTE NEUTS 5.39 1.92 - 7.60 K/uL [facility] LIC# [id number] ABSOLUTE LYMPHS 11.71(H) 0.72 - 4.10 K/uL [facility] LIC# [id number] ABSOLUTE MONOS 0.40 0.16 - 1.10 K/uL [facility] LIC# [id number] ABSOLUTE EOS 0.00 0.00 - 0.50 K/uL [facility] LIC# [id number] ABSOLUTE BASO 0.00 0.00 - 0.15 K/uL [facility] LIC# [id number] ABSOLUTE BLASTS 0.00 0 K/uL [facility] LIC# [id number] ACANTHOCYTES Few [facility] LIC# [id number] ANISO Few [facility] LIC# [id number] ROGERIO CELLS Few [facility] LIC# [id number] POIKILOCYTOSIS Few [facility] LIC# [id number] OVALOCYTES Few [facility] LIC# [id number] Blood 06/02/2025 9:51 AM EDT 06/02/2025 10:08 AM EDT us Skyla Avalos MD, PhD LAB BLOOD ORDERABLES Fi nal Result [facility] LIC# [id number] [address] [place] [address] * ENDOSCOPY, COLON (01/18/2010 2:59 PM EST) 01/18/2010 2:59 PM EST Narrative 01/18/2010 2:59 PM EST Report Number: [id number] Report Status: Signed Type: COLONOSCOPY Date: 01/18/2010 [...] - 01/18/2010 2:59 PM EST Report Number: [id number] Report Status: Signed Type: COLONOSCOPY Date: 01/18/2010 14:59 [facility] Gastroenterology Patient Name: Matt Hoffman [...] Maintenance Insurance MEDICARE PART A & B [employer] MEDEX SUPPLEMENT MEDICARE PART A & B [employer] SUPPLEMENT MEDICARE PART A & B [employer] SUPPLEMENT MEDICARE PART A & B [employer] MEDEX SUPPLEMENT , [address] [address] MEDICARE PART A & B [employer] MEDEX SUPPLEMENT , [address] [address] MEDICARE PART A & B [facility] MEDEX SUPPLEMENT , [address] [address] MEDICARE PART A & B [employer] SUPPLEMENT MEDICARE PART A & B [employer] SU[employer]MENT MEDICARE PART A & B [employer] SU[employer]MENT Care Teams Superintendent Mechanical Relationship Specialty Start Date End Date Aj Bustos MD [address] [place] [address] PCP - General Family Medicine 03/02/25 Claudette Junior MD [address] [place] [address] [email or web address] Internal Medicine 06/01/15 Jennie Arellano MD, MPH [address] [place] [address] [place] [address] [email or web address] Dermatology 06/25/18 Jhoan Padilla MD [address] [place] [address] [place] [address] [email or web address]. Urology 06/25/18 Additional Source Comments The information contained in this document represents components of the legal health record. It is not the complete legal health record.[facility]
--- OUTSIDE RECORDS SUMMARY | 2025-08-18 07:50 | XMS_ITS | Encounter Summary ---
Author Organization [facility] Address [address] [place] [address] Phone Care Team Providers Care Will Call Order Clerk Name Role Phone lCaudette Junior MD Unavailable [phone] Jennie Arellano MD, MPH Unavailable [phone] Jhoan Padilla MD Unavailable [phone] Shirley Quintanilla MD Primary Care Provider [phone] Claudette Junior MD Primary Care Provider [phone] Aj Bustos MD Unavailable [phone] Aj Bustos MD Primary Care Provider Reason for Visit * Reason Comments Medication Refill Encounter Details Date Type Department Care Team (Late st Contact Info) Description 05/26/2023 Refill Center for Lymphoma, Division of Hematologic Oncology, [facility] [place] [address] [facility], 7th [place] [address] Lucia Isaac, [facility] [address] [place] [address] [email or web address] Medication Refill Social History Tobacco Use [...] AM EDT Blood Draw Laboratory Services, [address], [address] [place] [address] Claudette Junior MD [address] [place] [address] [email or web address] 09/08/2025 10:30 AM EDT Office Visit Center for Lymphoma, Division of Hematologic Oncology, [address], [address]th [place] [address] Lucia Isaac DNP [address] [place] [address] [email or web address] 12/01/2025 10:40 AM EST Blood Draw Laboratory Services, [address], [address] [place] [address] Claudette Junior MD [address] [place] [address] Zoila@[email or web address] 12/01/2025 11:30 AM EST Office Visit Center for Lymphoma, Division of Hematologic Oncology, [place] [address] [place], 7th [place] [address] Claudette Junior MD [address] [place] [address] [email or web address] documented as of this encounter Visit Diagnoses Not on filedocumented in this encounter Care Teams Will Call Order Clerk Relationship Specialty Start Date End Date Shirley Quintanilla MD [address] [place] [address] [place] [address] [email or web address] PCP - General Internal Medicine 08/14/19 10/20/24 Claudette Junior MD [address] [place] [address] [email or web address] PCP - General Medical Oncology 10/21/24 Aj Bustos MD [address] [place] [address] PCP - General Family Medicine 03/02/25 Claudette Junior MD [address] [place] [address] [email or web address] Internal Medicine 06/01/15 Jennie Arellano MD, MPH [address] [place] [address] [place] [address] [email or web address] Dermatology 06/25/18 Jhoan Padilla MD [address] [place] [address] [place] [address] [email or web address]. Urology 06/25/18 Aj Bustos MD [address] [place] [address] Family Medicine 03/02/25 03/02/25 documented as of this encounter Additional Source Comments The information contained in this document represents components of the legal health record. It is not the complete legal health record.[facility]
--- OUTSIDE RECORDS SUMMARY | 2025-08-18 07:50 | XMS_ITS | Patient Health Record ---
Author Organization [facility] Address [address] [place] [address] Care Team Providers Care Beam Warper Name Role Phone DO NOT USE Shirley Quintanilla MD Primary Care Provider Unavailable PHYLLIS, ANGELA Unavailable [phone] Migration, Provider Unavailable Unavailable Allergies No Known Allergies Reason For Referral No Information Medications Medication SIG (Take, Route, Frequency, Duration) Notes Start Date End Date Status Calquence 100 MG CAPSULE 1 CAP(S) ORALLY EVERY 12 HOURS; Duration: 30 DAY(S) *Please review and pick correct strength-formulatio n from [employer] options. 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) Active confirmed Problem Retention of urine (308453186) Other retention of urine (R33.8) Active confirmed Problem 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 [place] [address] [id number] Matt Schmidt am Self - patient is the insured BC[employer] - [employer] [address] [place] [address] [phone] [id number] Matt Schmidt am Self - patient is the insured Medical (General) History Medical History History ICD Code Mantle Cell Lymphoma hyperlipidemia Surgical History Surgery Date(Month/Year) Button TURP 2013 acoustic neuroma - gamma knife 1999 knee arthroscopy
--- OUTSIDE RECORDS SUMMARY | 2025-08-18 07:50 | XMS_ITS | Patient Health Record ---
Author Organization [facility] Address [address] [place] [address] Care Team Providers Care It Solutions Architect Name Role Phone Shirley Quintanilla MD Primary Care Provider TONE Marquez Unavailable [phone] Allergies No Known Allergies Reason For Referral [...] W/U Status Risk Notes Problem Chronic pain (01741722) Other chronic pain (G89.29) Active confirmed Problem Contracture of right knee joint (disorder) (438355528847926) Contracture, right knee (M24.561) Active confirmed Problem Arthralgia of the ankle and/or foot (386006785) Pain in right ankle and joints of right foot (M25.571) Active confirmed Problem Osteoarthritis of knee (161018403) Primary osteoarthritis of right knee (M17.11) Active confirmed Problem Acquired trigger finger (5626853) Trigger finger of right thumb (M65.311) Active confirmed Problem Closed nondisplaced avulsion fracture of tuberosity of right calcaneus with routine healing, subsequent encounter (S92.034D) Active confirmed Problem Open fracture of calcaneus (88906602) Open nondisplaced avulsion fracture of tuberosity of right calcaneus, initial encounter (S92.034B) Active confirmed Plan Of Treatment No Information Insurance Providers Payer Name Payer Address Payer Phone Subscriber Number Group Number Insured Name Patient Relationship to Insured Coverage Start Date Coverage End Date Medicare [address] [place] [address] [id number] Matt Schmidt am Self - patient is the insured Med[employer] [address] [place] [address] [id number] Matt Schmidt am Self - patient is [...]
--- OUTSIDE RECORDS SUMMARY | 2025-08-18 07:50 | XMS_ITS | Encounter Summary ---
Author Organization [facility] Address [address] [place] [address] Phone Care Team Providers Care Operations Research Analyst Name Role Phone Shirley Quintanilla MD Primary Care Provider [phone] Shirley Quintanilla MD Unavailable [phone] Claudette Junior MD Unavailable [phone] Shirley Quintanilla MD Unavailable [phone] Claudette Junior MD Unavailable [phone] Shirley Quintanilla MD Unavailable [phone] Bozena Means MD Unavailable [phone] Jennie Arellano MD, MPH Unavailable [phone] Jhoan Padilla MD Unavailable [phone] Shirley Quintanilla MD Primary Care Provider [phone] Claudette Junior MD Primary Care Provider [phone] Aj Bustos MD Unavailable [phone] Aj Bustos MD Primary Care Provider Encounter Details Date Type Department Care Team (Late st Contact Info) Description 12/26/2016 Procedure Pass [facility] [address] [place] [address] Social History Tobacco Use Types Packs/Day Years [...] 9:40 AM EDT Blood Draw Laboratory Services, [address], [address] [place] [address] Claudette Junior MD [address] [place] [address] [email or web address] 09/08/2025 10:30 AM EDT Office Visit [facility] for Lymphoma, Division of Hematologic Oncology, [address], [address] [place] [address] Lucia Isaac DNP [address] [place] [address] [email or web address]. [facility] 12/01/2025 10:40 AM EST Blood Draw Laboratory Services, [address], [address] [place] [address] Claudette Junior MD [address] [place] [address] [email or web address] 12/01/2025 11:30 AM EST Office Visit [facility], Division of Hematologic Oncology, [address], [address] [place] [address] Claudette Junior MD [address] [place] [address] [email or web address] documented as of this encounter Visit Diagnoses Not on filedocumented in this encounter Care Teams Operations Research Analyst Relationship Specialty Start Date End Date Shirley Quintanilla MD [email or web address] PCP - General Internal Medicine 06/01/15 08/13/19 Shirley Quintanilla MD [email or web address] PCP - General Internal Medicine 08/14/19 10/20/24 Claudette Junior MD [address] [place] [address] [email or web address] u PCP - General Medical Oncology 10/21/24 03/01/25 Aj Bustos MD [address] [place] [address] PCP - General Family Medicine 03/02/25 Shirley Quintanilla MD [email or web address] Internal Medicine 06/01/15 12/12/17 Claudette Junior MD [address] [place] [address] [email or web address] Internal Medicine 06/01/15 Shirley Quintanilla MD [email or web address] Internal Medicine 06/01/15 12/12/17 Claudette Junior MD [address] [place] [address] [email or web address] Internal Medicine 06/01/15 12/12/17 Shirley Quintanilla MD [email or web address] Internal Medicine 06/01/15 12/12/17 Bozena Means MD [address] [place] [address] Referring Physician Hematology 05/01/16 06/24/18 Jennie Arellano MD, MPH [address] [facility] [place] [address] [email or web address] Dermatology 06/25/18 Jhoan Padilla MD [address] [place] [address] [place] [address] [email or web address]. Urology 06/25/18 Aj Bustos MD [address] [place] [address] Family Medicine 03/02/25 03/02/25 documented as of this encounter Additional Source Comments The information contained in this document represents components of the legal health record. It is not the complete legal health record.[facility]
--- OUTSIDE RECORDS SUMMARY | 2025-08-18 07:50 | XMS_ITS | Encounter Summary ---
Author Organization [facility] Address [address] [place] [address] Phone Care Team Providers Care Toe Stripper Name Role Phone Claudette Junior MD Unavailable [phone] Jennie Arellano MD, MPH Unavailable [phone] Jhoan Padilla MD Unavailable [phone] Shirley Quintanilla MD Primary Care Provider [phone] Claudette Junior MD Primary Care Provider [phone] Aj Bustos MD Unavailable [phone] Aj Bustos MD Primary Care Provider Reason for Visit * Reason Comments Medication Refill Encounter Details Date Type Department Care Team (Late st Contact Info) Description 02/21/2024 Refill [facility], Division of Hematologic Oncology, [facility] [place] [address] [facility], 7th [place] [address] Lucia Isaac, [facility] [address] [place] [address] [email or web address] Medication Refill Social History Tobacco [...] 9:40 AM EDT Blood Draw [facility], [address], [address] [place] [address] Claudette Junior MD [address] [place] [address] [email or web address] 09/08/2025 10:30 AM EDT Office Visit [facility] for Lymphoma, Division of Hematologic Oncology, [address], 7th [place] [address] Lucia Isaac DNP [address] [place] [address] [email or web address] 12/01/2025 10:40 AM EST [facility], [address], 2nd [place] [address] Claudette Junior MD [address] [place] [address] [email or web address] 12/01/2025 11:30 AM EST Office Visit [facility] Lymphoma, Division of Hematologic Oncology, [place] [address] [facility], 7th [place] [address] Claudette Junior MD [address] [place] [address] [email or web address] documented as of this encounter Visit Diagnoses Not on filedocumented in this encounter Care Teams Toe Stripper Relationship Specialty Start Date End Date Shirley Quintanilla MD [address] [place] [address] [place] [address] [email or web address] PCP - General Internal Medicine 08/14/19 10/20/24 Claudette Junior MD [address] [place] [address] [email or web address] PCP - General Medical Oncology 10/21/24 Aj Bustos MD [address] [place] [address] PCP - General Family Medicine 03/02/25 Claudette Junior MD [address] [place] [address] [email or web address] Internal Medicine 06/01/15 Jennie Arellano MD, MPH [address] [place] [address] [place] [address] [email or web address] Dermatology 06/25/18 Jhoan Padilla MD [address] [place] [address] [place] [address] [email or web address] Urology 06/25/18 Aj Bustos MD [address] [place] [address] Family Medicine 03/02/25 03/02/25 documented as of this encounter Additional Source Comments The information contained in this document represents components of the legal health record. It is not the complete legal health record.[facility]
--- OUTSIDE RECORDS SUMMARY | 2025-08-18 07:50 | XMS_ITS ---
Author Organization [facility] Address [address] [place] [address] Phone Care Team Providers Care Human Resources Compensation Analyst Name Role Phone Claudette Junior MD Unavailable [phone] Jennie Arellano MD, MPH Unavailable Jhoan Padilla MD Unavailable Aj Bustos MD Primary Care Provider Active Problems Problem Noted Date Diagnosed Date Myopia 11/05/2023 Dupuytren's contracture of right hand 02/21/2023 Transient ischemic attack 11/07/2021 Coronary artery disease invo lving [place] coronary artery of [place] heart without angina pectoris 11/07/2021 Mantle cell [...] but he will discuss this with his lay out maker. H/O lymphoma 05/04/2010 Overview (01/09/2015): H/O lymphoma [...]
--- OUTSIDE RECORDS SUMMARY | 2025-08-18 07:51 | XMS_ITS | Encounter Summary ---
Author Organization [facility] Address [address] [place] [address] Phone Care Team Providers Care Formula Bottler Name Role Phone Shirley Quintanilla MD Primary Care Provider + [phone] Shirley Quintanilla MD Unavailable [phone] Claudette Junior MD Unavailable [phone] Shirley Quintanilla MD Unavailable [phone] Claudette Junior MD Unavailable [phone] Shirley Quintanilla MD Unavailable [phone] Bozena Means MD Unavailable [phone] Jennie Arellano MD, MPH Unavailable [phone] Jhoan Padilla MD Unavailable [phone] Shirley Quintanilla MD Primary Care Provider + [phone] Claudette Junior MD Primary Care Provider [phone] Aj Bustos MD Unavailable [phone] Aj Bustos MD Primary Care Provider Encounter Details Date Type Department Care Team (Late st Contact Info) Description 05/01/2017 Procedure Pass [facility] Imaging Department, [facility] [place], [place] [address] [facility], Floor L1 [place] [address] Social History Tobacco Use Types Packs/Day Years [...] AM EDT Blood Draw [facility] Services, [address], [address] [place] [address] Claudette Junior MD [address] [place] [address] [email or web address] 09/08/2025 10:30 AM EDT Office Visit Center for Lymphoma, Division of Hematologic Oncology, [address], [address] [place] [address] Lucia Isaac DNP [address] [place] [address] [email or web address]@[email or web address] 12/01/2025 10:40 AM EST Blood Draw [facility], [address], 2nd [place] [address] Claudette Junior MD [address] [place] [address] [email or web address] 12/01/2025 11:30 AM EST Office Visit [facility] for Lymphoma, Division of Hematologic Oncology, [address], [address] [place] [address] Claudette Junior MD [address] [place] [address] [email or web address] documented as of this encounter Visit Diagnoses Not on filedocumented in this encounter Care Teams Formula Bottler Relationship Specialty Start Date End Date Shirley Quintanilla MD [email or web address] PCP - General Internal Medicine 06/01/15 08/13/19 Shirley Quintanilla MD [email or web address] PCP - General Internal Medicine 08/14/19 10/20/24 Claudette Junior MD [address] [place] [address] [email or web address] PCP - General Medical Oncology 10/21/24 03/01/25 Aj Bustos MD [address] [place] [address] PCP - General Family Medicine 03/02/25 Shirley Quintanilla MD [email or web address] Internal Medicine 06/01/15 12/12/17 Claudette Junior MD [address] [place] [address] [email or web address] Internal Medicine 06/01/15 Shirley Quintanilla MD [email or web address] Internal Medicine 06/01/15 12/12/17 Claudette Junior MD [address] [place] [address] [email or web address] Internal Medicine 06/01/15 12/12/17 Shirley Quintanilla MD [email or web address] Internal Medicine 06/01/15 12/12/17 Bozena Means MD [address] [place] [address] Referring Physician Hematology 05/01/16 06/24/18 Jennie Arellano MD, MPH [address] [facility] [place] [address] [email or web address] Dermatology 06/25/18 Jhoan Padilla MD [address] [place] [address] [place] [address] [email or web address]. Urology 06/25/18 Aj Bustos MD [address] [place] [address] Family Medicine 03/02/25 03/02/25 documented as of this encounter Additional Source Comments The information contained in this document represents components of the legal health record. It is not the complete legal health record.[facility]
--- OUTSIDE RECORDS SUMMARY | 2025-08-18 07:51 | XMS_ITS | Encounter Summary ---
Author Organization [facility] Address [address] [place] [address] Phone Care Team Providers Care Supervisor Payroll Name Role Phone Claudette Junior MD Unavailable [phone] Jennie Arellano MD, MPH Unavailable [phone] Jhoan Padilla MD Unavailable [phone] Shirley Quintanilla MD Primary Care Provider [phone] Claudette Junior MD Primary Care Provider [phone] Aj Bustos MD Unavailable [phone] Aj Bustos MD Primary Care Provider Reason for Visit * Reason Comments Medication Refill Encounter Details Date Type Department Care Team (Late st Contact Info) Description 02/09/2023 Refill Center for Lymphoma, Division of Hematologic Oncology, [facility] [place] [address] [place] [address], 7th [place] [address] Telly Parsons, ROUGHER OPERATOR [address] [place] [address] [email or web address] Medication Refill Social History Tobacco Use [...] AM EDT Blood Draw [facility] Services, [address], [address] [place] [address] Claudette Junior MD [address] [place] [address] Zoila@[email or web address] 09/08/2025 10:30 AM EDT Office Visit Center for Lymphoma, Division of Hematologic Oncology, [address], [address] [place] [address] Lucia Isaac DNP [address] [place] [address] [email or web address]@[email or web address]. [facility] 12/01/2025 10:40 AM EST Blood Draw [facility] Services, [address], [address] [place] [address] Claudette Junior MD [address] [place] [address] Zoila@[email or web address] 12/01/2025 11:30 AM EST Office Visit [facility] for Lymphoma, Division of Hematologic Oncology, [address], [address] [place] [address] Claudette Junior MD [address] [place] [address] Zoila@[email or web address] documented as of this encounter Visit Diagnoses Not on filedocumented in this encounter Care Teams Supervisor Payroll Relationship Specialty Start Date End Date Shirley Quintanilla MD [address] [place] [address] for [place] [address] [email or web address] PCP - General Internal Medicine 08/14/19 10/20/24 Claudette Junior MD [address] [place] [address] [email or web address] PCP - General Medical Oncology 10/21/24 Aj Bustos MD [address] [place] [address] PCP - General Family Medicine 03/02/25 Claudette Junior MD [address] [place] [address] [email or web address] Internal Medicine 06/01/15 Jennie Arellano MD, MPH [address] [place] [address] [place] [address] [email or web address] Dermatology 06/25/18 Jhoan Padilla MD [address] [place] [address] [place] [address] [email or web address]. Urology 06/25/18 Aj Bustos MD [address] [place] [address] Family Medicine 03/02/25 03/02/25 documented as of this encounter Additional Source Comments The information contained in this document represents components of the legal health record. It is not the complete legal health record.[facility]
== END 2025-08-18 07:42 | disposition home or self-care (01) ==
LOC: HO.US 07:41
PROVIDERS: PCP Family Medicine; Visit Provider Family Medicine
DX: E04.1 Nontoxic single thyroid nodule (principal)
CPT/HCPCS: 76536

== ENCOUNTER → 2025-08-18 07:43 | Outpatient (BNV) | payer MEDICARE, SELFPAY | PROVIDERS: PCP Family Medicine; Visit Provider Radiology Diagnostic Radiology | DX: E04.2 Nontoxic multinodular goiter (principal) | CPT/HCPCS: 76536 ==

== ENCOUNTER 2025-09-10 11:17 | Outpatient (AMB) | payer MEDICARE, SELFPAY ==
--- OUTSIDE RECORDS SUMMARY | 2025-01-24 17:30 | XMS_ITS ---
Author Organization [facility] Address [address] [place] [address] Care Team Providers Care Bagging Salvager Name Role Phone DO NOT USE Shirley Quintanilla MD Primary Care Provider Unavailable PHYLLISANGELA Pretty Unavailable [phone] Migration, Provider Unavailable Unavailable [facility] Encounter Medications Medication SIG (Take, Route, [...] Location Date Provider Diagnosis [facility] [address] [place] [address] 01/24/2025 Provider Migration Plan Of Treatment No Information Progress Notes * Matt HOFFMANDOB:1944 (80 yo M)Acc No.[id number]:01/24/2025 Patient: Matt Elder Provider: Archie Hernández :1945 A ge:79 Y S ex:Male Date:01/24/2025 Address:[place] [address], [facility], [facility] Pcp:Shirley LAINEZ NOT USE David Quintanilla Subjective: [...] Electronic signature of Prov ider Migration on 09/08/2025 at 04:07 PM EDT Sign off status: Pending * Provider: Archie campo Migration Date: 0 01/24/2025 Generated for Wood restrepo/Yuan/Idaitting on: 1 04:07 PM EDT
--- OUTSIDE RECORDS SUMMARY | 2025-01-24 17:30 | XMS_ITS ---
Author Organization [facility] Address [address] [place] [address] Care Team Providers Care Assistant Professor Of Surgery Name Role Phone DO NOT USE Shilrey Quintanilla MD Primary Care Provider Unavailable PHYLLISANGELA Pretty Unavailable [phone] Migration, Provider Unavailable Unavailable REAS[facility] FOR VISIT [facility] Encounter Medications Medication SIG [...] Location Date Provider Diagnosis [facility] [address] [place] [address] 01/24/2025 Provider Migration Plan Of Treatment No Information Progress Notes * Matt HOFFMANDOB:1944 (80 yo M)Acc No.[id number]:01/24/2025 Patient: Matt Elder Provider: Archie Hernández :1945 A ge:79 Y S ex:Male Date:01/24/2025 Address:[place] [address], [facility], [facility] Pcp:Shirley LAINEZ NOT USE David Quintanilla Subjective: [...] Electronic signature of Prov ider Migration on 09/10/2025 at 02:20 PM EDT Sign off status: Pending * Provider: Archie campo Migration Date: 0 01/24/2025 Generated for Wood restrepo/Yuan/Idaitting on: 1 02:20 PM EDT
--- OUTSIDE RECORDS SUMMARY | 2025-09-08 10:30 | XMS_ITS | Encounter Summary ---
Author Organization [facility] Address [address] [facility] [address] [place] [address] Phone Care Team Providers Care Lead Maintenance Technician Name Role Phone Claudette Junior MD Unavailable [phone] Jennie Arellano MD, MPH Unavailable [phone] Jhoan Padilla MD Unavailable [phone] Aj Bustos MD Primary Care Provider Reason for Referral * MRI/CAT Scan - Authorized Specialty Diagnoses / Procedures Referred By Yesenia t Referred To Contact Radiology Diagnoses Mantle cell lymphoma, unspecified body region Procedures NM PET CT Skull Base to Mid Thighs Lucia Isaac DNP [address] [place] [address] Phone: tel: fax: mailto:[email or web address] Referral ID Status Reason Start Date Expiration Date V isits Requested Visits Authorized [id number] Authorized 09/08/2025 1 1 Reason for Visit * Reason Comments Follow-up Lymphoma Chemotherapy Encounter Details Date Type Department Care Team (Late st Contact Info) Description 09/08/2025 10:30 AM EDT Office Visit Center for Lymphoma, Division of Hematologic Oncology, [facility] [place] [address] [facility], 7th [place] [address] Lucia Isaac, [place] [address] [place] [address] [email or web address] Mantle cell lymphoma, unspecified body region (Primary [...] PM EDT documented as of this encounter Last Filed Vital Signs Vital Sign Reading Time Taken Comments Blood Pressure 107/58 09/08/2025 10:12 AM EDT Pulse 78 09/08/2025 10:12 AM EDT Temperature 36.5 C (97.7 F) 09/08/2025 10:12 AM EDT Respiratory Rate - - Oxygen Saturation 99% 09/08/2025 10:12 AM EDT Inhaled Oxygen Concentration - - Weight 71.4 kg (157 lb 6.5 oz) 09/08/2025 10:12 AM EDT Height 173.2 cm (5' 8.19 ) 09/08/2025 10:12 AM E DT Body Mass Index 23.8 09/08/2025 10:12 AM EDT documented in this encounter Plan of Treatment Upcoming Encounters Date Type Department Care Team (Late st Contact Info) Description 12/15/2025 10:15 AM EST Blood Draw [facility] Imaging Department, [facility] [place], Imaging Lymrb-yl[facility] [address] [facility], Floor L1 [place] [address] Claudette Junior MD [address] [place] [address] [email or web address]@[email or web address] 12/15/2025 11:45 AM EST Appointment [facility] Imaging Department, [facility], PET/CT [address] [place] [address] Lucia Isaac DNP [address] [place] [address] [email or web address] Claudette Junior MD [address] [place] [address] Zoila@[facility] 12/15/2025 2:00 PM EST Office Visit Center for Lymphoma, Division of Hematologic Oncology, [address], 7th [place] [address] Claudette Junior MD [address] [place] [address] [email or web address] Scheduled Orders Name Type Priority Associated Diagnoses Orde r Schedule CBC and differential Lab Routine Mantle cell lymphoma, unspecified body region Expected: 09/08/2025, Expires: 09/08/2026 Comprehensive metabolic panel Lab Routine Mantle cell lymphoma, unspecified body region Expected: 09/08/2025, Expires: 09/08/2026 [facility] Lab Routine Mantle cell lymphoma, unspecified body region Expected: 09/08/2025, Expires: 09/08/[address] Skull Base to Mid Thighs Imaging Routine Mantle cell lymphoma, unspecified body region Expected: 12/09/2025, Expires: 06/08/2026 documented as of this encounter Visit Diagnoses Diagnosis Mantle cell lymphoma, unspecified body region- Primary documented in this encounter Care Teams Lead Maintenance Technician Relationship Specialty Start Date End Date Aj Bustos MD [address] [place] [address] [place] [address] PCP - General Family Medicine 03/02/25 Claudette Junior MD [address] [place] [address] [email or web address] Internal Medicine 06/01/15 Jennie Arellano MD, MPH [address] [place] [address] [place] [address] [email or web address] Dermatology 06/25/18 Jhoan Padilla MD [address] [place] [address] [place] [address] [email or web address] Urology 06/25/18 documented as of this encounter Additional Source Comments The information contained in this document represents components of the legal health record. It is not the complete legal health record.[facility]
--- OUTSIDE RECORDS SUMMARY | 2025-09-08 10:30 | XMS_ITS | Encounter Summary ---
Author Organization [facility] Address [address] [place] [address] Phone Care Team Providers Care Plant Floor Automation Manager Name Role Phone Claudette Junior MD Unavailable [phone] Jennie Arellano MD, MPH Unavailable [phone] Jhoan Padilla MD Unavailable [phone] Aj Bustos MD Primary Care Provider Reason for Referral * MRI/CAT Scan - Authorized Specialty Diagnoses / Procedures Referred By Yesenia t Referred To Contact Radiology Diagnoses Mantle cell lymphoma, unspecified body region Procedures NM PET CT Skull Base to Mid Thighs Lucia Isaca DNP [address] [place] [address] Phone: tel: fax: mailto:[email or web address] Referral ID Status Reason Start Date Expiration Date V isits Requested Visits Authorized [id number] Authorized 09/08/2025 1 1 Reason for Visit * Reason Comments Follow-up Lymphoma Chemotherapy Encounter Details Date Type Department Care Team (Late st Contact Info) Description 09/08/2025 10:30 AM EDT Office Visit Center for Lymphoma, Division of Hematologic Oncology, [facility] [place] [address] [facility], 7th [place] [address] Lucia Isaac, [place] [address] [place] [address] [email or web address] Mantle cell lymphoma, unspecified body region (Primary [...] EST Blood Draw [facility] Imaging Department, [facility] [place], Imaging Zbjba-si-Hsug [address] [facility], Floor [address]1 [place] [address] Claudette Junior MD [address] [place] [address] [email or web address] 12/15/2025 11:45 AM EST Appointment [facility] Imaging Department, [facility], PET/CT [address] [place] [address] Lucia Isaac DNP [address] [place] [address] [email or web address] Claudette Junior MD [address] [place] [address] [email or web address] 12/15/2025 2:00 PM EST Office Visit [facility] for Lymphoma, Division of Hematologic Oncology, [address], 7th [place] [address] Claudette Junior MD [address] [place] [address] [email or web address] Scheduled Orders Name Type Priority Associated Diagnoses [...] Primary documented in this encounter Care Teams Plant Floor Automation Manager Relationship Specialty Start Date End Date Aj Bustos MD [address] [place] [address] [place] [address] PCP - General Family Medicine 03/02/25 Claudette Junior MD [address] [place] [address] [email or web address] Internal Medicine 06/01/15 Jennie Arellano MD, MPH [address] [place] [address] [place] [address] EDWARD@[email or web address] Dermatology 06/25/18 Jhoan Padilla MD [address] [place] [address] [place] [address] [email or web address] Urology 06/25/18 documented as of this encounter Additional Source Comments The information contained in this document represents components of the legal health record. It is not the complete legal health record.[facility]
--- NOTE | 2025-09-08 12:05 | A.OFFPC_ITS ---
Vital Signs 09/10/25 11:29 Height 5 ft 8 in Weight 160 lb 6 oz BMI 24.4 BP 120/80 Blood Pressure Location Lt brachial Position Sitting Respiration 16 Pulse 79 Pulse Source Pulse Oximeter Temp 97.5 F Temp Source Oral Pulse Oximetry (%) 98 Oxygen Delivery Method Room Air Intake Visit Reasons: Follow-up thyroid nodule and outside labs. Intake Note: patient is scheduled to review image results Diplomatic Courier Required: No Allergies No Known Allergies Allergy (Verified 09/10/25 11:22) Medication List - Last Reconciled 09/10/25 by Aj Bustos MD acalabrutinib maleate (Calquence (acalabrutinib maleate)) mg PO alfuzosin ER 10 mg PO DAILY 30 days atorvastatin 40 mg PO DAILY finasteride 5 mg PO DAILY 90 days sulfamethoxazole-trimethoprim 400-80 mg (Bactrim) 1 tab PO BEDTIME Tobacco use date assessed: 01/23/25 Dental Screening Dental Screen Date: 01/23/25 HPI Follow-up thyroid nodule and outside labs. HPI Details 80 y/o male presents to f/u thyroid nodu le, labs. Thyroid ultrasound 08/18/25. 9 mm cyst seen at lower pole of L thyroi d lobe. Follow-up of the dominant nodule in the midportion of the left thyroid lobe was recommended. Had followed up with neurology for facial spasms. Studies were reviewed and had no evidence of stenosis, aneurysm or a new stroke. He continues to f/u with them. HPI Comments History of Present Illness Details Documentation assistance for Aj Bustos MD, was provided by Jhoan Mahmood, Travel Physical Therapist on 09/10/2025 at 12:21 PM EST. I, Dr. Bustos, have read, observed, and verified documentation. 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 Matt Puentes, Lee Ann Staley, Rocael Plascencia and colleagues, with an educational christa from [employer]. Review of Systems Const Denies chills, Denies fatigue, Denies fever(s), Denies headache(s) and Denies weakness ENT Denies dizziness and Denies headache(s) Card Denies dyspnea Resp Denies cough, Denies dyspnea, Denies wheezing and Denies other (shortness of breath) Musc Denies numbness and Denies tingling Neuro Denies dizziness, Denies headache(s), Denies numbness, Denies tingling and Denies weakness Psych Denies anxiety and Denies depression Endo Denies fatigue Aller/Immun Denies wheezing Physical exam (Primary Care) Vital Signs: Last Vital Signs Temp 97.5 F 09/10/25 11:29 Pulse 79 09/10/25 11:29 Resp 16 09/10/25 11:29 BP 120/80 09/10/25 11:29 Pulse Ox 98 09/10/25 11:29 Oxygen Delivery Method Room Air 09/10/25 11:29 BMI result Body Mass Index 24.4 Tobacco/Smoking Status: Tobacco use Status Tobacco use date assessed 01/23/25 09/08/25 12:06 Patient Tobacco Use Status Former Tobacco user 09/08/25 12:06 e-Cigarette/Vaping Use Never Used 09/08/25 12:06 Thrive Assessment: Date of Thrive Assessment Date Thrive assessed 01/19/25 09/08/25 12:06 Const General: well developed; No acute distress Nutritional Appearance: well nourished Orientation/consciousness: patient oriented x3 HENMT Head: Yes normocephalic and Yes atraumatic Eyes General: appearance normal, both eyes and all related structures Pupils: Equal, round and reactive pupils present EOM: EOMs intact bilaterally Resp Effort & Inspection: normal respiratory effort Neuro General: patient oriented x3 and gait normal Cranial nerves: Yes Equal, round and reactive pupils present Psych Affect: normal affect Telehealth Telehealth Telehealth Platform: Telephone Location of provider rendering services: practice address Location of patient: address on file Patient Identification confirmed using: Name, : Yes Telehealth method: voice only Patient verbally consented to treatment: Yes Patient verbally consented to billing insurance company: Yes Patient informed of any privacy concerns related to visit: Yes Coding Level of Care Code Est Pt Level 5 (28495) Diagnoses Thyroid nodule E04.1 Facial nerve spasm G51.39 Urinary retention R33.9 Lymphoma C85.90 Assessment & Plan Assessment & Plan (1) Thyroid nodule: Code(s): E04.1 - Nontoxic single thyroid nodule Category: Medical Plan: Largeer 1.5 x 1.1 x 0.8 cm. Left midportion thyroid nodule and smaller subcentimeter isthmus nodule. Patient notes that he had a ?drainage of thyroid lesion in the distant past. 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 He can follow-up with Neurology if any changes or worsening. (3) Urinary retention: Code(s): R33.9 - Retention of urine, unspecified Category: Medical Plan: Patient notes that he is urinating freely with alfuzosin and finasteride. He will continue these. No further dizziness Hydrate well He has an upcoming appointment with Urology. (4) Lymphoma: Code(s): C85.90 - Non-Hodgkin lymphoma, unspecified, unspecified site Category: Medical Plan: Followed by [facility] Most recent PET scan was stable Follow-up with oncology at [facility] as recommended Orders: Referrals Endocrinology Referral E04.1 - Nontoxic single thyroid nodule
--- OUTSIDE RECORDS SUMMARY | 2025-09-08 16:09 | XMS_ITS | Encounter Summary ---
Author Organization [facility] Address [address] [place] [address] Phone Care Team Providers Care Recoater Name Role Phone Claudette Junior MD Unavailable [phone] Jennie Arellano MD, MPH Unavailable [phone] Jhoan Padilla MD Unavailable Shirley Quintanilla MD Primary Care Provider [phone] Claudette Junior MD Primary Care Provider [phone] Aj Bustos MD Unavailable [phone] Aj Bustos MD Primary Care Provider Reason for Visit * Reason Comments Medication Refill Encounter Details Date Type Department Care Team (Late st Contact Info) Description 02/21/2024 Refill [facility], Division of Hematologic Oncology, [facility] [place] [address] [facility], 7th [place] [address] Lucia Isaac, [facility] [address] [place] [address] [email or web address] Medication Refill Social History Tobacco Use [...] 12/15/2025 10:15 AM EST Blood Draw Claire [facility] Imaging Department, [facility], Imaging Tentj-vj-Zakc [address] [place] [address], Floor [address]1 [place] [address] Claudette Junior MD [address] [place] [address] [email or web address] 12/15/2025 11:45 AM EST Appointment Claire [facility] Imaging Department, [facility], PET/CT [address] [place] [address] Lucia Isaac DNP [address] [place] [phone] [email or web address] Claudette Junior MD [address] [place] [phone] [email or web address] 12/15/2025 2:00 PM EST Office Visit [facility], Division of Hematologic Oncology, [address], 7th [place] [address] Claudette Junior MD [address] [place] [phone] [email or web address] documented as of this encounter Visit Diagnoses Not on filedocumented in this encounter Care Teams Recoater Relationship Specialty Start Date End Date Shirley Quintanilla MD [address] [place] [address] [place] [address] [email or web address] PCP - General Internal Medicine 08/14/19 10/20/24 Claudette Junior MD [address] [place] [phone] [email or web address] PCP - General Medical Oncology 10/21/24 Aj Bustos MD [address] [place] [address] PCP - General Family Medicine 03/02/25 Claudette Junior MD [address] [place] [phone] [email or web address] Internal Medicine 06/01/15 Jennie Arellano MD, MPH [address] [place] [address] [place] [address] [email or web address] Dermatology 06/25/18 Jhoan Padilla MD [address] [place] [address] [place] [address] [email or web address] Urology 06/25/18 Aj Bustos MD [address] [place] [address] Family Medicine 03/02/25 03/02/25 documented as of this encounter Additional Source Comments The information contained in this document represents components of the legal health record. It is not the complete legal health record.[facility]
--- OUTSIDE RECORDS SUMMARY | 2025-09-08 16:09 | XMS_ITS | Encounter Summary ---
Author Organization [facility] Address [address] [place] [address] Phone Care Team Providers Care Prison Warden Name Role Phone Clauedtte Junior MD Unavailable [phone] Jennie Arellano MD, MPH Unavailable [phone] Jhoan Padilla MD Unavailable [phone] Shirley Quintanilla MD Primary Care Provider [phone] Claudette Junior MD Primary Care Provider [phone] Aj Bustos MD Unavailable [phone] Aj Bustos MD Primary Care Provider Reason for Visit * Reason Comments Medication Refill Encounter Details Date Type Department Care Team (Late st Contact Info) Description 01/18/2022 Refill [facility], Division of Hematologic Oncology, [facility] [place] [address] [facility], 7th [place] [address] Alicia Bates NP [address] [place] [address] [email or web address] Medication Refill Social History Tobacco [...] 12/15/2025 10:15 AM EST Blood Draw Claire [facility] Imaging Department, [facility], Imaging Gnlpc-yv-Wudl [address] [facility], Floor [address]1 [place] [address] Claudette Junior MD [address] [place] [address] [email or web address] 12/15/2025 11:45 AM EST Appointment Claire [facility] Imaging Department, [facility], PET/CT [address] [place] [address] Lucia Isaac DNP [address] [place] [address] Merced@[facility] Claudette Junior MD [address] [place] [address] Zoila@[email or web address] 12/15/2025 2:00 PM EST Office Visit [facility], Division of Hematologic Oncology, [address], 7th [place] [address] Claudette Junior MD [address] [place] [address] [email or web address] documented as of this encounter Visit Diagnoses Not on filedocumented in this encounter Care Teams Prison Warden Relationship Specialty Start Date End Date Shirley Quintanilla MD [address] [place] [address] for [place] [address] [email or web address] PCP - General Internal Medicine 08/14/19 10/20/24 Claudette Junior MD [address] [place] [phone] [email or web address] PCP - General Medical Oncology 10/21/24 Aj Bustos MD [address] [place] [address] PCP - General Family Medicine 03/02/25 Claudette Junior MD [address] [place] [phone] [email or web address] Internal Medicine 06/01/15 Jennie Arellano MD, MPH [address] [place] [address] for [place] [address] [email or web address] Dermatology 06/25/18 Jhoan Padilla MD [address] [place] [address] [place] [address] [email or web address]. Urology 06/25/18 Aj Bustos MD [address] [place] [address] Family Medicine 03/02/25 03/02/25 documented as of this encounter Additional Source Comments The information contained in this document represents components of the legal health record. It is not the complete legal health record.[facility]
--- OUTSIDE RECORDS SUMMARY | 2025-09-08 16:09 | XMS_ITS | Encounter Summary ---
Author Organization [facility] Address [address] [facility] [address] [place] [address] Phone Care Team Providers Care Jewel Flat Surfacer Name Role Phone Claudette Junior MD Unavailable [phone] Jennie Arellano MD, MPH Unavailable [phone] Jhoan Padilla MD Unavailable Shirley Quintanilla MD Primary Care Provider [phone] Claudette Junior MD Primary Care Provider [phone] Aj Bustos MD Unavailable Aj Bustos MD Primary Care Provider Reason for Visit * Reason Comments Medication Refill Encounter Details Date Type Department Care Team (Late st Contact Info) Description 05/26/2023 Refill [facility], Division of Hematologic Oncology, [facility] [place] [address] [facility], 7th [place] [address] Lucia Isaac, [facility] [address] [place] [address] [email or web address] Medication Refill Social History Tobacco Use [...] 12/15/2025 10:15 AM EST Blood Draw Claire [facility] Imaging Department, [facility], Imaging Wqxxf-rj-Zhhr [address] [place] [address], Floor [address] [place] [address] Claudette Junior MD [address] [place] [phone] [email or web address] 12/15/2025 11:45 AM EST Appointment Claire [facility] Imaging Department, [facility], PET/CT [address] [place] [address] Lucia Iasac DNP [address] [place] [phone] [email or web address] Claudette Junior MD [address] [place] [phone] [email or web address] 12/15/2025 2:00 PM EST Office Visit [facility], Division of Hematologic Oncology, [address], 7th [place] [address] Claudette Junior MD [address] [place] [address] [email or web address] documented as of this encounter Visit Diagnoses Not on filedocumented in this encounter Care Teams Jewel Flat Surfacer Relationship Specialty Start Date End Date Shirley Quintanilla MD [address] [place] [address] [place] [address] [email or web address] PCP - General Internal Medicine 08/14/19 10/20/24 Claudette Junior MD [address] [place] [phone] [email or web address] PCP - General Medical Oncology 10/21/24 Aj Bustos MD [address] [place] [address] PCP - General Family Medicine 03/02/25 Claudette Junior MD [address] [place] [phone] Zoila@[email or web address] Internal Medicine 06/01/15 Jennie Arellano MD, MPH [address] [place] [address] [place] [address] [email or web address] Dermatology 06/25/18 Jhoan Padilla MD [address] [place] [address] [place] [address] [email or web address]. Urology 06/25/18 Aj Bustos MD [address] [place] [address] Family Medicine 03/02/25 03/02/25 documented as of this encounter Additional Source Comments The information contained in this document represents components of the legal health record. It is not the complete legal health record.[facility]
--- OUTSIDE RECORDS SUMMARY | 2025-09-08 16:09 | XMS_ITS | Encounter Summary ---
Author Organization [facility] Address [address] [facility] [address] [place] [address] Phone Care Team Providers Care Coal Tram Driver Name Role Phone Claudette Junior MD Unavailable [phone] Jennie Arellano MD, MPH Unavailable [phone] Jhoan Padilla MD Unavailable Aj Bustos MD Primary Care Provider Reason for Visit * Reason Comments Medication Refill Encounter Details Date Type Department Care Team (Late st Contact Info) Description 08/27/2025 Refill [facility], Division of Hematologic Oncology, [facility] [place] [address] [facility], 7th [place] [address] Lucia Isaac, [facility] [address] [place] [address] [email or web address] Medication Refill Social History Tobacco [...] Description 12/15/2025 10:15 AM EST Blood Draw [facility] Imaging Department, [facility], Imaging Uvogt-cv-Thaf [address] [facility], Floor [address]1 [place] [address] Claudette Junior MD [address] [place] [address] [email or web address] 12/15/2025 11:45 AM EST Appointment [facility] Imaging Department, [facility], PET/CT [address] [place] [address] Lucia Isaac DNP [address] [place] [phone] [email or web address] Claudette Junior MD [address] [place] [phone] [email or web address] 12/15/2025 2:00 PM EST Office Visit [facility], Division of Hematologic Oncology, [address], 7th [place] [address] Claudette Junior MD [address] [place] [phone] [email or web address] documented as of this encounter Visit Diagnoses Not on filedocumented in this encounter Care Teams Coal Tram Driver Relationship Specialty Start Date End Date Aj Bustos MD [address] [place] [address] PCP - General Family Medicine 03/02/25 Claudette Junior MD [address] [place] [phone] [email or web address] Internal Medicine 06/01/15 Jennie Arellano MD, MPH [address] [place] [address] [place] [address] [email or web address] Dermatology 06/25/18 Jhoan Padilla MD [address] [place] [address] [place] [address] [email or web address] Urology 06/25/18 documented as of this encounter Additional Source Comments The information contained in this document represents components of the legal health record. It is not the complete legal health record.[facility]
--- OUTSIDE RECORDS SUMMARY | 2025-09-08 16:09 | XMS_ITS | Encounter Summary ---
Author Organization [facility] Address [address] [facility] [address] [place] [address] Phone Care Team Providers Care Welt Rougher Name Role Phone Shirley Quintanilla MD Primary Care Provider [phone] Shirley Quintanilla MD Unavailable [phone] Claudette Junior MD Unavailable [phone] Shirley Quintanilla MD Unavailable [phone] Claudette Junior MD Unavailable [phone] Shirley Quintanilla MD Unavailable Bozena Means MD Unavailable [phone] Jennie Arellano MD, MPH Unavailable [phone] Jhoan Padilla MD Unavailable [phone] Shirley Quintanilla MD Primary Care Provider Claudette Junior MD Primary Care Provider [phone] Aj Bustos MD Unavailable [phone] Aj Bustos MD Primary Care Provider Encounter Details Date Type Department Care Team (Late st Contact Info) Description 05/01/2017 Procedure Pass Claire [facility] Imaging Department, [facility] [place] [place] [address] [facility], [address] [place] [address] Social History Tobacco Use Types Packs/Day Years [...] Description 12/15/2025 10:15 AM EST Blood Draw [facility] Imaging Department, [facility], Imaging Hoxmg-jg-Izdv [address] [facility], Floor [address] [place] [address] Claudette Junior MD [address] [place] [phone] [email or web address] 12/15/2025 11:45 AM EST Appointment [facility] Imaging Department, [facility], PET/CT [address] [place] [address] Lucia Isaac DNP [address] [place] [phone] Merced@[email or web address] Claudette Junior MD [address] [place] [address] [email or web address] 12/15/2025 2:00 PM EST Office Visit [facility], Division of Hematologic Oncology, [address], [address]th [place] [address] Claudette Junior MD [address] [place] [phone] [email or web address] documented as of this encounter Visit Diagnoses Not on filedocumented in this encounter Care Teams Welt Rougher Relationship Specialty Start Date End Date Shirley Quintanilla MD [email or web address] PCP - General Internal Medicine 06/01/15 08/13/19 Shirley Quintanilla MD [email or web address] PCP - General Internal Medicine 08/14/19 10/20/24 Claudette Junior MD [address] [place] [phone] [email or web address] PCP - General Medical Oncology 10/21/24 03/01/25 Aj Bustos MD [address] [place] [address] PCP - General Family Medicine 03/02/25 Shirley Quintanilla MD [email or web address] Internal Medicine 06/01/15 12/12/17 Claudette Junior MD [address] [place] [phone] [email or web address] Internal Medicine 06/01/15 Shirley Quintanilla MD [email or web address] Internal Medicine 06/01/15 12/12/17 Claudette Junior MD [address] [place] [address] [email or web address] Internal Medicine 06/01/15 12/12/17 Shirley Quintanilla MD [email or web address] Internal Medicine 06/01/15 12/12/17 Bozena [place] MD [address] [place] [address] Referring Physician Hematology 05/01/16 06/24/18 Jennie Arellano MD, MPH [address] [place] [address] [place] [address] [email or web address] Dermatology 06/25/18 Jhoan Padilla MD [address] [place] [address] [place] [address] [email or web address] Urology 06/25/18 Aj Bustos MD [address] [place] [address] Family Medicine 03/02/25 03/02/25 documented as of this encounter Additional Source Comments The information contained in this document represents components of the legal health record. It is not the complete legal health record.[facility]
--- OUTSIDE RECORDS SUMMARY | 2025-09-08 16:09 | XMS_ITS | Encounter Summary ---
Author Organization [facility] Address [address] [place] [address] Phone Care Team Providers Care Boring Mill Set Up Operator Vertical Name Role Phone Shirley Quintanilla MD Primary Care Provider [phone] Shirley Quintanilla MD Unavailable [phone] Claudette Junior MD Unavailable [phone] Shirley Quintanilla MD Unavailable Claudette Junior MD Unavailable [phone] Shirley Quintanilla MD Unavailable Bozena Means MD Unavailable Jennie Arellano MD, MPH Unavailable [phone] Jhoan Padilla MD Unavailable [phone] Shirley Quintanilla MD Primary Care Provider Claudette Junior MD Primary Care Provider [phone] Aj Bustos MD Unavailable [phone] Aj Bustos MD Primary Care Provider Encounter Details Date Type Department Care Team (Late st Contact Info) Description 12/26/2016 Procedure Pass [facility] Livestock Nutrition Territory Manager Center [address] [place] [address] Social History Tobacco Use Types Packs/Day Years [...] 10:15 AM EST Blood Draw [facility] Imaging Department, [facility], Imaging Upqjx-ux-Aclo [address], [place] [address] [place] [address] Claudette Junior MD [address] [place] [address] [email or web address] 12/15/2025 11:45 AM EST Appointment [facility] Imaging Department, [facility], PET/CT [address] [place] [address] Lucia Isaac DNP [address] [place] [address] [email or web address] Claudette Junior MD [address] [place] [address] [email or web address] 12/15/2025 2:00 PM EST Office Visit [facility], Division of Hematologic Oncology, [address], 7th [place] [address] Claudette Junior MD [address] [place] [address] [email or web address] documented as of this encounter Visit Diagnoses Not on filedocumented in this encounter Care Teams Boring Mill Set Up Operator Vertical Relationship Specialty Start Date End Date Shirley Quintanilla MD [email or web address] PCP - General Internal Medicine 06/01/15 08/13/19 Shirley Quintanilla MD [email or web address] PCP - General Internal Medicine 08/14/19 10/20/24 Claudette Junior MD [address] [place] [address] [email or web address] PCP - General Medical Oncology 10/21/24 03/01/25 Aj Bustos MD [address] [place] [address] PCP - General Family Medicine 03/02/25 Shirley Quintanilla MD [email or web address] Internal Medicine 06/01/15 12/12/17 Claudette Junior MD [address] [place] [address] [email or web address] Internal Medicine 06/01/15 Shirley Quintanilla MD [email or web address] Internal Medicine 06/01/15 12/12/17 Claudette Junior MD [address] [place] [address] [email or web address] Internal Medicine 06/01/15 12/12/17 Shirley Quintanilla MD [email or web address] Internal Medicine 06/01/15 12/12/17 Bozena Means MD [address] [place] [address] Referring Physician Hematology 05/01/16 06/24/18 Jennie Arellano MD, MPH [address] [facility] [place] [address] [email or web address] Dermatology 06/25/18 Jhoan Padilla MD [address] [place] [address] [place] [address] [email or web address] Urology 06/25/18 Aj Bustos MD [address] [place] [address] Family Medicine 03/02/25 03/02/25 documented as of this encounter Additional Source Comments The information contained in this document represents components of the legal health record. It is not the complete legal health record.[facility]
--- OUTSIDE RECORDS SUMMARY | 2025-09-08 16:09 | XMS_ITS | Clinical Summary ---
Author Organization [facility] Address [address] [place] [address] Phone Care Team Providers Care Manufacturing Software Engineer Name Role Phone Claudette Junior MD Unavailable [phone] Jennie Arellano MD, MPH Unavailable Jhoan Padilla MD Unavailable Aj Bustos MD Primary Care Provider Allergies No known active allergies Medications aspirin 81 MG EC tablet Take 81 mg by mouth daily. Active atorvastatin (LIPITOR) 40 MG tablet Take 40 mg by mouth daily. 2 Active sulfamethoxazo le-trimethopri m (BACTRIM,SEPTR A) 400-80 mg per tablet Take 1 tablet [...] Take 10 mg by mouth daily. Active finasteride (PROSCAR) 5 mg tablet 5 Active bethanechol (URECHOLINE) 50 MG tablet Take 1 tablet by mouth 2 (two) times a day. 025 Discontin ued(No longer taking) Active Problems Problem Noted Date Diagnosed Date Myopia 11/05/2023 Dupuytren's contracture of right hand 02/21/2023 Transient ischemic attack 11/07/2021 Coronary artery disease invo lving [place] coronary artery of [place] heart without angina pectoris 11/07/2021 Mantle cell [...] but he will discuss this with his alignment mechanic. H/O lymphoma 05/04/2010 Overview (01/09/2015): H/O lymphoma [...] Encounters Date Type Department Care Team Description 09/08/2025 10:30 AM EDT Office Visit [facility], Division of Hematologic Oncology, [facility] [place] [address] [facility], 7th [place] [address] Lucia IsaacMACARIO Mantle cell lymphoma, unspecified body region (Primary Dx) 08/27/2025 Refill [facility], Division of Hematologic Oncology, [facility] [address] [facility], 7th [place] [address] Lucia Isaac DNP Medication Refill 07/08/2025 Orders Only Infusion Therapy Services [place] [address], [facility] [address] [facility], 7th [place] [address] Claudette Junior MD Mantle cell lymphoma, unspecified body region (Primary Dx) from Last 3 Months Immunizations Immunization Administration Dates Next Due COVID-19 (Pre-09/10) Pfizer Vaccine, mRNA, PF 08/24/2023,08/10/2021 Cholera, unspecified formulation 07/01/1986,10/19,01/10/1983 DTaP, unspecified formulation 09/22/2010, 009 [id number] FORMULATION 10/16/2009 Hepatitis A, Adult 04/08/2008 Hib, unspecified formulation 09/22/2010,10/22/20 09 INFLUENZA, SPLIT VIRUS, TRIVALENT PF 10/03/2012 INFLUENZA, SPLIT VIRUS, TRIV ALENT W/ PRESERVATIVE IM 09/08/2014 Immune Globulin 01/10/1983 Influenza High-Dose Quadriva lent Preservative Free IM 08/24/2023,07/22/2021 Influenza High-Dose Trivalen t Preservative Free IM 12/05/2024,08/24/2023,07/22/2021,08/18 Influenza Quadrivalent Adjuv anted Preservative Free IM 09/04/2022,07/28/2020 Influenza Trivalent Adjuvant ed Preservative free IM 08/21/2025,11/07/2019,10/07/2018,08/23 Influenza, Unspecified Formulation 08/28,09/07/2011,09/22/2010,09/21,08/30/2005,08/25/1996 MMR 09/22/2010 Meningococcal MPSV4 10/22/2009 PPD Test 08/07/2008 Pneumococcal conjugate PCV13 09/22/2010 Pneumococcal conjugate PCV20 08/02/2008 Pneumococcal conjugate, PCV 7 10/22/2009 Pneumococcal polysaccharide PPSV23 08/02/2008(De javi: Patient Decision) RSV Vaccine (monovalent, adjuvanted) 01/24/2025 Td (adult) 5 Lf Tetanus Toxo id, PF, Adsorbed 01/15/2006,07/08/1996 Td, unspecified formulation 11/30/2009 Tdap 09/19/2010 Typhoid,oral 04/08/2008 Zoster live 01/31/2011 Family History Medical History Relation Comments Basal [...] F) 09/08/2025 10:12 AM EDT Respiratory Rate 18 06/02/2025 10:14 AM EDT Oxygen Saturation 99% 09/08/2025 10:12 AM EDT Inhaled Oxygen Concentration - - Weight 71.4 kg (157 lb 6.5 oz) 09/08/2025 10:12 AM EDT Height 173.2 cm (5' 8.19 ) 09/08/2025 10:12 AM E DT Body Mass Index 23.8 09/08/2025 10:12 AM EDT Plan of Treatment Upcoming Encounters Date Type Department Care Team (Late st Contact Info) Description 12/15/2025 10:15 AM EST Blood Draw [facility] Imaging Department, [facility], Imaging Bbswp-te-Aehb [address] [place] [address], Floor [address]1 [place] [address] Claudette Junior MD [address] [place] [address] [email or web address] 12/15/2025 11:45 AM EST Appointment [facility] Imaging Department, [facility], PET/CT [address] [place] [address] Lucia Isaac DNP [address] [place] [address] [email or web address] Claudette Junior MD [address] [place] [address] [email or web address] 12/15/2025 2:00 PM EST Office Visit [facility], Division of Hematologic Oncology, [address], [address]th [place] [address] Claudette Junior MD [address] [place] [phone] [email or web address] Health Maintenance Due Date Last Done Comments COLOGUARD 1989 FIT TEST 1989 FOBT 1989 SIGMOIDOSCOPY 1989 VIRTUAL COLONOSCOPY 1989 ZOSTER VACCINES (1 of 2) 03/28/2011 01/31/2011 COLONOSCOPY 01/18/2015 01/18/2010 COLORECTAL CANCER SCREENING 01/18/2015 Adult Td,Tdap Booster 09/19/2020 09/19/2010 , 11/30/2009, 01/15/2006, Additional history exists COVID-19 VACCINE (8 - 2025-26 season) 2025 06/26/2025, 03/07/2025, 12/15/2024, Additional history exists DEPRESSION SCREENING 09/09/2025 09/09/2024 HEPATITIS A VACCINES Aged Out 04/08/2008 No long er eligible based on patient's age to complete this topic MENINGOCOCCAL VACCINES (ACWY) Aged Out 10/22/2009 No longer eligible based on patient's age to complete this topic HIB VACCINES Aged Out 09/22/2010, 10/22/2009 No lo nger eligible based on patient's age to complete this topic PNEUMOCOCCAL VACCINES (50+ years) Completed 09/22/2010, 08/02/2008 RSV VACCINE Completed 01/24/2025 INFLUENZA VACCINE Completed 08/21/2025, , 08/28/2023, Additional history exists MENINGOCOCCAL VACCINES (B) Aged Out N o longer eligible based on patient's age to complete this topic Medical Devices Not on file Procedures Procedure Name Priority Date/Time Associated Diagnosis Comments LDH Routine 09/08/2025 10:02 AM EDT 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 COMPREHENSIVE METABOLIC PANEL Routine 09/08/2025 10:02 AM EDT 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 CBC AND DIFFERENTIAL Routine 09/08/2025 10:02 AM EDT 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 ENDOSCOPY, COLON 01/18/2010 2:59 PM EST from Last 3 Months or Most Recently Relevant to Health Maintenance Results * LDH (09/08/2025 10:02 AM EDT) LDH 153 135 - 225 U/L [facility] Blood 09/08/2025 10:0 2 AM EDT 09/08/2025 10:34 AM EDT us Lucia Isaac DNP LAB BLOOD ORDERABLES Fin al Result [facility] [address] [place] [address] * (ABNORMAL) Comprehensive metabolic panel (09/08/2025 10:02 AM EDT) SODIUM 144 136 - 145 mmol/L [facility] POTASSIUM 4.6 3.4 - 5.1 mmol/L [facility] CHLORIDE 110(H) 98 - 107 mmol/L [facility] CO2 21(L) 22 - 31 mmol/L [facility] BUN 18 6 - 23 mg/dL [facility] CREATININE 1.59(H) 0.50 - 1.20 mg/dL [facility] GLUCOSE 76 70 - 100 mg/dL [facility] ALBUMIN 4.3 3.5 - 5.2 g/dL [facility] TOTAL PROTEIN 5.9(L) 6.4 - 8.3 g/dL [facility] CALCIUM 9.0 8.8 - 10.7 mg/dL [facility] ALKALINE PHOSPHATASE 72 40 - 129 U/L [facility] TOTAL BILIRUBIN 0.5 0.2 - 1.2 mg/dL [facility] AST 14 <41 U/L [facility] ALT 14 <42 U/L [facility] GLOBULIN 1.6(L) 2.3 - 4.2 g/dL [facility] EGFR 43(L) >59 mL/min/1.7 3m2 [facility] Comment:Estimated glomerular filtration rate calculated using the CKD-EPI refit equation. ANION GAP 13 7 - 17 mmol/L [facility] Blood 09/08/2025 10:0 2 AM EDT 09/08/2025 10:34 AM EDT us Lucia Isaac [facility] LAB BLOOD ORDERABLES Fin al Result [facility] [address] [place] [address] * (ABNORMAL) CBC and differential (09/08/2025 10:02 AM EDT) WBC 20.83(H) 4.00 - 10.00 K/uL [facility] RBC 3.66(L) 4.50 - 6.40 M/uL [facility] HGB 11.4(L) 13.5 - 18.0 g/dL [facility] HCT 34.7(L) 40.0 - 54.0 % [facility] PLT 78(L) 150 - 450 K/uL [facility] MCV 94.8 80.0 - 100.0 fL [facility] MCH 31.1 27.0 - 32.0 pg [facility] MCHC 32.9 32.0 - 36.0 g/dL [facility] RDW 14.6(H) 11.5 - 14.5 % [facility] MPV 10.5 8.4 - 12.0 fL [facility] NRBC 0.00 0 /100 WBCs [facility] ABSOLUTE NRBC 0.00 0 K/uL [facility] DIFF METHOD MANUAL [facility] NEUTS (MANUAL) 9.2(L) 48.0 - 76.0 % [facility] LYMPHS 87.0(H) 18.0 - 41.0 % [facility] MONOS 3.8(L) 4.0 - 11.0 % [facility] EOSINOPHIL 0.0 0.0 - 5.0 % [facility] BASOPHIL 0.0 0.0 - 1.5 % [facility] BLASTS 0.0 0 % [facility] ABSOLUTE NEUTS 1.92 1.92 - 7.60 K/uL [facility] ABSOLUTE LYMPHS 18.12(H) 0.72 - 4.10 K/uL [facility] ABSOLUTE MONOS 0.79 0.16 - 1.10 K/uL [facility] ABSOLUTE EOS 0.00 0.00 - 0.50 K/uL [facility] ABSOLUTE BASO 0.00 0.00 - 0.15 K/uL [facility] ABSOLUTE BLASTS 0.00 0 K/uL [facility] ROGERIO CELLS Few [facility] POIKILOCYTOSIS Few [facility] OVALOCYTES Few [facility] Blood 09/08/2025 10:0 2 AM EDT 09/08/2025 10:34 AM EDT us Lucia Isaac DNP LAB BLOOD ORDERABLES Fin al Result Performing Organization Address City/State/[facility] Co de Phone Number [facility] [address] [place] [address] * ENDOSCOPY, COLON (01/18/2010 2:59 PM EST) 01/18/2010 2:59 PM EST Narrative 01/18/2010 2:59 PM EST Report Number: [id number] Report Status: Signed Type: COLONOSCOPY Date: 01/18/2010 14:59 [facility] Gastroenterology Patient Name: Matt [...] - 01/18/2010 2:59 PM EST Report Number: [id number] Report Status: Signed Type: COLONOSCOPY Date: 01/18/2010 14:59 [facility] Gastroenterology Patient Name: Matt [...] 0 Note initiated on 01/18/2010 9:15 AM us Jovan Christine MD GI PROCEDURE ORDERABLES Kathy l Result from Last 3 Months or Most Recently Relevant to Health Maintenance Insurance MEDICARE PART A & B Member Subscriber Plan / Payer (Ef fective 2009-Present) Name:Matt Hoffman Member ID:[id number] Relation to Subscriber:Self Name:Matt Hoffman Subscriber ID:[id number] Payer ID:[id number] Group ID:Not on file Type:Medicare Address: [employer] [facility] [address] [facility] [place] [address] [facility] MEDEX SUPPLEMENT MEDICARE PART A & B [employer] MEDEX SUPPLEMENT MEDICARE PART A & B [employer] MEDEX SUPPLEMENT MEDICARE PART A & B House [employer] MEDEX SUPPLEMENT [address] [place] [address] MEDICARE PART A & B [employer] MEDEX SUPPLEMENT MEDICARE PART A & B [employer] MEDEX SUPPLEMENT MEDICARE PART A & B [employer] MEDEX SUPPLEMENT (Home) [address] [facility], [address] [address] MEDICARE PART A & B [facility] MEDEX SUPPLEMENT MEDICARE PART A & B [employer] MEDEX SUPPLEMENT Care Teams Manufacturing Software Engineer Relationship Specialty Start Date End Date Aj Bustos MD [address] [place] [address] PCP - General Family Medicine 03/02/25 Claudette Junior MD [address] [place] [address] [email or web address] Internal Medicine 06/01/15 Jennie Arellano MD, MPH [address] [place] [address] [place] [address] [email or web address] Dermatology 06/25/18 Jhoan Padilla MD [address] [place] [address] [place] [address] [email or web address]. Urology 06/25/18 Additional Source Comments The information contained in this document represents components of the legal health record. It is not the complete legal health record.[facility]
--- OUTSIDE RECORDS SUMMARY | 2025-09-08 16:09 | XMS_ITS | Patient Health Record ---
Author Organization [facility] Address [address] [place] [address] Care Team Providers Care Suspender Cutter Name Role Phone DO NOT USE Shirley Quintanilla MD Primary Care Provider Unavailable PHYLLIS, ANGELA Unavailable [phone] Migration, Provider Unavailable Unavailable Allergies No Known Allergies Reason For Referral No Information Medications Medication SIG (Take, Route, Frequency, Duration) Notes Start Date End Date Status Calquence 100 MG CAPSULE 1 CAP(S) ORALLY EVERY 12 HOURS; Duration: 30 DAY(S) *Please review and pick correct strength-formulatio n from [employer] options. 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) Active confirmed Problem Retention of urine (871745517) Other retention of urine (R33.8) Active confirmed Problem 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 [place] [address] [id number] Matt Schmidt am Self - patient is the insured BCBS - [employer] [address] [place] [address] [id number] Matt Schmidt am Self - patient is the insured Medical (General) History Medical History History ICD Code Mantle Cell Lymphoma hyperlipidemia Surgical History Surgery Date(Month/Year) Button TURP 2013 acoustic neuroma - gamma knife 1999 knee arthroscopy
--- OUTSIDE RECORDS SUMMARY | 2025-09-08 16:09 | XMS_ITS | Encounter Summary ---
Author Organization [facility] Address [address] [place] [address] Phone Care Team Providers Care Industrial Gas Service Helper Name Role Phone Claudette Junior MD Unavailable [phone] Jennie Arellano MD, MPH Unavailable [phone] Jhoan Padilla MD Unavailable [phone] Shirley Quintanilla MD Primary Care Provider [phone] Claudette Junior MD Primary Care Provider Aj Bustos MD Unavailable [phone] Aj Bustos MD Primary Care Provider Reason for Visit * Reason Comments Medication Refill Encounter Details Date Type Department Care Team (Late st Contact Info) Description 03/25/2022 Refill [facility], Division of Hematologic Oncology, [facility] [place] [address] [facility], 7th [place] [address] Alicia Bates NP [address] [place] [address] [email or web address] Medication Refill Social History Tobacco [...] 12/15/2025 10:15 AM EST Blood Draw [facility] Imaging Department, [facility], Imaging Mcyfv-on-Catz [address] [facility], Floor [address] [place] [address] Claudette Junior MD [address] [place] [address] [email or web address] 12/15/2025 11:45 AM EST Appointment [facility] Imaging Department, [facility], PET/CT [address] [place] [address] Lucia Isaac DNP [address] [place] [address] [email or web address] Claudette Junior MD [address] [place] [address] [email or web address] 12/15/2025 2:00 PM EST Office Visit [facility], Division of Hematologic Oncology, [address], [address]th [place] [address] Claudette Junior MD [address] [place] [address] [email or web address] documented as of this encounter Visit Diagnoses Not on filedocumented in this encounter Care Teams Industrial Gas Service Helper Relationship Specialty Start Date End Date Shirley Quintanilla MD [address] [place] [address] [place] [address] [email or web address] PCP - General Internal Medicine 08/14/19 10/20/24 Claudette Junior MD [address] [place] [address] [email or web address] PCP - General Medical Oncology 10/21/24 Aj Bustos MD [address] [place] [address] PCP - General Family Medicine 03/02/25 Claudette Junior MD [address] [place] [address] [email or web address] Internal Medicine 06/01/15 Jennie Arellano MD, MPH [address] [place] [address] [place] [address] [email or web address] Dermatology 06/25/18 Jhoan Padilla MD [address] [place] [address] [place] [address] [email or web address] Urology 06/25/18 Aj Bustos MD [address] [place] [address] Family Medicine 03/02/25 03/02/25 documented as of this encounter Additional Source Comments The information contained in this document represents components of the legal health record. It is not the complete legal health record.[facility]
--- OUTSIDE RECORDS SUMMARY | 2025-09-08 16:09 | XMS_ITS ---
Author Organization [facility] Address [address] [facility] [address] [place] [address] Phone Care Team Providers Care Foxing Closer Name Role Phone Claudette Junior MD Unavailable [phone] Jennie Arellano MD, MPH Unavailable Jhoan Padilla MD Unavailable Aj Bustos MD Primary Care Provider Active Problems Problem Noted Date Diagnosed Date Myopia 11/05/2023 Dupuytren's contracture of right hand 02/21/2023 Transient ischemic attack 11/07/2021 Coronary artery disease invo lving [place] coronary artery of [place] heart without angina pectoris 11/07/2021 Mantle cell [...] but 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 H/O lymphoma 05/04/2010 Overview (01/09/2015): H/O lymphoma [...]
--- OUTSIDE RECORDS SUMMARY | 2025-09-08 16:10 | XMS_ITS | Encounter Summary ---
Author Organization [facility] Address [address] [place] [address] Phone Care Team Providers Care Reset Merchandiser Name Role Phone Claudette Junior MD Unavailable [phone] Jennie Arellano MD, MPH Unavailable [phone] Jhoan Padilla MD Unavailable Shirley Quintanilla MD Primary Care Provider [phone] Claudette Junior MD Primary Care Provider [phone] Aj Bustos MD Unavailable [phone] Aj Bustos MD Primary Care Provider Reason for Visit * Reason Comments Medication Refill Encounter Details Date Type Department Care Team (Late st Contact Info) Description 02/09/2023 Refill [facility], Division of Hematologic Oncology, [facility] [place] [address] [place] [address], 7th [place] [address] Telly Parsons, HOG RIBBER [address] [place] [address] [email or web address] Medication Refill Social History Tobacco Use Types [...] Description 12/15/2025 10:15 AM EST Blood Draw [facility] Imaging Department, [facility], Imaging Ufvid-ue-Afzb [address] [place] [address], Floor L1 [place] [address] Claudette Junior MD [address] [place] [address] [email or web address] 12/15/2025 11:45 AM EST Appointment [facility] Imaging Department, [facility], PET/CT [address] [place] [address] Lucia Isaac DNP [address] [place] [address] [email or web address] Claudette Junior MD [address] [place] [address] [email or web address] 12/15/2025 2:00 PM EST Office Visit [facility], Division of Hematologic Oncology, [address], 7th [place] [address] Claudette Junior MD [address] [place] [address] [email or web address] documented as of this encounter Visit Diagnoses Not on filedocumented in this encounter Care Teams Reset Merchandiser Relationship Specialty Start Date End Date Shirley Quintanilla MD [address] [place] [address] [place] [address] [email or web address] PCP - General Internal Medicine 08/14/19 10/20/24 Claudette Junior MD [address] [place] [address] [email or web address] PCP - General Medical Oncology 10/21/24 Aj Bustos MD [address] [place] [address] PCP - General Family Medicine 03/02/25 Claudette Junior MD [address] [place] [address] [email or web address] Internal Medicine 06/01/15 Jennie Arellano MD, MPH [address] [place] [address] [place] [address] [email or web address] Dermatology 06/25/18 Jhoan Padilla MD [address] [place] [address] [place] [address] [email or web address] Urology 06/25/18 Aj Bustos MD [address] [place] [address] Family Medicine 03/02/25 03/02/25 documented as of this encounter Additional Source Comments The information contained in this document represents components of the legal health record. It is not the complete legal health record.[facility]
--- OUTSIDE RECORDS SUMMARY | 2025-09-08 16:10 | XMS_ITS | Encounter Summary ---
Author Organization [facility] Address [address] [facility] [address] [place] [address] Phone Care Team Providers Care Electrical Maintenance Supervisor Name Role Phone Shirley Quintanilla MD Primary Care Provider [phone] Shirley Quintanilla MD Unavailable [phone] Claudette Junior MD Unavailable [phone] Shirley Quintanilla MD Unavailable [phone] Claudette Junior MD Unavailable [phone] Shirley Quintanilla MD Unavailable [phone] Bozena Means MD Unavailable [phone] Jennie Arellano MD, MPH Unavailable [phone] Jhoan Padilla MD Unavailable [phone] Shirley Quintanilla MD Primary Care Provider Claudette Junior MD Primary Care Provider [phone] Aj Bustos MD Unavailable [phone] Aj Bustos MD Primary Care Provider Encounter Details Date Type Department Care Team (Late st Contact Info) Description 05/01/2017 Procedure Pass [facility] Imaging Department, [facility] [place], [place] [address] [facility], Floor [address]1 [place] [address] Social History Tobacco Use Types Packs/Day Years [...] Description 12/15/2025 10:15 AM EST Blood Draw [facility] Imaging Department, [facility], Imaging Qiggz-fj-Jqok [address] [facility], Floor [address]1 [place] [address] Claudette Junior MD [address] [place] [address] [email or web address] 12/15/2025 11:45 AM EST Appointment [facility] Imaging Department, [facility], PET/CT [address] [place] [address] Lucia Isaac DNP [address] [place] [address] [email or web address] Claudette Junior MD [address] [place] [address] [email or web address] 12/15/2025 2:00 PM EST Office Visit [facility] for Lymph[facility], Division of Hematologic Oncology, [address], 7th [place] [address] Claudette Junior MD [address] [place] [address] [email or web address] documented as of this encounter Visit Diagnoses Not on filedocumented in this encounter Care Teams Electrical Maintenance Supervisor Relationship Specialty Start Date End Date Shirley Quintanilla MD [email or web address] PCP - General Internal Medicine 06/01/15 08/13/19 Shirley Quintanilla MD [email or web address] PCP - General Internal Medicine 08/14/19 10/20/24 Claudette Junior MD [address] [place] [address] [email or web address] PCP - General Medical Oncology 10/21/24 03/01/25 Aj Bustos MD [address] [place] [address] PCP - General Family Medicine 03/02/25 Shirley Quintanilla MD [email or web address] Internal Medicine 06/01/15 12/12/17 Claudette Junior MD [address] [place] [address] [email or web address] Internal Medicine 06/01/15 Shirley Quintanilla MD [email or web address] Internal Medicine 06/01/15 12/12/17 Claudette Junior MD [address] [place] [address] [email or web address] Internal Medicine 06/01/15 12/12/17 Shirley Quintanilla MD [email or web address] Internal Medicine 06/01/15 12/12/17 Bozena Means MD [address] [place] [address] Referring Physician Hematology 05/01/16 06/24/18 Jennie Arellano MD, MPH [address] [place] [address] [place] [address] [email or web address] Dermatology 06/25/18 Jhoan Padilla MD [address] [place] [address] [place] [address] [email or web address]. Urology 06/25/18 Aj Bustos MD [address] [place] [address] Family Medicine 03/02/25 03/02/25 documented as of this encounter Additional Source Comments The information contained in this document represents components of the legal health record. It is not the complete legal health record.[facility]
[2025-09-10 11:29] VITALS: BP 120/80; PULSE 79; RESP 16; TEMP 36.4; O2SAT 98; BMI 24.4
--- OUTSIDE RECORDS SUMMARY | 2025-09-10 14:22 | XMS_ITS ---
Author Organization [facility] Address [address] [facility] [address] [place] [address] Phone Care Team Providers Care Flight Attendant/Inflight Supervisor Name Role Phone Claudette Junior MD Unavailable [phone] Jennie Arellano MD, MPH Unavailable Jhoan Padilla MD Unavailable [phone] Aj Bustos MD Primary Care Provider Active Problems Problem Noted Date Diagnosed Date Myopia 11/05/2023 Dupuytren's contracture of right hand 02/21/2023 Transient ischemic attack 11/07/2021 Coronary artery disease invo lving nikolai coronary artery of nikolai heart without angina pectoris 11/07/2021 Mantle cell [...] but he will discuss this with his data science and iot manager. H/O lymphoma 05/04/2010 Overview (01/09/2015): H/O lymphoma [...]
--- OUTSIDE RECORDS SUMMARY | 2025-09-10 14:22 | XMS_ITS | Clinical Summary ---
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 H/O lymphoma 05/04/2010 Overview (01/09/2015): H/O lymphoma [...] Center for Lymphoma, Division of Hematologic Oncology, [facility] [address] [facility], 7th [place] [address] Lucia IsaacMACARIO Mantle cell lymphoma, unspecified body region (Primary Dx) 08/27/2025 Refill [facility], Division of Hematologic Oncology, [facility] [address] [facility], 7th [place] [address] Lucia Isaac DNP Medication Refill 07/08/2025 Orders Only Infusion Therapy Services [place] [address], [facility] [address] [facility], 7th [place] [address] Claudette Junior MD Mantle cell lymphoma, unspecified body region (Primary Dx) from Last 3 Months Immunizations Immunization Administration Dates Next Due COVID-19 (Pre-09/10) Pfizer Vaccine, mRNA, PF 08/24/2023,08/10/2021 Cholera, unspecified formulation 07/01/1986,10/19,01/10/1983 DTaP, unspecified formulation 09/22/2010, 009 [id number] FORMULATION 10/16/2009 Hepatitis A, Adult 04/08/2008 Hib, [...] 12/15/2025 10:15 AM EST Blood Draw [facility] Imaging Department, [facility], Imaging Dvvmd-kj-Vbjt [address] [place] [address], Floor L1 [place] [address] Claudette Junior MD [address] [place] [address] [email or web address] 12/15/2025 11:45 AM EST Appointment [facility] Imaging Department, [facility], PET/CT [address] [place] [address] Lucia Isaac DNP [address] [place] [address] [email or web address] Claudette Junior MD [address] [place] [address] [email or web address] 12/15/2025 2:00 PM EST Office Visit [facility], Division of Hematologic Oncology, [address], 7th [place] [address] Claudette Junior MD [address] [place] [address] [email or web address] Health Maintenance Due Date Last Done Comments [...] lymphoma of lymph nodes of multiple regions HC BLOOD COUNT COMPLETE AUTO&AUTO DIFRNTL WBC Routine 09/08/2025 10:02 AM EDT 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 ENDOSCOPY, COLON 01/18/2010 2:59 PM EST from Last 3 Months or Most Recently Relevant to Health Maintenance Results * LDH (09/08/2025 10:02 AM EDT) LDH 153 135 - 225 U/L [facility] Blood 09/08/2025 10:0 2 AM EDT 09/08/2025 10:34 AM EDT us Lucia Isaac [facility] BLOOD ORDERABLES Fin al Result [facility] [address] [place] [address] * (ABNORMAL) Comprehensive metabolic panel (09/08/2025 10:02 AM EDT) SODIUM 144 136 - 145 mmol/L [facility] POTASSIUM 4.6 3.4 - 5.1 mmol/L [facility] CHLORIDE 110(H) 98 - 107 mmol/L [facility] CO2 21(L) 22 - 31 mmol/L [facility] BUN 18 6 - 23 mg/dL [facility] CREATININE 1.59(H) 0.50 - 1.20 mg/dL [facility] GLUCOSE 76 70 - 100 mg/dL [facility] ALBUMIN 4.3 3.5 - 5.2 g/dL [facility] TOTAL PROTEIN 5.9(L) 6.4 - 8.3 g/dL [facility] CALCIUM 9.0 8.8 - 10.7 mg/dL [facility] ALKALINE PHOSPHATASE 72 40 - 129 U/L [facility] TOTAL BILIRUBIN 0.5 0.2 - 1.2 mg/dL [facility] AST 14 <41 U/L [facility] ALT 14 <42 U/L [facility] GLOBULIN 1.6(L) 2.3 - 4.2 g/dL [facility] EGFR 43(L) >59 mL/min/1.7 3m2 [facility] Comment:Estimated glomerular filtration rate calculated using the CKD-EPI refit equation. ANION GAP 13 7 - 17 mmol/L [facility] Blood 09/08/2025 10:0 2 AM EDT 09/08/2025 10:34 AM EDT Lucia Isaac [facility] BLOOD ORDERABLES Fin al Result Performing Organization Address City/State/[facility] Co de Phone Number [facility] [address] [place] [address] * (ABNORMAL) CBC and differential (09/08/2025 10:02 AM EDT) WBC 20.83(H) 4.00 - 10.00 K/uL [facility] RBC 3.66(L) 4.50 - 6.40 M/uL [facility] HGB 11.4(L) 13.5 - 18.0 g/dL [facility] HCT 34.7(L) 40.0 - 54.0 % [facility] PLT 78(L) 150 - 450 K/uL [facility] MCV 94.8 80.0 - 100.0 fL [facility] MCH 31.1 27.0 - 32.0 pg [facility] MCHC 32.9 32.0 - 36.0 g/dL [facility] RDW 14.6(H) 11.5 - 14.5 % [facility] MPV 10.5 8.4 - 12.0 fL [facility] NRBC 0.00 0 /100 WBCs [facility] ABSOLUTE NRBC 0.00 0 K/uL [facility] DIFF METHOD MANUAL [facility] NEUTS (MANUAL) 9.2(L) 48.0 - 76.0 % [facility] LYMPHS 87.0(H) 18.0 - 41.0 % [facility] MONOS 3.8(L) 4.0 - 11.0 % [facility] EOSINOPHIL 0.0 0.0 - 5.0 % [facility] BASOPHIL 0.0 0.0 - 1.5 % [facility] BLASTS 0.0 0 % [facility] ABSOLUTE NEUTS 1.92 1.92 - 7.60 K/uL [facility] ABSOLUTE LYMPHS 18.12(H) 0.72 - 4.10 K/uL [facility] ABSOLUTE MONOS 0.79 0.16 - 1.10 K/uL [facility] ABSOLUTE EOS 0.00 0.00 - 0.50 K/uL [facility] ABSOLUTE BASO 0.00 0.00 - 0.15 K/uL [facility] ABSOLUTE BLASTS 0.00 0 K/uL [facility] ROGERIO CELLS Few [facility] POIKILOCYTOSIS Few [facility] OVALOCYTES Few [facility] Blood 09/08/2025 10:0 2 AM EDT 09/08/2025 10:34 AM EDT Lucia Isaac [facility] BLOOD ORDERABLES Fin al Result Performing Organization Address City/State/[facility] Co de Phone Number [facility] [address] [place] [address] * ENDOSCOPY, COLON (01/18/2010 2:59 PM EST) 01/18/2010 2:59 PM EST Narrative 01/18/2010 2:59 PM EST Report Number: [id number] Report Status: Signed Type: COLONOSCOPY Date: 01/18/2010 14:59 [facility] Gastroenterology Patient Name: [...] - 01/18/2010 2:59 PM EST Report Number: [id number] Report Status: Signed Type: COLONOSCOPY Date: 01/18/2010 14:59 [facility] Gastroenterology Patient Name: Matt Hoffman [...] Maintenance Insurance MEDICARE PART A & B [facility] MEDEX SUPPLEMENT MEDICARE PART A & B [employer] MEDEX SUPPLEMENT MEDICARE PART A & B [employer] [place] [address] MEDICARE PART A & B [employer] MED[employer] SUPPLEMENT MEDICARE PART A & B [employer] MEDEX SUPPLEMENT MEDICARE PART A & B [employer] MED[employer] SUPPLEMENT MEDICARE PART A & B [employer] MEDEX SUPPLEMENT MEDICARE PART A & B [facility] MEDEX SUPPLEMENT (Home) [facility], [address] [address] MEDICARE PART A & B [employer] MEDEX SUPPLEMENT Care Teams Road Tester Relationship Specialty Start Date End Date Aj Bustos MD [address] [place] [address] PCP - General Family Medicine 03/02/25 Claudette Junior MD [address] [place] [address] [email or web address] Internal Medicine 06/01/15 Jennie Arellano MD, MPH [address] [place] [address] [place] [address] [email or web address] Dermatology 06/25/18 Jhoan Padilla MD [address] [place] [address] [place] [address] [email or web address] Urology 06/25/18 Additional Source Comments The information contained in this document represents components of the legal health record. It is not the complete legal health record.[facility]
--- OUTSIDE RECORDS SUMMARY | 2025-09-10 14:22 | XMS_ITS | Patient Health Record ---
Author Organization [facility] Address [address] [place] [address] Care Team Providers Care Medical Assistant Cardiology Name Role Phone DO NOT USE Shirley Quintanilla MD Primary Care Provider Unavailable PHYLLIS, ANGELA Unavailable [phone] Migration, Provider Unavailable Unavailable Allergies No Known Allergies Reason For Referral No Information Medications Medication SIG (Take, Route, Frequency, Duration) Notes Start Date End Date Status Calquence 100 MG CAPSULE 1 CAP(S) ORALLY EVERY 12 HOURS; Duration: 30 DAY(S) *Please review and pick correct strength-formulatio n from [employer] options. 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) Active confirmed Problem Retention of urine (269061060) Other retention of urine (R33.8) Active confirmed Problem 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 [place] [address] [id number] Matt Schmidt am Self - patient is the insured BCBS - [employer] [address] [place] [address] [phone] [id number] Matt Schmidt am Self - patient is the insured Medical (General) History Medical History History ICD Code Mantle Cell Lymphoma hyperlipidemia Surgical History Surgery Date(Month/Year) Button TURP 2013 acoustic neuroma - gamma knife 1999 knee arthroscopy
--- OUTSIDE RECORDS SUMMARY | 2025-09-10 14:24 | XMS_ITS | Encounter Summary ---
Author Organization [facility] Address [address] [place] [address] Phone Care Team Providers Care Gun Fertilizer Name Role Phone Claudette Junior MD Unavailable [phone] Jennie Arellano MD, MPH Unavailable [phone] Jhoan Padilla MD Unavailable [phone] Shirley Quintanilla MD Primary Care Provider [phone] Claudette Junior MD Primary Care Provider [phone] Aj Bustos MD Unavailable [phone] Aj Bustos MD Primary Care Provider Reason for Visit * Reason Comments Medication Refill Encounter Details Date Type Department Care Team (Late st Contact Info) Description 03/25/2022 Refill [facility], Division of Hematologic Oncology, [facility] [address] [facility], 7th [place] [address] Alicia Bates NP [address] [place] [address] [email or web address] Medication Refill Social History Tobacco [...] 12/15/2025 10:15 AM EST Blood Draw [facility] Imaging Department, [facility], Imaging Pckju-qw-Nljy [address] [facility], Floor [address] [place] [address] Claudette Junior MD [address] [place] [address] [email or web address] 12/15/2025 11:45 AM EST Appointment Claire [facility] Imaging Department, [facility], PET/CT [address] [place] [address] Lucia Isaca DNP [address] [place] [address] [email or web address] Claudette Junior MD [address] [place] [address] [email or web address] 12/15/2025 2:00 PM EST Office Visit [facility] for Lymphoma, Division of Hematologic Oncology, [address], 7th [place] [address] Claudette Junior MD [address] [place] [address] [email or web address] documented as of this encounter Visit Diagnoses Not on filedocumented in this encounter Care Teams Gun Fertilizer Relationship Specialty Start Date End Date Shirley Quintanilla MD [address] [place] [address] [place] [address] [email or web address] PCP - General Internal Medicine 08/14/19 10/20/24 Claudette Junior MD [address] [place] [address] [email or web address] PCP - General Medical Oncology 10/21/24 Aj Bustos MD [address] [place] [address] PCP - General Family Medicine 03/02/25 Claudette Junior MD [address] [place] [address] [email or web address] Internal Medicine 06/01/15 Jennie Arellano MD, MPH [address] [place] [address] [place] [address] [email or web address] Dermatology 06/25/18 Jhoan Padilla MD [address] [place] [address] [place] [address] [email or web address] Urology 06/25/18 Aj Bustos MD [address] [place] [address] Family Medicine 03/02/25 03/02/25 documented as of this encounter Additional Source Comments The information contained in this document represents components of the legal health record. It is not the complete legal health record.[facility]
--- OUTSIDE RECORDS SUMMARY | 2025-09-10 14:24 | XMS_ITS | Patient Health Record ---
Author Organization [facility] Address [address] [place] [address] Care Team Providers Care Embossing Press Operator Apprentice Name Role Phone Shirley Quintanilla MD Primary Care Provider TONE Marquez Unavailable [phone] Allergies No Known Allergies Reason For Referral [...] W/U Status Risk Notes Problem Chronic pain (90150432) Other chronic pain (G89.29) Active confirmed Problem Contracture of right knee joint (disorder) (344717978529053) Contracture, right knee (M24.561) Active confirmed Problem Arthralgia of the ankle and/or foot (490259706) Pain in right ankle and joints of right foot (M25.571) Active confirmed Problem Osteoarthritis of knee (359927177) Primary osteoarthritis of right knee (M17.11) Active confirmed Problem Acquired trigger finger (0417825) Trigger finger of right thumb (M65.311) Active confirmed Problem Closed nondisplaced avulsion fracture of tuberosity of right calcaneus with routine healing, subsequent encounter (S92.034D) Active confirmed Problem Open fracture of calcaneus (37654650) Open nondisplaced avulsion fracture of tuberosity of right calcaneus, initial encounter (S92.034B) Active confirmed Plan Of Treatment No Information Insurance Providers Payer Name Payer Address Payer Phone Subscriber Number Group Number Insured Name Patient Relationship to Insured Coverage Start Date Coverage End Date Medicare [address] [place] [address] [id number] Matt Schmidt am Self - patient is the insured [employer] [address] [place] [address] [id number] Matt Schmidt am Self - patient is [...]
--- OUTSIDE RECORDS SUMMARY | 2025-09-10 14:24 | XMS_ITS | Encounter Summary ---
Author Organization [facility] Address [address] [facility] [address] [place] [address] Phone Care Team Providers Care Deicer Finisher Name Role Phone Claudette Junior MD Unavailable [phone] Jennie Arellano MD, MPH Unavailable [phone] Jhoan Padilla MD Unavailable Shirley Quintanilla MD Primary Care Provider [phone] Claudette Junior MD Primary Care Provider [phone] Aj Bustos MD Unavailable [phone] Aj Bustos MD Primary Care Provider Reason for Visit * Reason Comments Medication Refill Encounter Details Date Type Department Care Team (Late st Contact Info) Description 05/26/2023 Refill [facility], Division of Hematologic Oncology, [facility] [place] [address] [facility], 7th [place] [address] Lucia Isaac, [facility] [address] [place] [address] [email or web address] Medication Refill Social History Tobacco [...] 12/15/2025 10:15 AM EST Blood Draw [facility] Imaging Department, [facility], Imaging Jpybq-wr-Azrm [address] [place] [address], Floor L1 [place] [address] Claudette Junior MD [address] [place] [address] [email or web address] 12/15/2025 11:45 AM EST Appointment [facility] Imaging Department, [facility], PET/CT [address] [place] [address] Lucia Isaac DNP [address] [place] [address] [email or web address] Claudette Junior MD [address] [place] [address] Zoila@[email or web address] 12/15/2025 2:00 PM EST Office Visit [facility], Division of Hematologic Oncology, [address], 7th [place] [address] Claudette Junior MD [address] [place] [address] [email or web address] documented as of this encounter Visit Diagnoses Not on filedocumented in this encounter Care Teams Deicer Finisher Relationship Specialty Start Date End Date Shirley Quintanilla MD [address] [place] [address] [place] [address] [email or web address] PCP - General Internal Medicine 08/14/19 10/20/24 Claudette Junior MD [address] [place] [address] [email or web address]@[email or web address] PCP - General Medical Oncology 10/21/24 Aj Bustos MD [address] [place] [address] PCP - General Family Medicine 03/02/25 Claudette Junior MD [address] [place] [address] [email or web address]@[email or web address] Internal Medicine 06/01/15 Jennie Arellano MD, MPH [address] [place] [address] [place] [address] EDWARD@[facility] Dermatology 06/25/18 Jhoan Padilla MD [address] [place] [address] [place] [address] [email or web address] Urology 06/25/18 Aj Bustos MD [address] [place] [address] Family Medicine 03/02/25 03/02/25 documented as of this encounter Additional Source Comments The information contained in this document represents components of the legal health record. It is not the complete legal health record.[facility]
--- OUTSIDE RECORDS SUMMARY | 2025-09-10 14:24 | XMS_ITS | Encounter Summary ---
Author Organization [facility] Address [address] [facility] [address] [place] [address] Phone Care Team Providers Care Ostomy Nurse Name Role Phone Shirley Quintanilla MD Primary Care Provider + [phone] Shirley Quintanilla MD Unavailable [phone] Claudette Junior MD Unavailable [phone] Shirley Quintanilla MD Unavailable Claudette Junior MD Unavailable [phone] Shirley Quintanilla MD Unavailable Bozena Means MD Unavailable Jennie Arellano MD, MPH Unavailable [phone] Jhoan Padilla MD Unavailable [phone] Shirley Quintanilla MD Primary Care Provider Claudette Junior MD Primary Care Provider [phone] Aj Bustos MD Unavailable [phone] Aj Bustos MD Primary Care Provider Encounter Details Date Type Department Care Team (Late st Contact Info) Description 12/26/2016 Procedure Pass [facility] [address] [place] [address] Social History Tobacco Use Types Packs/Day [...] 10:15 AM EST Blood Draw [facility] Imaging Department, [facility], Imaging Qrbub-tu-Nqrj [address] [facility], Floor [address]1 [place] [address] Claudette Junior MD [address] [place] [address] [email or web address] 12/15/2025 11:45 AM EST Appointment [facility] Imaging Department, [facility], PET/CT [address] [place] [address] Lucia Isaac DNP [address] [place] [address] Merced@[email or web address] Claudette Junior MD [address] [place] [address] [email or web address] 12/15/2025 2:00 PM EST Office Visit [facility], Division of Hematologic Oncology, [address], 7th [place] [address] Claudette Junior MD [address] [place] [address] [email or web address] documented as of this encounter Visit Diagnoses Not on filedocumented in this encounter Care Teams Ostomy Nurse Relationship Specialty Start Date End Date Shirley Quintanilla MD [email or web address] PCP - General Internal Medicine 06/01/15 08/13/19 Shirley Quintanilla MD [email or web address] PCP - General Internal Medicine 08/14/19 10/20/24 Claudette Junior MD [address] [place] [address] [email or web address] PCP - General Medical Oncology 10/21/24 03/01/25 Aj Bustos MD [address] [place] [address] PCP - General Family Medicine 03/02/25 Shirley Quintanilla MD [email or web address] Internal Medicine 06/01/15 12/12/17 Claudette Junior MD [address] [place] [address] [email or web address] Internal Medicine 06/01/15 Shirley Quintanilla MD [email or web address] Internal Medicine 06/01/15 12/12/17 Claudette Junior MD [address] [place] [address] [email or web address] Internal Medicine 06/01/15 12/12/17 Shirley Quintanilla MD [email or web address] Internal Medicine 06/01/15 12/12/17 Bozena Means MD [address] [place] [address] Referring Physician Hematology 05/01/16 06/24/18 Jennie Arellano MD, MPH [address] [facility] [place] [address] EDWARD@[email or web address] Dermatology 06/25/18 Jhoan Padilla MD [address] [place] [address] [place] [address] [email or web address]. Urology 06/25/18 Aj Bustos MD [address] [place] [address] Family Medicine 03/02/25 03/02/25 documented as of this encounter Additional Source Comments The information contained in this document represents components of the legal health record. It is not the complete legal health record.[facility]
--- OUTSIDE RECORDS SUMMARY | 2025-09-10 14:24 | XMS_ITS | Encounter Summary ---
Author Organization [facility] Address [address] [facility] [address] [place] [address] Phone Care Team Providers Care Sql Engineer Name Role Phone Claudette Junior MD Unavailable [phone] Jennie Arellano MD, MPH Unavailable [phone] Jhoan Padilla MD Unavailable [phone] Shirley Quintanilla MD Primary Care Provider [phone] Claudette Junior MD Primary Care Provider Aj Bustos MD Unavailable [phone] Aj Bustos MD Primary Care Provider Reason for Visit * Reason Comments Medication Refill Encounter Details Date Type Department Care Team (Late st Contact Info) Description 01/18/2022 Refill [facility], Division of Hematologic Oncology, [facility] [place] [address] [facility], 7th [place] [address] Alicia Bates NP [address] [place] [address] [email or web address] Medication Refill Social History Tobacco Use Types [...] 12/15/2025 10:15 AM EST Blood Draw [facility] Imaging Department, [facility], Imaging Obsie-hi-Gbcb [address] [facility], Floor [address]1 [place] [address] Claudette Junior MD [address] [place] [address] Zoila@[email or web address] 12/15/2025 11:45 AM EST Appointment [facility] Imaging Department, [facility], PET/CT [address] [place] [address] Lucia Isaac DNP [address] [place] [address] Merced@[facility] Claudette Junior MD [address] [place] [address] Zoila@[email or web address] 12/15/2025 2:00 PM EST Office Visit [facility], Division of Hematologic Oncology, [address], 7th [place] [address] Claudette Junior MD [address] [place] [address] Zoila@[email or web address] documented as of this encounter Visit Diagnoses Not on filedocumented in this encounter Care Teams Sql Engineer Relationship Specialty Start Date End Date Shirley Quintanilla MD [address] [place] [address] [place] [address] [email or web address] PCP - General Internal Medicine 08/14/19 10/20/24 Claudette Junior MD [address] [place] [address] Zoila@[email or web address] PCP - General Medical Oncology 10/21/24 Aj Bustos MD [address] [place] [address] PCP - General Family Medicine 03/02/25 Claudette Junior MD [address] [place] [address] Zoila@[email or web address] Internal Medicine 06/01/15 Jennie Arellano MD, MPH [address] [place] [address] [place] [address] EDWARD@[email or web address] Dermatology 06/25/18 Jhoan Padilla MD [address] [place] [address] [place] [address] [email or web address] Urology 06/25/18 Aj Bustos MD [address] [place] [address] Family Medicine 03/02/25 03/02/25 documented as of this encounter Additional Source Comments The information contained in this document represents components of the legal health record. It is not the complete legal health record.[facility]
--- OUTSIDE RECORDS SUMMARY | 2025-09-10 14:25 | XMS_ITS | Encounter Summary ---
Author Organization [facility] Address [address] [facility] [address] [place] [address] Phone Care Team Providers Care Mounted Police Name Role Phone Shirley Quintanilla MD Primary Care Provider + [phone] Shirley Quintanilla MD Unavailable [phone] Claudette Junior MD Unavailable [phone] Shirley Quintanilla MD Unavailable [phone] Claudette Junior MD Unavailable [phone] Shirley Quintanilla MD Unavailable [phone] Bozena Means MD Unavailable [phone] Jennie Arellano MD, MPH Unavailable [phone] Jhoan Padilla MD Unavailable [phone] Shirley Quintanilla MD Primary Care Provider Claudette Junior MD Primary Care Provider [phone] Aj Bustos MD Unavailable [phone] Aj Bustos MD Primary Care Provider Encounter Details Date Type Department Care Team (Late st Contact Info) Description 05/01/2017 Procedure Pass [facility] Imaging Department, [facility] [place] [place] [address] [facility], Floor L1 [place] [address] Social History Tobacco Use Types Packs/Day Years [...] Description 12/15/2025 10:15 AM EST Blood Draw [facility] Imaging Department, [facility], Imaging Uwsoe-yz-Nuzi [address] [facility], Floor [address]1 [place] [address] Claudette Junior MD [address] [place] [address] [email or web address] 12/15/2025 11:45 AM EST Appointment [facility] Imaging Department, [facility], PET/CT [address] [place] [address] Lucia Isaca DNP [address] [place] [address] [email or web address] Claudette Junior MD [address] [place] [address] Zoila@[email or web address] 12/15/2025 2:00 PM EST Office Visit [facility], Division of Hematologic Oncology, [address], 7th [place] [address] Claudette Junior MD [address] [place] [address] [email or web address] documented as of this encounter Visit Diagnoses Not on filedocumented in this encounter Care Teams Mounted Police Relationship Specialty Start Date End Date Shirley Quintanilla MD [email or web address] PCP - General Internal Medicine 06/01/15 08/13/19 Shirley Quintanilla MD [email or web address] PCP - General Internal Medicine 08/14/19 10/20/24 Claudette Junior MD [address] [place] [address] [email or web address] PCP - General Medical Oncology 10/21/24 03/01/25 Aj Bustos MD [address] [place] [address] PCP - General Family Medicine 03/02/25 Shirley Quintanilla MD [email or web address] Internal Medicine 06/01/15 12/12/17 Claudette Junior MD [address] [place] [address] [email or web address] Internal Medicine 06/01/15 Shirley Quintanilla MD [email or web address] Internal Medicine 06/01/15 12/12/17 Claudette Junior MD [address] [place] [address] [email or web address] Internal Medicine 06/01/15 12/12/17 Shirley Quintanilla MD [email or web address] Internal Medicine 06/01/15 12/12/17 Bozena Means MD [address] [place] [address] Referring Physician Hematology 05/01/16 06/24/18 Jennie Arellano MD, MPH [address] [place] [address] [place] [address] [email or web address] Dermatology 06/25/18 Jhoan Padilla MD [address] [place] [address] [place] [address] [email or web address]. Urology 06/25/18 Aj Bustos MD [address] [place] [address] Family Medicine 03/02/25 03/02/25 documented as of this encounter Additional Source Comments The information contained in this document represents components of the legal health record. It is not the complete legal health record.[facility]
--- OUTSIDE RECORDS SUMMARY | 2025-09-10 14:25 | XMS_ITS | Encounter Summary ---
Author Organization [facility] Address [address] [facility] [address] [place] [address] Phone Care Team Providers Care Paleontology Teacher Name Role Phone Shirley Quintanilla MD Primary Care Provider + [phone] Shirley Quintanilla MD Unavailable [phone] Claudette Junior MD Unavailable [phone] Shirley Quintanilla MD Unavailable [phone] Claudette Junior MD Unavailable [phone] Shirley Quintanilla MD Unavailable [phone] Bozena Means MD Unavailable [phone] Jennie Arellano MD, MPH Unavailable [phone] Jhoan Padilla MD Unavailable [phone] Shirley Quintanilla MD Primary Care Provider Claudette Junior MD Primary Care Provider [phone] Aj Bustos MD Unavailable [phone] Aj Bustos MD Primary Care Provider Encounter Details Date Type Department Care Team (Late st Contact Info) Description 05/01/2017 Procedure Pass [facility] Imaging Department, [facility] [place] [place] [address] [facility], Floor [address]1 [place] [address] Social History Tobacco Use Types Packs/Day Years [...] Description 12/15/2025 10:15 AM EST Blood Draw [facility] Imaging Department, [facility], Imaging Pnqqf-eq-Spvq [address] [facility], Floor [address] [place] [address] Claudette Junior MD [address] [place] [address] [email or web address] 12/15/2025 11:45 AM EST Appointment [facility] Imaging Department, [facility], PET/CT [address] [place] [address] Lucia Isaac DNP [address] [place] [address] [email or web address]@[email or web address] Claudette Junior MD [address] [place] [address] Zoila@[email or web address] 12/15/2025 2:00 PM EST Office Visit [facility], Division of Hematologic Oncology, [address], 7th [place] [address] Claudette Junior MD [address] [place] [address] Zoila@[email or web address] documented as of this encounter Visit Diagnoses Not on filedocumented in this encounter Care Teams Paleontology Teacher Relationship Specialty Start Date End Date Shirley Quintanilla MD [email or web address] PCP - General Internal Medicine 06/01/15 08/13/19 Shirley Quintanilla MD [email or web address] PCP - General Internal Medicine 08/14/19 10/20/24 Claudette Junior MD [address] [place] [address] [email or web address] PCP - General Medical Oncology 10/21/24 03/01/25 Aj Bustos MD [address] [place] [address] PCP - General Family Medicine 03/02/25 Shirley Quintanilla MD [email or web address] Internal Medicine 06/01/15 12/12/17 Claudette Junior MD [address] [place] [address] [email or web address] Internal Medicine 06/01/15 Shirley Quintanilla MD [email or web address] Internal Medicine 06/01/15 12/12/17 Claudette Junior MD [address] [place] [address] [email or web address] Internal Medicine 06/01/15 12/12/17 Shirley Quintanilla MD [email or web address] Internal Medicine 06/01/15 12/12/17 Bozena Means MD [address] [place] [address] Referring Physician Hematology 05/01/16 06/24/18 Jennie Arellano MD, MPH [address] [place] [address] [place] [address] EDWARD@[email or web address] Dermatology 06/25/18 Jhoan Padilla MD [address] [place] [address] [place] [address] [email or web address]. Urology 06/25/18 Aj Bustos MD [address] [place] [address] Family Medicine 03/02/25 03/02/25 documented as of this encounter Additional Source Comments The information contained in this document represents components of the legal health record. It is not the complete legal health record.[facility]
--- OUTSIDE RECORDS SUMMARY | 2025-09-10 14:25 | XMS_ITS | Encounter Summary ---
Author Organization [facility] Address [address] [facility] [address] [place] [address] Phone Care Team Providers Care District Service Manager Name Role Phone Claudette Junior MD Unavailable [phone] Jennie Arellano MD, MPH Unavailable [phone] Jhoan Padilla MD Unavailable Aj Bustos MD Primary Care Provider Reason for Visit * Reason Comments Medication Refill Encounter Details Date Type Department Care Team (Late st Contact Info) Description 08/27/2025 Refill [facility], Division of Hematologic Oncology, [facility] [place] [address] [facility], 7th [place] [address] Lucia Isaac, [facility] [address] [place] [address] Merced@[email or web address] Medication Refill Social History [...] 10:15 AM EST Blood Draw [facility] Imaging Department, [facility], Imaging Nrllm-uc-Outf [address] [facility], Floor [address]1 [place] [address] Claudette Junior MD [address] [place] [address] Zoila@[email or web address] 12/15/2025 11:45 AM EST Appointment [facility] Imaging Department, [facility], PET/CT [address] [place] [address] Lucia Isaac DNP [address] [place] [address] Merced@[email or web address] Claudette Junior MD [address] [place] [address] Zoila@[email or web address] 12/15/2025 2:00 PM EST Office Visit [facility], Division of Hematologic Oncology, [address], 7th [place] [address] Claudette Junior MD [address] [place] [address] Zoila@[email or web address] documented as of this encounter Visit Diagnoses Not on filedocumented in this encounter Care Teams District Service Manager Relationship Specialty Start Date End Date Aj Bustos MD [address] [place] [address] PCP - General Family Medicine 03/02/25 Claudette Junior MD [address] [place] [address] [email or web address] Internal Medicine 06/01/15 Jennie Arellano MD, MPH [address] [place] [address] [place] [address] EDWARD@[email or web address] Dermatology 06/25/18 Jhoan Padilla MD [address] [place] [address] [place] [address] [email or web address]. Urology 06/25/18 documented as of this encounter Additional Source Comments The information contained in this document represents components of the legal health record. It is not the complete legal health record.[facility]
--- OUTSIDE RECORDS SUMMARY | 2025-09-10 14:25 | XMS_ITS | Encounter Summary ---
Author Organization [facility] Address [address] [place] [address] Phone Care Team Providers Care Telecom Billing Analyst Name Role Phone Claudette Junior MD Unavailable [phone] Jennie Arellano MD, MPH Unavailable [phone] Jhoan Padilla MD Unavailable [phone] Shirley Quintanilla MD Primary Care Provider [phone] Claudette Junior MD Primary Care Provider Aj Bustos MD Unavailable [phone] Aj Bustos MD Primary Care Provider Reason for Visit * Reason Comments Medication Refill Encounter Details Date Type Department Care Team (Late st Contact Info) Description 02/09/2023 Refill [facility], Division of Hematologic Oncology, [facility] [place] [address] [place] [address], 7th [place] [address] Telly Parsons, WIRE REPAIRER [address] [place] [phone] [email or web address] Medication Refill Social History Tobacco Use Types [...] 10:15 AM EST Blood Draw [facility] Imaging Department, [facility], Imaging Iqepm-fr-Hmls [address] [place] [address], Floor [address]1 [place] [address] Claudette Junior MD [address] [place] [phone] [email or web address] 12/15/2025 11:45 AM EST Appointment [facility] Imaging Department, [facility], PET/CT [address] [place] [address] Lucia Isaac DNP [address] [place] [id number] [email or web address] Claudette Junior MD [address] [place] [address] [email or web address] 12/15/2025 2:00 PM EST Office Visit [facility], Division of Hematologic Oncology, [address] [place] [address] Claudette Junior MD [address] [place] [phone] [email or web address] documented as of this encounter Visit Diagnoses Not on filedocumented in this encounter Care Teams Telecom Billing Analyst Relationship Specialty Start Date End Date Shirley Quintanilla MD [address] [place] [address] [place] [address] [email or web address] PCP - General Internal Medicine 08/14/19 10/20/24 Claudette Junior MD [address] [place] [phone] [email or web address] PCP - General Medical Oncology 10/21/24 Aj Bustos MD [address] [place] [phone] PCP - General Family Medicine 03/02/25 Claudette Junior MD [address] [place] [phone] [email or web address] Internal Medicine 06/01/15 Jennie Arellano MD, MPH [address] [place] [address] [place] [address] [email or web address] Dermatology 06/25/18 Jhoan Padilla MD [address] [place] [address] [place] [address] [email or web address] Urology 06/25/18 Aj Bustos MD [address] [place] [id number] Family Medicine 03/02/25 03/02/25 documented as of this encounter Additional Source Comments The information contained in this document represents components of the legal health record. It is not the complete legal health record.[facility]
== END 2025-09-10 12:37 | disposition home or self-care (01) ==
PROVIDERS: PCP Family Medicine; Visit Provider Family Medicine
DX: E04.1 Nontoxic single thyroid nodule (principal); G51.39 Clonic hemifacial spasm, unspecified; R33.9 Retention of urine, unspecified; C85.90 Non-Hodgkin lymphoma, unspecified, unspecified site

== ENCOUNTER → 2025-09-10 11:17 | Outpatient (BNVA) | payer MEDICARE, SELFPAY | PROVIDERS: PCP Family Medicine; Visit Provider Family Medicine | DX: E04.1 Nontoxic single thyroid nodule (principal); G51.39 Clonic hemifacial spasm, unspecified; R33.9 Retention of urine, unspecified; C85.90 Non-Hodgkin lymphoma, unspecified, unspecified site | CPT/HCPCS: 99212 ==

== ENCOUNTER 2025-11-03 14:21 | Outpatient (REF) | payer MEDICARE, SELFPAY | END 2025-11-03 14:22 | disposition home or self-care (01) | LOC: HO.LAB 14:21 | PROVIDERS: PCP Family Medicine; Visit Provider Nurse Practitioner Family | DX: N40.1 Benign prostatic hyperplasia with lower urinary tract symptoms (principal); N32.89 Other specified disorders of bladder; N32.3 Diverticulum of bladder; N52.9 Male erectile dysfunction, unspecified; R97.20 Elevated prostate specific antigen [PSA]; R31.29 Other microscopic hematuria; R33.8 Other retention of urine | CPT/HCPCS: 51798; 81003; 88112; 99212 ==

== ENCOUNTER 2025-11-03 14:21 | Outpatient (AMB) | payer MEDICARE, SELFPAY ==
--- OUTSIDE RECORDS SUMMARY | 2025-01-24 21:30 | XMS_ITS ---
Author Organization [facility] Address [address] [place] [address] Phone [phone] Care Team Providers Care Agricultural Education Instructor Name Role Phone DO NOT USE Shirlye Quintanilla MD Primary Care Provider Unavailable PHYLLIS REYES, ANGELA Unavailable [phone] Migration, Provider Unavailable Unavailable [facility] Encounter Medications Medication SIG (Take, [...] 09:30 PM Office Visit [facility] [address] [place] [address] Provider Migration Plan Of Treatment No Information Medical (General) History Medical History History ICD Code Mantle Cell Lymphoma hyperlipidemia Surgical History Surgery Date(Month/Year) Button TURP 2013 acoustic neuroma - gamma knife 1999 knee arthroscopy Progress Notes * Matt HOFFMANDOB:1944 (80 yo M)Acc No.[id number]:01/24/2025 Patient: Matt Hoffman Provider: Provider Migration :1945 Age:79 Y Sex:Male Date:01/24/2025 [place] [facility] Pcp:Shirley DO NOT USE David Quintanilla Subjective: [...] not shown, discontinue and re-order from Quick Search*[id number] Low Strength , Notes to Pharmacist: *Please review and pick correct strength-formulation from Medispan options. If intended option is not shown, discontinue and re-order from Quick Search*Aspirin Low Strength , Notes to Pharmacist: *Please review and pick correct strength-formulation from Medispan options. If intended option is not shown, discontinue and re-order from Quick Search*[id number] Citrate , Notes to Pharmacist: *Please review and pick correct strength-formulation from Medispan options. If intended option is not shown, discontinue and re-order from Quick Search*Sildenafil Citrate , Notes to Pharmacist: *Please review and pick correct strength-formulation from TrueAccordspan options. If intended option is not shown, discontinue and re-order from Quick Search*[id number] Calcium 40 MG Tablet 1 tab(s) orally once a day Atorvastatin Calcium 40 MG Tablet 1 tab(s) orally once a day [id number] 100 MG CAPSULE 1 CAP(S) ORALLY EVERY 12 HOURS , Notes to Pharmacist: *Please review and pick correct strength-formulation from Medispan options. If intended option is not shown, discontinue and re-order from Quick Search*Calquence 100 MG CAPSULE 1 CAP(S) ORALLY EVERY 12 HOURS , Notes to Pharmacist: *Please review and pick correct strength-formulation from TrueAccordspan options. If intended option is not shown, discontinue and re-order from Quick Search*144657Pvcius Bactrim 400 MG-80 MG TABLET DIRECTED ORALLY DAILY , Notes to Pharmacist: *Please review and pick correct strength-formulation from TrueAccordspan options. If intended option is not shown, discontinue and re-order from Quick Search*Taking Aspirin Low Strength , Notes to Pharmacist: *Please review and pick correct strength-formulation from TrueAccordspan options. If intended option is not shown, discontinue and re-order from Quick Search*Taking Sildenafil Citrate , Notes to Pharmacist: *Please review and pick correct strength-formulation from TrueAccordspan options. If intended option is not shown, discontinue and re-order from Quick Search*Taking Atorvastatin Calcium 40 MG Tablet 1 tab(s) orally once a day Taking Calquence 100 MG CAPSULE 1 CAP(S) ORALLY EVERY 12 HOURS , Notes to Pharmacist: *Please review and pick correct strength- formulation from TrueAccordspan options. If intended option is not shown, discontinue and re-order from Quick Search* * Electronic signature of Prov ider Migration on 11/03/2025 at 06:38 PM EST Sign off status: Pending * Provider: Provider Migration Date: 01/24/2025 Generated for Wood restrepo/Yuan/Bud on: 11/03/2025 06:38 PM EST
--- NOTE | 2025-11-03 14:37 | MHC.OFFVIS ---
Intake Visit Reasons: Med Review/PVR/UA Intake Note: Patient is present for MED REVIEW/PVR/UA Urology Medication:ALFUZOSIN,FINASTERIDE,BACTRIUM Antibiotic Allergy:NONE Blood Thinner:NONE LAST PVR:408ML'S TODAY'S PVR:511ML'S Deli Manager Required: No Allergies No Known Allergies Allergy (Verified 11/03/25 15:50) Medication List - Last Reconciled 11/03/25 by ABRAHAM Garcia- acalabrutinib maleate (Calquence (acalabrutinib maleate)) mg PO alfuzosin ER 10 mg PO DAILY 30 days atorvastatin 40 mg PO DAILY 90 days finasteride 5 mg PO DAILY 90 days sulfamethoxazole-trimethoprim 400-80 mg (Bactrim) 1 tab PO BEDTIME HPI Comments Details: Matt Gunter is a 80-year-old male patient of Dr. Bustos. 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 He presents to the office today for follow-up of his urinary retention/incomplete bladder emptying and elevated PSA. In discussion with the patient today he reports to be doing and feeling well. He denies having had any bothersome urinary issues or concerns since his last office visit here. He reports compliance with alfuzosin, finasteride, and low-dose Bactrim as prescribed. In office urinalysis results reviewed with the patient today. PVR 511 mls. We discussed at length potential causes of incomplete bladder emptying/urinary retention. We did discuss risk at length however he continues to decline any further interventions at this time. Previous workup has included a retroperitoneal ultrasound 07/13 that noted moderate to severe hydroureteronephrosis bilaterally left greater than right down to the level of the urinary bladder. No nephrolithiasis demonstrated. The bladder is well distended with trabeculations of the wall in small bladder diverticulum. Postvoid bladder volume is approximately 600 mL. Prostate volume of 198 mL he discusses upcoming trip to the [facility] for the holidays. During last office visit recommendations were made for cystoscopy however patient continues to decline at this time. He discusses his longstanding history of urological issues and previously had indwelling Oneill catheter with [facility] however does not wish to continue these treatment options despite discussing risks. He discusses his longstanding history of urological issues and having undergone multiple cystoscopies in the past with previous urologists in [facility] as well as [facility]. He discusses having had a plasma button for operation procedure over [address] Arreguin. He had previously trialed Flomax however experienced dizziness and was switched to alfuzosin. He denies dysuria, foul smelling urine, flank pain, fever, and or chills. He otherwise offers no other issues or concerns at this time. 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 Aneurysm Facial nerve spasm Status post gamma knife treatment Right acoustic neuroma Deafness in right ear Enlarged prostate MCL (mantle cell lymphoma) Family History Father Diabetes Mother Esophageal cancer Social History Housing: Apartment Patient Tobacco Use Status: Former Tobacco user e-Cigarette/Vaping Use: Never Used service: Yes Current occupational status: retired Current occupational exposures/hazards: No Cognitive needs: No Hearing needs: Yes Vision needs: Yes Review of Systems Eyes Reports as per HPI ENT Reports as per HPI Card Reports no additional complaints Resp Reports no additional complaints GI Reports no additional complaints Reports as per HPI Musc Reports no additional complaints Neuro Reports no additional complaints Psych Reports no additional complaints Endo Reports no additional complaints Triston/Lymph Reports no additional complaints Aller/Immun Reports no additional complaints Physical Exam Const General: cooperative, healthy appearing, comfortable, no acute distress, well developed, alert and awake Orientation/consciousness: patient oriented x3 Limitations: no limitations HEENT Head: Yes normal to inspection, Yes normocephalic and Yes atraumatic Ears: hearing grossly normal bilaterally Eyes General: appearance normal, both eyes and all related structures Neck Neck: Yes normal visual inspection and Yes trachea midline Chest Chest palpation & inspection: normal inspection of the chest Resp Effort & Inspection: normal respiratory effort and able to speak in complete sentences Cardio Rate: regular rate GI Inspection: Yes normal to inspection General: Yes no CVA tenderness Back/Spine/Pelvis Back: no CVA tenderness Skin General skin exam: no rashes or lesions noted Neuro General: patient oriented x3 Extrem General: Yes normal to inspection Psych Appearance: grossly normal and well kempt Mental Status: mental status grossly normal Speech and movement: Normal speech and movement present and Clear speech present Affect: normal affect Attitude: cooperative Thought process: Normal thought process present Thought content: Normal thought content present Insight: Fair insight present (Psych) Judgement: Fair judgement present (Psych) Office Procedures Post Void Residual Post Residual Void Post Void Residual (PVR): 511 [id number] Void Residual by ultrasound Results AMB Urinalysis, Automated UA Leukoctes 0 Jannet/uL Last Edit by GREGG Laws on 11/03/25 15:31 UA Nitrite Negative Last Edit by GREGG Laws on 11/03/25 15:31 UA Urobilinogen 0.2 mg/dL Last Edit by GREGG Laws on 11/03/25 15:31 UA Protein 0 mg/dL Last Edit by GREGG Laws on 11/03/25 15:31 UA pH 6.0 Last Edit by Waleska Quinones CCM on 11/03/25 15:31 UA Blood 80 Jimmy/uL Last Edit by GREGG Laws on 11/03/25 15:31 UA Specific Harmony 1.015 Last Edit by GREGG Laws on 11/03/25 15:31 UA Ketone Negative Last Edit by Waleska Quinones CCM on 11/03/25 15:31 UA Bilirubin 0 mg/dL Last Edit by Waleska Quinones CCM on 11/03/25 15:31 UA Glucose 0 mg/dL Last Edit by Waleska Quinones CCM on 11/03/25 15:31 Results Reviewed Results Reviewed: Laboratory Last Values Urine pH (Auto) 6.0 11/03/25 15:30 Specific Harmony (Auto) 1.015 11/03/25 15:30 Urine Protein (Auto) 0 mg/dL 11/03/25 15:30 Glucose (UA)(Auto) 0 mg/dL 11/03/25 15:30 Urine Ketones (Auto) Negative 11/03/25 15:30 Urine Blood (Auto) 80 Jimmy/uL 11/03/25 15:30 Urine Nitrite (Auto) Negative 11/03/25 15:30 Urine Bilirubin (Auto) 0 mg/dL 11/03/25 15:30 Urine Urobilinogen (Auto) 0.2 mg/dL 11/03/25 15:30 Leukocyte Esterase (Auto) 0 Jannet/uL 11/03/25 15:30 Assessment & Plan Assessment & Plan (1) Urinary retention: Code(s): R33.9 - Retention of urine, unspecified Category: Medical (2) Incomplete bladder emptying: Code(s): R33.9 - Retention of urine, unspecified Category: Medical (3) Bladder trabeculation: Code(s): N32.89 - Other specified disorders of bladder Category: Medical (4) Bladder diverticulum: Code(s): N32.3 - Diverticulum of bladder Category: Medical (5) Elevated PSA: Code(s): R97.20 - Elevated prostate specific antigen [PSA] Category: Medical (6) Erectile dysfunction: Code(s): N52.9 - Male erectile dysfunction, unspecified Category: Medical Plan In office urinalysis results with the patient today; as noted above; will send for urine cytology. PVR 511 mL. We did discussed at length affects of incomplete bladder emptying/urinary retention; we did discussed further treatment options and risks and benefits of these treatment options He does not wish to continue with any therapies at this time; we did discuss risks at length. All questions were answered. Continue alfuzosin and finasteride. He reports be happy with current voiding parameters. He reports no bothersome urinary issues or concerns. Will continue with surveillance monitoring at this time per patient request. Will obtain PSA in 6 months. Follow-up in 6 months with PSA and PVR; or sooner with any issues, concerns, and or questions. Orders: Orders AMB Urinalysis Automated Today Z13.9 - Encounter for screening, unspecified Urine Cytology Today R31.29 - Other microscopic hematuria Medications: Changed From alfuzosin ER administer after the same meal each day 10 mg PO DAILY 30 days 30 tabs 1RF To alfuzosin ER administer after the same meal each day 10 mg PO DAILY 90 tabs 3RF 90 days Refilled finasteride 5 mg PO DAILY 90 tabs 1RF 90 days N40.1 - Benign prostatic hyperplasia with lower urinary tract symptoms, R33.9 - Retention of urine, unspecified Patient Instructions: The patient had an opportunity to ask questions regarding the treatment plan. All questions were answered. Physical exam, labs, and imaging were discussed and reviewed in detail. As well as risks, benefits, and discussion of treatment choices. No major barriers to understanding were identified. The patient expressed understanding and agreement with the above treatment plan. The patient was made aware they should contact our office by phone for worsening of their current condition, the appearance of new symptoms, or with any questions or concerns. Compliance is encouraged with any medications and follow up testing that is ordered. It is a privilege to be allowed the opportunity to participate in? your urological care.? Again, if you have any questions or concerns If you have any questions or concerns please do not hesitate to contact me. The office is [phone]. This note is constructed using voice recognition software. While every effort has been made to ensure accuracy prescriptionist errors may have been included. Yours sincerely, YE Garcia Coding Level of Care Code Est Pt Level 3 (78235) Add On Problem Visit Only Diagnoses Urinary retention R33.9 Incomplete bladder emptying R33.9 Bladder trabeculation N32.89 Bladder diverticulum N32.3 Elevated PSA R97.20 Erectile dysfunction N52.9 CPT Codes Post Residual Void - PVR CPT Code: 15899-Uytw Void Residual by ultrasound ([id number])
--- OUTSIDE RECORDS SUMMARY | 2025-11-03 18:38 | XMS_ITS | Clinical Summary ---
Author Organization [facility] Address [email or web address] [place] [address] Phone Care Team Providers Care Strapper And Buffer Name Role Phone Claudette Junior MD Unavailable [phone] Jennie Arellano MD, MPH Unavailable [phone] Jhoan Padilla MD Unavailable Aj Bustos MD Primary Care Provider Allergies No known active allergies Medications aspirin 81 MG EC tablet Take 81 mg by mouth daily. Active atorvastatin (LIPITOR) 40 MG tablet Take 40 mg by mouth daily. 2 Active sildenafiL (VIAGRA) 50 mg tablet Take [...] finasteride (PROSCAR) 5 mg tablet 5 Active sulfamethoxazol e-trimethoprim (BACTRIM,SEPTRA ) 400-80 mg per tablet Take 1 tablet (80 mg of trimethoprim total) by mouth daily. 90 tablet 3 5 Active Active Problems Problem Noted Date Diagnosed Date Myopia 11/05/2023 Dupuytren's contracture of right hand 02/21/2023 Transient ischemic attack 11/07/2021 Coronary artery disease invo lving [place] coronary artery of [place] heart without angina pectoris 11/07/2021 Mantle cell [...] but he will discuss this with his vehicle safety inspector. H/O lymphoma 05/04/2010 Overview (01/09/2015): H/O lymphoma [...] Encounters Date Type Department Care Team Description 09/21/2025 Orders Only [facility], [facility] [place] [address], 7th [place] [address] Lucia Isaac DNP 09/08/2025 10:30 AM EDT Office Visit [facility], [facility] [place] [address], 7th [place] [address] Lucia Isaac DNP Mantle cell lymphoma, unspecified body region (Primary Dx) 08/27/2025 Refill [facility], Division of Hematologic Oncology, [facility] [place] [address] [place] [address], 7th [place] [address] Lucia Isaac DNP Medication Refill from Last 3 Months Immunizations Immunization Administration Dates Next Due COVID-19 (Pre-09/10) Pfizer Vaccine, mRNA, PF 08/24/2023,08/10/2021 Cholera, unspecified formulation 07/01/1986,10/19,01/10/1983 DTaP, unspecified formulation 09/22/2010, 009 [id number] FORMULATION 10/16/2009 Hepatitis A, Adult 04/08/2008 Hib, [...] EST Blood Draw [facility] Imaging Department, [facility] [place], Imaging Tkfny-eb-Kxgp [address] [place] [address], Floor [address]1 [place] [address] Claudette Junior MD [address] [place] [phone] [email or web address] 12/15/2025 11:45 AM EST Appointment [facility] Imaging Department, [facility], PET/CT [address] [place] [address] Lucia Isaac DNP [address] [place] [address] [email or web address] Claudette Junior MD [address] [place] [address] [email or web address] 12/15/2025 2:00 PM EST Office Visit [facility], Division of Hematologic Oncology, [address], 7th [place] [address] Claudette Junior MD [address] [place] [address] [email or web address] Health Maintenance Due Date Last Done Comments COLOGUARD 1989 FIT TEST 1989 FOBT 1989 SIGMOIDOSCOPY 1989 VIRTUAL COLONOSCOPY 1989 ZOSTER VACCINES (1 of 2) 03/28/2011 01/31/2011 COLONOSCOPY 01/18/2015 01/18/2010 COLORECTAL CANCER SCREENING 01/18/2015 Adult Td,Tdap Booster 09/19/2020 09/19/2010 , 11/30/2009, 01/15/2006, Additional history exists COVID-19 VACCINE ( season) 2025 06/26/2025, 03/07/2025, 12/15/2024, Additional history [...] nodes of multiple regions COMPREHENSIVE METABOLIC PANEL (CMP) Routine 09/08/2025 10:02 AM EDT 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 HC BLOOD COUNT COMPLETE AUTO&AUTO DIFRNTL WBC Routine 09/08/2025 10:02 AM EDT 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 ENDOSCOPY, COLON 01/18/2010 2:59 PM EST from Last 3 Months or Most Recently Relevant to Health Maintenance Results * [facility] (09/08/2025 10:02 AM EDT) Pathologist [facility] LDH 153 135 - 225 U/L [facility] Blood 09/08/2025 10:0 2 AM EDT 09/08/2025 10:34 AM EDT us Lucia Isaac DNP LAB BLOOD BKR ORDERABLES Final Result [facility] [address] [place] [address] * (ABNORMAL) Comprehensive metabolic panel (09/08/2025 10:02 AM EDT) SODIUM 144 136 - 145 mmol/L [facility] POTASSIUM 4.6 3.4 - 5.1 mmol/L [facility] CHLORIDE 110(H) 98 - 107 mmol/L [facility] CO2 21(L) 22 - 31 mmol/L [facility] BUN 18 6 - 23 mg/dL [facility] CREATININE 1.59(H) 0.50 - 1.20 mg/dL [facility] GLUCOSE 76 70 - 100 mg/dL [facility] ALBUMIN 4.3 3.5 - 5.2 g/dL [facility] TOTAL PROTEIN 5.9(L) 6.4 - 8.3 g/dL [facility] CALCIUM 9.0 8.8 - 10.7 mg/dL [facility] ALKALINE PHOSPHATASE 72 40 - 129 U/L [facility] TOTAL BILIRUBIN 0.5 0.2 - 1.2 mg/dL [facility] AST 14 <41 U/L [facility] ALT 14 <42 U/L [facility] GLOBULIN 1.6(L) 2.3 - 4.2 g/dL [facility] EGFR 43(L) >59 mL/min/1.7 3m2 [facility] Comment:Estimated glomerular filtration rate calculated using the CKD-EPI refit equation. ANION GAP 13 7 - 17 mmol/L [facility] Blood 09/08/2025 10:0 2 AM EDT 09/08/2025 10:34 AM EDT us Lucia Isaac DNP LAB BLOOD BKR ORDERABLES Final Result [facility] [address] [place] [address] * (ABNORMAL) CBC and differential (09/08/2025 10:02 AM EDT) WBC 20.83(H) 4.00 - 10.00 K/uL [facility] RBC 3.66(L) 4.50 - 6.40 M/uL [facility] HGB 11.4(L) 13.5 - 18.0 g/dL [facility] HCT 34.7(L) 40.0 - 54.0 % [facility] PLT 78(L) 150 - 450 K/uL [facility] MCV 94.8 80.0 - 100.0 fL [facility] MCH 31.1 27.0 - 32.0 pg [facility] MCHC 32.9 32.0 - 36.0 g/dL [facility] RDW 14.6(H) 11.5 - 14.5 % [facility] MPV 10.5 8.4 - 12.0 fL [facility] NRBC 0.00 0 /100 WBCs [facility] ABSOLUTE NRBC 0.00 0 K/uL [facility] DIFF METHOD MANUAL [facility] NEUTS (MANUAL) 9.2(L) 48.0 - 76.0 % [facility] LYMPHS 87.0(H) 18.0 - 41.0 % [facility] MONOS 3.8(L) 4.0 - 11.0 % [facility] EOSINOPHIL 0.0 0.0 - 5.0 % [facility] BASOPHIL 0.0 0.0 - 1.5 % [facility] BLASTS 0.0 0 % [facility] ABSOLUTE NEUTS 1.92 1.92 - 7.60 K/uL [facility] ABSOLUTE LYMPHS 18.12(H) 0.72 - 4.10 K/uL [facility] ABSOLUTE MONOS 0.79 0.16 - 1.10 K/uL [facility] ABSOLUTE EOS 0.00 0.00 - 0.50 K/uL [facility] ABSOLUTE BASO 0.00 0.00 - 0.15 K/uL [facility] ABSOLUTE BLASTS 0.00 0 K/uL [facility] ROGERIO CELLS Few [facility] POIKILOCYTOSIS Few [facility] OVALOCYTES Few [facility] Blood 09/08/2025 10:0 2 AM EDT 09/08/2025 10:34 AM EDT us Lucia Isaac DNP LAB BLOOD BKR ORDERABLES Final Result Performing Organization Address City/State/[facility] Co de Phone Number [facility] [address] [place] [address] * ENDOSCOPY, COLON (01/18/2010 2:59 PM EST) 01/18/2010 2:59 PM EST Narrative 01/18/2010 2:59 PM EST Report Number: [id number] Report Status: Signed Type: COLONOSCOPY Date: 01/18/2010 14:59 [facility] Gastroenterology Patient Name: Matt Hoffman Gender: Daivd Procedure Date: 01/18/2010 9:15 AM Date of [...] - 01/18/2010 2:59 PM EST Report Number: [id number] Report Status: Signed Type: COLONOSCOPY Date: 01/18/2010 14:59 [facility] Gastroenterology Patient Name: Matt [...] Maintenance Insurance MEDICARE PART A & B [facility] MEDEX SUPPLEMENT MEDICARE PART A & B [employer] MEDEX SUPPLEMENT MEDICARE PART A & B [employer] MEDEX SUPPLEMENT MEDICARE PART A & B [employer] MED[employer] SUPPLEMENT MEDICARE PART A & B [employer] MEDEX SUPPLEMENT MEDICARE PART A & B [employer] MEDEX SUPPLEMENT MEDICARE PART A & B [employer] MEDEX SUPPLEMENT (Home) 20 [facility], [address] [address] MEDICARE PART A & B [employer] MEDEX SUPPLEMENT MEDICARE PART A & B [employer] MEDEX SUPPLEMENT Care Teams Strapper And Buffer Relationship Specialty Start Date End Date Aj Bustos MD [address] [place] [address] for [place] [address] PCP - General Family Medicine 03/02/25 Claudette Junior MD [address] [place] [address] [email or web address] Internal Medicine 06/01/15 Jennie Arellano MD, MPH [address] [place] [address] [place] [address] [email or web address] Dermatology 06/25/18 Jhoan Padilla MD [address] [place] [address] [place] [address] [email or web address] 06/25/18 Additional Source Comments The information contained in this document represents components of the legal health record. It is not the complete legal health record.[facility]
--- OUTSIDE RECORDS SUMMARY | 2025-11-03 18:38 | XMS_ITS | Patient Health Record ---
Author Organization [facility] Address [address] [place] [address] Phone [phone] Care Team Providers Care Geotechnical Laboratory Technician Name Role Phone DO NOT USE Shirley Quintanilla MD Primary Care Provider Unavailable PHYLLIS REYES, ANGELA Unavailable [phone] Migration, Provider Unavailable Unavailable Allergies No Known Allergies Reason For Referral No Information Medications Medication SIG (Take, Route, Frequency, Duration) Notes Start Date End Date Diagnosis (ICD Code) Status Calquence 100 MG CAPSULE 1 CAP(S) ORALLY EVERY 12 HOURS; Duration: 30 DAY(S) *Please review and pick correct strength-formula tion from TMATan options. If intended option is not shown, discontinue and re-order from Quick Search* Active Atorvastatin Calcium 40 MG Tablet 1 tab(s) orally once a day; Duration: 30 day(s) 0 Active Sildenafil Citrate *Please review and pick correct strength-formula tion from TMATan options. If intended option is not shown, discontinue and re-order from Quick Search* Active Aspirin Low Strength *Please review and pick correct strength-formula tion from Gemidisspan options. If intended option is not shown, [...] stop date) Former Smoker NA - NA Sex Observation Social History Observation Description Sex Observation Male Social History Social History Social Info Question Answer Notes Smoking MU Are you a: former smoker How long has it been since you last smoked? 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 Sexually active: unknown Problems Problem Type SNOMED Code ICD Code Dates Problem Status W/U Status Risk Notes Problem Urinary tract infectious disease (26191143) Urinary tract infection, site not specified (N39.0) Added On:03/29 Active confirmed Problem Gross hematuria (948727958) Gross hematuria (R31.0) Added On:03/23 Active confirmed Problem Incomplete emptying of bladder (562658298) Feeling of incomplete bladder emptying (R39.14) Added On:12/18 Active confirmed Problem Hydronephrosis (91992813) Other hydronephrosis (N13.39) Added On:08/24 Active confirmed Problem Traumatic urethral stricture (93356251) urethral stricture, 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) Added On:04/05 Active confirmed Problem Retention of urine (306703148) Other retention of urine (R33.8) Added On:03/29 Active confirmed Problem 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) Added On:04/05 Active confirmed Problem Lower urinary tract symptoms due to benign prostatic hypertrophy (42646825246455) Benign prostatic hyperplasia with lower urinary tract symptoms (N40.1) Added On:09/06 Active confirmed Problem Incomplete emptying of bladder (763500447) Feeling of incomplete bladder emptying (R39.14) Added On:06/29 Active confirmed Encounters Date Time Type Facility Location Provider Diagnosis 01/24/2025 09:30 PM Office Visit [facility] [address] [place] [address] Provider Migration Plan Of Treatment Pending Test [...] End Date MEDICARE [address] [place] [address] [id number] Matt Schmidt am Self - patient is the insured BC - [employer] [address] [place] [address] [id number] Matt Schmidt am Self - patient is the insured Medical (General) History Medical History History ICD Code Mantle Cell Lymphoma hyperlipidemia Surgical History Surgery Date(Month/Year) Button TURP 2013 acoustic neuroma - gamma knife 1999 knee arthroscopy
--- OUTSIDE RECORDS SUMMARY | 2025-11-03 18:39 | XMS_ITS | Patient Health Record ---
Author Organization [facility] Address [address] [place] [address] Care Team Providers Care Naval Gunfire Spotter Name Role Phone Shirley Quintanilla MD Primary Care Provider TONE Marquez Unavailable [phone] Allergies No Known Allergies Reason For Referral [...] W/U Status Risk Notes Problem Chronic pain (18920217) Other chronic pain (G89.29) Active confirmed Problem Contracture of right knee joint (disorder) (784211429413560) Contracture, right knee (M24.561) Active confirmed Problem Arthralgia of the ankle and/or foot (403805573) Pain in right ankle and joints of right foot (M25.571) Active confirmed Problem Osteoarthritis of knee (011082553) Primary osteoarthritis of right knee (M17.11) Active confirmed Problem Acquired trigger finger (2644846) Trigger finger of right thumb (M65.311) Active confirmed Problem Closed nondisplaced avulsion fracture of tuberosity of right calcaneus with routine healing, subsequent encounter (S92.034D) Active confirmed Problem Open fracture of calcaneus (89737684) Open nondisplaced avulsion fracture of tuberosity of right calcaneus, initial encounter (S92.034B) Active confirmed Plan Of Treatment No Information Insurance Providers Payer Name Payer Address Payer Phone Subscriber Number Group Number Insured Name Patient Relationship to Insured Coverage Start Date Coverage End Date Medicare [address] [place] [address] [id number] Matt Schmidt am Self - patient is the insured Med[employer] [address] [place] [address] [id number] Matt Schmidt am Self - patient is [...]
--- OUTSIDE RECORDS SUMMARY | 2025-11-03 18:39 | XMS_ITS | Encounter Summary ---
Author Organization [facility] Address [address] [place] [address] Phone Care Team Providers Care Capacitor Assembler Name Role Phone Claudette Junior MD Unavailable [phone] Jennie Arellano MD, MPH Unavailable [phone] Jhoan Padilla MD Unavailable Shirley Quintanilla MD Primary Care Provider [phone] Claudette Junior MD Primary Care Provider [phone] Aj Bustos MD Unavailable [phone] Aj Bustos MD Primary Care Provider Reason for Visit * Reason Comments Medication Refill Encounter Details Date Type Department Care Team (Late st Contact Info) Description 02/09/2023 Refill [facility], Division of Hematologic Oncology, [facility] [address] [place] [address], 7th [place] [address] Telly Parsons, CLOTHING SALES ASSISTANT [address] [place] [address] [email or web address] Medication Refill Social History Tobacco Use [...] Description 12/15/2025 10:15 AM EST Blood Draw [facility] Imaging Department, [facility], Imaging Ocipm-fi-Rilp [address] [place] [address], Floor [address]1 [place] [address] Claudette Junior MD [address] [place] [address] [email or web address] 12/15/2025 11:45 AM EST Appointment [facility] Imaging Department, [facility], PET/CT [address] [place] [address] Lucia Isaac DNP [address] [place] [address] [email or web address] Claudette Junior MD [address] [place] [address] [email or web address] 12/15/2025 2:00 PM EST Office Visit [facility], Division of Hematologic Oncology, [address], [address]th [place] [address] Claudette Junior MD [address] [place] [address] [email or web address] documented as of this encounter Visit Diagnoses Not on filedocumented in this encounter Care Teams Capacitor Assembler Relationship Specialty Start Date End Date Shirley Quintanilla MD [address] [place] [address] [place] [address] [email or web address] PCP - General Internal Medicine 08/14/19 10/20/24 Claudette Junior MD [address] [place] [address] [email or web address] PCP - General Medical Oncology 10/21/24 Aj Bustos MD [address] [place] [address] [place] [address] PCP - General Family Medicine 03/02/25 Claudette Junior MD [address] [place] [address] [email or web address] Internal Medicine 06/01/15 Jennie Arellano MD, MPH [address] [place] [address] [place] [address] [email or web address] Dermatology 06/25/18 Jhoan Padilla MD [address] [place] [address] [place] [address] [email or web address]. Urology 06/25/18 Aj Bustos MD [address] [place] [address] [place] [address] Family Medicine 03/02/25 03/02/25 documented as of this encounter Additional Source Comments The information contained in this document represents components of the legal health record. It is not the complete legal health record.[facility]
--- OUTSIDE RECORDS SUMMARY | 2025-11-03 18:39 | XMS_ITS | Encounter Summary ---
Author Organization [facility] Address [address] [place] [address] Phone Care Team Providers Care Agricultural Education Professor Name Role Phone Shirley Quintanilla MD Primary Care Provider + [phone] Shirley Quintanilla MD Unavailable [phone] Claudette Junior MD Unavailable [phone] Shirley Quintanilla MD Unavailable [phone] Claudette Junior MD Unavailable [phone] Shirley Quintanilla MD Unavailable [phone] Bozena Means MD Unavailable [phone] Jennie Arellano MD, MPH Unavailable [phone] Jhoan Padilla MD Unavailable [phone] Shirley Qiuntanilla MD Primary Care Provider + [phone] Claudette Junior MD Primary Care Provider [phone] Aj Bustos MD Unavailable [phone] Aj Bustos MD Primary Care Provider Encounter Details Date Type Department Care Team (Late st Contact Info) Description 12/26/2016 Procedure Pass [facility] [address] [place] [address] Social History Tobacco Use Types Packs/Day [...] Description 12/15/2025 10:15 AM EST Blood Draw [facility] Imaging Department, [facility], Imaging Jmrrg-da-Jzdj [address], Floor [address]1 [place] [address] Claudette Junior MD [address] [place] [address] [email or web address] 12/15/2025 11:45 AM EST Appointment [facility] Imaging Department, [facility], PET/CT [address] [place] [address] Lucia Isaac DNP [address] [place] [address] [email or web address] Claudette Junior MD [address] [place] [address] [email or web address] 12/15/2025 2:00 PM EST Office Visit [facility], Division of Hematologic Oncology, [address], 7th [place] [address] Claudette Junior MD [address] [place] [address] [email or web address] documented as of this encounter Visit Diagnoses Not on filedocumented in this encounter Care Teams Agricultural Education Professor Relationship Specialty Start Date End Date Shirley Quintanilla MD [email or web address] PCP - General Internal Medicine 06/01/15 08/13/19 Shirley Quintanilla MD [email or web address] PCP - General Internal Medicine 08/14/19 10/20/24 Claudette Junior MD [address] [place] [address] [email or web address] PCP - General Medical Oncology 10/21/24 03/01/25 Aj Bustos MD [address] [place] [address] [place] [address] PCP - General Family Medicine 03/02/25 Shirley Quintanilla MD [email or web address] Internal Medicine 06/01/15 12/12/17 Claudette Junior MD [address] [place] [address] [email or web address] Internal Medicine 06/01/15 Shirley Quintanilla MD [email or web address] Internal Medicine 06/01/15 12/12/17 Claudette Junior MD [address] [place] [address] [email or web address] Internal Medicine 06/01/15 12/12/17 Shirley Quintanilla MD [email or web address] 06/01/15 12/12/17 Bozena Means MD [address] [place] [address] Referring Physician Hematology 05/01/16 06/24/18 Jennie Arellano MD, MPH [address] [place] [address] [place] [address] [email or web address] Dermatology 06/25/18 Jhoan Padilla MD [address] [place] [address] [place] [address] [email or web address]. Urology 06/25/18 Aj Bustos MD [address] [place] [address] [place] [address] Family Medicine 03/02/25 03/02/25 documented as of this encounter Additional Source Comments The information contained in this document represents components of the legal health record. It is not the complete legal health record.[facility]
--- OUTSIDE RECORDS SUMMARY | 2025-11-03 18:39 | XMS_ITS | Encounter Summary ---
Author Organization [facility] Address [address] [place] [address] Phone Care Team Providers Care Racetrack Steward Name Role Phone Shirley Quintanilla MD Primary Care Provider + [phone] Shirley Quintanilla MD Unavailable [phone] Claudette Junior MD Unavailable [phone] Shirley Quintanilla MD Unavailable [phone] Claudette Junior MD Unavailable [phone] Shirley Quintanilla MD Unavailable [phone] Bozena Means MD Unavailable [phone] Jennie Arellano MD, MPH Unavailable [phone] Jhoan Padilla MD Unavailable [phone] Shirley Quintanilla MD Primary Care Provider + [phone] Claudette Junior MD Primary Care Provider [phone] jA Bustos MD Unavailable [phone] Aj Bustos MD Primary Care Provider Encounter Details Date Type Department Care Team (Late st Contact Info) Description 05/01/2017 Procedure Pass [facility] Imaging Department, [facility] [place] [address] [facility] [address] [facility], Floor [address] [place] [address] Social History Tobacco Use Types Packs/Day Years [...] Description 12/15/2025 10:15 AM EST Blood Draw [facility] Imaging Department, [facility], Imaging Axrgd-ey-Nlvs [address] [facility], Floor [address] [place] [address] Claudette Junior MD [address] [place] [address] [email or web address] 12/15/2025 11:45 AM EST Appointment [facility] Imaging Department, [facility], PET/CT [address] [place] [address] Lucia Isaac DNP [address] [place] [address] [email or web address] Claudette Junior MD [address] [place] [address] Zoila@[email or web address] 12/15/2025 2:00 PM EST Office Visit [facility], Division of Hematologic Oncology, [address], 7th [place] [address] Claudette Junior MD [address] [place] [address] Zoila@[email or web address] documented as of this encounter Visit Diagnoses Not on filedocumented in this encounter Care Teams Racetrack Steward Relationship Specialty Start Date End Date Shirley Quintanilla MD [email or web address] PCP - General Internal Medicine 06/01/15 08/13/19 Shirley Quintanilla MD [email or web address] PCP - General Internal Medicine 08/14/19 10/20/24 Claudette Junior MD [address] [place] [address] [email or web address] PCP - General Medical Oncology 10/21/24 03/01/25 Aj Bustos MD [address] [place] [address] [place] [address] PCP - General Family Medicine 03/02/25 Shirley Quintanilla MD [email or web address] Internal Medicine 06/01/15 12/12/17 Claudette Junior MD [address] [place] [address] [email or web address] Internal Medicine 06/01/15 Shirley Quintanilla MD [email or web address] Internal Medicine 06/01/15 12/12/17 Claudette Junior MD [address] [place] [address] [email or web address] Internal Medicine 06/01/15 12/12/17 Shirley Quintanilla MD [email or web address] Internal Medicine 06/01/15 12/12/17 Bozena Means MD [address] [place] [address] Referring Physician Hematology 05/01/16 06/24/18 Jennie Arellano MD, MPH [address] [place] [address] [place] [address] [email or web address] Dermatology 06/25/18 Jhoan Padilla MD [address] [place] [address] [place] [address] [email or web address]. Urology 06/25/18 Aj Bustos MD [address] [place] [address] [place] [address] Family Medicine 03/02/25 03/02/25 documented as of this encounter Additional Source Comments The information contained in this document represents components of the legal health record. It is not the complete legal health record.[facility]
--- OUTSIDE RECORDS SUMMARY | 2025-11-03 18:39 | XMS_ITS ---
Author Organization [facility] Address [address] [facility] [address] [place] [address] Phone Care Team Providers Care Communications Superintendent Name Role Phone Claudette Junior MD Unavailable [phone] Jennie Arellano MD, MPH Unavailable Jhoan Padilla MD Unavailable [phone] Aj Bustos MD Primary Care Provider Active Problems Problem Noted Date Diagnosed Date Myopia 11/05/2023 Dupuytren's contracture of right hand 02/21/2023 Transient ischemic attack 11/07/2021 Coronary artery disease invo lving [place] coronary artery of [place] heart without angina pectoris 11/07/2021 Mantle cell [...] but he will discuss this with his envelope sealer operator. H/O lymphoma 05/04/2010 Overview (01/09/2015): H/O [...]
--- OUTSIDE RECORDS SUMMARY | 2025-11-03 18:39 | XMS_ITS | Encounter Summary ---
Author Organization [facility] Address [address] [place] [address] Phone Care Team Providers Care Electric Spot Welder Name Role Phone Claudette Junior MD Unavailable [phone] Jennie Arellano MD, MPH Unavailable [phone] Jhoan Padilla MD Unavailable Aj Bustos MD Primary Care Provider Reason for Visit * Reason Comments Medication Refill Encounter Details Date Type Department Care Team (Late st Contact Info) Description 08/27/2025 Refill [facility], Division of Hematologic Oncology, [facility] [address] [facility], 7th [place] [address] Lucia Isaac, [facility] [address] [place] [address] [email or web address] Medication Refill Social History Tobacco Use Types [...] Description 12/15/2025 10:15 AM EST Blood Draw [facility] Imaging Department, [facility], Imaging Yhymc-ht-Dwfm [address] [facility], Floor [address] [place] [address] Claudette Junior MD [address] [place] [phone] [email or web address] 12/15/2025 11:[address] [facility] Imaging Department, [facility], PET/CT [address] [place] [address] Lucia Isaac DNP [address] [place] [address] [email or web address] Claudette Junior MD [address] [place] [address] [email or web address] 12/15/2025 2:00 PM EST Office Visit [facility], Division of Hematologic Oncology, [address], 7th [place] [address] Claudette Junior MD [address] [place] [address] [email or web address] documented as of this encounter Visit Diagnoses Not on filedocumented in this encounter Care Teams Electric Spot Welder Relationship Specialty Start Date End Date Aj Bustos MD [address] [place] [address] [place] [address] PCP - General Family Medicine 03/02/25 Claudette Junior MD [address] [place] [address] [email or web address] Internal Medicine 06/01/15 Jennie Arellano MD, MPH [address] [place] [address] [place] [address] [email or web address] Dermatology 06/25/18 Jhoan Padilla MD [address] [place] [address] [place] [address] [email or web address]. Urology 06/25/18 documented as of this encounter Additional Source Comments The information contained in this document represents components of the legal health record. It is not the complete legal health record.[facility]
--- OUTSIDE RECORDS SUMMARY | 2025-11-03 18:39 | XMS_ITS | Encounter Summary ---
Author Organization [facility] Address [address] [facility] [address] [place] [address] Phone Care Team Providers Care Business Continuity Analyst Name Role Phone Claudette Junior MD Unavailable [phone] Jennie Arellano MD, MPH Unavailable [phone] Jhoan Padilla MD Unavailable Shirley Quintanilla MD Primary Care Provider [phone] Claudette Junior MD Primary Care Provider [phone] Aj Bustos MD Unavailable [phone] Aj Bustos MD Primary Care Provider Reason for Visit * Reason Comments Medication Refill Encounter Details Date Type Department Care Team (Late st Contact Info) Description 02/21/2024 Refill [facility], Division of Hematologic Oncology, [facility] [place] [address] [facility], 7th [place] [address] uLcia Isaac, [facility] [address] [place] [address] [email or web address] Medication Refill Social History Tobacco Use [...] 12/15/2025 10:15 AM EST Blood Draw Claire [facility] Imaging Department, [facility], Imaging Ihprv-oz-Kobm [address] [place] [address], Floor L1 [place] [address] Claudette Junior MD [address] [place] [address] Zoila@[facility] 12/15/2025 11:45 AM EST Appointment Claire [facility] Imaging Department, [facility], PET/CT [address] [place] [address] Lucia Isaac DNP [address] [place] [phone] [email or web address]. [facility] Claudette Junior MD [address] [place] [address] Zoila@[facility] 12/15/2025 2:00 PM EST Office Visit Center for Lymphoma, Division of Hematologic Oncology, [address], 7th [place] [address] Claudette Junior MD [address] [place] [address] Zoila@[facility] documented as of this encounter Visit Diagnoses Not on filedocumented in this encounter Care Teams Business Continuity Analyst Relationship Specialty Start Date End Date Shirley Quintanilla MD [address] [place] [address] [place] [address] [email or web address] PCP - General Internal Medicine 08/14/19 10/20/24 Claudette Junior MD [address] [place] [address] [email or web address] PCP - General Medical Oncology 10/21/24 Aj Bustos MD [address] [place] [address] [place] [address] PCP - General Family Medicine 03/02/25 Claudette Junior MD [address] [place] [address] Zoila@[email or web address] Internal Medicine 06/01/15 Jennie Arellano MD, MPH [address] [place] [address] [place] [address] EDWARD@[email or web address] Dermatology 06/25/18 Jhoan Padilla MD [address] [place] [address] [place] [address] [email or web address]. Urology 06/25/18 Aj Bustos MD [address] [place] [address] [place] [address] Family Medicine 03/02/25 03/02/25 documented as of this encounter Additional Source Comments The information contained in this document represents components of the legal health record. It is not the complete legal health record.[facility]
--- OUTSIDE RECORDS SUMMARY | 2025-11-03 18:39 | XMS_ITS | Encounter Summary ---
Author Organization [facility] Address [address] [facility] [address] [place] [address] Phone Care Team Providers Care Library Circulation Department Chief Name Role Phone Claudette Junior MD Unavailable [phone] Jennie Arellano MD, MPH Unavailable [phone] Jhoan Padilla MD Unavailable Shirley Quintanilla MD Primary Care Provider [phone] Claudette Junior MD Primary Care Provider [phone] Aj Bustos MD Unavailable [phone] Aj Bustos MD Primary Care Provider Reason for Visit * Reason Comments Medication Refill Encounter Details Date Type Department Care Team (Late st Contact Info) Description 03/25/2022 Refill [facility], Division of Hematologic Oncology, [facility] [place] [address] [place] [address], 7th [place] [address] Alicia Bates NP [address] [place] [address] [email or web address] Medication Refill Social History Tobacco [...] Description 12/15/2025 10:15 AM EST Blood Draw [facility] Imaging Department, [facility], Imaging Vwuyn-eh-Xygk [address] [facility], Floor [address]1 [place] [address] Claudette Junior MD [address] [place] [address] Zoila@[email or web address] 12/15/2025 11:45 AM EST Appointment Claire [facility] Imaging Department, [facility], PET/CT [address] [place] [address] Lucia Isaac DNP [address] [place] [address] [email or web address]@[email or web address] Claudette Junior MD [address] [place] [address] Zoila@[email or web address] 12/15/2025 2:00 PM EST Office Visit [facility] for [facility], Division of Hematologic Oncology, [address], 7th [place] [address] Claudette Junior MD [address] [place] [address] [email or web address] documented as of this encounter Visit Diagnoses Not on filedocumented in this encounter Care Teams Library Circulation Department Chief Relationship Specialty Start Date End Date Shirley Quintanilla MD [address] [place] [address] [place] [address] [email or web address] PCP - General Internal Medicine 08/14/19 10/20/24 Claudette Junior MD [address] [place] [address] Zoila@[email or web address] PCP - General Medical Oncology 10/21/24 Aj Bustos MD [address] [place] [address] [place] [address] PCP - General Family Medicine 03/02/25 Claudette Junior MD [address] [place] [address] Zoila@[email or web address] Internal Medicine 06/01/15 Jennie Arellano MD, MPH [address] [place] [address] [place] [address] EDWARD@[facility] Dermatology 06/25/18 Jhoan Padilla MD [address] [place] [address] [place] [address] [email or web address]. Urology 06/25/18 Aj Bustos MD [address] [place] [address] [place] [address] Family Medicine 03/02/25 03/02/25 documented as of this encounter Additional Source Comments The information contained in this document represents components of the legal health record. It is not the complete legal health record.[facility]
--- OUTSIDE RECORDS SUMMARY | 2025-11-03 18:39 | XMS_ITS | Encounter Summary ---
Author Organization [facility] Address [address] [facility] [address] [place] [address] Phone Care Team Providers Care Production Control Manager Name Role Phone Claudette Junior MD Unavailable [phone] Jennie Arellano MD, MPH Unavailable [phone] Jhoan Padilla MD Unavailable [phone] Shirley Quintanilla MD Primary Care Provider [phone] Claudette Junior MD Primary Care Provider [phone] Aj Bustos MD Unavailable [phone] Aj Bustos MD Primary Care Provider Reason for Visit * Reason Comments Medication Refill Encounter Details Date Type Department Care Team (Late st Contact Info) Description 05/26/2023 Refill [facility], Division of Hematologic Oncology, [facility] 450 [facility], 7th [place] [address] Lucia Isaac, [facility] 450 [place] [address] [email or web address] Medication Refill Social History Tobacco Use Types [...] AM EST Blood Draw Claire [facility] Imaging Department, [facility], Imaging Cbzbb-iq-Immv [address] [place] [address], Floor L1 [place] [address] Claudette Junior MD [address] [place] [address] Zoila@[email or web address] 12/15/2025 11:45 AM EST Appointment Claire [facility] Imaging Department, [facility], PET/CT [address] [place] [address] Lucia Isaac DNP [address] [place] [address] Merced@[email or web address]. [facility] Claudette Junior MD [address] [place] [address] Zoila@[email or web address] 12/15/2025 2:00 PM EST Office Visit [facility] for Lymphoma, Division of Hematologic Oncology, [address], 7th [place] [address] Claudette Junior MD [address] [place] [address] Zoila@[email or web address] documented as of this encounter Visit Diagnoses Not on filedocumented in this encounter Care Teams Production Control Manager Relationship Specialty Start Date End Date Shirley Quintanilla MD [address] [place] [address] [place] [address] [email or web address] PCP - General Internal Medicine 08/14/19 10/20/24 Claudette Junior MD [address] [place] [address] [email or web address] PCP - General Medical Oncology 10/21/24 Aj Bustos MD [address] [place] [address] [place] [address] PCP - General Family Medicine 03/02/25 Claudette Junior MD [address] [place] [address] [email or web address] Internal Medicine 06/01/15 Jennie Arellano MD, MPH [address] [place] [address] [place] [address] EDWARD@[facility] Dermatology 06/25/18 Jhoan Padilla MD [address] [place] [address] [place] [address] [email or web address]. Urology 06/25/18 Aj Bustos MD [address] [place] [address] [place] [address] Family Medicine 03/02/25 03/02/25 documented as of this encounter Additional Source Comments The information contained in this document represents components of the legal health record. It is not the complete legal health record.[facility]
--- OUTSIDE RECORDS SUMMARY | 2025-11-03 18:39 | XMS_ITS | Encounter Summary ---
Author Organization [facility] Address [address] [facility] [address] [place] [address] Phone Care Team Providers Care Forestry Workers Name Role Phone Shirley Quintanilla MD Primary Care Provider [phone] Shirley Quintanilla MD Unavailable [phone] Claudette Junior MD Unavailable [phone] Shirley Quintanilla MD Unavailable [phone] Claudette Junior MD Unavailable [phone] Shirley Quintanilla MD Unavailable [phone] Bozena Means MD Unavailable [phone] Jennie Arellano MD, MPH Unavailable [phone] Jhoan Padilla MD Unavailable [phone] Shirley Quintanilla MD Primary Care Provider [phone] Claudette Junior MD Primary Care Provider [phone] Aj Bustos MD Unavailable [phone] Aj Bustos MD Primary Care Provider Encounter Details Date Type Department Care Team (Late st Contact Info) Description 05/01/2017 Procedure Pass Claire [facility] Imaging Department, [facility] [place] [address] [facility], Floor [address]1 [place] [address] Social History Tobacco Use Types Packs/Day Years [...] Description 12/15/2025 10:15 AM EST Blood Draw [facility] Imaging Department, [facility], Imaging Wzdhh-db-Ymkv [address] [facility], Floor [address]1 [place] [address] Claudette Junior MD [address] [place] [address] [email or web address] 234 beds at [facility] 12/15/2025 11:45 AM EST Appointment [facility] Imaging Department, [facility], PET/CT 450 [place] [address] Lucia Isaac DNP [address] [place] [address] Merced@[email or web address] Claudette Junior MD [address] [place] [address] [email or web address] 234 beds at the [facility] 12/15/2025 2:00 PM EST Office Visit [facility] for Lymph[facility], Division of Hematologic Oncology, [address], 7th [place] [address] Claudette Junior MD [address] [place] [address] [email or web address] 234 beds at [facility] documented as of this encounter Visit Diagnoses Not on filedocumented in this encounter Care Teams Forestry Workers Relationship Specialty Start Date End Date Shirley Quintanilla MD [email or web address] PCP - General Internal Medicine 06/01/15 08/13/19 Shirley Quintanilla MD [email or web address] PCP - General Internal Medicine 08/14/19 10/20/24 Claudette Junior MD [address] [place] [address] [email or web address] PCP - General Medical Oncology 10/21/24 03/01/25 Aj Bustos MD [address] [place] [address] [place] [address] PCP - General Family Medicine 03/02/25 Shirley Quintanilla MD [email or web address] Internal Medicine 06/01/15 12/12/17 Claudette Junior MD [address] [place] [address] [email or web address] Internal Medicine 06/01/15 Shirley Quintanilla MD [email or web address] Internal Medicine 06/01/15 12/12/17 Claudette Junior MD [address] [place] [address] [email or web address] Internal Medicine 06/01/15 12/12/17 Shirley Quintanilla MD [email or web address] Internal Medicine 06/01/15 12/12/17 Bozena [place] MD [address] [place] [address] Referring Physician Hematology 05/01/16 06/24/18 Jennie Arellano MD, MPH [address] [place] [address] [place] [address] [email or web address] Dermatology 06/25/18 Jhoan Padilla MD [address] [place] [address] [place] [address] [email or web address] Urology 06/25/18 Aj Bustos MD [address] [place] [address] [place] [address] Family Medicine 03/02/25 03/02/25 documented as of this encounter Additional Source Comments The information contained in this document represents components of the legal health record. It is not the complete legal health record.[facility]
== END 2025-11-03 15:52 | disposition home or self-care (01) ==
LOC: HO.HUSH 14:22
PROVIDERS: PCP Family Medicine; Visit Provider Nurse Practitioner Family
DX: R33.9 Retention of urine, unspecified (principal); N32.89 Other specified disorders of bladder; N32.3 Diverticulum of bladder; R97.20 Elevated prostate specific antigen [PSA]; N52.9 Male erectile dysfunction, unspecified; Z13.9 Encounter for screening, unspecified
CPT/HCPCS: 99213; G2211

== ENCOUNTER 2025-11-17 10:21 | Outpatient (AMB) | payer MEDICARE, SELFPAY ==
--- OUTSIDE RECORDS SUMMARY | 2025-01-24 21:30 | XMS_ITS ---
Author Organization [facility] Address [address] [place] [address] Phone [phone] Care Team Providers Care Special Makeup Fx Artist Instructor Name Role Phone DO NOT USE Shirley Quintanilla MD Primary Care Provider Unavailable PHYLLIS REYES, ANGELA Unavailable [phone] Migration, Provider Unavailable Unavailable [facility] Encounter Medications Medication SIG (Take, Route, Frequency, Duration) Notes Start Date End Date Diagnosis (ICD Code) Status Calquence 100 MG CAPSULE 1 CAP(S) ORALLY EVERY 12 HOURS; Duration: 30 DAY(S) *Please review and pick correct strength-formula tion from Medispan options. If intended option is not shown, discontinue and re-order from Quick Search* Active Atorvastatin Calcium 40 MG Tablet 1 tab(s) orally once a day; Duration: 30 day(s) 0 Active Sildenafil Citrate *Please review and pick correct strength-formula tion from Medispan options. If intended option is not shown, discontinue and re-order from Quick Search* Active Aspirin Low Strength *Please review and pick correct strength-formula tion from Medispan options. If intended option is not shown, discontinue and re-order from Quick Search* Active Bactrim 400 MG-80 MG TABLET DIRECTED ORALLY DAILY *Please review and pick correct strength-formula tion from Medispan options. If intended option is not shown, discontinue and re-order from Quick Search* Active Social History Sex Observation Social History Observation Description Sex Observation Male Encounters Date Time Type Facility Location Provider Diagnosis 01/24/2025 09:30 PM Office Visit [facility] [address] [place] [address] Provider Migration Plan Of Treatment No Information Medical (General) History Medical History History ICD Code Mantle Cell Lymphoma hyperlipidemia Surgical History Surgery Date(Month/Year) Button TURP 2013 acoustic neuroma - gamma knife 1999 knee arthroscopy Progress Notes * Matt HOFFMANDOB:1944 (80 yo M)Acc No.[id number]:01/24/2025 Patient: Matt Hoffman Provider: Provider Migration :1945 Age:79 Y Sex:Male Date:01/24/2025 [place] [facility] Pcp:Shirley DO NOT USE David Quintanilla Subjective: * Chief Complaints: * Multum To Medispan Conversion Encounter * Medications: TakingBactrim 400 MG-80 MG TABLET DIRECTED ORALLY DAILY , Notes to Pharmacist: *Please review and pick correct strength-formulation from Medispan options. If intended option is not shown, discontinue and re-order from Quick Search*Bactrim 400 MG-80 MG TABLET DIRECTED ORALLY DAILY , Notes to Pharmacist: *Please review and pick correct strength-formulation from Medispan options. If intended option is not shown, discontinue and re-order from Quick Search*[id number] Low Strength , Notes to Pharmacist: *Please review and pick correct strength-formulation from Medispan options. If intended option is not shown, discontinue and re-order from Quick Search*Aspirin Low Strength , Notes to Pharmacist: *Please review and pick correct strength-formulation from Medispan options. If intended option is not shown, discontinue and re-order from Quick Search*[id number] Citrate , Notes to Pharmacist: *Please review and pick correct strength-formulation from Medispan options. If intended option is not shown, discontinue and re-order from Quick Search*Sildenafil Citrate , Notes to Pharmacist: *Please review and pick correct strength-formulation from kinkonspan options. If intended option is not shown, discontinue and re-order from Quick Search*[id number] Calcium 40 MG Tablet 1 tab(s) orally once a day Atorvastatin Calcium 40 MG Tablet 1 tab(s) orally once a day [id number] 100 MG CAPSULE 1 CAP(S) ORALLY EVERY 12 HOURS , Notes to Pharmacist: *Please review and pick correct strength-formulation from Medispan options. If intended option is not shown, discontinue and re-order from Quick Search*Calquence 100 MG CAPSULE 1 CAP(S) ORALLY EVERY 12 HOURS , Notes to Pharmacist: *Please review and pick correct strength-formulation from kinkonspan options. If intended option is not shown, discontinue and re-order from Quick Search*[id number] Bactrim 400 MG-80 MG TABLET DIRECTED ORALLY DAILY , Notes to Pharmacist: *Please review and pick correct strength-formulation from kinkonspan options. If intended option is not shown, discontinue and re-order from Quick Search*Taking Aspirin Low Strength , Notes to Pharmacist: *Please review and pick correct strength-formulation from kinkonspan options. If intended option is not shown, discontinue and re-order from Quick Search*Taking Sildenafil Citrate , Notes to Pharmacist: *Please review and pick correct strength-formulation from kinkonspan options. If intended option is not shown, discontinue and re-order from Quick Search*Taking Atorvastatin Calcium 40 MG Tablet 1 tab(s) orally once a day Taking Calquence 100 MG CAPSULE 1 CAP(S) ORALLY EVERY 12 HOURS , Notes to Pharmacist: *Please review and pick correct strength- formulation from kinkonspan options. If intended option is not shown, discontinue and re-order from Quick Search* * Electronic signature of Prov ider Migration on 11/17/2025 at 01:50 PM EST Sign off status: Pending * Provider: Provider Migration Date: 01/24/2025 Generated for Wood restrepo/Yuan/Bud on: 11/17/2025 01:50 PM EST
--- NOTE | 2025-11-17 10:32 | A.OFFVIS_ITS ---
Vital Signs 11/17/25 10:35 Height 5 ft 8 in Weight 158 lb 11.725 oz BMI 24.1 BP 116/68 Blood Pressure Location Rt brachial Position Sitting Pulse 84 Pulse Source Pulse Oximeter Pulse Oximetry (%) 98 Oxygen Delivery Method Room Air Intake Visit Reasons: Nontoxic single thyroid nodule Intake Note: NEW Patient presents today to establish care for Nontoxic Single Thyroid Nodule: * Thyroid Ultrasound: Completed on 08/18/2025 Sandblasting Supervisor Required: No Accompanied by: Self / Same As Patient Allergies No Known Allergies Allergy (Verified 11/17/25 10:34) Do you need a note to return to daycare/school/sports/work: No HPI Comments Details: 80 years old male with past medical history of in formalin, previous TIA, elevated PSA, bladder diverticulum, hydroureteronephrosis, seen in the office for initial evaluation and management of thyroid nodules. Reports a history of a thyroid nodule, which was drained approximately 30-40 years ago. An ultrasound was performed about three months ago to investigate an unspecified issue, which led to the discovery of a thyroid nodule. Also reports recent episodes of weakness and near-syncope. Reports two recent episodes of significant weakness. The first occurred approximately three months ago after returning from a trip to [place], where they experienced a syncopal episode at [facility], leading to a hospital evaluation which was unrevealing. The second episode occurred recently after returning from the [facility], where they required a wheelchair at both airports due to profound leg weakness. They have been feeling better since returning [facility], attributing the symptoms to dehydration and increased water intake. Also reports dysphagia, particularly with medications and solid foods like meat, chicken, and rice. This can cause an immediate coughing fit with phlegm production, sometimes requiring them to leave the table during meals. 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 Had an upper endoscopy and colonoscopy approximately 30 years ago for esophageal issues, which were treated with a balloon procedure. Family history is significant for esophageal cancer (mother), diabetes with complications including foot and knee amputation (father), and sudden from stroke (older brother). No known allergies. Physical exam: General: Well appearing. NAD. Neck/Thyroid: Thyroid not palpable, no nodules. Eyes: No conjunctival injection, not lid lag or proptosis CV: RRR, no murmur. No edema. Resp:Lungs clear to auscultation bilaterally Abdomen: Soft, nontender. nondistended Extremities/Neuro: No weakness or tremor of outstretched hands Laboratory Tests 01/26/25 08:19 TSH 3.54 US thyroid 08/18/25 FINDINGS: SIZE: The right thyroid lobe measures 4.9 x 1.7 x 1.3 cm. The left thyroid lobe measures 4.1 x 1.5 x 1.1 cm. The isthmus measures 3 mm. FLOW: Flow to the gland is normal. ECHOGENICITY: The echotexture of the gland is homogeneous. NODULES: A 9 mm cyst is seen at the lower pole of the left thyroid lobe. Additional nodules are noted as described below: Nodule #: 1 Location: Midportion of the left thyroid lobe measuring 1.5 x 1.1 x 0.8 cm. Shape: Wider than tall (0 points) Margins: Smooth (0 points) Echotexture: Hypoechoic (2 points) Composition: Mixed (1 point) Calcifications: None (0 points) Total points: 3 TIRADS: TR3: Mildly suspicious. Nodule #: 2 Location: Isthmus measuring 3 x 3 x 2 mm. Shape: Wider than tall (0 points) Margins: Ill-defined (0 points) Echotexture: Hypoechoic (2 points) Composition: Mostly solid (2 points) Calcifications: None (0 points) Total points: 4 TIRADS: TR4: Moderately suspicious. IMPRESSION: Thyroid nodules as described. Follow-up of the dominant nodule in the midportion of the left thyroid lobe is recommended. 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 Deafness in right ear Enlarged prostate MCL (mantle cell lymphoma) Family History Father Diabetes Mother Esophageal cancer Social History Housing: Apartment Patient Tobacco Use Status: Former Tobacco user e-Cigarette/Vaping Use: Never Used service: Yes Current occupational status: retired Current occupational exposures/hazards: No Cognitive needs: No Hearing needs: Yes Vision needs: Yes Physical Exam Vital Signs: Last Vital Signs Pulse 84 11/17/25 10:35 BP 116/68 11/17/25 10:35 Pulse Ox 98 11/17/25 10:35 Oxygen Delivery Method Room Air 11/17/25 10:35 BMI result Body Mass Index 24.1 Assessment & Plan Assessment & Plan (1) Thyroid nodule: Code(s): E04.1 - Nontoxic single thyroid nodule Category: Medical Plan: A thyroid nodule measuring approximately 1.5 cm was identified on a recent ultrasound. While the size is not large, it meets criteria for further evaluation via biopsy to rule out malignancy, especially given the history of radiation exposure. Given normal TSH, suspicion for toxic nodule is low. Investigations planned: - Fine-needle aspiration biopsy of the thyroid nodule. Plan 30 minutes spent reviewing previous records, labs, imaging, education and documenting in the chart Orders: Orders US biopsy thyroid Today E04.1 - Nontoxic single thyroid nodule Coding Level of Care Code Add On Problem Visit Only Diagnoses Thyroid nodule E04.1
[2025-11-17 10:35] VITALS: BP 116/68; PULSE 84; O2SAT 98; BMI 24.1
--- OUTSIDE RECORDS SUMMARY | 2025-11-17 13:51 | XMS_ITS | Encounter Summary ---
Author Organization [facility] Address [address] [facility] [address] [place] [address] Phone Care Team Providers Care Embedded Systems Developer Name Role Phone Claudette Junior MD Unavailable [phone] Jennie Arellano MD, MPH Unavailable [phone] Jhoan Padilla MD Unavailable [phone] Shirley Quintanilla MD Primary Care Provider [phone] Claudette Junior MD Primary Care Provider [phone] Aj Bustos MD Unavailable [phone] Aj Bustos MD Primary Care Provider Reason for Visit * Reason Comments Medication Refill Encounter Details Date Type Department Care Team (Late st Contact Info) Description 05/26/2023 Refill [facility] for Lymph[facility], Division of Hematologic Oncology, [facility] [place] [address] [facility], 7th [place] [address] Lucia Isaac, [facility] 450 [place] [address] [email or web address] Medication Refill Social History Tobacco Use [...] 12/15/2025 10:15 AM EST Blood Draw Claire [facility] Imaging Department, [facility], Imaging Bicqv-ng-Hajx [address] [place] [address], Floor [address]1 [place] [address] Claudette Junior MD [address] [place] [phone] [email or web address] 12/15/2025 11:45 AM EST Appointment Claire [facility] Imaging Department, [facility], PET/CT [address] [place] [address] Lucia Isaac DNP [address] [place] [address] [email or web address] Claudette Junior MD [address] [place] [phone] [email or web address] 12/15/2025 2:00 PM EST Office Visit [facility] for Lymphoma, Division of Hematologic Oncology, [address], [address]th [place] [address] Claudette Junior MD [address] [place] [address] [email or web address] documented as of this encounter Visit Diagnoses Not on filedocumented in this encounter Care Teams Embedded Systems Developer Relationship Specialty Start Date End Date Shirley Quintanilla MD [address] [place] [address] [place] [address] [email or web address] PCP - General Internal Medicine 08/14/19 10/20/24 Claudette Junior MD [address] [place] [phone] [email or web address] PCP - General Medical Oncology 10/21/24 Aj Bustos MD [address] [place] [address] [place] [address] PCP - General Family Medicine 03/02/25 Claudette Junior MD [address] [place] [phone] Zoila@[facility] Internal Medicine 06/01/15 Jennie Arellano MD, MPH [address] [place] [address] [place] [address] EDWARD@[facility] Dermatology 06/25/18 Jhoan Padilla MD [address] [place] [address] [place] [address] [email or web address] Urology 06/25/18 Aj Bustos MD [address] [place] [address] [place] [address] Family Medicine 03/02/25 03/02/25 documented as of this encounter Additional Source Comments The information contained in this document represents components of the legal health record. It is not the complete legal health record.[facility]
--- OUTSIDE RECORDS SUMMARY | 2025-11-17 13:51 | XMS_ITS | Encounter Summary ---
Author Organization [facility] Address [address] [facility] [facility] [address] [place] [address] Phone Care Team Providers Care Risk Modeler Name Role Phone Shirley Quintanilla MD Primary Care Provider + [phone] Shirley Quintanilla MD Unavailable [phone] Claudette Junior MD Unavailable [phone] Shirley Quintanilla MD Unavailable [phone] Claudette Junior MD Unavailable [phone] Shirley Quintanilla MD Unavailable [phone] Bozena Means MD Unavailable [phone] Jennie Arellano MD, MPH Unavailable [phone] Jhoan Padilla MD Unavailable [phone] Shirley Quintanilla MD Primary Care Provider + [phone] Claudette Junior MD Primary Care Provider [phone] Aj Bustos MD Unavailable [phone] Aj Bustos MD Primary Care Provider Encounter Details Date Type Department Care Team (Late st Contact Info) Description 12/26/2016 Procedure Pass [facility] [address] [place] [address] Social History Tobacco Use Types Packs/Day [...] Description 12/15/2025 10:15 AM EST Blood Draw [facility] Imaging Department, [facility], Imaging Vqpwo-ds-Hxgg [address] [facility], [address] [place] [address] Claudette Junior MD [address] [place] [address] [email or web address] 12/15/2025 11:45 AM EST Appointment [facility] Imaging Department, [facility], PET/CT [address] [place] [address] Lucia Isaac DNP [address] [place] [address] [email or web address] Claudette Junior MD [address] [place] [address] [email or web address] 12/15/2025 2:00 PM EST Office Visit [facility], Division of Hematologic Oncology, [address], 7th [place] [address] Claudette Junior MD [address] [place] [address] [email or web address] documented as of this encounter Visit Diagnoses Not on filedocumented in this encounter Care Teams Risk Modeler Relationship Specialty Start Date End Date Shirley Quintanilla MD PCP - General Internal Medicine 06/01/15 08/13/19 Shirley Quintanilla MD PCP - General Internal Medicine 08/14/19 10/20/24 Claudette Junior MD [address] [place] [address] [email or web address] PCP - General Medical Oncology 10/21/24 03/01/25 Aj Bustos MD [address] [place] [address] [place] [address] PCP - General Family Medicine 03/02/25 Shirley Quintanilla MD [email or web address] Internal Medicine 06/01/15 12/12/17 Claudette Junior MD [address] [place] [address] [email or web address] Internal Medicine 06/01/15 Shirley Quintanilla MD .[email or web address] Internal Medicine 06/01/15 12/12/17 Claudette Junior MD [address] [place] [address] [email or web address] Internal Medicine 06/01/15 12/12/17 Shirley Quintanilla MD Internal Medicine 06/01/15 12/12/17 Bozena Means MD [address] [place] [address] Referring Physician Hematology 05/01/16 06/24/18 Jennie Arellano MD, MPH [address] [place] [address] [place] [address] [email or web address] Dermatology 06/25/18 Jhoan Padilla MD [address] [place] [address] [place] [address] [email or web address] Urology 06/25/18 Aj Bustos MD [address] [place] [address] [place] [address] Family Medicine 03/02/25 03/02/25 documented as of this encounter Additional Source Comments The information contained in this document represents components of the legal health record. It is not the complete legal health record.[facility]
--- OUTSIDE RECORDS SUMMARY | 2025-11-17 13:51 | XMS_ITS | Patient Health Record ---
Author Organization [facility] Address [address] [place] [address] Care Team Providers Care Hot Box Spotter Name Role Phone Shirley Quintanilla MD Primary Care Provider TONE Marquez Unavailable [phone] Allergies No Known Allergies Reason For Referral [...] W/U Status Risk Notes Problem Chronic pain (46997020) Other chronic pain (G89.29) Active confirmed Problem Contracture of right knee joint (disorder) (609943090617995) Contracture, right knee (M24.561) Active confirmed Problem Arthralgia of the ankle and/or foot (451128517) Pain in right ankle and joints of right foot (M25.571) Active confirmed Problem Osteoarthritis of knee (089355042) Primary osteoarthritis of right knee (M17.11) Active confirmed Problem Acquired trigger finger (1104781) Trigger finger of right thumb (M65.311) Active confirmed Problem Closed nondisplaced avulsion fracture of tuberosity of right calcaneus with routine healing, subsequent encounter (S92.034D) Active confirmed Problem Open fracture of calcaneus (16470406) Open nondisplaced avulsion fracture of tuberosity of right calcaneus, initial encounter (S92.034B) Active confirmed Plan Of Treatment No Information Insurance Providers Payer Name Payer Address Payer Phone Subscriber Number Group Number Insured Name Patient Relationship to Insured Coverage Start Date Coverage End Date Medicare [address] [place] [address] [id number] Matt Schmidt am Self - patient is the insured Medex [address] [place] [address] [id number] Matt Schmidt am Self - patient is [...]
--- OUTSIDE RECORDS SUMMARY | 2025-11-17 13:51 | XMS_ITS | Encounter Summary ---
Author Organization [facility] Address [address] [address] [place] [address] Phone Care Team Providers Care Online Media Buyer Name Role Phone Claudette Junior MD Unavailable [phone] Jennie Arellano MD, MPH Unavailable [phone] Jhoan Padilla MD Unavailable Shirley Quintanilla MD Primary Care Provider [phone] Claudette Junior MD Primary Care Provider [phone] Aj Bustos MD Unavailable [phone] Aj Bustos MD Primary Care Provider Reason for Visit * Reason Comments Medication Refill Encounter Details Date Type Department Care Team (Late st Contact Info) Description 01/18/2022 Refill [facility], Division of Hematologic Oncology, [facility] [address] [place] [address], 7th [place] [address] Alicia Bates NP [address] [place] [address] [email or web address] Medication Refill Social History [...] Description 12/15/2025 10:15 AM EST Blood Draw [facility] Imaging Department, [facility], Imaging Dxciz-pm-Ckud [address] [facility], [address] [place] [address] Claudette Junior MD [address] [place] [address] [email or web address] 12/15/2025 11:45 AM EST Appointment Claire [facility] Imaging Department, [facility], PET/CT [address] [place] [address] Lucia Isaac DNP [address] [place] [address] [email or web address] Claudette Junior MD [address] [place] [address] [email or web address] 12/15/2025 2:00 PM EST Office Visit [facility], Division of Hematologic Oncology, [address], 7th [place] [address] Claudette Junior MD [address] [place] [address] [email or web address] documented as of this encounter Visit Diagnoses Not on filedocumented in this encounter Care Teams Online Media Buyer Relationship Specialty Start Date End Date Shirley Quintanilla MD [address] [place] [address] [place] [address] [email or web address] PCP - General Internal Medicine 08/14/19 10/20/24 Claudette Junior MD [address] [place] [address] [email or web address] PCP - General Medical Oncology 10/21/24 Aj Bustos MD [address] [place] [address] [place] [address] PCP - General Family Medicine 03/02/25 Claudette Junior MD [address] [place] [address] [email or web address] Internal Medicine 06/01/15 Jennie Arellano MD, MPH [address] [place] [address] [place] [address] [email or web address] Dermatology 06/25/18 Jhoan Padilla MD [address] [place] [address] [place] [address] [email or web address] Urology 06/25/18 Aj Bustos MD [address] [place] [address] [place] [address] Family Medicine 03/02/25 03/02/25 documented as of this encounter Additional Source Comments The information contained in this document represents components of the legal health record. It is not the complete legal health record.[facility]
--- OUTSIDE RECORDS SUMMARY | 2025-11-17 13:51 | XMS_ITS | Patient Health Record ---
Author Organization [facility] Address [address] [place] [address] Phone [phone] Care Team Providers Care Lemon Grower Name Role Phone DO NOT USE Shirley Quintanilla MD Primary Care Provider Unavailable PHYLLIS REYES, ANGELA Unavailable [phone] Migration, Provider Unavailable Unavailable Allergies No Known Allergies Reason For Referral No Information Medications Medication SIG (Take, Route, Frequency, Duration) Notes Start Date End Date Diagnosis (ICD Code) Status Calquence 100 MG CAPSULE 1 CAP(S) ORALLY EVERY 12 HOURS; Duration: 30 DAY(S) *Please review and pick correct strength-formula tion from [employer] options. If intended option is not shown, discontinue and re-order from Quick Search* Active Atorvastatin Calcium 40 MG Tablet 1 tab(s) orally once a day; Duration: 30 day(s) 0 Active Sildenafil Citrate *Please review and pick correct strength-formula tion from [employer] options. If intended option is not shown, discontinue and re-order from Quick Search* Active Aspirin Low Strength *Please review and pick correct strength-formula tion from [employer] options. 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) Added On:04/05 Active confirmed Problem Retention of urine (540830200) Other retention of urine (R33.8) Added On:03/29 Active confirmed Problem 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) Added On:04/05 Active confirmed Problem Lower urinary tract symptoms due to benign prostatic hypertrophy (95381802391894) Benign prostatic hyperplasia with lower urinary tract symptoms (N40.1) Added On:09/06 Active confirmed Problem Incomplete emptying of bladder (887945943) Feeling of incomplete bladder emptying (R39.14) Added On:06/29 Active confirmed Encounters Date Time Type Facility Location Provider Diagnosis 01/24/2025 09:30 PM Office Visit [facility] [address] [place] [address] Provider Migration Plan Of Treatment Pending Test [...] End Date MEDICARE [address] [place] [address] [id number] Matt Schmidt am Self - patient is the insured BC - [employer] [address] [place] [address] [phone] [id number] Matt Schmidt am Self - patient is the insured Medical (General) History Medical History History ICD Code Mantle Cell Lymphoma hyperlipidemia Surgical History Surgery Date(Month/Year) Button TURP 2013 acoustic neuroma - gamma knife 1999 knee arthroscopy
--- OUTSIDE RECORDS SUMMARY | 2025-11-17 13:51 | XMS_ITS | Clinical Summary ---
Author Organization [facility] Address [address] [facility] [address] [place] [address] Phone Care Team Providers Care Network Support Administrator Name Role Phone Claudette Junior MD Unavailable [phone] Jennie Arellano MD, MPH Unavailable [phone] Jhoan Padilla MD Unavailable [phone] Aj Bustos MD Primary Care Provider Allergies [...] attack 11/07/2021 Coronary artery disease invo lving [place] coronary artery of [place] heart without angina pectoris 11/07/2021 Mantle cell [...] but he will discuss this with his nutrition worker. H/O lymphoma 05/04/2010 Overview (01/09/2015): H/O [...] [facility] Division [facility]ematologic Oncology, [facility] [address] [facility], 7th [place] [address] Lucia Isaac DNP 09/08/2025 10:30 AM EDT Office Visit [facility], Division of Hematologic Oncology, [facility] [address] [facility] [address] [facility], 7th [place] [address] Lucia Isaac DNP Mantle cell lymphoma, unspecified body region (Primary Dx) 08/27/2025 Refill [facility], Division of Hematologic Oncology, [facility] [address] [place] [address], 7th [place] [address] Lucia Isaac DNP Medication Refill from Last 3 Months Immunizations Immunization Administration Dates Next Due COVID-19 (Pre-09/10) Pfizer Vaccine, mRNA, PF 08/24/2023,08/10/2021 Cholera, unspecified formulation 07/01/1986,10/19,01/10/1983 DTaP, unspecified formulation 09/22/2010, 009 [id number] FORMULATION 10/16/2009 Hepatitis A, Adult 04/08/2008 Hib, [...] EST Blood Draw [facility] Imaging Department, [facility], Imaging Ggugg-vu-Hyti [address] [place] [address], Floor [address]1 [place] [address] Claudette Junior MD [address] [place] [address] [email or web address] 12/15/2025 11:45 AM EST Appointment Claire [facility] Imaging Department, [facility], PET/CT [address] [place] [address] Lucia Isaac DNP [address] [place] [address] [email or web address] Claudette Junior MD [address] [place] [address] [email or web address] 12/15/2025 2:00 PM EST Office Visit [facility], Division of Hematologic Oncology, [address], 7th [place] [address] Claudette Junior MD [address] [place] [address] [email or web address] Health Maintenance Due Date Last [...] * [facility] (09/08/2025 10:02 AM EDT) Pathologist [facility] LDH 153 135 - 225 U/L [facility] Blood 09/08/2025 10:0 2 AM EDT 09/08/2025 10:34 AM EDT us Lucia Isaac DNP LAB BLOOD BKR ORDERABLES Final Result [facility] [address] [place] [address] * (ABNORMAL) Comprehensive metabolic panel (09/08/2025 10:02 AM EDT) SODIUM 144 136 - 145 mmol/L [facility] POTASSIUM 4.6 3.4 - 5.1 mmol/L [facility] CHLORIDE 110(H) 98 - 107 mmol/L [facility] CO2 21(L) 22 - 31 mmol/L [facility] BUN 18 6 - 23 mg/dL [facility] CREATININE 1.59(H) 0.50 - 1.20 mg/dL [facility] GLUCOSE 76 70 - 100 mg/dL [facility] ALBUMIN 4.3 3.5 - 5.2 g/dL [facility] TOTAL PROTEIN 5.9(L) 6.4 - 8.3 g/dL [facility] CALCIUM 9.0 8.8 - 10.7 mg/dL [facility] ALKALINE PHOSPHATASE 72 40 - 129 U/L [facility] TOTAL BILIRUBIN 0.5 0.2 - 1.2 mg/dL [facility] AST 14 <41 U/L [facility] ALT 14 <42 U/L [facility] GLOBULIN 1.6(L) 2.3 - 4.2 g/dL [facility] EGFR 43(L) >59 mL/min/1.7 3m2 [facility] Comment:Estimated glomerular filtration rate calculated using the CKD-EPI refit equation. ANION GAP 13 7 - 17 mmol/L [facility] Blood 09/08/2025 10:0 2 AM EDT 09/08/2025 10:34 AM EDT us Lucia Isaac DNP LAB BLOOD BKR ORDERABLES Final Result [facility] [address] [place] [address] * (ABNORMAL) CBC and differential (09/08/2025 10:02 AM EDT) WBC 20.83(H) 4.00 - 10.00 K/uL [facility] RBC 3.66(L) 4.50 - 6.40 M/uL [facility] HGB 11.4(L) 13.5 - 18.0 g/dL [facility] HCT 34.7(L) 40.0 - 54.0 % [facility] PLT 78(L) 150 - 450 K/uL [facility] MCV 94.8 80.0 - 100.0 fL [facility] MCH 31.1 27.0 - 32.0 pg [facility] MCHC 32.9 32.0 - 36.0 g/dL [facility] RDW 14.6(H) 11.5 - 14.5 % [facility] MPV 10.5 8.4 - 12.0 fL [facility] NRBC 0.00 0 /100 WBCs [facility] ABSOLUTE NRBC 0.00 0 K/uL [facility] DIFF METHOD MANUAL [facility] NEUTS (MANUAL) 9.2(L) 48.0 - 76.0 % [facility] LYMPHS 87.0(H) 18.0 - 41.0 % [facility] MONOS 3.8(L) 4.0 - 11.0 % [facility] EOSINOPHIL 0.0 0.0 - 5.0 % [facility] BASOPHIL 0.0 0.0 - 1.5 % [facility] BLASTS 0.0 0 % [facility] ABSOLUTE NEUTS 1.92 1.92 - 7.60 K/uL [facility] ABSOLUTE LYMPHS 18.12(H) 0.72 - 4.10 K/uL [facility] ABSOLUTE MONOS 0.79 0.16 - 1.10 K/uL [facility] ABSOLUTE EOS 0.00 0.00 - 0.50 K/uL [facility] ABSOLUTE BASO 0.00 0.00 - 0.15 K/uL [facility] ABSOLUTE BLASTS 0.00 0 K/uL [facility] ROGERIO CELLS Few [facility] POIKILOCYTOSIS Few [facility] OVALOCYTES Few [facility] Blood 09/08/2025 10:0 2 AM EDT 09/08/2025 10:34 AM EDT us Lucia Isaac DNP LAB BLOOD BKR ORDERABLES Final Result Performing Organization Address City/State/[facility] Co de Phone Number [facility] [address] [place] [address] * ENDOSCOPY, COLON (01/18/2010 2:59 PM EST) 01/18/2010 2:59 PM EST Narrative 01/18/2010 2:59 PM EST Report Number: [id number] Report Status: Signed Type: COLONOSCOPY Date: 01/18/2010 14:59 [facility] Gastroenterology Patient Name: [...] - 01/18/2010 2:59 PM EST Report Number: [id number] Report Status: Signed Type: COLONOSCOPY Date: 01/18/2010 14:59 [facility] Gastroenterology Patient Name: Matt Hoffman Gender: David Procedure Date: 01/18/2010 9:15 AM Date of : 1945 Age: 64 Room: 11 Note Status: Finalized Attending MD: DARIO HERNANDEZ M.D. (Prts), M.P.H. Procedure: Colonoscopy Indications: High risk colon cancer surveillance: Personal history of colonic polyps Providers: DARIO HERNANDEZ M.D. (Prts), M.P.H., Dominique Kratf RN Referring MD: JOVAN CHRISTINE M.D. Medicines: [...] Maintenance Insurance MEDICARE PART A & B [facility] MEDEX SUPPLEMENT MEDICARE PART A & B [employer] CROSS MEDEX SUPPLEMENT MEDICARE PART A & B [employer] CROSS MEDEX SUPPLEMENT MEDICARE PART A & B [employer] SUPPLEMENT MEDICARE PART A & B [employer]UE [employer] MEDEX SUPPLEMENT MEDICARE PART A & B [employer] MEDEX SUPPLEMENT MEDICARE PART A & B [employer] CROSS MEDEX SUPPLEMENT (Home) [address] [facility], [address] [address] MEDICARE PART A & B [employer] MEDEX SUPPLEMENT MEDICARE PART A & B [employer] MEDEX SUPPLEMENT Care Teams Network Support Administrator Relationship Specialty Start Date End Date Aj Bustos MD [address] [place] [address] [place] [address] PCP - General Family Medicine 03/02/25 Claudette Junior MD [address] [place] [address] [email or web address] Internal Medicine 06/01/15 Jennie Arellano MD, MPH [address] [place] [address] [place] [address] [email or web address] Dermatology 06/25/18 Jhoan Padilla MD [address] [place] [address] [place] [address] [email or web address] Urology 06/25/18 Additional Source Comments The information contained in this document represents components of the legal health record. It is not the complete legal health record.[facility]
--- OUTSIDE RECORDS SUMMARY | 2025-11-17 13:51 | XMS_ITS ---
Author Organization [facility] Address [address] [place] [address] Phone Care Team Providers Care Statistical Modeler Name Role Phone Claudette Junior MD Unavailable [phone] Jennie Arellano MD, MPH Unavailable Jhoan Padilla MD Unavailable [phone] Aj Bustos MD Primary Care Provider Active Problems Problem Noted Date Diagnosed Date Myopia 11/05/2023 Dupuytren's contracture of right hand 02/21/2023 Transient ischemic attack 11/07/2021 Coronary artery disease invo lving [place] coronary artery of [place] heart without angina pectoris 11/07/2021 Mantle cell [...] but he will discuss this with his credit card clerk. H/O lymphoma 05/04/2010 Overview (01/09/2015): H/O lymphoma [...]
--- OUTSIDE RECORDS SUMMARY | 2025-11-17 13:51 | XMS_ITS | Encounter Summary ---
Author Organization [facility] Address [address] [facility] [address] [place] [address] Phone Care Team Providers Care Personnel Associate Name Role Phone Claudette Junior MD Unavailable [phone] Jennie Arellano MD, MPH Unavailable [phone] Jhoan Padilla MD Unavailable Shirley Quintanilla MD Primary Care Provider [phone] Claudette Junior MD Primary Care Provider [phone] Aj Bustos MD Unavailable +[phone] Aj Bustos MD Primary Care Provider Reason for Visit * Reason Comments Medication Refill Encounter Details Date Type Department Care Team (Late st Contact Info) Description 02/21/2024 [facility]ill [facility], Division of Hematologic Oncology, [facility] [place] [address] [facility], 7th [place] [address] Lucia Isaac, [facility] [address] [place] [address] [email or web address] Medication Refill Social History Tobacco Use Types [...] 12/15/2025 10:15 AM EST Blood Draw [facility] Imaging Department, [facility], Imaging Rkjib-ot-Mqke [address] [place] [address], Floor L1 [place] [address] Claudette Junior MD [address] [place] [address] Zoila@[email or web address] 12/15/2025 11:45 AM EST Appointment [facility] Imaging Department, [facility], PET/CT [address] [place] [address] Lucia Isaac DNP [address] [place] [address] [email or web address]@[email or web address] Claudette Junior MD [address] [place] [address] Zoila@[email or web address] 12/15/2025 2:00 PM EST Office Visit [facility], Division of Hematologic Oncology, [address], 7th [place] [address] Claudette Junior MD [address] [place] [address] Zoila@[email or web address] documented as of this encounter Visit Diagnoses Not on filedocumented in this encounter Care Teams Personnel Associate Relationship Specialty Start Date End Date Shirley Quintanilla MD [address] [place] [address] [place] [address] [email or web address] PCP - General Internal Medicine 08/14/19 10/20/24 Claudette Junior MD [address] [place] [address] [email or web address] PCP - General Medical Oncology 10/21/24 Aj Bustos MD [address] [place] [address] [place] [address] PCP - General Family Medicine 03/02/25 Claudette Junior MD [address] [place] [address] [email or web address] Internal Medicine 06/01/15 Jennie Arellano MD, MPH [address] [place] [address] [place] [address] EDWARD@[email or web address] Dermatology 06/25/18 Jhoan Padilla MD [address] [place] [address] [place] [address] [email or web address] Urology 06/25/18 Aj Bustos MD [address] [place] [address] [place] [address] Family Medicine 03/02/25 03/02/25 documented as of this encounter Additional Source Comments The information contained in this document represents components of the legal health record. It is not the complete legal health record.[facility]
--- OUTSIDE RECORDS SUMMARY | 2025-11-17 13:52 | XMS_ITS | Encounter Summary ---
Author Organization [facility] Address [address] [facility] [address] [place] [address] Phone Care Team Providers Care Retail Product Demo Specialist Name Role Phone Shirley Quintanilla MD Primary Care Provider + [phone] Shirley Quintanilla MD Unavailable [phone] Claudette Junior MD Unavailable [phone] Shirley Quintanilla MD Unavailable [phone] Claudette Junior MD Unavailable [phone] Shirley Quintanilla MD Unavailable [phone] Bozena Means MD Unavailable [phone] Jennie Arellano MD, MPH Unavailable +[phone] Jhoan Padilla MD Unavailable +[phone] Shirley Quintanilla MD Primary Care Provider + [phone] Claudette Junior MD Primary Care Provider [phone] Aj Bustos MD Unavailable [phone] Aj Bustos MD Primary Care Provider Encounter Details Date Type Department Care Team (Late st Contact Info) Description 05/01/2017 Procedure Pass [facility] Imaging Department, [facility] [place] [address] [facility], Floor [address]1 [place] [address] Social History Tobacco Use Types Packs/Day Years [...] Description 12/15/2025 10:15 AM EST Blood Draw [facility] Imaging Department, [facility], Imaging Rktnt-fn-Hils [address] [facility], Floor [address]1 [place] [address] Claudette Junior MD [address] [place] [address] Zoila@[email or web address] 12/15/2025 11:45 AM EST Appointment [facility] Imaging Department, [facility], PET/CT 450 [place] [address] Lucia Isaac DNP [address] [place] [address] [email or web address]@[email or web address] Claudette Junior MD [address] [place] [address] Zoila@[facility] 12/15/2025 2:00 PM EST Office Visit [facility], Division of Hematologic Oncology, [address], 7th [place] [address] Claudette Junior MD [address] [place] [address] Zoila@[email or web address] documented as of this encounter Visit Diagnoses Not on filedocumented in this encounter Care Teams Retail Product Demo Specialist Relationship Specialty Start Date End Date Shirley Quintanilla MD [email or web address] PCP - General Internal Medicine 06/01/15 08/13/19 Shirley Quintanilla MD [email or web address] PCP - General Internal Medicine 08/14/19 10/20/24 Claudette Junior MD [address] [place] [address] [email or web address] PCP - General Medical Oncology 10/21/24 03/01/25 Aj Bustos MD [address] [place] [address] [place] [address] PCP - General Family Medicine 03/02/25 Shirley Quintanilla MD [email or web address] Internal Medicine 06/01/15 12/12/17 Claudette Junior MD [address] [place] [address] [email or web address] Internal Medicine 06/01/15 Shirley Quintanilla MD [email or web address] Internal Medicine 06/01/15 12/12/17 Claudette Junior MD [address] [place] [address] [email or web address] Internal Medicine 06/01/15 12/12/17 Shirley Quintanilla MD [email or web address] Internal Medicine 06/01/15 12/12/17 Bozena Means MD [address] [place] [address] Referring Physician Hematology 05/01/16 06/24/18 Jennie Arellano MD, MPH [address] [place] [address] [place] [address] [email or web address] Dermatology 06/25/18 Jhoan Padilla MD [address] [place] [address] [place] [address] [email or web address] Urology 06/25/18 Aj Bustos MD [address] [place] [address] [place] [address] Family Medicine 03/02/25 03/02/25 documented as of this encounter Additional Source Comments The information contained in this document represents components of the legal health record. It is not the complete legal health record.[facility]
--- OUTSIDE RECORDS SUMMARY | 2025-11-17 13:52 | XMS_ITS | Encounter Summary ---
Author Organization [facility] Address [address] [facility] [address] [place] [address] Phone Care Team Providers Care Oil And Gas Exploration Technician Name Role Phone Caludette Junior MD Unavailable [phone] Jennie Arellano MD, MPH Unavailable [phone] Jhoan Padilla MD Unavailable Shirley Quintanilla MD Primary Care Provider [phone] Claudette Junior MD Primary Care Provider Aj Bustos MD Unavailable [phone] Aj Bustos MD Primary Care Provider Reason for Visit * Reason Comments Medication Refill Encounter Details Date Type Department Care Team (Late st Contact Info) Description 03/25/2022 Refill [facility], Division of Hematologic Oncology, [facility] [place] [address] [place] [address], 7th [place] [address] Alicia Bates NP [address] [place] [address] [email or web address] Medication Refill Social History Tobacco Use Types [...] Description 12/15/2025 10:15 AM EST Blood Draw [facility] Imaging Department, [facility], Imaging Scbsc-or-Ryzk [address] [facility], Floor [address]1 [place] [address] Claudette Junior MD [address] [place] [address] [email or web address] 12/15/2025 11:45 AM EST Appointment [facility] Imaging Department, [facility], PET/CT [address] [place] [address] Lucia Isaac DNP [address] [place] [address] [email or web address]@[email or web address] Claudette Junior MD [address] [place] [address] Zoila@[email or web address] 12/15/2025 2:00 PM EST Office Visit [facility], Division of Hematologic Oncology, [address], 7th [place] [address] Claudette Junior MD [address] [place] [address] [email or web address] documented as of this encounter Visit Diagnoses Not on filedocumented in this encounter Care Teams Oil And Gas Exploration Technician Relationship Specialty Start Date End Date Shirley Quintanilla MD [address] [place] [address] [place] [address] [email or web address] PCP - General Internal Medicine 08/14/19 10/20/24 Claudette Junior MD [address] [place] [address] [email or web address] PCP - General Medical Oncology 10/21/24 Aj Bustos MD [address] [place] [address] [place] [address] PCP - General Family Medicine 03/02/25 Claudette Junior MD [address] [place] [address] Zoila@[email or web address] Internal Medicine 06/01/15 Jennie Arellano MD, MPH [address] [place] [address] [place] [address] EDWARD@[email or web address] Dermatology 06/25/18 Jhoan Padilla MD [address] [place] [address] [place] [address] [email or web address] Urology 06/25/18 Aj Bustos MD [address] [place] [address] [place] [address] Family Medicine 03/02/25 03/02/25 documented as of this encounter Additional Source Comments The information contained in this document represents components of the legal health record. It is not the complete legal health record.[facility]
--- OUTSIDE RECORDS SUMMARY | 2025-11-17 13:52 | XMS_ITS | Encounter Summary ---
Author Organization [facility] Address [address] [facility] [address] [place] [address] Phone Care Team Providers Care Shoe Dresser Name Role Phone Shirley Quintanilla MD Primary Care Provider + [phone] Shirley Quintanilla MD Unavailable [phone] Claudette Junior MD Unavailable [phone] Shirley Quintanilla MD Unavailable [phone] Claudette Junior MD Unavailable [phone] Shirley Quintanilla MD Unavailable [phone] Bozena Means MD Unavailable [phone] Jennie Arellano MD, MPH Unavailable [phone] Jhoan Padilla MD Unavailable [phone] Shirley Quintanilla MD Primary Care Provider + [phone] Claudette Junior MD Primary Care Provider [phone] Aj Bustos MD Unavailable [phone] Aj Bustos MD Primary Care Provider Encounter Details Date Type Department Care Team (Late st Contact Info) Description 05/01/2017 Procedure Pass Claire Lank Imaging Department, [facility] [place], [place] [address] [facility], Floor [address]1 [place] [address] Social History Tobacco Use Types Packs/Day Years [...] Description 12/15/2025 10:15 AM EST Blood Draw [facility] Imaging Department, [facility], Imaging Aqjsc-oa-Trmf [address] [facility], [place] [address]1 [place] [address] Claudette Junior MD [address] [place] [address] Zoila@[facility] 12/15/2025 11:45 AM EST Appointment [facility] Imaging Department, [facility], PET/CT 450 [place] [address] Lucia Isaac DNP [address] [place] [address] Merced@[email or web address] Claudette Junior MD [address] [place] [address] Zoila@[email or web address] 12/15/2025 2:00 PM EST Office Visit [facility], Division of Hematologic Oncology, [address], 7th [place] [address] Claudette Junior MD [address] [place] [address] Zoila@[email or web address] documented as of this encounter Visit Diagnoses Not on filedocumented in this encounter Care Teams Shoe Dresser Relationship Specialty Start Date End Date Shirley Quintanilla MD [email or web address] PCP - General Internal Medicine 06/01/15 08/13/19 Shirley Quintanilla MD [email or web address] PCP - General Internal Medicine 08/14/19 10/20/24 Claudette Junior MD [address] [place] [address] [email or web address] PCP - General Medical Oncology 10/21/24 03/01/25 Aj Bustos MD [address] [place] [address] [place] [address] PCP - General Family Medicine 03/02/25 Shirley Quintanilla MD [email or web address] Internal Medicine 06/01/15 12/12/17 Claudette Junior MD [address] [place] [address] [email or web address] Internal Medicine 06/01/15 Shirley Quintanilla MD [email or web address] Internal Medicine 06/01/15 12/12/17 Claudette Junior MD [address] [place] [address] [email or web address] Internal Medicine 06/01/15 12/12/17 Shirley Quintanilla MD [email or web address] Internal Medicine 06/01/15 12/12/17 Bozena Means MD [address] [place] [address] Referring Physician Hematology 05/01/16 06/24/18 Jennie Arellano MD, MPH [address] [place] [address] [place] [address] [email or web address] Dermatology 06/25/18 Jhoan Padilla MD [address] [place] [address] [place] [address] [email or web address] Urology 06/25/18 Aj Bustos MD [address] [place] [address] [place] [address] Family Medicine 03/02/25 03/02/25 documented as of this encounter Additional Source Comments The information contained in this document represents components of the legal health record. It is not the complete legal health record.[facility]
--- OUTSIDE RECORDS SUMMARY | 2025-11-17 13:52 | XMS_ITS | Encounter Summary ---
Author Organization [facility] Address [address] [facility] [address] [place] [address] Phone Care Team Providers Care Mold Inspector Name Role Phone Claudette Junior MD Unavailable [phone] Jennie Arellano MD, MPH Unavailable Jhoan Padilla MD Unavailable Aj Bustos MD Primary Care Provider Reason for Visit * Reason Comments Medication Refill Encounter Details Date Type Department Care Team (Late st Contact Info) Description 08/27/2025 Refill [facility], Division of Hematologic Oncology, [facility] [place] 450 [facility], 7th [place] [address] Lucia Isaac, [facility] 450 [place] [address] [email or web address] Medication Refill Social History Tobacco Use Types [...] Description 12/15/2025 10:15 AM EST Blood Draw [facility] Imaging Department, [facility], Imaging Snfgl-hf-Whfr [address] [facility], Floor [address]1 [place] [address] Claudette Junior MD [address] [place] [address] [email or web address] 12/15/2025 11:45 AM EST Appointment [facility] Imaging Department, [facility], PET/CT 450 [place] [address] Lucia Isaac DNP [address] [place] [address] Merced@[email or web address] Claudette Junior MD [address] [place] [address] Zoila@[email or web address] 12/15/2025 2:00 PM EST Office Visit [facility] for Lymph[facility], Division of Hematologic Oncology, [address], 7th [place] [address] Claudette Junior MD [address] [place] [address] [email or web address] documented as of this encounter Visit Diagnoses Not on filedocumented in this encounter Care Teams Mold Inspector Relationship Specialty Start Date End Date Aj Bustos MD [address] [place] [address] [place] [address] PCP - General Family Medicine 03/02/25 Claudette Junior MD [address] [place] [address] [email or web address] Internal Medicine 06/01/15 Jennie Arellano MD, MPH [address] [place] [address] [place] [address] EDWARD@[email or web address] Dermatology 06/25/18 Jhoan Padilla MD [address] [place] [address] [place] [address] [email or web address]. Urology 06/25/18 documented as of this encounter Additional Source Comments The information contained in this document represents components of the legal health record. It is not the complete legal health record.[facility]
--- OUTSIDE RECORDS SUMMARY | 2025-11-17 13:52 | XMS_ITS | Encounter Summary ---
Author Organization [facility] Address [address] [facility] [address] [place] [address] Phone Care Team Providers Care Lube Worker Name Role Phone Claudette Junior MD Unavailable [phone] Jennie Arellano MD, MPH Unavailable [phone] Jhoan Padilla MD Unavailable [phone] Shirley Quintanilla MD Primary Care Provider [phone] Claudette Junior MD Primary Care Provider [phone] Aj Bustos MD Unavailable [phone] Aj Bustos MD Primary Care Provider Reason for Visit * Reason Comments Medication Refill Encounter Details Date Type Department Care Team (Late st Contact Info) Description 02/09/2023 Refill [facility], Division of Hematologic Oncology, [facility] [place] [address] [place] [address], 7th [place] [address] Telly Parsons, COLD WORKING INSPECTOR [address] [place] [address] [email or web address] Medication Refill Social History Tobacco Use [...] Description 12/15/2025 10:15 AM EST Blood Draw [facility] Imaging Department, [facility], Imaging Hluiz-ce-Hgeo [address] [place] [address], Floor [address]1 [place] [address] Claudette Junior MD [address] [place] [address] Zoila@[email or web address] 12/15/2025 11:45 AM EST Appointment [facility] Imaging Department, [facility], PET/CT [address] [place] [address] Lucia Isaac DNP [address] [place] [address] [email or web address]@[email or web address] Claudette Junior MD [address] [place] [address] Zoila@[email or web address] 12/15/2025 2:00 PM EST Office Visit [facility], Division of Hematologic Oncology, [address], 7th [place] [address] Claudette Junior MD [address] [place] [address] Zoila@[email or web address] documented as of this encounter Visit Diagnoses Not on filedocumented in this encounter Care Teams Lube Worker Relationship Specialty Start Date End Date Shirley Quintanilla MD [address] [place] [address] [place] [address] [email or web address] PCP - General Internal Medicine 08/14/19 10/20/24 Claudette Junior MD [address] [place] [address] [email or web address] PCP - General Medical Oncology 10/21/24 Aj Bustos MD [address] [place] [address] [place] [address] PCP - General Family Medicine 03/02/25 Claudette Junior MD [address] [place] [address] Zoila@[email or web address] Internal Medicine 06/01/15 Jennie Arellano MD, MPH [address] [place] [address] [place] [address] EDWARD@[email or web address] Dermatology 06/25/18 Jhoan Padilla MD [address] [place] [address] [place] [address] [email or web address]. Urology 06/25/18 Aj Bustos MD [address] [place] [address] [place] [address] Family Medicine 03/02/25 03/02/25 documented as of this encounter Additional Source Comments The information contained in this document represents components of the legal health record. It is not the complete legal health record.[facility]
== END 2025-11-17 11:05 | disposition home or self-care (01) ==
LOC: HO.ENCR 10:22
PROVIDERS: PCP Family Medicine; Visit Provider Student in an Organized Health Care Education/Training Program
DX: E04.2 Nontoxic multinodular goiter (principal)
CPT/HCPCS: 99203; G2211

== ENCOUNTER → 2025-11-17 10:21 | Outpatient (BNVA) | payer MEDICARE, SELFPAY | PROVIDERS: PCP Family Medicine; Visit Provider Student in an Organized Health Care Education/Training Program | DX: E04.2 Nontoxic multinodular goiter (principal); R53.1 Weakness; R55 Syncope and collapse; Z76.89 Persons encountering health services in other specified circumstances | CPT/HCPCS: 99202 ==